=== PATIENT | male | born 1990 | race Caucasian/White ===

== ENCOUNTER 2020-10-06 12:16 | Inpatient (IN) ==
[2020-10-06] MEDS ORDERED: SODIUM CHLORIDE 0.9% 1000ML 1,000 ML IV ONE (12:39)
[2020-10-06] MEDS ORDERED: ONDANSETRON INJ 2 MG/ML 2 ML VIAL IV STA ×2 (12:39→14:51)
[2020-10-06 13:50] LABS: Basophils # (auto) 0.03 K/uL (0-0.2); Basophils % (auto) 0.3 %; Eosinophils # (auto) 0.01 K/uL (0-0.5); Eosinophils % (auto) 0.1 %; Hematocrit (blood only) 35.7 % (42-52); Hemoglobin 12.2 g/dL (14.0-18.0); Immature Granulocytes # (auto) 0.03 K/uL (0.00-0.02); Immature Granulocytes % (auto) 0.3 %; Lymphocytes # (auto) 0.86 K/uL (1.2-3.4); Lymphocytes % (auto) 7.2 %; Mean Corpuscular Hemoglobin 34.9 pg (25-34); Mean Corpuscular Hgb Conc 34.2 g/dL (32-36); Mean Platelet Volume 9.9 fL (7.4-10.4); Monocytes # (auto) 1.22 K/uL (0.11-0.59); Monocytes % (auto) 10.2 %; Neutrophils % (auto) 81.9 %; Platelet Count 180 K/uL (130-400); RDW Coefficient of Variation 14.8 % (11.5-14.5); RDW Standard Deviation 55.1 fL (36.4-46.3); White Blood Count 11.95 K/uL (4.8-10.8)
[2020-10-06 14:01] LABS: INR 2.1 (0.9-1.1); Partial Thromboplastin Ratio 1.2; Partial Thromboplastin Time 33.9 Seconds (21.0-31.0); Prothrombin Time 21.5 Seconds (9.0-12.0)
[2020-10-06 14:41] LABS: Bilirubin Direct 7.4 mg/dl (0-0.2)
[2020-10-06 14:42] LABS: Albumin Level 2.7 gm/dl (3.4-5.0); BUN Creatinine Ratio 5.7 (10-20); Bilirubin,Total 10.3 mg/dl (0.2-1); Calcium 7.6 mg/dl (8.5-10.1); Creatinine Clr Calc Pharmacy 122.1 ml/min; Est GFR (African American) 134.3; Est GFR (Non-African American) 115.9; Potassium 1.8 mmol/L (3.5-5.1); Total Protein 6.1 gm/dl (6.4-8.2)
[2020-10-06] MEDS ORDERED: IOVERSOL 100ml IV ONE (14:49)
[2020-10-06] MEDS ORDERED: MULTI-VITAMIN INFUSION 10 ML, THIAMINE HCL 100 MG, FOLIC ACID 1 MG in SODIUM CHLORIDE 0... IV ONE (14:51)
[2020-10-06] MEDS ORDERED: POTASSIUM CHLORIDE 20 MEQ/15 ML UDC PO STA ×2 (14:51→18:48)
--- NOTE | 2020-10-06 15:08 | CT Scan Report ---
ABDOMEN AND PELVIS CT WITH IV CONTRAST CT DOSE: 584.56 mGycm HISTORY: Acute epigastric abdominal pain with nausea, vomiting and jaundice. epigastric pain, vomiti ng, jaundice TECHNIQUE: Multiaxial CT images of the abdomen and pelvis were performed following the IV administrat ion of 94 cc of Optiray 320, A dose lowering technique was utilized adhering to the principles of [place] HOLLIE. COMPARISON STUDY: None. FINDINGS: The imaged inferior cardiac chambers appear unremarkable. Clear lung bases. There is no pne umatosis or pneumoperitoneum. Hepatosplenomegaly with severe hepatic steatosis. Heterogeneity of the liver without discrete hepatic mass or intrahepatic biliary ductal dilation. Patency of the hepatic a nd portal veins. Mildly distended gallbladder with mild gallbladder wall thickening. No cholelithiasi s or biliary ductal dilation. Unremarkable pancreas. Mild thickening of the adrenal glands suggestive of hyperplasia, left greater than right. There are a few prominent upper abdominal and periportal ly mph nodes are likely physiologic basis. Unremarkable kidneys. No urolith or obstructive uropathy. Partial distention of the urinary bladder w ith mild wall thickening. No aortic aneurysm. Unremarkable IVC. Recanalization of the umbilical vein. Trace abdominal pelvic ascites. Mild distal esophageal wall thickening. Trace periesophageal varices . There is no bowel obstruction. Colonic diverticulosis. There is mild wall thickening noted within t he rectum and sigmoid. There is a prominent sigmoid diverticulum noted extending towards the base of the prostate on image 392 series 3. No definitive sinus tract or fistula identified. The appendix sharla sures the upper limits of normal proximally however appears noninflamed. Unremarkable soft tissues. No acute fracture. IMPRESSION: 1. Hepatosplenomegaly with severe hepatic steatosis. Findings suggestive of portal venous hypertensio n with recanalization of the umbilical vein and trace abdominopelvic ascites. 2. Mild wall thickening of the distal sigmoid and rectum may be secondary to partial distention versu s portal colopathy. A nonspecific proctocolitis could appear similarly. 3. Mildly distended gallbladder without cholelithiasis or biliary ductal dilation. 4. Colonic diverticulosis. 5. Additional findings as above. ACT 112: Negative or not required by law. The above report was generated using voice recognition software. It may contain grammatical, syntax o r spelling errors. Electronically signed by: Magdaleno Koroma M.D. 10/06/2020 3:07 PM
[2020-10-06 15:18] LABS: Phosphorus 2.5 mg/dl (2.5-4.9)
[2020-10-06] MEDS: POTASSIUM CHLORIDE / WTR 10 MEQ/100 ML PLCT IV SCH ×4 (15:26→22:06)
--- NOTE | 2020-10-06 15:41 | Emergency Department Note ---
History of Present Illness General Chief complaint: Weakness Time Seen by Provider: 10/06/20 12:29 Source: patient Mode of arrival: EMS Limitations: no limitations History of Present Illness Maximum Pain Intensity: 3 This patient is a 30-year-old male who presents to the emergency department for evaluation of jaundice, fatigue and vomiting. Patient reports that 4 days ago, he was at [facility] with his girlfriend when they noticed in the bright lights that he seemed to be jaundiced. He states that the same day, he developed some vomiting which has been intermittent since then. He also reports abdominal swelling and pain in the right upper quadrant and epigastric region. Patient states that he feels fatigued. He does report a history of some similar stomach issues and was diagnosed with gastritis last year, which resolved with treatment. He admits that he is a regular drinker and states that he drinks 3 to 4 days/week, 3-4 drinks of rum and Coke each time. Patient denies any IV drug use. Denies any history of hepatitis. Denies excessive Tylenol use. He denies fevers, chest pain, cough or shortness of breath. Home Medications Medication Instructions Recorded Confirmed Type buspirone 7.5 mg tablet 7.5 mg PO BID 07/19/20 10/06/20 History fluoxetine 40 mg capsule 40 mg PO QAM 07/19/20 10/06/20 History ondansetron HCl 4 mg tablet 4 mg PO Q8H PRN 07/19/20 10/06/20 History Allergies Allergy/AdvReac Type Severity Reaction Status Date / Time No Known Allergies Allergy Unverified 10/06/20 14:37 Past Med/Surg History Medical History Anxiety Depression Hypokalemia Panic attacks Social History Smoking Status: Never smoker Hx Alcohol Use: Yes Alcohol type: hard liquor Alcohol Intake Frequency Comment: 3-5 X weekly Hx Substance Use: No Preferred Language: Macanese Communication Ability: Effective Report Manager Required: No Beliefs That Will Affect Care: None Current Living Situation: Significant Other current occupational status: employed Other Information That Helps Us Care for You: No Feels Safe at Home: Yes Safety Concerns: Feels Safe At This Time Physical Activity Frequency: Does not Exercise Assistive Devices: Glasses Review of Systems A total of 10 systems reviewed and were otherwise negative Physical Exam Vital Signs Vital Signs - 24 hr 10/06/20 12:24 10/06/20 12:30 10/06/20 13:07 Temperature 37.4 C Temperature Source Oral Pulse Rate 107 H 108 H 109 H Respiratory Rate 21 20 12 Respiratory Depth Normal Blood Pressure 128/82 128/82 128/79 Blood Pressure Mean 92 97 89 Pulse Oximetry 94 96 98 Oxygen Delivery Method Room Air Sepsis Recent Fever Within 48 Hours Yes Sepsis New/Unexplained Change in Mental Status No Sepsis Action Taken by Nursing No Action Required 10/06/20 13:31 10/06/20 14:01 10/06/20 14:02 Temperature Temperature Source Pulse Rate 105 H 106 H 105 H Respiratory Rate 17 14 16 Respiratory Depth Blood Pressure 127/72 122/76 Blood Pressure Mean 84 88 Pulse Oximetry Oxygen Delivery Method Sepsis Recent Fever Within 48 Hours Sepsis New/Unexplained Change in Mental Status Sepsis Action Taken by Nursing 10/06/20 14:30 10/06/20 14:31 10/06/20 15:00 Temperature Temperature Source Pulse Rate 105 H 105 H 106 H Respiratory Rate 16 18 17 Respiratory Depth Blood Pressure 122/77 Blood Pressure Mean 92 Pulse Oximetry Oxygen Delivery Method Sepsis Recent Fever Within 48 Hours Sepsis New/Unexplained Change in Mental Status Sepsis Action Taken by Nursing 10/06/20 15:01 10/06/20 15:30 10/06/20 15:31 Temperature Temperature Source Pulse Rate 107 H 119 H 114 H Respiratory Rate 19 23 20 Respiratory Depth Blood Pressure 114/70 119/65 Blood Pressure Mean 80 76 Pulse Oximetry Oxygen Delivery Method Sepsis Recent Fever Within 48 Hours Sepsis New/Unexplained Change in Mental Status Sepsis Action Taken by Nursing VITALS: Vitals are noted on the nurse's note and reviewed by myself. GENERAL: This is a 30-year-old male, in no acute distress, visibly jaundiced. SKIN: Skin is visibly jaundiced. HEAD: Normocephalic atraumatic. EARS: External auditory canals clear, tympanic membranes pearly hoover without erythema or effusion bilaterally. EYES: Pupils equal round and reactive to light and accommodation. Scleral icterus noted. NOSE: Patent, turbinates without inflammation or discharge. MOUTH: Mucous membranes moist. Tonsils are not enlarged. Pharynx without erythema or exudate. NECK: Supple without nuchal rigidity. No lymphadenopathy. HEART: Regular rate and rhythm without murmurs gallops or rubs. LUNGS: Clear to auscultation bilaterally without wheezes, rales or rhonchi. ABDOMEN: Positive bowel sounds x 4. Abdomen is mildly distended. There is epigastric tenderness to palpation. No guarding or rebound tenderness. NEURO: Patient was alert and oriented to person place and time. Course Consultations Consultation #1: Dr. Lang - [facility] hospitalist Consultation #2: Ramirez Wan - GI Administered Medications Buspirone HCl (Buspirone 7.5 Mg Tab) 7.5 mg PO BID [facility] Stop: 11/05/20 20:59 Last Admin: 10/07/20 20:14 Dose: 7.5 mg Documented by: [id number] Admin: 10/07/20 08:17 Dose: 7.5 mg Documented by: [id number] Admin: 10/06/20 21:56 Dose: 7.5 mg Documented by: [id number] Calcium Carbonate (Calcium Carbonate 500 Mg Chewable Tab) 500 mg PO Q6 PRN PRN Reason: Indigestion Stop: 11/05/20 23:22 Last Admin: 10/06/20 23:35 Dose: 500 mg Documented by: [id number] Fluoxetine HCl (Fluoxetine Hcl 20 Mg Cap) 40 mg PO QAM [facility] Stop: 11/06/20 08:59 Last Admin: 10/07/20 08:18 Dose: 40 mg Documented by: [id number] Folic Acid (Folic Acid 1 Mg Tab) 1 mg PO QAM [facility] Stop: 11/06/20 08:59 Last Admin: 10/07/20 08:18 Dose: 1 mg Documented by: [id number] Multivitamins ([facility]ivitamin Tab) [facility] Stop: 11/06/20 08:59 Last Admin: 10/07/20 08:17 Dose: 1 tab Documented by: [id number] Pantoprazole Sodium (Pantoprazole 40 Mg Tab) [facility] [place] Stop: 10/10/20 09:01 Last Admin: 10/07/20 08:18 Dose: 40 mg Documented by: [id number] Prednisolone (Prednisolone Syrup 15 Mg/5 Ml Btl) 40 mg PO DAILY [facility] Stop: 11/06/20 08:59 Last Admin: 10/07/20 08:17 Dose: 40 mg Documented by: [id number] Thiamine HCl (Thiamine Hcl 100 Mg Tab) 100 mg PO QAM [facility] Stop: 11/06/20 08:59 Last Admin: 10/07/20 08:18 Dose: 100 mg Documented by: [id number] Discontinued Medications Sodium Chloride (Nss 1000ml) 1,000 mls @ 999 mls/hr IV .Q1H1M ONE Stop: 10/06/20 13:39 Last Infusion: 10/06/20 15:18 Dose: 0 mls/hr Documented by: [id number] Admin: 10/06/20 13:55 Dose: 999 mls/hr Documented by: [id number] Multivitamins 10 ml/ Thiamine HCl 100 mg/ Folic Acid 1 mg/Sodium Chloride 1,011.2 mls @ 1,011.2 mls/hr IV .Q1H ONE Stop: 10/06/20 15:50 Last Infusion: 10/06/20 16:45 Dose: 0 mls/hr Documented by: [id number] Admin: 10/06/20 15:26 Dose: 1,011.2 mls/hr Documented by: [id number] Potassium Chloride (K Dong / Wtr) 10 meq in 100 mls @ 100 mls/hr IV Q1H [facility] Stop: 10/06/20 16:59 Last Infusion: 10/06/20 17:30 Dose: 0 mls/hr Documented by: [id number] Admin: 10/06/20 15:57 Dose: 100 mls/hr Documented by: [id number] Infusion: 10/06/20 15:57 Dose: 100 mls/hr Documented by: [id number] Admin: 10/06/20 15:26 Dose: 100 mls/hr Documented by: [id number] Magnesium Sulfate/Dextrose (Magnesium Sulfate / D5w) 1 gm in 100 mls @ 100 mls/hr IV Q1H [facility] Stop: 10/06/20 17:20 Last Infusion: 10/06/20 18:28 Dose: 0 mls/hr Documented by: [id number] Admin: 10/06/20 16:53 Dose: 100 mls/hr Documented by: [id number] Infusion: 10/06/20 16:53 Dose: 0 mls/hr Documented by: [id number] Admin: 10/06/20 15:57 Dose: 100 mls/hr Documented by: [id number] Potassium Chloride (K Dong / Wtr) 10 meq in 100 mls @ 100 mls/hr IV ONE ONE Stop: 10/06/20 19:46 Last Infusion: 10/06/20 20:16 Dose: 0 mls/hr Documented by: [id number] Admin: 10/06/20 19:14 Dose: 100 mls/hr Documented by: [id number] Potassium Chloride (K Dong / Wtr) 10 meq in 100 mls @ 100 mls/hr IV Q1H [facility] Stop: 10/06/20 20:59 Last Infusion: 10/06/20 23:07 Dose: 0 mls/hr Documented by: [id number] Admin: 10/06/20 22:06 Dose: 100 mls/hr Documented by: [id number] Infusion: 10/06/20 20:16 Dose: 0 mls/hr Documented by: [id number] Admin: 10/06/20 19:14 Dose: 100 mls/hr Documented by: [id number] Potassium Chloride (K Dong / Wtr) 10 meq in 100 mls @ 100 mls/hr IV Q1H [facility] Stop: 10/07/20 09:02 Last Infusion: 10/07/20 10:38 Dose: 0 mls/hr Documented by: [id number] Admin: 10/07/20 09:35 Dose: 85 mls/hr Documented by: [id number] Infusion: 10/07/20 09:35 Dose: 0 mls/hr Documented by: [id number] Admin: 10/07/20 08:18 Dose: 85 mls/hr Documented by: [id number] Infusion: 10/07/20 08:18 Dose: 85 mls/hr Documented by: [id number] Admin: 10/07/20 07:33 Dose: 85 mls/hr Documented by: [id number] Infusion: 10/07/20 07:33 Dose: 85 mls/hr Documented by: [id number] Admin: 10/07/20 06:22 Dose: 85 mls/hr Documented by: [id number] Infusion: 10/07/20 06:22 Dose: 85 mls/hr Documented by: [id number] Admin: 10/07/20 05:11 Dose: 85 mls/hr Documented by: [id number] Infusion: 10/07/20 04:46 Dose: 100 mls/hr Documented by: [id number] Admin: 10/07/20 03:46 Dose: 100 mls/hr Documented by: [id number] Magnesium Sulfate/Dextrose (Magnesium Sulfate / D5w) 1 gm in 100 mls @ 50 mls/hr IV Q2H [facility] Stop: 10/07/20 10:59 Last Infusion: 10/07/20 10:38 Dose: 0 mls/hr Documented by: [id number] Admin: 10/07/20 08:17 Dose: 50 mls/hr Documented by: [id number] Infusion: 10/07/20 08:17 Dose: 50 mls/hr Documented by: [id number] Admin: 10/07/20 07:33 Dose: 50 mls/hr Documented by: [id number] Influenza Virus Vaccine Quadrival (Influenza Virus Quad Vaccine 0.5 Ml Syr) 0.5 ml IM .ONCE ONE Stop: 10/06/20 21:01 Last Admin: 10/07/20 12:20 Dose: 0.5 ml Documented by: [id number] Ioversol (Ioversol 100ml) 94 ml IV ONCE ONE Stop: 10/06/20 14:50 Last Admin: 10/06/20 14:50 Dose: 94 ml Documented by: [id number] Ondansetron HCl (Ondansetron Inj 2 Mg/Ml 2 Ml Vial) 4 mg IV NOW STA Stop: 10/06/20 12:40 Last Admin: 10/06/20 13:55 Dose: 4 mg Documented by: [id number] Ondansetron HCl (Ondansetron Inj 2 Mg/Ml 2 Ml Vial) 4 mg IV NOW STA Stop: 10/06/20 14:52 Last Admin: 10/06/20 15:57 Dose: 4 mg Documented by: [id number] Potassium Chloride (Potassium Chloride 20 Meq/15 Ml Udc) 40 meq PO NOW STA Stop: 10/06/20 14:52 Last Admin: 10/06/20 15:26 Dose: 40 meq Documented by: [id number] Potassium Chloride (Potassium Chloride 20 Meq/15 Ml Udc) 20 meq PO NOW STA Stop: 10/06/20 18:49 Last Admin: 10/06/20 19:14 Dose: 20 meq Documented by: [id number] Potassium Chloride (Potassium Chloride Crtab 20 Meq Tabcr) 40 meq PO NOW STA Stop: 10/06/20 22:48 Last Admin: 10/06/20 23:19 Dose: 40 meq Documented by: [id number] Potassium Chloride (Potassium Chloride Crtab 20 Meq Tabcr) 40 meq PO NOW STA Stop: 10/07/20 03:04 Last Admin: 10/07/20 03:47 Dose: 40 meq Documented by: [id number] Potassium Chloride (Potassium Chloride 10 Meq Tabcr) 50 meq PO BID [facility] Stop: 10/07/20 21:01 Last Admin: 10/07/20 20:13 Dose: 50 meq Documented by: [id number] Admin: 10/07/20 16:15 Dose: 50 meq Documented by: [id number] Critical Care Time Critical Care Time: Yes Total Critical Care Time: 40 I have personally spent greater than 40 minutes of critical care time in the direct management of this patient. This includes bedside care, interpretation of diagnostic studies, and testing, discussion with consultants, patient, and family members, and other required patient management activities. This 40 minutes is in excess of all separately billable procedures. Medical Decision Making Differential Diagnosis Differential diagnosis includes alcoholic hepatitis, hepatitis C, choledocholithiasis, pancreatitis, mass/malignancy, cholangitis, among others. Home Medications Current Medication List: was personally reviewed by me Laboratory Data Attestation: I reviewed the patient's lab results. Result diagrams: 10/07/20 02:07 10/07/20 10:00 Lab Results 10/06/20 10/06/20 10/06/20 Range/Units 12:44 13:30 13:30 WBC 11.95 H (4.8-10.8) K/uL RBC 3.50 L (4.7-6.1) M/uL Hgb 12.2 L (14.0-18.0) g/dL Hct 35.7 L (42-52) % MCV 102.0 H (80-100) fL MCH 34.9 H (25-34) pg MCHC 34.2 (32-36) g/dL RDW Std Deviation 55.1 H (36.4-46.3) fL RDW Coeff of Cali 14.8 H (11.5-14.5) % Plt Count 180 (130-400) K/uL MPV 9.9 (7.4-10.4) fL Immature Gran % (Auto) 0.3 % Neut % (Auto) 81.9 % Lymph % (Auto) 7.2 % [place] % (Auto) 10.2 % Eos % (Auto) 0.1 % Baso % (Auto) 0.3 % Neut # (Auto) 9.80 H (1.4-6.5) K/uL Lymph # (Auto) 0.86 L (1.2-3.4) K/uL [place] # (Auto) 1.22 H (0.11-0.59) K/uL Eos # (Auto) 0.01 (0-0.5) K/uL Baso # (Auto) 0.03 (0-0.2) K/uL Immature Gran # (Auto) 0.03 H (0.00-0.02) K/uL PT 21.5 H (9.0-12.0) Seconds INR 2.1 H (0.9-1.1) APTT 33.9 H (21.0-31.0) Seconds PTT Ratio 1.2 Sodium (136-145) mmol/L Potassium (3.5-5.1) mmol/L Chloride (98-107) mmol/L Carbon Dioxide (21-32) mmol/L Anion Gap (3-11) BUN (7-18) mg/dl Creatinine (0.6-1.4) mg/dl Est Cr Clr Drug Dosing ml/min Est GFR ( Amer) Est GFR (Non-Af Amer) BUN/Creatinine Ratio (10-20) Glucose (70-99) mg/dl Calcium (8.5-10.1) mg/dl Phosphorus (2.5-4.9) mg/dl Magnesium (1.8-2.4) mg/dl Total Bilirubin (0.2-1) mg/dl Direct Bilirubin (0-0.2) mg/dl AST (15-37) U/L ALT (12-78) U/L Alkaline Phosphatase (45-117) U/L Total Protein (6.4-8.2) gm/dl Albumin (3.4-5.0) gm/dl Lipase (73-393) U/L Acetaminophen (10-30) ug/ml Ethyl Alcohol mg/dL < 3.0 (0-3) mg/dl Hep Bs Antigen (Neg) Hepatitis C Antibody (Neg) 10/06/20 10/06/20 10/06/20 Range/Units 13:30 13:30 15:35 WBC (4.8-10.8) K/uL RBC (4.7-6.1) M/uL Hgb (14.0-18.0) g/dL Hct (42-52) % MCV (80-100) fL MCH (25-34) pg MCHC (32-36) g/dL RDW Std Deviation (36.4-46.3) fL RDW Coeff of Cali (11.5-14.5) % Plt Count (130-400) K/uL MPV (7.4-10.4) fL Immature Gran % (Auto) % Neut % (Auto) % Lymph % (Auto) % [place] % (Auto) % Eos % (Auto) % Baso % (Auto) % Neut # (Auto) (1.4-6.5) K/uL Lymph # (Auto) (1.2-3.4) K/uL [place] # (Auto) (0.11-0.59) K/uL Eos # (Auto) (0-0.5) K/uL Baso # (Auto) (0-0.2) K/uL Immature Gran # (Auto) (0.00-0.02) K/uL PT (9.0-12.0) Seconds INR (0.9-1.1) APTT (21.0-31.0) Seconds PTT Ratio Sodium 130 L (136-145) mmol/L Potassium 1.8 L* (3.5-5.1) mmol/L Chloride 74 L (98-107) mmol/L Carbon Dioxide 48 H* (21-32) mmol/L Anion Gap 8 (3-11) BUN 5 L (7-18) mg/dl Creatinine 0.84 (0.6-1.4) mg/dl Est Cr Clr Drug Dosing 122.1 ml/min Est GFR ( Amer) 134.3 Est GFR (Non-Af Amer) 115.9 BUN/Creatinine Ratio 5.7 L (10-20) Glucose 93 (70-99) mg/dl Calcium 7.6 L (8.5-10.1) mg/dl Phosphorus 2.5 (2.5-4.9) mg/dl Magnesium 1.0 L (1.8-2.4) mg/dl Total Bilirubin 10.3 H (0.2-1) mg/dl Direct Bilirubin 7.4 H (0-0.2) mg/dl AST 190 H (15-37) U/L ALT 16 (12-78) U/L Alkaline Phosphatase 186 H (45-117) U/L Total Protein 6.1 L (6.4-8.2) gm/dl Albumin 2.7 L (3.4-5.0) gm/dl Lipase 211 (73-393) U/L Acetaminophen (10-30) ug/ml Ethyl Alcohol mg/dL (0-3) mg/dl Hep Bs Antigen Neg (Neg) Hepatitis C Antibody Neg (Neg) 10/06/20 Range/Units 16:51 WBC (4.8-10.8) K/uL RBC (4.7-6.1) M/uL Hgb (14.0-18.0) g/dL Hct (42-52) % MCV (80-100) fL MCH (25-34) pg MCHC (32-36) g/dL RDW Std Deviation (36.4-46.3) fL RDW Coeff of [place] (11.5-14.5) % Plt Count (130-400) K/uL MPV (7.4-10.4) fL Immature Gran % (Auto) % Neut % (Auto) % Lymph % (Auto) % [place] % (Auto) % Eos % (Auto) % Baso % (Auto) % Neut # (Auto) (1.4-6.5) K/uL Lymph # (Auto) (1.2-3.4) K/uL [place] # (Auto) (0.11-0.59) K/uL Eos # (Auto) (0-0.5) K/uL Baso # (Auto) (0-0.2) K/uL Immature Gran # (Auto) (0.00-0.02) K/uL PT (9.0-12.0) Seconds INR (0.9-1.1) APTT (21.0-31.0) Seconds PTT Ratio Sodium (136-145) mmol/L Potassium (3.5-5.1) mmol/L Chloride (98-107) mmol/L Carbon Dioxide (21-32) mmol/L Anion Gap (3-11) BUN (7-18) mg/dl Creatinine (0.6-1.4) mg/dl Est Cr Clr Drug Dosing ml/min Est GFR ( Amer) Est GFR (Non-Af Amer) BUN/Creatinine Ratio (10-20) Glucose (70-99) mg/dl Calcium (8.5-10.1) mg/dl Phosphorus (2.5-4.9) mg/dl Magnesium (1.8-2.4) mg/dl Total Bilirubin (0.2-1) mg/dl Direct Bilirubin (0-0.2) mg/dl AST (15-37) U/L ALT (12-78) U/L Alkaline Phosphatase (45-117) U/L Total Protein (6.4-8.2) gm/dl Albumin (3.4-5.0) gm/dl Lipase (73-393) U/L Acetaminophen (10-30) ug/ml Ethyl Alcohol mg/dL (0-3) mg/dl Hep Bs Antigen (Neg) Hepatitis C Antibody (Neg) Imaging Data Attestation: I personally reviewed and interpreted this imaging study as follows: Radiologist's Impression: ABDOMEN AND PELVIS CT WITH IV CONTRAST FINDINGS: The imaged inferior cardiac chambers appear unremarkable. Clear lung bases. There is no pneumatosis or pneumoperitoneum. Hepatosplenomegaly with severe hepatic steatosis. Heterogeneity of the liver without discrete hepatic mass or intrahepatic biliary ductal dilation. Patency of the hepatic and portal veins. Mildly distended gallbladder with mild gallbladder wall thickening. No cholelithiasis or biliary ductal dilation. Unremarkable pancreas. Mild thickening of the adrenal glands suggestive of hyperplasia, left greater than right. There are a few prominent upper abdominal and periportal lymph nodes are likely physiologic basis. Unremarkable kidneys. No urolith or obstructive uropathy. Partial distention of the urinary bladder with mild wall thickening. No aortic aneurysm. Unremarkable IVC. Recanalization of the umbilical vein. Trace abdominal pelvic ascites. Mild distal esophageal wall thickening. Trace periesophageal varices. There is no bowel obstruction. Colonic diverticulosis. There is mild wall thickening noted within the rectum and sigmoid. There is a prominent sigmoid diverticulum noted extending towards the base of the prostate on image 392 series 3. No definitive sinus tract or fistula identified. The appendix measures the upper limits of normal proximally however appears noninflamed. Unremarkable soft tissues. No acute fracture. IMPRESSION: 1. Hepatosplenomegaly with severe hepatic steatosis. Findings suggestive of portal venous hypertension with recanalization of the umbilical vein and trace abdominopelvic ascites. 2. Mild wall thickening of the distal sigmoid and rectum may be secondary to partial distention versus portal colopathy. A nonspecific proctocolitis could appear similarly. 3. Mildly distended gallbladder without cholelithiasis or biliary ductal dilation. 4. Colonic diverticulosis. 5. Additional findings as above. ECG Data Attestation: I personally reviewed and interpreted this ECG as follows: Indication: + weakness Rate (beats per minute): 112 Rhythm: + sinus tachycardia ECG Intervals/blocks: + First degree AV block and + Prolonged QT ECG ST segments: + Nonspecific ST abnormalities Comparison ECG Date: no prior available MDM Narrative Continuous operations manager assistant: Order was placed for continuous operations manager assistant. Patient was placed on the operations manager assistant. Patient was noted to be in normal sinus rhythm at an initial rate of 108 bpm. The patient is a 30-year-old male who presents today complaining of new jaundice, weakness, vomiting and abdominal pain/bloating. Patient is a moderately heavy drinker. Labs revealed an elevated bilirubin of 10.3, AST 190, ALT 16 and alkaline phosphatase 186 consistent with alcoholic hepatitis. INR was found to be elevated at 2.1. Hepatitis panel was ordered. CT of the abdomen/pelvis showed severe hepatic steatosis and findings suggestive of portal venous hypertension. No gallstones or biliary ductal dilatation noted. Patient presented with multiple electrolyte abnormalities consistent with alcohol consumption and vomiting. Initial potassium was 1.8, bicarb 48, chloride 74, sodium 130 and magnesium 1.0. Patient received 1 L of IV normal saline, a banana bag, 40 mEq oral potassium as well as 20 mEq IV potassium, 10 mEq to each IV. He was given 2 g IV magnesium. The case was discussed with both GI and the [facility] hospitalist service, who agreed to evaluate the patient for further care. The patient's case was discussed with Dr. Rodriguez, who agreed with my evaluation and treatment plan. Impression & Plan Alcoholic hepatitis, Hypokalemia, Hypomagnesemia, Vomiting Discharge Plan Visit Data Chief Complaint: Weakness ED Provider: Karina Rodriguez ED Midlevel Provider: Lora Bui Discharge Problem: Alcoholic hepatitis, Hypokalemia, Hypomagnesemia, Vomiting Patient Disposition: Admitted As Inpatient Discharge Instructions Interventions: ED Discharge Assessment Last Done: 10/06/20 20:03 Discharge Problem: Alcoholic hepatitis Qualifiers: Ascites presence: with ascites Qualified Code(s): K70.11 - Alcoholic hepatitis with ascites Vomiting Qualifiers: Vomiting type: unspecified Vomiting Intractability: non-intractable Nausea presence: with nausea Qualified Code(s): R11.2 - Nausea with vomiting, unspecified
[2020-10-06] MEDS: MAGNESIUM SULFATE / D5W 1 GM/100 ML BAG IV SCH ×2 (15:57→16:53)
[2020-10-06] MEDS ORDERED: prednisoLONE 15 MG/5 ML UDP PO ONE (16:13)
--- NOTE | 2020-10-06 16:20 | Gastrointestinal Consultation ---
Date of Consultation October 06, 2020 Assessment & Plan (1) Alcoholic hepatitis: Elevated LFTs, jaundice, hepatomegaly, most consistent with alcoholic hepatitis. DF = 56. Biliary US to r/o choledocholithiasis Doppler US to r/o PVT Follow LFTs, INR daily. Recheck lipase tomorrow morning. Complete alcohol abstention. Discussed reasons for this and warned of from liver disease - possibly in the next 12 months, if does not stop drinking. Pt indicates willingness to abstain. Thiamine Folate Prednisolone 40mg po daily. Low salt diet. Appreciate correction of metabolic derangements by primary hospitalists service. Present on Admission?: Yes Supervising Physician Co-Signing Physician Notes I performed a history and physical examination of the patient today, including specifically on physical exam - soft abdomen. I have discussed the patient's management with the advanced practitioner. Please refer to the nurse practitioner's note for the documented findings and plan of care. Alcoholic Hep, will treat with steroids. Repeat labs on day 7 to check improvement. History of Present Illness Reason for Consultation: Elevated LFTs Requesting Physician: ED physician Attending Physician: [facility] History of Present Illness Mr. Omar Turk is a 30 yr old male pt of DR. Dang with a hx of anxiety/depression, recently well controlled on mediation but an otherwise unremarkable PMH who admits to drinking increased amt of alcohol, approx 3-4 two oz rum/wk, 3-4 x/week. He presented to the ED today because he has yellow eye/skin. He first noticed the yellow skin on Saturday. He has has nausea, vomiting intermittently since Saturday, and unable to hold foods/liquids down despite being thirst since then. No blood in emesis or BMs. Passing solid brown BMs. No confusion. Most recent drink was Saturday. He does have a slight tremor of his hands but tells me that he always has this. He has had an enlarged abdomen and says this is better today. No constipation. On arrival: WBC 11, Hb 12.2,Hct 35.7, T Bili 10.3, D Bili 7.4 AST 190, ALT 16, Alk Phos 180. INR 2.1. He is awake, alert, oriented, with minimal abdominal discomfort. No prior hx of elevated LFTs. No fam hx of liver dx. No recreational drug use. No tylenol use. Occasional ibuprofen for headaches. Allergies Allergy/AdvReac Type Severity Reaction Status Date / Time No Known Allergies Allergy Unverified 10/06/20 14:37 Home Medications Medication Instructions Recorded Confirmed Type buspirone 7.5 mg tablet 7.5 mg PO BID 07/19/20 10/06/20 History fluoxetine 40 mg capsule 40 mg PO QAM 07/19/20 10/06/20 History ondansetron HCl 4 mg tablet 4 mg PO Q8H PRN 07/19/20 10/06/20 History Patient History Medical History Anxiety Depression Hypokalemia Panic attacks Social History Smoking Status: Never smoker Hx Alcohol Use: Yes Alcohol type: hard liquor Alcohol Intake Frequency Comment: 3-5 X weekly Hx Substance Use: No Preferred Language: [place] Communication Ability: Effective Loan Documentation Specialist Required: No Beliefs That Will Affect Care: None Current Living Situation: Significant Other current occupational status: employed Other Information That Helps Us Care for You: No Feels Safe at Home: Yes Safety Concerns: Feels Safe At This Time Physical Activity Frequency: Does not Exercise Assistive Devices: None Review of Systems Review of Systems: ROS: Gen: Denies weakness, fevers + lost about 60lbs weight loss in the past year with exercise but easier than expected. Eyes: No eye redness, or pain, no recent vision changes Resp: No SOB, no cough Cardio: No palpitations/irregular beats, no chest pain GI: Had "gastritis" in Oct 2019 (no prior endoscopy) Currently no abdominal pain, no nausea/vomiting : Denies pain on urination Skin: No jaundice, itching or new rashes Physical Exam Constitutional: WD/WN, vitals as above Eyes: + icterus ENMT: external ear and nose normal, oropharynx normal Neck: trachea midline, no thyromegaly Respiratory: normal respiratory effort, lungs clear to auscultation Cardiovascular: RRR, no murmur, no edema Gastrointestinal (Abdomen): Inspection/Auscultation: + abdomen distended (mildly); no abdominal edema Percussion/Palpation: + abdomen tender (the liver border is palpable 3 fingers below the Right Costal Border.) and abdomen soft Musculoskeletal: no cyanosis or clubbing, extremities motor strength 5/5 Skin: + jaundice approx 10 tiny spider angiomas on the upper chest Neurologic: PERRL, EOMI, accommodation nl, no face palsy, no dysarthria Psychiatric: A+Ox3, euthymic affect Lymphatic: no cervical or axillary lymphadenopathy Results & Data ([facility]) Vital Signs (Past 12 Hours) Vital Signs Temp Pulse Resp BP Pulse Ox 10/06/20 15:31 114 H 20 119/65 10/06/20 15:30 119 H 23 10/06/20 15:01 107 H 19 114/70 10/06/20 15:00 106 H 17 10/06/20 14:31 105 H 18 122/77 10/06/20 14:30 105 H 16 10/06/20 14:02 105 H 16 10/06/20 14:01 106 H 14 122/76 10/06/20 13:31 105 H 17 127/72 10/06/20 13:07 109 H 12 128/79 98 10/06/20 12:30 37.4 C 108 H 20 128/82 96 10/06/20 12:24 107 H 21 128/82 94 Laboratory Results See HPI Diagnostic Findings CT with IV contrast: 1. Hepatosplenomegaly with severe hepatic steatosis. Findings suggestive of portal venous hypertension with recanalization of the umbilical vein and trace abdominopelvic ascites. 2. Mild wall thickening of the distal sigmoid and rectum may be secondary to partial distention versus portal colopathy. A nonspecific proctocolitis could appear similarly. 3. Mildly distended gallbladder without cholelithiasis or biliary ductal dilation. 4. Colonic diverticulosis.
[2020-10-06] MEDS ORDERED: prednisoLONE SYRUP 15 MG/5 ML BTL PO SCH (16:30)
--- NOTE | 2020-10-06 17:19 | XRay Report ---
XR chest 1V portable HISTORY: 30 years-old Male Shortness of breath acute shortness of breath COMPARISON: CT abdomen and pelvis of same day TECHNIQUE: Portable upright AP view of the chest FINDINGS: Cardiomediastinal and hilar silhouettes are within normal limits. There is no pneumothorax, pleural e ffusion, airspace consolidation or overt pulmonary edema. Bones of the chest appear grossly intact. IMPRESSION: No acute process. ACT 112: Negative or not required by law. The above report was generated using voice recognition software. It may contain grammatical, syntax o r spelling errors. Electronically signed by: Magdaleno Koroma M.D. 10/06/2020 5:18 PM
--- NOTE | 2020-10-06 17:30 | History & Physical Report ---
Date of Service October 06, 2020 Assessment & Plan (1) Alcoholic hepatitis: (2) Hypokalemia: (3) Alcohol use disorder: (4) Hyponatremia: (5) Metabolic alkalosis: Admission and Anticipated Discharge Date Admission Date: Patient will require admission to the hospital. We will proceed in the following manner: The patient will require continuous cardiac monitoring due to his electrolyte deficiencies. We will check electrolytes every 4 hours and continue to administer supplementation as needed. -As noted by gastroenterology the patient will receive prednisolone 40 mg daily. -Complete abstinence from alcohol will be necessary Due to his history of alcohol use we will supplement his diet with thiamine, folic acid, and multivitamin We will use a PPI for GI prophylaxis We will repeat labs in the morning including CBC, CMP, direct bilirubin, magnesium, INR, and lipase with additional labs to be checked as needed based on future results We will follow for the results of the ultrasound studies as well as the pending lab studies ordered by the gastroenterology service GI has recommended a low-salt diet We will check an acetaminophen level and treat accordingly As the patient's INR is greater than 2 we will not order any additional DVT measures at this time I discussed CODE STATUS with this patient and he notes that event of cardiopulmonary arrest he wishes to be a level 1 full code History of Present Illness Chief Complaint: My eyes turned yellow Primary Care Provider: Kathleen Key PA-C This is a 30-year-old male who presented to the emergency department as he noted his eyes turned to yellow color approximately 4 days ago and have not improved. She was questioned and he admits to drinking approximately 3-4 nights a week and he has 3-4 drinks during this time. He denies any intravenous drug use. He denies any recent tattoos. He denies any use of acetaminophen. Patient first noticed his symptoms approximately 4 days ago. In addition he has noted nausea vomiting over the same time. Along with worsening fatigue. He also noted some right upper quadrant abdominal pain/pressure. He notes that when he urinates his urine is a dark yellow color. He denies easy bruising or bleeding. He denies any fevers, shakes, or chills. The patient notes that his most recent al coholic beverage was approximately 4 days ago. In the emergency department the patient did have labs where his white blood cell count was 11.9. Hemoglobin and hematocrit were 12.2 and 35.7. Platelet count was in normal range. His INR was noted to be 2.1. Chemistry profile showed sodium was 130, his potassium was 1.8 and his BUN and creatinine were 5 and 0.8. His magnesium was 1.0 total bilirubin was noted to be 10.3 with a direct bilirubin of 7.4. His AST was elevated at 190 with a normal ALT at 16. His alkaline phosphatase was well elevated at 186. Lipase was noted to be within the normal range. An acetaminophen level has been ordered and is pending. Alcohol level was checked and was not elevated. An EKG was performed that showed sinus tachycardia with a heart rate of approximately 112 bpm no acute ischemic changes were noted and no evidence of heart block was noted. A CT scan of the abdomen was performed that showed his hepatosplenomegaly with severe hepatic steatosis and a small amount of ascites. On the CT scan the gallbladder was distended without evidence of gallstones or biliary ductal dilatation. A chest x-ray was performed that showed no evidence of pneumonia, or CHF. In the emergency department the patient was evaluated by the gastroenterology team with whom I discussed the case. They felt based on his presentation and laboratory findings they feel the patient was suffering from alcoholic hepatitis. They have taken the liberty of ordering imaging studies including an ultrasound of the portal and hepatic veins to assess for portal vein thrombosis. They have also ordered a gallbladder and biliary ultrasound to assess for any presence of gallstones contributing to his current situation. The gastroenterology service has also ordered a TTG level, and acute hepatitis panel, and ROSENDO screen, and antimitochondrial antibody study, and an anti-smooth muscle antibody. Due to the concern for alcoholic hepatitis they have ordered prednisolone 40 mg daily and have initiated the first dose already. Due to the patient's electrolyte abnormalities he has already received a total of 20 mEq of intravenous potassium supplementation along with 40 mEq of oral potassium supplementation. He has received 2 g of intravenous magnesium supplementation. At the time of my interview with the patient he was resting comfortably in bed in no distress. Allergies Allergy/AdvReac Type Severity Reaction Status Date / Time No Known Allergies Allergy Unverified 10/06/20 14:37 Home Medications Medication Instructions Recorded Confirmed Type buspirone 7.5 mg tablet 7.5 mg PO BID 07/19/20 10/06/20 History fluoxetine 40 mg capsule 40 mg PO QAM 07/19/20 10/06/20 History ondansetron HCl 4 mg tablet 4 mg PO Q8H PRN 07/19/20 10/06/20 History folic acid 1 mg PO QAM #30 tab 10/08/20 Rx multivitamin [Daily-Danny] 1 tab PO QAM #30 tab 10/08/20 Rx prednisolone sodium phosphate 40 mg PO QAM 26 Days #104 tab 10/08/20 Rx thiamine HCl (vitamin B1) [Vitamin 100 mg PO QAM #30 tab 10/08/20 Rx B-1] Past Med/Surg History Medical History Anxiety Depression Hypokalemia Panic attacks Social History Smoking Status: Never smoker Hx Alcohol Use: Yes Alcohol type: hard liquor Alcohol Intake Frequency Comment: 3-5 X weekly Hx Substance Use: No Preferred Language: Lithuanian Communication Ability: Effective Material Control Analyst Required: No Beliefs That Will Affect Care: None Current Living Situation: Significant Other current occupational status: employed Feels Safe at Home: Yes Physical Activity Frequency: Does not Exercise Assistive Devices: None Review of Systems Constitutional: + fatigue, + malaise, + anorexia and + weight loss; no fever, no chills and no sweats Eyes: + problem reported (Scleral jaundice) Ear, Nose, Mouth, Throat: no ear pain and no tinnitus Respiratory: no cough and no dyspnea Cardiovascular: no chest pain and no palpitations Gastrointestinal: + abdominal pain (Right upper quadrant), + nausea and + vomiting; no diarrhea/loose stools Genitourinary: no hematuria Musculoskeletal: no back pain and no myalgia Integumentary: no rash Neurologic: no localized weakness Physical Exam Constitutional: well developed and well nourished; no acute distress Eyes: Scleral jaundice noted bilaterally ENMT: Ears: no hearing impairment Neck: trachea midline Respiratory: normal respiratory effort, lungs clear to auscultation Cardiovascular: Rate/Rhythm: regular rate and regular rhythm Gastrointestinal (Abdomen): Percussion/Palpation: abdomen soft; abdomen nontender Hepatomegaly appreciated on palpation Musculoskeletal: No calf tenderness. No palmar erythema noted. Skin: no rashes, warm and dry Neurologic: moves all extremities Cranial Nerves: PERRL No focal neurologic deficits noted. Psychiatric: A+Ox3, euthymic affect Results & Data Results & Data ([facility]) Vital Signs (Past 12 Hours) Vital Signs Temp Pulse Resp BP Pulse Ox 10/06/20 16:31 102 H 17 112/74 10/06/20 16:30 104 H 18 10/06/20 16:01 105 H 20 115/74 10/06/20 16:00 106 H 24 10/06/20 15:32 113 H 20 10/06/20 15:31 114 H 20 119/65 10/06/20 15:30 119 H 23 10/06/20 15:01 107 H 19 114/70 10/06/20 15:00 106 H 17 10/06/20 14:31 105 H 18 122/77 10/06/20 14:30 105 H 16 10/06/20 14:02 105 H 16 10/06/20 14:01 106 H 14 122/76 10/06/20 13:31 105 H 17 127/72 10/06/20 13:07 109 H 12 128/79 98 10/06/20 12:30 37.4 C 108 H 20 128/82 96 10/06/20 12:24 107 H 21 128/82 94 Supervising Physician Co-Signing Physician Notes I personally saw and examined the patient. I verified all gutierres points and agree with WILLIAM Bishop with the following exceptions and/or additions: 30-year-old male who presents to the ER with jaundice, abdominal distention and vomiting O/E HS 1+2, no murmurs, hepatomegaly, Chest CTAB, Abdo SNT, BS normal, no muscle aches. A/P Acute alcoholic hepatitis - appreciate management by gastroenterology. Agree with prednisolone given Maddrey's discriminant function 60.9. US for portal venous thrombosis and liver pending. Will defer MRCP if needed to r/o choledocholithiasis to GI, unlikely given lack of RUQ pain and normal lipase. Severe hypokalemia with EKG changes -suspect secondary to vomiting with chronic hypokalemia (?secondary to alcohol intake) admit to PCU, every 4 hourly potassium levels with ongoing replacement as needed. Metabolic alkalosis - suspected due to increased bicarbonate reabsorption with hypokalemia, management per hypokalemia as above, Monitor with serial BMP. PG Care Time/CCT Total # of Minutes Spent Total Time Spent with Patient: Total time spent is greater than 50% in coordination of care (as documented) at patient's floor/unit and/or counseling patient: Coding Level of Care Code 10237 Initial Inpt Care Lvl 3 Diagnoses Alcoholic hepatitis K70.10 Hypokalemia E87.6 Alcohol use disorder Hyponatremia E87.1 Metabolic alkalosis E87.3
[2020-10-06 17:40] LABS: Hepatitis B Surface Antigen Neg (Neg)
[2020-10-06 18:08] LABS: Hepatitis C IgG 13Yrs+Old_Rflx Neg (Neg)
[2020-10-06 18:44] LABS: BUN Creatinine Ratio 6.7 (10-20); Calcium 6.9 mg/dl (8.5-10.1); Creatinine Clr Calc Pharmacy 157.8 ml/min; Est GFR (African American) 149.2; Est GFR (Non-African American) 128.7; Magnesium 2.1 mg/dl (1.8-2.4); Potassium 2.3 mmol/L (3.5-5.1)
[2020-10-06] MEDS ORDERED: POTASSIUM CHLORIDE / WTR 10 MEQ/100 ML PLCT IV ONE (18:47)
--- NOTE | 2020-10-06 18:51 | Communication Note ---
Date of Service: October 06, 2020 Repeat labs were ordered after my initial encounter with the patient. I verified with the nurse that patient received 2 g of intravenous magnesium. I a lso verified with the nurse that he received 10 mEq of IV potassium x2 along with 40 mEq of oral potassium supplementation. After the supplementation his magnesium lana to 2.1 which was within the normal range. His potassium had risen to 2.3. Due to his persistent hypokalemia I will order 10 mEq of IV potassium x3 along with 20 mEq of oral potassium supplementation. His next scheduled PRP and magnesium levels are [facility]. Additional supplementation will be ordered based on repeat lab values.
[2020-10-06 19:31] LABS: Appearance Urine Clear (Clear); Bacteria Urine Automated Negative (Negative); Blood Urine Negative (Negative); Color Urine Dark Yellow; Epithelial Cell Urine Auto >30 /lpf (0-5); Glucose Urine UA Negative (Negative); Ketones Urine Negative (Negative); Leukocyte Esterase Urine Trace (Negative); Nitrite Urine Positive (Negative); RBC Urine Automated 0-4 /hpf (0-4); Specific Gravity Urine > 1.045 (1.000-1.030); Urobilinogen Urine Positive (Negative); pH Urine 8.5 (4.5-7.5)
[2020-10-06 19:41] LABS: Bilirubin Urine 3+ (Negative); Protein Urine Trace (Negative)
[2020-10-06] MEDS ORDERED: ONDANSETRON INJ 2 MG/ML 2 ML VIAL IV PRN (20:35)
[2020-10-06] MEDS ORDERED: INFLUENZA VIRUS QUAD VACCINE 0.5 ML SYR IM ONE (21:00)
[2020-10-06] MEDS ORDERED: INFLUENZA ADMINISTRATION CHARGE ONE (21:00)
[2020-10-06] MEDS: busPIRone 7.5 MG TAB PO SCH (21:56)
[2020-10-06 22:24] LABS: BUN Creatinine Ratio 6.4 (10-20); Calcium 7.3 mg/dl (8.5-10.1); Creatinine Clr Calc Pharmacy 123.6 ml/min; Est GFR (African American) 134.9; Est GFR (Non-African American) 116.4; Magnesium 1.8 mg/dl (1.8-2.4); Potassium 2.5 mmol/L (3.5-5.1)
--- NOTE | 2020-10-06 22:40 | Communication Note ---
Date of Service: October 06, 2020 Potassium now noted to be 2.5. 10 mEq of KCL ordered x 4 doses. Will continue serial labs and electrolyte supplementation as indicated by labs.
[2020-10-06] MEDS ORDERED: POTASSIUM CHLORIDE CRTAB 20 MEQ TABCR PO STA (22:47)
[2020-10-06] MEDS ORDERED: POTASSIUM CHLORIDE / WTR 10 MEQ/100 ML PLCT IV SCH (23:00)
[2020-10-06] MEDS ORDERED: CALCIUM CARBONATE 500 MG CHEWABLE TAB PO PRN (23:23)
[2020-10-07 02:20] LABS: Basophils # (auto) 0.02 K/uL (0-0.2); Basophils % (auto) 0.2 %; Eosinophils # (auto) 0.05 K/uL (0-0.5); Eosinophils % (auto) 0.5 %; Hematocrit (blood only) 35.7 % (42-52); Hemoglobin 12.4 g/dL (14.0-18.0); Immature Granulocytes # (auto) 0.02 K/uL (0.00-0.02); Immature Granulocytes % (auto) 0.2 %; Lymphocytes # (auto) 1.36 K/uL (1.2-3.4); Lymphocytes % (auto) 12.3 %; Mean Corpuscular Hemoglobin 35.6 pg (25-34); Mean Corpuscular Volume 102.6 fL (80-100); Mean Platelet Volume 9.9 fL (7.4-10.4); Monocytes # (auto) 1.17 K/uL (0.11-0.59); Monocytes % (auto) 10.6 %; Neutrophils # (auto) 8.44 K/uL (1.4-6.5); Neutrophils % (auto) 76.2 %; Platelet Count 194 K/uL (130-400); Red Blood Count 3.48 M/uL (4.7-6.1); White Blood Count 11.06 K/uL (4.8-10.8)
[2020-10-07 02:28] LABS: INR 2.1 (0.9-1.1); Prothrombin Time 21.4 Seconds (9.0-12.0)
[2020-10-07 02:49] LABS: BUN Creatinine Ratio 6.8 (10-20); Calcium 7.1 mg/dl (8.5-10.1); Creatinine Clr Calc Pharmacy 150.9 ml/min; Est GFR (African American) 146.5; Est GFR (Non-African American) 126.4; Magnesium 1.8 mg/dl (1.8-2.4); Potassium 2.7 mmol/L (3.5-5.1)
[2020-10-07 02:50] LABS: Mean Corpuscular Hgb Conc 34.7 g/dL (32-36)
[2020-10-07 02:55] LABS: Albumin Level 2.6 gm/dl (3.4-5.0); Bilirubin,Total 10.8 mg/dl (0.2-1); Total Protein 5.9 gm/dl (6.4-8.2)
[2020-10-07] MEDS ORDERED: POTASSIUM CHLORIDE CRTAB 20 MEQ TABCR PO STA (03:03)
[2020-10-07] MEDS: POTASSIUM CHLORIDE / WTR 10 MEQ/100 ML PLCT IV SCH ×6 (03:46→09:35)
--- NOTE | 2020-10-07 06:17 | Electrocardiogram Report ---
Test Reason : Blood Pressure : / mmHG Vent. Rate : 112 BPM Atrial Rate : 112 BPM P-R Int : 250 ms QRS Dur : 086 ms QT Int : 388 ms P-R-T Axes : 037 026 205 degrees QTc Int : 530 ms Sinus tachycardia with 1st degree A-V block Possible Left atrial enlargement Cannot rule out Inferior infarct , age undetermined Prolonged QT Abnormal ECG No previous ECGs available Confirmed by Eze Gregorio ([id number]) on 10/07/2020 6:17:21 AM Referred By: DAGOBERTO Confirmed By:Eze Gregorio
[2020-10-07 06:30] LABS: Alanine Aminotransferase 12 U/L (12-78); Albumin Globulin Ratio 0.8 (0.9-2); Albumin Level 2.3 gm/dl (3.4-5.0); Alkaline Phosphatase 150 U/L (45-117); Aspartate Aminotransferase 146 U/L (15-37); BUN Creatinine Ratio 7.6 (10-20); Bilirubin,Total 10.4 mg/dl (0.2-1); Blood Urea Nitrogen 5 mg/dl (7-18); Calcium 7.2 mg/dl (8.5-10.1); Carbon Dioxide 40 mmol/L (21-32); Chloride 86 mmol/L (98-107); Creatinine Clr Calc Pharmacy 173.9 ml/min; Est GFR (African American) > 150.0; Globulin 2.9 gm/dl (2.5-4.0); Glucose 75 mg/dl (70-99); Magnesium 1.5 mg/dl (1.8-2.4); Potassium 2.8 mmol/L (3.5-5.1); Sodium 131 mmol/L (136-145); Total Protein 5.2 gm/dl (6.4-8.2)
--- NOTE | 2020-10-07 07:05 | Ultrasound Report ---
US liver CLINICAL HISTORY: Epigastric pain and vomiting COMPARISON STUDY: CT scan dated 10/06/2020 FINDINGS: The liver is of increased echogenicity and slightly heterogeneous. The liver is enlarged. T he findings are consistent with hepatic steatosis. No focal masses are visualized. There is a sludge-filled gallbladder. There is mild gallbladder wall thickening measuring 5 mm. The t echnologist reports a negative sonographic Kirkland sign. There is no intra or extrahepatic biliary ductal dilatation. The common bile duct measures 3 mm. There is no right-sided hydronephrosis. The pancreas was not visualized. There is a small amount of perihepatic ascites IMPRESSION: 1. Hepatomegaly. Hepatic steatosis. Small amount of perihepatic ascites. 2. Sludge-filled gallbladder with mild wall thickening. No shadowing calculi identified 3. No evidence of ductal dilatation 4. Nondiagnostic evaluation of the pancreas ACT 112: Negative or not required by law. Electronically signed by: Lloyd Canseco M.D. 10/07/2020 7:03 AM
[2020-10-07] MEDS: MAGNESIUM SULFATE / D5W 1 GM/100 ML BAG IV SCH ×2 (07:33→08:17)
--- NOTE | 2020-10-07 07:35 | Ultrasound Report ---
US duplex portal hepatic veins CLINICAL HISTORY: jaundice, r/o portal vein thrombosis COMPARISON STUDY: Abdomen and pelvis CT 10/06/2020. FINDINGS: The portosplenic confluence is not visualized due to overlying bowel gas. The hepatic arter y is patent. Echogenic liver consistent with hepatic steatosis. Portal veins were not well visualized . The middle hepatic vein is patent. The right and left hepatic veins are not well visualized due to the poor penetration from the hepatic steatosis. Of note, the portal veins appear patent on the same day abdomen and pelvis CT. IMPRESSION: Near nondiagnostic study of the portal and hepatic veins due to the hepatic steatosis an d overlying bowel gas. Of note, the portal veins appear patent on the same day abdomen and pelvis CT. ACT 112: Negative or not required by law. Electronically signed by: Timothy Martinez M.D. 10/07/2020 7:33 AM
[2020-10-07] MEDS: prednisoLONE SYRUP 15 MG/5 ML BTL PO SCH (08:17)
[2020-10-07] MEDS: MULTIVITAMIN TAB PO SCH (08:17)
[2020-10-07] MEDS: busPIRone 7.5 MG TAB PO SCH ×2 (08:17→20:14)
[2020-10-07] MEDS: FOLIC ACID 1 MG TAB PO SCH (08:18)
[2020-10-07] MEDS: THIAMINE HCL 100 MG TAB PO SCH (08:18)
[2020-10-07] MEDS: FLUoxetine HCL 20 MG CAP PO SCH (08:18)
[2020-10-07] MEDS: PANTOprazole 40 MG TAB PO SCH (08:18)
[2020-10-07 10:32] LABS: BUN Creatinine Ratio 6.3 (10-20); Calcium 7.4 mg/dl (8.5-10.1); Creatinine Clr Calc Pharmacy 140.5 ml/min; Est GFR (African American) 142.2; Est GFR (Non-African American) 122.7; Magnesium 2.3 mg/dl (1.8-2.4); Potassium 2.7 mmol/L (3.5-5.1)
--- NOTE | 2020-10-07 10:52 | Gastroenterology Progress Note ---
Date of Service October 07, 2020 Assessment & Plan (1) Alcoholic hepatitis: Symptoms, imaging and hx are strongly suggestive of ETOH hepatitis, and ETOH cirrhosis is also considered. DF yesterday 56. Check LFTs, INR tomorrow. Complete alcohol abstention Continue Thiamine, Folate Continue Prednisolone 40mg po daily. Low salt diet. Appreciate continued correction of metabolic derangements by primary hospitalists service. Plan for OP w/u for possible cirrhosis vs. ETOH hepatitis with severe steatosis. Will need OP EGD to r/o varices, eventual fibroscan and/or liver bx after cessation of alcohol. May need Q 6m imaging of the liver to screen for HCC. GI will sign off. May be discharged in 1-2 days if LFTs are stable or improved and no new problems. OP ETOH rehab/counselling strongly recommended. Our office will call him to arrange OP office follow up. Admission and Anticipated Discharge Date Admission Date: October 06, 2020 Supervising Physician Co-Signing Physician Notes I performed a history and physical examination of the patient today, including specifically on physical exam - soft abdomen. I have discussed the patient's management with the advanced practitioner. Please refer to the nurse practitioner's note for the documented findings and plan of care. Subjective 30, male anxiety, depression, admitted yesterday for alcohol withdraw and jaundice. LFTs and INR elevated - stable from yesterday. Electrolytes improved. Renal function remains normal. Pt says he feels "much better today and no new symptoms." Review of Systems Review of Systems: ROS: Gen: Denies weakness, fevers + lost about 60lbs weight loss in the past year with exercise but easier than expected. Eyes: No eye redness, or pain, no recent vision changes Resp: No SOB, no cough Cardio: No palpitations/irregular beats, no chest pain GI: Had "gastritis" in Oct 2019 (no prior endoscopy) Currently no abdominal pain, no nausea/vomiting : Denies pain on urination Skin: No jaundice, itching or new rashes Physical Exam Constitutional: WD/WN, vitals as above ENMT: external ear and nose normal, oropharynx normal Neck: trachea midline, no thyromegaly Respiratory: normal respiratory effort, lungs clear to auscultation Cardiovascular: RRR, no murmur, no edema Gastrointestinal (Abdomen): Inspection/Auscultation: + abdomen distended (m ildly); no abdominal edema Percussion/Palpation: + abdomen tender (the liver border is palpable 3 fingers below the Right Costal Border.) and abdomen soft Musculoskeletal: no cyanosis or clubbing, extremities motor strength 5/5 Skin: + jaundice Neurologic: PERRL, EOMI, accommodation nl, no face palsy, no dysarthria Psychiatric: A+Ox3, euthymic affect Lymphatic: no cervical or axillary lymphadenopathy Results & Data ([facility]) Vital Signs (Past 12 Hours) Vital Signs Temp Pulse Resp BP Pulse Ox 10/07/20 08:25 37.2 C 110 H 18 111/69 90 10/07/20 04:24 37.2 C 101 H 18 117/71 96 10/06/20 23:49 36.9 C 95 H 16 117/75 92 Laboratory Results WBC11, Hb 12.4, Hct 35.7, Plats 194, Na 130, K 2.7, BUN 5, Cr 0.7. INR 2.1, PT 21.4, T Bili 10.3->10.4, AST 142->146, ALT 42->12, Alk PHos 186->150. Diagnostic Findings CT with IV contrast on 10/06: Mild distal esophageal wall thickening. Trace periesophageal varices. 1. Hepatosplenomegaly with severe hepatic steatosis. Findings suggestive of portal venous hypertension with recanalization of the umbilical vein and trace abdominopelvic ascites. 2. Mild wall thickening of the distal sigmoid and rectum may be secondary to partial distention versus portal colopathy. A nonspecific proctocolitis could appear similarly. 3. Mildly distended gallbladder without cholelithiasis or biliary ductal dilation. 4. Colonic diverticulosis. Liver US: 1. Hepatomegaly. Hepatic steatosis. Small amount of perihepatic ascites. 2. Sludge-filled gallbladder with mild wall thickening. No shadowing calculi identified 3. No evidence of ductal dilatation 4. Nondiagnostic evaluation of the pancreas Portal Vein US: Near nondiagnostic study of the portal and hepatic veins due to the hepatic steatosis and overlying bowel gas. Of note, the portal veins appear patent on the same day abdomen and pelvis CT.
--- NOTE | 2020-10-07 14:22 | Hospitalist Progress Note ---
Date of Service October 07, 2020 Assessment & Plan (1) Alcoholic hepatitis: Helen DF was 52 on 10/07. - Complete alcohol abstention - Continue thiamine, folate - Continue prednisolone 40mg po daily. - Low salt diet. (2) Hypokalemia: Likely from alcohol. - Replete PRN (3) Alcohol use disorder: As above (4) Hyponatremia: Likely poor intake. - Supplements for better nutrition (5) DVT prophylaxis: Lovenox 40 mg SQ daily - Despite high INR, also deficient in Protein C & S, so patient is not hypocoagulable as INR would indicate. Admission and Anticipated Discharge Date Admission Date: October 06, 2020 Subjective No concerns today. Reports no fevers/chills, chest pain, shortness of breath, abdominal pain, nausea, or vomiting. Physical Exam Constitutional: WD/WN, vitals as above Eyes: EOM intact bilaterally; no conjunctival abnormality and sclerae not anicteric ENMT: external ear and nose normal, oropharynx normal Neck: trachea midline, no thyromegaly normal visual inspection Respiratory: normal respiratory effort, lungs clear to auscultation no respiratory distress Cardiovascular: RRR, no murmur, no edema Gastrointestinal (Abdomen): Inspection/Auscultation: abdomen normal to inspection; abdomen not distended Musculoskeletal: no cyanosis or clubbing, extremities motor strength 5/5 Skin: no rashes, warm and dry Neurologic: moves all extremities and awake Psychiatric: Orientation: alert, oriented to person and cooperative Results & Data Results & Data ([facility]) Vital Signs (Past 12 Hours) Vital Signs Temp Pulse Resp BP Pulse Ox 10/07/20 11:43 37 C 95 H 18 119/77 94 10/07/20 08:25 37.2 C 110 H 18 111/69 90 10/07/20 04:24 37.2 C 101 H 18 117/71 96 PG Care Time/CCT Total # of Minutes Spent Total Time Spent with Patient: Total time spent is greater than 50% in coordination of care (as documented) at patient's floor/unit and/or counseling patient: Coding Level of Care Code 70883 Subseq Hosp Care Lvl 3 Diagnoses Alcoholic hepatitis K70.10 Hypokalemia E87.6 Alcohol use disorder Hyponatremia E87.1 DVT prophylaxis Z29.9
[2020-10-07] MEDS: POTASSIUM CHLORIDE 10 MEQ TABCR PO SCH ×2 (16:15→20:13)
[2020-10-08 06:08] LABS: Hemoglobin 11.7 g/dL (14.0-18.0); Mean Corpuscular Hemoglobin 35.2 pg (25-34); Mean Corpuscular Hgb Conc 34.4 g/dL (32-36); Mean Corpuscular Volume 102.4 fL (80-100); Mean Platelet Volume 9.7 fL (7.4-10.4); Platelet Count 198 K/uL (130-400); RDW Coefficient of Variation 14.9 % (11.5-14.5); RDW Standard Deviation 55.4 fL (36.4-46.3); Red Blood Count 3.32 M/uL (4.7-6.1); White Blood Count 12.25 K/uL (4.8-10.8)
[2020-10-08 06:24] LABS: INR 1.8 (0.9-1.1); Prothrombin Time 18.8 Seconds (9.0-12.0)
[2020-10-08 07:06] LABS: Alanine Aminotransferase 14 U/L (12-78); Albumin Globulin Ratio 0.8 (0.9-2); Albumin Level 2.4 gm/dl (3.4-5.0); Alkaline Phosphatase 155 U/L (45-117); Aspartate Aminotransferase 116 U/L (15-37); BUN Creatinine Ratio 6.1 (10-20); Blood Urea Nitrogen 3 mg/dl (7-18); Calcium 7.7 mg/dl (8.5-10.1); Carbon Dioxide 39 mmol/L (21-32); Chloride 88 mmol/L (98-107); Creatinine Clr Calc Pharmacy 197.3 ml/min; Est GFR (African American) > 150.0; Est GFR (Non-African American) 141.1; Globulin 3.1 gm/dl (2.5-4.0); Glucose 84 mg/dl (70-99); Magnesium 2.1 mg/dl (1.8-2.4); Phosphorus 0.8 mg/dl (2.5-4.9); Potassium 3.1 mmol/L (3.5-5.1); Sodium 132 mmol/L (136-145); Total Protein 5.5 gm/dl (6.4-8.2)
[2020-10-08] MEDS: MULTIVITAMIN TAB PO SCH (08:21)
[2020-10-08] MEDS: FLUoxetine HCL 20 MG CAP PO SCH (08:21)
[2020-10-08] MEDS: PANTOprazole 40 MG TAB PO SCH (08:21)
[2020-10-08] MEDS: busPIRone 7.5 MG TAB PO SCH (08:21)
[2020-10-08] MEDS: FOLIC ACID 1 MG TAB PO SCH (08:21)
[2020-10-08] MEDS: THIAMINE HCL 100 MG TAB PO SCH (08:21)
[2020-10-08] MEDS: prednisoLONE SYRUP 15 MG/5 ML BTL PO SCH (08:22)
[2020-10-08] MEDS ORDERED: ENOXAPARIN INJ 40 MG/0.4 ML SYR SQ SCH (09:00)
[2020-10-08] MEDS ORDERED: POTASSIUM CHLORIDE CRTAB 20 MEQ TABCR PO ONE (11:15)
[2020-10-08] MEDS ORDERED: POT PHOSPHATE MONOBASIC W/ SOD TAB PO ONE (11:15)
--- NOTE | 2020-10-08 14:05 | Discharge Summary ---
Date of Service October 08, 2020 Admission HPI Per Admitting Provider This is a 30-year-old male who presented to the emergency department as he noted his eyes turned to yellow color approximately 4 days ago and have not improved. She was questioned and he admits to drinking approximately 3-4 nights a week and he has 3-4 drinks during this time. He denies any intravenous drug use. He denies any recent tattoos. He denies any use of acetaminophen. Patient first noticed his symptoms approximately 4 days ago. In addition he has noted nausea vomiting over the same time. Along with worsening fatigue. He also noted some right upper quadrant abdominal pain/pressure. He notes that when he urinates his urine is a dark yellow color. He denies easy bruising or bleeding. He denies any fevers, shakes, or chills. The patient notes that his most recent alcoholic beverage was approximately 4 days ago. In the emergency department the patient did have labs where his white blood cell count was 11.9. Hemoglobin and hematocrit were 12.2 and 35.7. Platelet count was in normal range. His INR was noted to be 2.1. Chemistry profile showed sodium was 130, his potassium was 1.8 and his BUN and creatinine were 5 and 0.8. His magnesium was 1.0 total bilirubin was noted to be 10.3 with a direct bilirubin of 7.4. His AST was elevated at 190 with a normal ALT at 16. His alkaline phosphatase was well elevated at 186. Lipase was noted to be within the normal range. An acetaminophen level has been ordered and is pending. Alcohol level was checked and was not elevated. An EKG was performed that showed sinus tachycardia with a heart rate of approximately 112 bpm no acute i schemic changes were noted and no evidence of heart block was noted. A CT scan of the abdomen was performed that showed his hepatosplenomegaly with severe hepatic steatosis and a small amount of ascites. On the CT scan the gallbladder was distended without evidence of gallstones or biliary ductal dilatation. A chest x-ray was performed that showed no evidence of pneumonia, or CHF. In the emergency department the patient was evaluated by the gastroenterology team with whom I discussed the case. They felt based on his presentation and laboratory findings they feel the patient was suffering from alcoholic hepatitis. They have taken the liberty of ordering imaging studies including an ultrasound of the portal and hepatic veins to assess for portal vein thrombosis. They have also ordered a gallbladder and biliary ultrasound to assess for any presence of gallstones contributing to his current situation. The gastroenterology service has also ordered a TTG level, and acute hepatitis pa raquel, and ROSENDO screen, and antimitochondrial antibody study, and an anti-smooth muscle antibody. Due to the concern for alcoholic hepatitis they have ordered prednisolone 40 mg daily and have initiated the first dose already. Due to the patient's electrolyte abnormalities he has already received a total of 20 mEq of intravenous potassium supplementation along with 40 mEq of oral potassium supplementation. He has received 2 g of intravenous magnesium supplementation. At the time of my interview with the patient he was resting comfortably in bed in no distress. Principal Diagnosis Alcoholic hepatitis Discharge Exam Constitutional WD/WN, vitals as above Eyes EOM intact bilaterally; no conjunctival abnormality and sclerae not anicteric ENMT external ear and nose normal, oropharynx normal Neck trachea midline, no thyromegaly normal visual inspection Respiratory normal respiratory effort, lungs clear to auscultation no respiratory distress Cardiovascular RRR, no murmur, no edema Gastrointestinal (Abdomen) Inspection/Auscultation: abdomen normal to inspection; abdomen not distended Musculoskeletal no cyanosis or clubbing, extremities motor strength 5/5 Skin no rashes, warm and dry Neurologic moves all extremities and awake Psychiatric Orientation: alert, oriented to person and cooperative Discharge Data Allergies Allergy/AdvReac Type Severity Reaction Status Date / Time No Known Allergies Allergy Unverified 10/06/20 14:37 Consultations 10/06/20 15:50 ED Decision to Admit Stat 10/06/20 20:35 Consult Gastroenterology Routine Ordered Studies 10/06/20 12:40 CT abd pelvis IV con only Stat 10/06/20 16:13 US liver Routine 10/06/20 16:26 US duplex portal hepatic veins Routine Hospital Course (1) Alcoholic hepatitis: Helen DF was 52 on 10/07. The patient reported to me that he was drinking 1 to 1.5 bottles of rum/whiskey per week which correlates to 3-4 alcohol beverages (ie 1.5 oz shots) per day. This seems on the low end of what could cause alcoholic hepatitis, but the patient denied any significant beer or wine or other alcohol intake, and denied a more recent change in drinking patterns that might have precipitated this event. - Complete alcohol abstention for 1 year per GI. Emphasized emphatically on discharge with the patient who reports he will completely abstain from alcohol. - Continue thiamine, folate - Continue prednisolone 40mg po daily x 28 days, then will taper it as outpatient with GI or PCP as per [employer]. This was verbally and emphasized in writing with the patient. - Low salt diet. (2) Hypokalemia: Likely from alcohol. - Replete PRN -> Improving by discharge. (3) Alcohol use disorder: As above (4) Hyponatremia: Likely poor intake. - Supplements for better nutrition (5) DVT prophylaxis: Lovenox 40 mg SQ daily - Despite high INR, also deficient in Protein C & S, so patient is not hypocoagulable as INR would indicate. Total Time Total Time Spent Total Time Spent (In Minutes): 35 Discharge Plan Discharge Items Patient Disposition: Home - Self-Care Reason For Visit: ETOH HEPATITIS Discharge Diagnosis: Alcohol-related hepatitis Activity: Resume your previous activity Non-emergency contact: Primary Care Provider and Manager Work Call non-emergency contact if: your symptoms worsen and your pain is not controlled Follow-up/Referrals: Kathleen Key PA-C [Primary Care Provider] - Sherie Sherwood MD [Hospitalist] - (Please call for appointment if they do not reach out by Saturday.) Diet: Low Sodium (2gm) Addtl Attending Provider Instructions: You were admitted for alcohol-related liver issues. Luckily with abstinence and medication, your liver labs are looking better (meaning the liver is functioning better) and you are feeling better. It is incredibly important that you completely abstain from alcohol. We are also sending you home on a steroid (prednisolone). This helps reduce liver inflammation. The steroid will last about 26 more days, then start a taper. You HAVE to see your PCP and/or the GI doctors before you run out of the steroid, as they will follow your liver labs and do a taper of the steroid once your main dose is complete. We also sent some vitamins to your pharmacy which are a good idea to take. However, the steroid (prednisolone) is the most important to keep taking. Please call your doctors or come back to the hospital if you have any further yellowing of the skin or eyes, darkening of your urine, abdominal pain, nausea, vomiting, bleeding, or any other concerns. Pending Studies at Discharge: No Stand-Alone Forms: My [facility], Smoking Cessation Medications and DC Order Prescriptions: New multivitamin [Daily-Danny] Tablet 1 tab PO QAM Qty: 30 RF: 0 thiamine HCl (vitamin B1) [Vitamin B-1] 100 mg Tablet 100 mg PO QAM Qty: 30 RF: 0 folic acid 1 mg Tablet 1 mg PO QAM Qty: 30 RF: 0 prednisolone sodium phosphate 10 mg tablet,disintegrating 40 mg PO QAM 26 Days Qty: 104 RF: 0 Continued buspirone 7.5 mg tablet 7.5 mg PO BID RF: 0 fluoxetine 40 mg capsule 40 mg PO QAM RF: 0 ondansetron HCl [Zofran] 4 mg tablet 4 mg PO Q8H PRN (Reason: Nausea) RF: 0 Discharge Orders: Discharge Order (Routine); Ordered 10/08/20 Ordered By: Lauro Villa Admission Data Admit Date/Time: 10/06/20 17:39 Attending Provider: Lauro Villa Admit Provider: Rui Lang Primary Care Provider: Kathleen Key Other Providers: Consuelo Osorio ; Lauro Villa Other Interventions: Discharge Summary Assessment (RN) Last Done: 10/08/20 11:19 Coding Level of Care Code D/C Day Management >30 mins Diagnoses Alcoholic hepatitis K70.11 Ascites presence: with ascites Hypokalemia E87.6 Alcohol use disorder Hyponatremia E87.1 DVT prophylaxis Z29.9
[2020-10-08 14:18] LABS: Hepatitis A Antibody IgM NON-REACTIVE (NON-REACTIVE); Hepatitis B Core Antibody IgM NON-REACTIVE (NON-REACTIVE)
[2020-10-11 14:57] LABS: Anti Nuclear Antibody Screen NEGATIVE (NEGATIVE); Smooth Muscle Antibody POSITIVE (NEGATIVE); Transglutaminase, Tissue IgA 1 U/mL
[2020-10-13 13:27] LABS: Smooth Muscle Ab Titer 1:20 titer (<1:20)
== END 2020-10-08 12:10 | disposition home or self-care (01) | DRG 433 ==
LOC: ED 12:16 → 2S 17:39 → SUATTDRO 17:39 → 2S 20:03

== ENCOUNTER 2021-11-30 05:57 | Observation (INO) ==
[2021-11-30 06:32] LABS: Basophils # (auto) 0.06 K/uL (0-0.2); Basophils % (auto) 0.6 %; Hemoglobin 13.7 g/dL (14.0-18.0); Immature Granulocytes # (auto) 0.01 K/uL (0.00-0.02); Immature Granulocytes % (auto) 0.1 %; Lymphocytes % (auto) 18.3 %; Mean Corpuscular Hemoglobin 31.6 pg (25-34); Mean Corpuscular Hgb Conc 35.1 g/dL (32-36); Mean Corpuscular Volume 90.1 fL (80-100); Monocytes # (auto) 2.02 K/uL (0.11-0.59); Monocytes % (auto) 20.5 %; Neutrophils # (auto) 5.87 K/uL (1.4-6.5); Neutrophils % (auto) 59.5 %; Platelet Count 139 K/uL (130-400); RDW Coefficient of Variation 14.9 % (11.5-14.5); RDW Standard Deviation 49.9 fL (36.4-46.3); Red Blood Count 4.33 M/uL (4.7-6.1); White Blood Count 9.86 K/uL (4.8-10.8)
[2021-11-30 06:49] LABS: INR 1.2 (0.9-1.1); Partial Thromboplastin Ratio 1.1; Partial Thromboplastin Time 30.8 Seconds (21.0-31.0); Prothrombin Time 12.8 Seconds (9.0-12.0)
[2021-11-30 06:50] LABS: Appearance Urine Clear (Clear); Bacteria Urine Automated Negative (Negative); Bilirubin Urine Negative (Negative); Blood Urine Negative (Negative); Cast Urine Automated 0 /lpf (0-5); Color Urine Dark Yellow; Epithelial Cell Urine Auto 0-5 /lpf (0-5); Glucose Urine UA Negative (Negative); Ketones Urine Negative (Negative); Leukocyte Esterase Urine Negative (Negative); Nitrite Urine Negative (Negative); RBC Urine Automated 0-4 /hpf (0-4); Specific Gravity Urine 1.015 (1.000-1.030); Urobilinogen Urine Negative (Negative); pH Urine >= 9.0 (4.5-7.5)
[2021-11-30 06:51] LABS: Protein Urine Trace (Negative)
[2021-11-30 07:02] LABS: Troponin I < 0.03 ng/ml (0-0.04)
[2021-11-30] MEDS ORDERED: FAMOTIDINE 20MG IV PUSH 20 MG/5 ML SYR IV STA (07:04)
[2021-11-30] MEDS ORDERED: diphenhydrAMINE 50 MG/ML VIAL IV STA (07:04)
[2021-11-30] MEDS ORDERED: PANTOprazole 40 MG in SYRINGE 0 ML IV ONE ×2 (07:04→10:09)
[2021-11-30] MEDS ORDERED: METOCLOPRAMIDE HCL INJ 5 MG/ML 2 ML VIAL IV ONE (07:04)
[2021-11-30] MEDS ORDERED: MULTI-VITAMIN INFUSION 10 ML, THIAMINE HCL 100 MG, FOLIC ACID 1 MG in SODIUM CHLORIDE 0... IV ONE (07:04)
[2021-11-30 07:07] LABS: Amphetamines+Metham, Urine Neg (Neg); Barbiturates, Urine Neg (Neg); Benzodiazepine, Urine Neg (Neg); Cocaine, Urine Neg (Neg); MDMA (Ecstacy), Urine Neg (Neg); Methadone, Urine Neg (Neg); Opiate, Urine Neg (Neg); Phencyclidine, Urine Neg (Neg)
[2021-11-30 07:09] LABS: Alanine Aminotransferase 36 U/L (7-52); Albumin Globulin Ratio 1.7 (0.9-2); Albumin Level 4.3 gm/dl (3.4-5.0); Alkaline Phosphatase 131 U/L (34-104); Anion Gap 7 (3-11); Aspartate Aminotransferase 57 U/L (13-39); BUN Creatinine Ratio 15.1 (10-20); Bilirubin,Total 2.1 mg/dl (0.2-1.0); Blood Urea Nitrogen 11 mg/dl (6-23); Carbon Dioxide 33 mmol/L (21-32); Chloride 94 mmol/L (98-107); Creatinine Clr Calc Pharmacy 134.6 ml/min; Est GFR (African American) 141.3 ml/min; Est GFR (Non-African American) 121.9 ml/min; Globulin 2.6 gm/dl (2.5-4.0); Glucose 88 mg/dl (70-99(Fasting)); Lipase 58 U/L (11-82); Magnesium 1.4 mg/dl (1.7-2.4); Potassium 3.4 mmol/L (3.5-5.1); Sodium 134 mmol/L (136-145); Total Protein 6.9 gm/dl (6.0-8.3)
[2021-11-30 07:24] LABS: Influenza A virus by PCR Negative (Neg); Influenza B virus by PCR Negative (Neg); RSV by PCR Negative (Neg); SARS CoV2 RNA(COVID-19) InHosp NEGATIVE (Negative)
--- NOTE | 2021-11-30 07:31 | XRay Report ---
SINGLE VIEW CHEST CLINICAL HISTORY: Hematemesis FINDINGS: An AP, portable, upright chest radiograph is compared to study dated 10/06/2020. The cardiom ediastinal silhouette is unremarkable. There is mild bibasilar atelectasis. The lungs and pleural spa janeth are otherwise clear. No pneumothorax is seen. The bony thorax is grossly intact. IMPRESSION: No active disease in the chest. ACT 112: Negative or not required by law. Electronically signed by: Liban Doan M.D. 11/30/2021 7:29 AM
[2021-11-30] MEDS ORDERED: cefTRIAXone SODIUM 1,000 MG/50 ML BAG IV STA (07:33)
[2021-11-30] MEDS ORDERED: OCTREOTIDE ACETATE 50 MCG in SYRINGE 9.5 ML IV STA (07:33)
[2021-11-30] MEDS ORDERED: STAT IV STA (07:33)
[2021-11-30] MEDS ORDERED: OPTIRAY 320 100ml IV ONE (07:56)
--- NOTE | 2021-11-30 07:58 | Emergency Department Note ---
Impression & Plan Hematemesis, Hypomagnesemia, Alcoholic cirrhosis of liver ED Provider Note NAME: REILLY ALCALA AGE: 31 SEX: M ARRIVES VIA: Walk-In INFORMANT: Patient, girlfriend. ED PROVIDER(S): Pardeep Collins MD CHIEF COMPLAINT: Vomited blood. PLAN: Disposition: Admit MEDICAL DECISION MAKING: The patient is a pleasant 30-year-old gentleman with a past medical history alcoholic hepatitis/cirrhosis who presents to the emergency department with episode of hematemesis. That occurred this morning. Patient ports he has a history of having cyclic vomiting for 24 hours every couple of weeks but today had his first episode of emesis and describes this as ailyn red blood. He reports he has some residual epigastric pain but denies any significant nausea at this time. He denies any recent fevers, chills, cough, congestion, diarrhea or urinary symptoms. He reports he has not had any black stools. He may take Tums every now and then for acid but is no longer taking a PPI. He recently had a follow[place] with [place] [facility] [place] and denies any acute changes. However his girlfriend the bedside reports that he has had waxing and waning confusion and trouble with memory over the past several weeks. He denies continuation of alcohol use. He reports he infrequently has used marijuana. On arrival, the patient is fatigued appearing in acute stress, febrile to 38.0 with heart rate in the 100s and vital signs otherwise stable. He appears clinically dry. Abdomen is soft, non-distended. He has mild epigastric discomfort without discrete tenderness. EKG without overt acute ischemia. CXR negative for acute cardiopulmonary p rocess. WBC wnl. H/H similar to prior. Platelets wnl. Chemistry without acidosis. Magnesium 1.4 with repletion provided. Potassium 3.4 and electrolytes otherwise unremarkable. Total bilirubin 2.1 and direct bilirubin 0.8 improved from prior. AST 57 improved from prior. ALT wnl. Alk phos 131 similar to prior. INR 1.2. Ammonia is not elevated. Troponin negative/undetectable. Procalcitonin is not el evated. UA without convincing evidence of infection. Medical alcohol undetectable. Covid-19 PCR negative. Influenza and RSV PCR negative. CT abd/pelvis demonstrates hepatic steatosis with evidence of portal hypertension with splenomegaly with small volume ascites and abdominal varices. Esophageal wall thickening is unchanged. No acute findings otherwise. The patient was treated with IVF hydration, pepcid, prontonix, octreotide as well as empiric/ppx CTX. Resident Dr. Gee reviewed case with Dr. Roberson, [facility] hospitalist as well as [facility] GI waste reduction coordinator Dr. Montague who agrees with admission here. Dr. Lang, [facility] hospitalist to will evaluate the patient for admission. This patient was managed with the assistance of resident, Dr. Gee. I discussed the case with the resident, examined the patient, and confirm the findings and plan as documented in this note. Triage Nursing notes reviewed and agree them. Prior medical records reviewed Vital Signs: reviewed and remarkable for tachycardia and fever. Differential diagnosis: Appendicitis, testicular torsion, infections, diverticulitis, UTI, obstruction, mesenteric ischemia, aortic pathology, inflammatory bowel disease, renal colic, PUD, pancreatitis, biliary pathology, hernia, volvulus, constipation, as well as other pathologies. ER treatment provided: See below. Diagnostics interpreted by me: ECG: Sinus tachycardia, 103 bpm, no ectopy, no overt ST elevation or depression. Cardiac Monitoring: An order for continuous cardiac monitoring was placed and demonstrated sinus tachycardia, 108 bpm, no ectopy. Laboratory studies: See below Imaging studies: See below Consultation(s): Dr. Montague, [facility] GI Dr. Lang [facility] hospitalist. HPI: The patient is a pleasant 30-year-old gentleman with a past medical history alcoholic hepatitis/cirrhosis who presents to the emergency department with episode of hematemesis. That occurred this morning. Patient ports he has a history of having cyclic vomiting for 24 hours every couple of weeks but today had his first episode of emesis and describes this as ailyn red blood. He reports he has some residual epigastric pain but denies any significant nausea at this time. He denies any recent fevers, chills, cough, congestion, diarrhea or urinary symptoms. He reports he has not had any black stools. He may take Tums every now and then for acid but is no longer taking a PPI. He recently had a follow-up with [place] [facility] [place] and denies any acute changes. However his girlfriend the bedside reports that he has had waxing and waning confusion and trouble with memory over the past several weeks. He denies continuation of alcohol use. He reports he infrequently has used marijuana. ROS: See above HPI for pertinent positives & negatives. A total of 10 systems reviewed and were otherwise negative. VITALS:See Below PHYSICAL EXAMINATION: GENERAL: Awake, alert, fatigued-appearing, in no distress HENT: Normocephalic, atraumatic. Oropharynx with dry mucous membranes and otherwise unremarkable. EYES: Normal conjunctiva. Sclera non-icteric. NECK: Supple. No nuchal rigidity. FROM. No JVD. RESPIRATORY: Clear to auscultation. CARDIAC: Regular rate, normal rhythm. Extremities warm and well perfused. Pulses equal. ABDOMEN: Soft, non-distended. Mild epigastric discomfort without discrete tenderness to palpation. No rebound or guarding. No masses. RECTAL: Deferred. MUSCULOSKELETAL: Chest examination reveals no tenderness. The back is symmetrical on inspection without obvious abnormality. There is no CVA tenderness to palpation. No joint edema. LOWER EXTREMITIES: Calves are equal size bilaterally and non-tender. No edema. No discoloration. NEURO: Normal sensorium. No sensory or motor deficits noted. No asterixis. SKIN: No rash or jaundice noted. ED COURSE: Critical Care: I have personally spent greater than 75 minutes of critical care time in the direct management of this patient. This includes bedside care, interpretation of diagnostic studies, and testing, discussion with consultants, patient, and family members, and other required patient management activities. This 75 minutes is in excess of all separately billable procedures. Pardeep Collins MD Past Med/Surg History Medical History (Updated 11/30/21 @ 20:55 by Pardeep Collins MD) Alcoholic hepatitis no alcohol since sep 2020 Anxiety Depression History of gastritis Migraine Panic attacks Surgical History History of circumcision at the age of 8 Hx of esophagogastroduodenoscopy Family History Other No family history of adverse response to anesthesia Social History Smoking Status: Never smoker Second Hand Exposure: No; Do You Dip or Chew Tobacco: No; Hx Alcohol Use: Yes (Quit 09/2020) Alcohol type: hard liquor Alcohol Intake Frequency Comment: 3-5 X weekly Hx Substance Use: No Preferred Language: Egyptian Communication Ability: Effective Deck Molder Required: No Beliefs That Will Affect Care: None Current Living Situation: Significant Other current occupational status: employed Other Information That Helps Us Care for You: No Feels Safe at Home: Yes Safety Concerns: Feels Safe At This Time Physical Activity Frequency: Does not Exercise Assistive Devices: None Allergies Allergies Allergy/AdvReac Type Severity Reaction Status Date / Time No Known Allergies Allergy Verified 11/30/21 08:06 Home Meds Home Medications Medication Instructions Recorded Confirmed hydroxyzine HCl 25 mg tablet 25 mg PO QID PRN 04/25/21 11/30/21 potassium chloride 20 mEq 40 meq PO BID 04/25/21 11/30/21 tablet,extended release spironolactone 25 mg tablet 25 mg PO QAM 04/25/21 11/30/21 buspirone 15 mg tablet 15 mg PO QAM 11/30/21 11/30/21 ergocalciferol (vitamin D2) 1,250 1,250 mcg PO WK 11/30/21 11/30/21 mcg (50,000 unit) capsule (Vitamin D2) fluoxetine 20 mg capsule 20 mg PO QAM 11/30/21 11/30/21 lactulose 10 gram/15 mL oral 15 ml PO QAM 11/30/21 11/30/21 solution magnesium oxide 400 mg PO QAM 11/30/21 11/30/21 topiramate 25 mg sprinkle capsule 75 mg PO HS 11/30/21 11/30/21 Previous Rx's Medication Instructions Recorded multivitamin (Daily-Danny) 1 tab PO QAM #30 tab 10/08/20 Results & Data (ED) Vital Signs Vital Signs - 24 hr 11/30/21 06:01 11/30/21 06:19 11/30/21 06:30 Temperature 38.0 C H Temperature Source Temporal Artery Scan Pulse Rate 117 H 107 H 107 H Pulse Rate from SpO2 Sensor Respiratory Rate 16 22 Blood Pressure 139/81 128/82 144/84 H Blood Pressure Mean 100 97 104 Blood Pressure Position Lying Pulse Oximetry 99 99 99 Oxygen Delivery Method Room Air Room Air Room Air Sepsis Recent Fever Within 48 Hours No Sepsis New/Unexplained Change in Mental Status No Sepsis Action Taken by Nursing No Action Required 11/30/21 06:40 11/30/21 06:50 11/30/21 07:00 Temperature Temperature Source Pulse Rate 107 H 110 H 109 H Pulse Rate from SpO2 Sensor 108 H 109 H 110 H Respiratory Rate 18 24 16 Blood Pressure 144/76 H Blood Pressure Mean 98 Blood Pressure Position Pulse Oximetry 99 98 98 Oxygen Delivery Method Sepsis Recent Fever Within 48 Hours Sepsis New/Unexplained Change in Mental Status Sepsis Action Taken by Nursing 11/30/21 07:10 11/30/21 07:30 11/30/21 08:30 Temperature Temperature Source Pulse Rate 108 H 112 H 105 H Pulse Rate from SpO2 Sensor 109 H 113 H 106 H Respiratory Rate 17 22 20 Blood Pressure 133/85 Blood Pressure Mean 101 Blood Pressure Position Pulse Oximetry 98 99 96 Oxygen Delivery Method Sepsis Recent Fever Within 48 Hours Sepsis New/Unexplained Change in Mental Status Sepsis Action Taken by Nursing 11/30/21 08:32 11/30/21 09:00 11/30/21 09:30 Temperature 38.3 C H Temperature Source Oral Pulse Rate 105 H 109 H 111 H Pulse Rate from SpO2 Sensor 105 H 110 H 112 H Respiratory Rate 18 20 22 Blood Pressure 135/87 132/77 133/71 Blood Pressure Mean 103 95 91 Blood Pressure Position Pulse Oximetry 97 95 94 Oxygen Delivery Method Sepsis Recent Fever Within 48 Hours Sepsis New/Unexplained Change in Mental Status Sepsis Action Taken by Nursing 11/30/21 10:00 11/30/21 10:30 Temperature Temperature Source Pulse Rate 100 H 95 H Pulse Rate from SpO2 Sensor 100 H 95 H Respiratory Rate 19 17 Blood Pressure 137/77 141/83 H Blood Pressure Mean 97 102 Blood Pressure Position Pulse Oximetry 94 95 Oxygen Delivery Method Sepsis Recent Fever Within 48 Hours Sepsis New/Unexplained Change in Mental Status Sepsis Action Taken by Nursing Laboratory Data Attestation: I reviewed the patient's lab results. Result diagrams: 11/30/21 19:19 11/30/21 06:20 Lab Results 11/30/21 11/30/21 11/30/21 Range/Units 06:15 06:15 06:20 WBC 9.86 (4.8-10.8) K/uL RBC 4.33 L (4.7-6.1) M/uL Hgb 13.7 L (14.0-18.0) g/dL Hct 39.0 L (42-52) % MCV 90.1 (80-100) fL MCH 31.6 (25-34) pg MCHC 35.1 (32-36) g/dL RDW Std Deviation 49.9 H (36.4-46.3) fL RDW Coeff of Cali 14.9 H (11.5-14.5) % Plt Count 139 (130-400) K/uL MPV 10.0 (7.4-10.4) fL Immature Gran % (Auto) 0.1 % Neut % (Auto) 59.5 % Lymph % (Auto) 18.3 % Taylor % (Auto) 20.5 % Eos % (Auto) 1.0 % Baso % (Auto) 0.6 % Neut # (Auto) 5.87 (1.4-6.5) K/uL Lymph # (Auto) 1.80 (1.2-3.4) K/uL Taylor # (Auto) 2.02 H (0.11-0.59) K/uL Eos # (Auto) 0.10 (0-0.5) K/uL Baso # (Auto) 0.06 (0-0.2) K/uL Immature Gran # (Auto) 0.01 (0.00-0.02) K/uL PT (9.0-12.0) Seconds INR (0.9-1.1) APTT (21.0-31.0) Seconds PTT Ratio Sodium (136-145) mmol/L Potassium (3.5-5.1) mmol/L Chloride (98-107) mmol/L Carbon Dioxide (21-32) mmol/L Anion Gap (3-11) BUN (6-23) mg/dl Creatinine (0.6-1.4) mg/dl Est Cr Clr Drug Dosing ml/min Est GFR ( Amer) ml/min Est GFR (Non-Af Amer) ml/min BUN/Creatinine Ratio (10-20) Glucose (70-99(Fasting)) mg/dl Lactate (0.4-2.0) mmol/L Calcium (8.5-10.1) mg/dl Phosphorus (2.5-4.9) mg/dl Magnesium (1.7-2.4) mg/dl Total Bilirubin (0.2-1.0) mg/dl Direct Bilirubin (0-0.2) mg/dl AST (13-39) U/L ALT (7-52) U/L Alkaline Phosphatase (34-104) U/L Ammonia (18-72) umol/L Troponin I (0-0.04) ng/ml Total Protein (6.0-8.3) gm/dl Albumin (3.4-5.0) gm/dl Globulin (2.5-4.0) gm/dl Albumin/Globulin Ratio (0.9-2) Lipase (11-82) U/L Procalcitonin (0-0.5) ng/ml Urine Color Dark Yellow Urine Appearance Clear (Clear) Urine pH >= 9.0 H (4.5-7.5) Ur Specific Blossom 1.015 (1.000-1.030) Urine Protein Trace H (Negative) Urine Glucose (UA) Negative (Negative) Urine Ketones Negative (Negative) Urine Blood Negative (Negative) Urine Nitrite Negative (Negative) Urine Bilirubin Negative (Negative) Urine Urobilinogen Negative (Negative) Ur Leukocyte Esterase Negative (Negative) Urine WBC (Auto) 1-5 (0-5) /hpf Urine RBC (Auto) 0-4 (0-4) /hpf U Hyaline Cast (Auto) 0 (0-5) /lpf U Epithel Cells (Auto) 0-5 (0-5) /lpf Urine Bacteria (Auto) Negative (Negative) Urine Opiates Screen Neg (Neg) Ur Methadone, Qual Neg (Neg) Urine Barbiturates Neg (Neg) Ur Phencyclidine (PCP) Neg (Neg) U Amphetamin/Meth Scrn Neg (Neg) MDMA (Ecstasy) Screen Neg (Neg) U Benzodiazepines Scrn Neg (Neg) Ur Cocaine Metabolite Neg (Neg) U Marijuana (THC) Screen Pos H (Neg) Ethyl Alcohol mg/dL (<10.0) mg/dl SARS-CoV-2 (PCR) (Negative) Influenza Type A (PCR) (Neg) Influenza Type B (PCR) (Neg) RSV (RT-PCR) (Neg) Blood Type Antibody Screen 11/30/21 11/30/21 11/30/21 Range/Units 06:20 06:20 06:20 WBC (4.8-10.8) K/uL RBC (4.7-6.1) M/uL Hgb (14.0-18.0) g/dL Hct (42-52) % MCV (80-100) fL MCH (25-34) pg MCHC (32-36) g/dL RDW Std Deviation (36.4-46.3) fL RDW Coeff of Cali (11.5-14.5) % Plt Count (130-400) K/uL MPV (7.4-10.4) fL Immature Gran % (Auto) % Neut % (Auto) % Lymph % (Auto) % Taylor % (Auto) % Eos % (Auto) % Baso % (Auto) % Neut # (Auto) (1.4-6.5) K/uL Lymph # (Auto) (1.2-3.4) K/uL Taylor # (Auto) (0.11-0.59) K/uL Eos # (Auto) (0-0.5) K/uL Baso # (Auto) (0-0.2) K/uL Immature Gran # (Auto) (0.00-0.02) K/uL PT 12.8 H (9.0-12.0) Seconds INR 1.2 H (0.9-1.1) APTT 30.8 (21.0-31.0) Seconds PTT Ratio 1.1 Sodium 134 L (136-145) mmol/L Potassium 3.4 L (3.5-5.1) mmol/L Chloride 94 L (98-107) mmol/L Carbon Dioxide 33 H (21-32) mmol/L Anion Gap 7 (3-11) BUN 11 (6-23) mg/dl Creatinine 0.73 (0.6-1.4) mg/dl Est Cr Clr Drug Dosing 134.6 ml/min Est GFR ( Amer) 141.3 ml/min Est GFR (Non-Af Amer) 121.9 ml/min BUN/Creatinine Ratio 15.1 (10-20) Glucose 88 (70-99(Fasting)) mg/dl Lactate (0.4-2.0) mmol/L Calcium 9.0 (8.5-10.1) mg/dl Phosphorus (2.5-4.9) mg/dl Magnesium 1.4 L (1.7-2.4) mg/dl Total Bilirubin 2.1 H (0.2-1.0) mg/dl Direct Bilirubin (0-0.2) mg/dl AST 57 H (13-39) U/L ALT 36 (7-52) U/L Alkaline Phosphatase 131 H (34-104) U/L Ammonia (18-72) umol/L Troponin I < 0.03 (0-0.04) ng/ml Total Protein 6.9 (6.0-8.3) gm/dl Albumin 4.3 (3.4-5.0) gm/dl Globulin 2.6 (2.5-4.0) gm/dl Albumin/Globulin Ratio 1.7 (0.9-2) Lipase 58 (11-82) U/L Procalcitonin (0-0.5) ng/ml Urine Color Urine Appearance (Clear) Urine pH (4.5-7.5) Ur Specific Blossom (1.000-1.030) Urine Protein (Negative) Urine Glucose (UA) (Negative) Urine Ketones (Negative) Urine Blood (Negative) Urine Nitrite (Negative) Urine Bilirubin (Negative) Urine Urobilinogen (Negative) Ur Leukocyte Esterase (Negative) Urine WBC (Auto) (0-5) /hpf Urine RBC (Auto) (0-4) /hpf U Hyaline Cast (Auto) (0-5) /lpf U Epithel Cells (Auto) (0-5) /lpf Urine Bacteria (Auto) (Negative) Urine Opiates Screen (Neg) Ur Methadone, Qual (Neg) Urine Barbiturates (Neg) Ur Phencyclidine (PCP) (Neg) U Amphetamin/Meth Scrn (Neg) MDMA (Ecstasy) Screen (Neg) U Benzodiazepines Scrn (Neg) Ur Cocaine Metabolite (Neg) U Marijuana (THC) Screen (Neg) Ethyl Alcohol mg/dL < 10.0 (<10.0) mg/dl SARS-CoV-2 (PCR) (Negative) Influenza Type A (PCR) (Neg) Influenza Type B (PCR) (Neg) RSV (RT-PCR) (Neg) Blood Type Antibody Screen 11/30/21 11/30/21 11/30/21 Range/Units 06:35 06:50 07:23 WBC (4.8-10.8) K/uL RBC (4.7-6.1) M/uL Hgb (14.0-18.0) g/dL Hct (42-52) % MCV (80-100) fL MCH (25-34) pg MCHC (32-36) g/dL RDW Std Deviation (36.4-46.3) fL RDW Coeff of Cali (11.5-14.5) % Plt Count (130-400) K/uL MPV (7.4-10.4) fL Immature Gran % (Auto) % Neut % (Auto) % Lymph % (Auto) % Taylor % (Auto) % Eos % (Auto) % Baso % (Auto) % Neut # (Auto) (1.4-6.5) K/uL Lymph # (Auto) (1.2-3.4) K/uL Taylor # (Auto) (0.11-0.59) K/uL Eos # (Auto) (0-0.5) K/uL Baso # (Auto) (0-0.2) K/uL Immature Gran # (Auto) (0.00-0.02) K/uL PT (9.0-12.0) Seconds INR (0.9-1.1) APTT (21.0-31.0) Seconds PTT Ratio Sodium (136-145) mmol/L Potassium (3.5-5.1) mmol/L Chloride (98-107) mmol/L Carbon Dioxide (21-32) mmol/L Anion Gap (3-11) BUN (6-23) mg/dl Creatinine (0.6-1.4) mg/dl Est Cr Clr Drug Dosing ml/min Est GFR ( Amer) ml/min Est GFR (Non-Af Amer) ml/min BUN/Creatinine Ratio (10-20) Glucose (70-99(Fasting)) mg/dl Lactate 1.0 (0.4-2.0) mmol/L Calcium (8.5-10.1) mg/dl Phosphorus 2.8 (2.5-4.9) mg/dl Magnesium 1.5 L (1.7-2.4) mg/dl Total Bilirubin (0.2-1.0) mg/dl Direct Bilirubin 0.8 H (0-0.2) mg/dl AST (13-39) U/L ALT (7-52) U/L Alkaline Phosphatase (34-104) U/L Ammonia (18-72) umol/L Troponin I (0-0.04) ng/ml Total Protein (6.0-8.3) gm/dl Albumin (3.4-5.0) gm/dl Globulin (2.5-4.0) gm/dl Albumin/Globulin Ratio (0.9-2) Lipase (11-82) U/L Procalcitonin (0-0.5) ng/ml Urine Color Urine Appearance (Clear) Urine pH (4.5-7.5) Ur Specific Blossom (1.000-1.030) Urine Protein (Negative) Urine Glucose (UA) (Negative) Urine Ketones (Negative) Urine Blood (Negative) Urine Nitrite (Negative) Urine Bilirubin (Negative) Urine Urobilinogen (Negative) Ur Leukocyte Esterase (Negative) Urine WBC (Auto) (0-5) /hpf Urine RBC (Auto) (0-4) /hpf U Hyaline Cast (Auto) (0-5) /lpf U Epithel Cells (Auto) (0-5) /lpf Urine Bacteria (Auto) (Negative) Urine Opiates Screen (Neg) Ur Methadone, Qual (Neg) Urine Barbiturates (Neg) Ur Phencyclidine (PCP) (Neg) U Amphetamin/Meth Scrn (Neg) MDMA (Ecstasy) Screen (Neg) U Benzodiazepines Scrn (Neg) Ur Cocaine Metabolite (Neg) U Marijuana (THC) Screen (Neg) Ethyl Alcohol mg/dL (<10.0) mg/dl SARS-CoV-2 (PCR) NEGATIVE (Negative) Influenza Type A (PCR) Negative (Neg) Influenza Type B (PCR) Negative (Neg) RSV (RT-PCR) Negative (Neg) Blood Type Antibody Screen 11/30/21 11/30/21 11/30/21 Range/Units 07:23 07:29 07:29 WBC (4.8-10.8) K/uL RBC (4.7-6.1) M/uL Hgb (14.0-18.0) g/dL Hct (42-52) % MCV (80-100) fL MCH (25-34) pg MCHC (32-36) g/dL RDW Std Deviation (36.4-46.3) fL RDW Coeff of Cali (11.5-14.5) % Plt Count (130-400) K/uL MPV (7.4-10.4) fL Immature Gran % (Auto) % Neut % (Auto) % Lymph % (Auto) % Taylor % (Auto) % Eos % (Auto) % Baso % (Auto) % Neut # (Auto) (1.4-6.5) K/uL Lymph # (Auto) (1.2-3.4) K/uL Taylor # (Auto) (0.11-0.59) K/uL Eos # (Auto) (0-0.5) K/uL Baso # (Auto) (0-0.2) K/uL Immature Gran # (Auto) (0.00-0.02) K/uL PT (9.0-12.0) Seconds INR (0.9-1.1) APTT (21.0-31.0) Seconds PTT Ratio Sodium (136-145) mmol/L Potassium (3.5-5.1) mmol/L Chloride (98-107) mmol/L Carbon Dioxide (21-32) mmol/L Anion Gap (3-11) BUN (6-23) mg/dl Creatinine (0.6-1.4) mg/dl Est Cr Clr Drug Dosing ml/min Est GFR ( Amer) ml/min Est GFR (Non-Af Amer) ml/min BUN/Creatinine Ratio (10-20) Glucose (70-99(Fasting)) mg/dl Lactate (0.4-2.0) mmol/L Calcium (8.5-10.1) mg/dl Phosphorus (2.5-4.9) mg/dl Magnesium (1.7-2.4) mg/dl Total Bilirubin (0.2-1.0) mg/dl Direct Bilirubin (0-0.2) mg/dl AST (13-39) U/L ALT (7-52) U/L Alkaline Phosphatase (34-104) U/L Ammonia 29.0 (18-72) umol/L Troponin I (0-0.04) ng/ml Total Protein (6.0-8.3) gm/dl Albumin (3.4-5.0) gm/dl Globulin (2.5-4.0) gm/dl Albumin/Globulin Ratio (0.9-2) Lipase (11-82) U/L Procalcitonin 0.46 (0-0.5) ng/ml Urine Color Urine Appearance (Clear) Urine pH (4.5-7.5) Ur Specific Blossom (1.000-1.030) Urine Protein (Negative) Urine Glucose (UA) (Negative) Urine Ketones (Negative) Urine Blood (Negative) Urine Nitrite (Negative) Urine Bilirubin (Negative) Urine Urobilinogen (Negative) Ur Leukocyte Esterase (Negative) Urine WBC (Auto) (0-5) /hpf Urine RBC (Auto) (0-4) /hpf U Hyaline Cast (Auto) (0-5) /lpf U Epithel Cells (Auto) (0-5) /lpf Urine Bacteria (Auto) (Negative) Urine Opiates Screen (Neg) Ur Methadone, Qual (Neg) Urine Barbiturates (Neg) Ur Phencyclidine (PCP) (Neg) U Amphetamin/Meth Scrn (Neg) MDMA (Ecstasy) Screen (Neg) U Benzodiazepines Scrn (Neg) Ur Cocaine Metabolite (Neg) U Marijuana (THC) Screen (Neg) Ethyl Alcohol mg/dL < 10.0 (<10.0) mg/dl SARS-CoV-2 (PCR) (Negative) Influenza Type A (PCR) (Neg) Influenza Type B (PCR) (Neg) RSV (RT-PCR) (Neg) Blood Type Antibody Screen 11/30/21 Range/Units 08:02 WBC (4.8-10.8) K/uL RBC (4.7-6.1) M/uL Hgb (14.0-18.0) g/dL Hct (42-52) % MCV (80-100) fL MCH (25-34) pg MCHC (32-36) g/dL RDW Std Deviation (36.4-46.3) fL RDW Coeff of Cali (11.5-14.5) % Plt Count (130-400) K/uL MPV (7.4-10.4) fL Immature Gran % (Auto) % Neut % (Auto) % Lymph % (Auto) % Taylor % (Auto) % Eos % (Auto) % Baso % (Auto) % Neut # (Auto) (1.4-6.5) K/uL Lymph # (Auto) (1.2-3.4) K/uL Taylor # (Auto) (0.11-0.59) K/uL Eos # (Auto) (0-0.5) K/uL Baso # (Auto) (0-0.2) K/uL Immature Gran # (Auto) (0.00-0.02) K/uL PT (9.0-12.0) Seconds INR (0.9-1.1) APTT (21.0-31.0) Seconds PTT Ratio Sodium (136-145) mmol/L Potassium (3.5-5.1) mmol/L Chloride (98-107) mmol/L Carbon Dioxide (21-32) mmol/L Anion Gap (3-11) BUN (6-23) mg/dl Creatinine (0.6-1.4) mg/dl Est Cr Clr Drug Dosing ml/min Est GFR ( Amer) ml/min Est GFR (Non-Af Amer) ml/min BUN/Creatinine Ratio (10-20) Glucose (70-99(Fasting)) mg/dl Lactate (0.4-2.0) mmol/L Calcium (8.5-10.1) mg/dl Phosphorus (2.5-4.9) mg/dl Magnesium (1.7-2.4) mg/dl Total Bilirubin (0.2-1.0) mg/dl Direct Bilirubin (0-0.2) mg/dl AST (13-39) U/L ALT (7-52) U/L Alkaline Phosphatase (34-104) U/L Ammonia (18-72) umol/L Troponin I (0-0.04) ng/ml Total Protein (6.0-8.3) gm/dl Albumin (3.4-5.0) gm/dl Globulin (2.5-4.0) gm/dl Albumin/Globulin Ratio (0.9-2) Lipase (11-82) U/L Procalcitonin (0-0.5) ng/ml Urine Color Urine Appearance (Clear) Urine pH (4.5-7.5) Ur Specific Blossom (1.000-1.030) Urine Protein (Negative) Urine Glucose (UA) (Negative) Urine Ketones (Negative) Urine Blood (Negative) Urine Nitrite (Negative) Urine Bilirubin (Negative) Urine Urobilinogen (Negative) Ur Leukocyte Esterase (Negative) Urine WBC (Auto) (0-5) /hpf Urine RBC (Auto) (0-4) /hpf U Hyaline Cast (Auto) (0-5) /lpf U Epithel Cells (Auto) (0-5) /lpf Urine Bacteria (Auto) (Negative) Urine Opiates Screen (Neg) Ur Methadone, Qual (Neg) Urine Barbiturates (Neg) Ur Phencyclidine (PCP) (Neg) U Amphetamin/Meth Scrn (Neg) MDMA (Ecstasy) Screen (Neg) U Benzodiazepines Scrn (Neg) Ur Cocaine Metabolite (Neg) U Marijuana (THC) Screen (Neg) Ethyl Alcohol mg/dL (<10.0) mg/dl SARS-CoV-2 (PCR) (Negative) Influenza Type A (PCR) (Neg) Influenza Type B (PCR) (Neg) RSV (RT-PCR) (Neg) Blood Type O Positive Antibody Screen NEGATIVE Administered Medications Octreotide Acetate 500 mcg/ (Dextrose) 105 mls @ 10.5 mls/hr IV .Q10H [facility] Stop: 12/30/21 07:44 Last Admin: 11/30/21 18:14 Dose: 50 mcg/hr, 10.5 mls/hr Documented by: [id number] Infusion: 11/30/21 18:14 Dose: 0 mcg/hr, 0 mls/hr Documented by: [id number] Admin: 11/30/21 08:09 Dose: 50 mcg/hr, 10.5 mls/hr Documented by: [id number] Pantoprazole Sodium 40 mg/ (Dextrose) 100 mls @ 20 mls/hr IV Q5H [facility] Stop: 12/30/21 10:14 Last Admin: 11/30/21 17:44 Dose: 8 mg/hr, 20 mls/hr Documented by: [id number] Infusion: 11/30/21 17:44 Dose: 0 mg/hr, 0 mls/hr Documented by: [id number] Admin: 11/30/21 12:41 Dose: 8 mg/hr, 20 mls/hr Documented by: [id number] Sodium Chloride (Nss 1000ml) 1,000 mls @ 80 mls/hr IV .[id number] [facility] Stop: 12/30/21 13:10 Last Admin: 11/30/21 14:00 Dose: 80 mls/hr Documented by: [id number] Discontinued Medications Diphenhydramine HCl (Diphenhydramine 50 Mg/Ml Vial) 25 mg IV NOW STA Stop: 11/30/21 07:05 Last Admin: 11/30/21 07:34 Dose: 25 mg Documented by: [id number] Famotidine (Pepcid 20mg Iv Push) 20 mg in 5 mls @ 2.5 mls/min IV NOW STA Stop: 11/30/21 07:05 Last Admin: 11/30/21 07:34 Dose: 2.5 mls/min Documented by: [id number] Multivitamins 10 ml/ Thiamine HCl 100 mg/ Folic Acid 1 mg/Sodium Chloride 1,011.2 mls @ 1,011.2 mls/hr IV .Q1H [facility] Stop: 11/30/21 08:03 Last Infusion: 11/30/21 12:43 Dose: 0 mls/hr Documented by: [id number] Infusion: 11/30/21 08:29 Dose: 250 mls/hr Documented by: [id number] Infusion: 11/30/21 08:14 Dose: 0 mls/hr Documented by: [id number] Admin: 11/30/21 08:05 Dose: 1,011.2 mls/hr Documented by: [id number] Pantoprazole Sodium 40 mg/ (Syringe) 10 mls @ 5 mls/min IV NOW ONE Stop: 11/30/21 07:05 Last Admin: 11/30/21 07:34 Dose: 5 mls/min Documented by: [id number] Ceftriaxone Sodium (Rocephin) 1,000 mg in 50 mls @ 100 mls/hr IV NOW STA Stop: 11/30/21 08:02 Last Infusion: 11/30/21 08:40 Dose: 0 mls/hr Documented by: [id number] Admin: 11/30/21 08:10 Dose: 100 mls/hr Documented by: [id number] Octreotide Acetate 50 mcg/ (Syringe) 10 mls @ 3 mls/min IV ONE STA Stop: 11/30/21 07:36 Last Admin: 11/30/21 08:09 Dose: 3 mls/min Documented by: [id number] Magnesium Sulfate/Dextrose (Magnesium Sulfate / D5w) 1 gm in 100 mls @ 100 mls/hr IV Q1H ANGEL Stop: 11/30/21 10:52 Last Infusion: 11/30/21 11:20 Dose: 0 mls/hr Documented by: [id number] Admin: 11/30/21 10:20 Dose: 100 mls/hr Documented by: [id number] Infusion: 11/30/21 10:19 Dose: 100 mls/hr Documented by: [id number] Admin: 11/30/21 09:19 Dose: 100 mls/hr Documented by: [id number] Acetaminophen (Ofirmev) 65 mls @ 200 mls/hr IV NOW ONE; Protocol Stop: 11/30/21 09:12 Last Infusion: 11/30/21 09:37 Dose: 0 mls/hr Documented by: [id number] Admin: 11/30/21 09:18 Dose: 200 mls/hr Documented by: [id number] Pantoprazole Sodium 40 mg/ (Syringe) 10 mls @ 5 mls/min IV NOW ONE Stop: 11/30/21 10:10 Last Admin: 11/30/21 11:27 Dose: 5 mls/min Documented by: [id number] Potassium Chloride (K Dong / Wtr) 10 meq in 100 mls @ 100 mls/hr IV Q1H ANGEL; Protocol Stop: 11/30/21 14:44 Last Infusion: 11/30/21 16:43 Dose: 0 mls/hr Documented by: [id number] Admin: 11/30/21 14:58 Dose: 100 mls/hr Documented by: [id number] Infusion: 11/30/21 14:58 Dose: 100 mls/hr Documented by: [id number] Admin: 11/30/21 14:01 Dose: 100 mls/hr Documented by: [id number] Influenza Virus Vaccine Quadrival (Flu Vaccine (Fluarix) 0.5ml Syr (Standard Dose)) 0.5 ml IM .ONCE ONE Stop: 11/30/21 14:16 Last Admin: 11/30/21 14:58 Dose: 0.5 ml Documented by: [id number] Ioversol (Optiray 320 100ml) 94 ml IV ONCE ONE Stop: 11/30/21 07:57 Last Admin: 11/30/21 07:57 Dose: 94 ml Documented by: [id number] Metoclopramide HCl (Metoclopramide Hcl Inj 5 Mg/Ml 2 Ml Vial) 5 mg IV ONE ONE Stop: 11/30/21 07:05 Last Admin: 11/30/21 07:35 Dose: 10 mg Documented by: [id number] Miscellaneous (Stat Iv) 1 ea N/A NOW STA Stop: 11/30/21 07:34 Last Admin: 11/30/21 11:32 Dose: Not Given Documented by: [id number] Imaging Data Radiologist's Impression: Abdomen/Pelvis CT 11/30/21 07:[address] WITH IV CONTRAST CT DOSE: 535.45 mGy.cm HISTORY: Acute generalized abdominal pain with history of hematemesis abd pain, hematemesis TECHNIQUE: Multiaxial CT images of the abdomen and pelvis were performed fo llowing the IV administration of 94 cc of Optiray, A dose lowering technique was utilized adhering to the principles of ALARA. COMPARISON STUDY: CT abdomen pelvis 06/13/2021 FINDINGS: The heart is upper limits of normal in size. Clear lung bases. No pneumatosis or pneumoperitoneum. The spleen is enlarged measuring up to 18.7 cm in length. Unremarkable pancreas, gallbladder and adrenal glands. Cirrhotic liver with hepa tic steatosis. No hepatic mass identified. Patency of the portal vein. Abdominal varices with recanalization of the umbilical vein. Unremarkable kidneys. There is no hydronephrosis. Mild urinary bladder wall thickening with partial distention. Prostate is unremarkable. The aorta and IVC are unremarkable. There is no adenopathy. Circumferential wall thickening of the distal esophagus. Small volume of abdominal pelvic ascites. Colonic diverticulosis without acute diverticulitis. Mild fecal retention. Noninflamed appendix. No bowel obstruction. There is a mild small bowel wall thickening are likely secondary to edematous state. Mild generalized body wall edema with gynecomastia. No acute fracture. IMPRESSION: 1. No bowel obstruction. Normal appendix. 2. Hepatic steatosis with cirrhosis and stigmata of portal venous hypertension including splenomegaly with small volume of abdominal ascites and abdominal varices. 3. Unchanged distal esophageal wall thickening. Correlate clinically to exclude esophagitis. 4. Colonic diverticulosis. 5. Additional findings as above. ACT 112: Negative or not required by law. The above report was generated using voice recognition software. It may contain grammatical, syntax or spelling errors. Electronically signed by: Shaan Koroma M.D. 11/30/2021 8:05 AM Chest X-Ray 11/30/21 07:04 SINGLE VIEW CHEST CLINICAL HISTORY: Hematemesis FINDINGS: An AP, portable, upright chest radiograph is compared to study dated 10/06/2020. The cardiomediastinal silhouette is unremarkable. There is mild bibasilar atelectasis. The lungs and pleural spaces are otherwise clear. No pneumothorax is seen. The bony thorax is grossly intact. IMPRESSION: No active disease in the chest. ACT 112: Negative or not required by law. Electronically signed by: Liban Doan M.D. 11/30/2021 7:29 AM Discharge Plan Visit Data Chief Complaint: Vomiting Stated Complaint: VOMITING BLOOD ED Provider: Pardeep Collins ED Midlevel Provider: Alex Gee Discharge Problem: Hematemesis, Hypomagnesemia, Alcoholic cirrhosis of liver Patient Disposition: Admitted As Inpatient Discharge Instructions Interventions: ED Discharge Assessment Last Done: 11/30/21 17:03 Resident Activity Tracking Resident Involvement: Resident Care Provided Care Provided: Adult ED Addendum November 30, 2021 16:43 Resident attestation: I participated in the care of this patient. Please see attending documentation.
--- NOTE | 2021-11-30 08:07 | CT Scan Report ---
ABDOMEN AND PELVIS CT WITH IV CONTRAST CT DOSE: 535.45 mGy.cm HISTORY: Acute generalized abdominal pain with history of hematemesis abd pain, hematemesis TECHNIQUE: Multiaxial CT images of the abdomen and pelvis were performed following the IV administrat ion of 94 cc of Optiray, A dose lowering technique was utilized adhering to the principles of ALARA. COMPARISON STUDY: CT abdomen pelvis 06/13/2021 FINDINGS: The heart is upper limits of normal in size. Clear lung bases. No pneumatosis or pneumoperitoneum. Th e spleen is enlarged measuring up to 18.7 cm in length. Unremarkable pancreas, gallbladder and adrena l glands. Cirrhotic liver with hepatic steatosis. No hepatic mass identified. Patency of the portal v ein. Abdominal varices with recanalization of the umbilical vein. Unremarkable kidneys. There is no hydronephrosis. Mild urinary bladder wall thickening with partial d istention. Prostate is unremarkable. The aorta and IVC are unremarkable. There is no adenopathy. Circumferential wall thickening of the distal esophagus. Small volume of abdominal pelvic ascites. Co lonic diverticulosis without acute diverticulitis. Mild fecal retention. Noninflamed appendix. No bow el obstruction. There is a mild small bowel wall thickening are likely secondary to edematous state. Mild generalized body wall edema with gynecomastia. No acute fracture. IMPRESSION: 1. No bowel obstruction. Normal appendix. 2. Hepatic steatosis with cirrhosis and stigmata of portal venous hypertension including splenomegaly with small volume of abdominal ascites and abdominal varices. 3. Unchanged distal esophageal wall thickening. Correlate clinically to exclude esophagitis. 4. Colonic diverticulosis. 5. Additional findings as above. ACT 112: Negative or not required by law. The above report was generated using voice recognition software. It may contain grammatical, syntax o r spelling errors. Electronically signed by: Shaan Koroma M.D. 11/30/2021 8:05 AM
[2021-11-30] MEDS: OCTREOTIDE ACETATE 500 MCG in DEXTROSE 5% 100 ML IV SCH ×2 (08:09→18:14)
[2021-11-30 08:10] LABS: Bilirubin Direct 0.8 mg/dl (0-0.2); Magnesium 1.5 mg/dl (1.7-2.4); Phosphorus 2.8 mg/dl (2.5-4.9)
[2021-11-30] MEDS ORDERED: ACETAMINOPHEN 65 ML IV ONE (08:53)
[2021-11-30] MEDS: MAGNESIUM SULFATE / D5W 1 GM/100 ML BAG IV SCH ×2 (09:19→10:20)
--- NOTE | 2021-11-30 10:12 | History & Physical Report ---
Date of Service November 30, 2021 Assessment & Plan (1) Hematemesis: Plan: -1 episode this morning around 5 AM, described as ailyn red blood. No additional episodes, in the setting of known alcoholic cirrhosis. -DDx includes esophagitis vs esophageal/gastric varices vs PUD. No varices seen on EGD in January 2021, abdominal varices noted on CTAP today, as well as esophageal wall thickening. No recent EtOH use or recent illness with frequent vomiting to cause Dorinda-Carmen tear. Low suspicion for malignancy in patient without weight loss, dysphagia, no evidence of HCC on U/S in August 2021. -Ceftriaxone 1g q12 hours. -IV Protonix 80 mg bolus with continuous drip. -Octreotide infusion. -[facility] consulted, plan for EGD tomorrow, will make patient n.p.o. now. Appreciate their recommendations. -Hgb 13.7, continue to monitor Q6h, transfusion for Hgb < 7 (2) Alcoholic hepatitis: Plan: -Initially presented in September 2020, diagnosed alcoholic cirrhosis by biopsy in 04/2021. -Current outpatient med indications for this includes KCl 40 twice daily, lactulose 15 daily. Currently n.p.o. for EGD tomorrow, will restart these medications when tolerating p.o. intake. -Spironolactone was recently stopped due to gynecomastia. -MELD score 11. (3) Hypokalemia: Plan: -3.4 in ED, Mg also low. -Replete with 20 mEq KCl, 2g Mg++ -Recheck in AM. (4) Hypomagnesemia: Plan: -1.5 in ED, received 2g for repletion. -Recheck in AM. (5) Alcohol use disorder: Plan: -Abstinent since September 2020. (6) Depression: Plan: -Fluoxetine daily, continue when no longer NPO. (7) Anxiety: Plan: -Buspar daily and hydroxyzine prn. -Continue these when no longer NPO. Plan: -OBS medsurg w/ telemetry. -SCDs for DVT prophylaxis, chemo PPx contraindicated in setting of acute bleed. -Full code. History of Present Illness Chief Complaint: hematemesis Primary Care Provider: Kathleen Key PA-C Patient is a 31 y/o male with a PMH alcoholic cirrhosis, anxiety, depression, and PTSD who presents today with 1 episodes of hematemesis. Patient states he woke up this morning around 0430 to let his dog out, when he noticed he felt dizzy and shortly after had 1 episode of vomiting, noting it was bright red blood. He also reports epigastric abdominal pain and may have felt feverish over the last 12 hours, otherwise without fatigue, myalgias, confusion, lethargy, chest pain, palpitations, shortness of breath, cough, URI symptoms, syncope, nausea, further episodes of vomiting, diarrhea, constipation, melena, hematochezia, increase in weight, increased abdominal girth, peripheral edema, or yellowing of his skin or eyes. Patient was diagnosed with alcoholic hepatitis in September 2020, has abstained from alcohol since then. Alcoholic cirrhosis diagnosed by liver biopsy in April 2021. EGD in January 2021 did not show any esophageal varices. Diagnostic paracentesis in December 2020 without history of SBP. In ED, patient has a fever of 100.9, tachycardic with heart rate in 110s, otherwise vital signs stable and within normal limits. Routine labs showed no leukocytosis, Hgb 13.7, procalcitonin .46, lactate 1.0. PT 12.8, INR 1.2, PTT 30.8. Na+ 134, K+ 3.4, Mg++ 1.5. T bili 2.1, direct bili 0.8, AST 57, ALT 36, alk phos 131, ammonia 29, lipase 58. Allergies Allergy/AdvReac Type Severity Reaction Status Date / Time No Known Allergies Allergy Verified 11/30/21 08:06 Home Medications Medication Instructions Recorded Confirmed Type multivitamin (Daily-Danny) 1 tab PO QAM #30 tab 10/08/20 11/30/21 Rx hydroxyzine HCl 25 mg tablet 25 mg PO QID PRN 04/25/21 11/30/21 History potassium chloride 20 mEq 40 meq PO BID 04/25/21 11/30/21 History tablet,extended release spironolactone 25 mg tablet 25 mg PO QAM 04/25/21 11/30/21 History buspirone 15 mg tablet 15 mg PO QAM 11/30/21 11/30/21 History ergocalciferol (vitamin D2) 1,250 1,250 mcg PO WK 11/30/21 11/30/21 History mcg (50,000 unit) capsule (Vitamin D2) fluoxetine 20 mg capsule 20 mg PO QAM 11/30/21 11/30/21 History lactulose 10 gram/15 mL oral 15 ml PO QAM 11/30/21 11/30/21 History solution magnesium oxide 400 mg PO QAM 11/30/21 11/30/21 History topiramate 25 mg sprinkle capsule 75 mg PO HS 11/30/21 11/30/21 History Past Med/Surg History Medical History (Updated 11/30/21 @ 20:55 by Pardeep Collins MD) Alcoholic hepatitis no alcohol since sep 2020 Anxiety Depression History of gastritis Migraine Panic attacks Surgical History History of circumcision at the age of 8 Hx of esophagogastroduodenoscopy Family History Other No family history of adverse response to anesthesia Social History Smoking Status: Never smoker Second Hand Exposure: No; Do You Dip or Chew Tobacco: No; Hx Alcohol Use: Yes (Quit 09/2020) Alcohol type: hard liquor Alcohol Intake Frequency Comment: 3-5 X weekly Hx Substance Use: No Preferred Language: Syriac Communication Ability: Effective Toll Transmission Worker Required: No Beliefs That Will Affect Care: None Current Living Situation: Significant Other current occupational status: employed Other Information That Helps Us Care for You: No Feels Safe at Home: Yes Safety Concerns: Feels Safe At This Time Physical Activity Frequency: Does not Exercise Assistive Devices: Cane Review of Systems Review of Systems: Review of systems: Constitutional: Chills over last 12 hours; no objective fever at home, night sweats, myalgias, fatigue, weakness Eyes: No diplopia, no worsening or blurred vision ENT: normal hearing, no trouble swallowing Respiratory: No cough, sputum, dyspnea at rest or on exertion Cardiovascular: No chest pain, tightness or palpitations Abdomen: Reports abdominal pain over the past 12 hours since centrally located with some nausea and one episode of hematemesis at home this morning; no diarrhea or constipation, no melena no hematochezia, no abdominal swelling. Musculoskeletal: No joint pain, calf pain, swelling Neurologic: No weakness, numbness/tingling, or balance problems Psychiatric: No anxiety or depression Skin: No skin discoloration, rash or itch Physical Exam Physical Exam: General: awake, alert, no apparent distress Head: Normocephalic, atraumatic ENT: PERRL, EOMI, no icterus, no pharyngeal exudate, mucous membranes moist Chest: Clear to auscultation, on room air, no adventitious breath sounds Cardiac: Regular rate and rhythm, no murmur, no JVD, normal peripheral pulses, good capillary refill Abdominal: Epigastric abdominal pain with deep palpation, no rebound or guarding; NABS x 4 quadrants, soft. Extremities: Normal inspection, no peripheral edema or erythema, calfs nontender to palpation Psych: Normal mood and affect Neuro: AAO x 3, strength intact bilaterally and rated 5/5, no motor deficits, speech is clear, no peripheral sensory deficits Skin: No jaundice, no rash or erythema Results & Data Results & Data ([facility]) Vital Signs (Past 12 Hours) Vital Signs Temp Pulse Resp BP Pulse Ox 11/30/21 09:00 38.3 C H 109 H 20 132/77 95 11/30/21 08:32 105 H 18 135/87 97 11/30/21 08:30 105 H 20 96 11/30/21 07:30 112 H 22 133/85 99 11/30/21 07:10 108 H 17 98 11/30/21 07:00 109 H 16 144/76 H 98 11/30/21 06:50 110 H 24 98 11/30/21 06:40 107 H 18 99 11/30/21 06:30 107 H 22 144/84 H 99 11/30/21 06:19 107 H 18 128/82 99 11/30/21 06:01 38.0 C H 117 H 16 139/81 99 Laboratory Results Abnormal lab results 11/30/21 11/30/21 11/30/21 Range/Units 06:15 06:15 06:20 RBC 4.33 L (4.7-6.1) M/uL Hgb 13.7 L (14.0-18.0) g/dL Hct 39.0 L (42-52) % RDW Std Deviation 49.9 H (36.4-46.3) fL RDW Coeff of Cali 14.9 H (11.5-14.5) % Starke # (Auto) 2.02 H (0.11-0.59) K/uL PT (9.0-12.0) Seconds INR (0.9-1.1) Sodium (136-145) mmol/L Potassium (3.5-5.1) mmol/L Chloride (98-107) mmol/L Carbon Dioxide (21-32) mmol/L Magnesium (1.7-2.4) mg/dl Total Bilirubin (0.2-1.0) mg/dl Direct Bilirubin (0-0.2) mg/dl AST (13-39) U/L Alkaline Phosphatase (34-104) U/L Urine pH >= 9.0 H (4.5-7.5) Urine Protein Trace H (Negative) U Marijuana (THC) Screen Pos H (Neg) 11/30/21 11/30/21 11/30/21 Range/Units 06:20 06:20 07:23 RBC (4.7-6.1) M/uL Hgb (14.0-18.0) g/dL Hct (42-52) % RDW Std Deviation (36.4-46.3) fL RDW Coeff of Cali (11.5-14.5) % Starke # (Auto) (0.11-0.59) K/uL PT 12.8 H (9.0-12.0) Seconds INR 1.2 H (0.9-1.1) Sodium 134 L (136-145) mmol/L Potassium 3.4 L (3.5-5.1) mmol/L Chloride 94 L (98-107) mmol/L Carbon Dioxide 33 H (21-32) mmol/L Magnesium 1.4 L 1.5 L (1.7-2.4) mg/dl Total Bilirubin 2.1 H (0.2-1.0) mg/dl Direct Bilirubin 0.8 H (0-0.2) mg/dl AST 57 H (13-39) U/L Alkaline Phosphatase 131 H (34-104) U/L Urine pH (4.5-7.5) Urine Protein (Negative) U Marijuana (THC) Screen (Neg) Diagnostic Findings Abdomen/Pelvis CT 11/30/21 07:[address] WITH IV CONTRAST CT DOSE: 535.45 mGy.cm HISTORY: Acute generalized abdominal pain with history of hematemesis abd pain, hematemesis TECHNIQUE: Multiaxial CT images of the abdomen and pelvis were performed following the IV administration of 94 cc of Optiray, A dose lowering technique was utilized adhering to the principles of ALARA. COMPARISON STUDY: CT abdomen pelvis 06/13/2021 FINDINGS: The heart is upper limits of normal in size. Clear lung bases. No pneumatosis or pneumoperitoneum. The spleen is enlarged measuring up to 18.7 cm in length. Unremarkable pancreas, gallbladder and adrenal glands. Cirrhotic liver with hepatic steatosis. No hepatic mass identified. Patency of the portal vein. Abdominal varices with recanalization of the umbilical vein. Unremarkable kidneys. There is no hydronephrosis. Mild urinary bladder wall thickening with partial distention. Prostate is unremarkable. The aorta and IVC are unremarkable. There is no adenopathy. Circumferential wall thickening of the distal esophagus. Small volume of abdominal pelvic ascites. Colonic diverticulosis without acute diverticulitis. Mild fecal retention. Noninflamed appendix. No bowel obstruction. There is a mild small bowel wall thickening are likely secondary to edematous state. Mild generalized body wall edema with gynecomastia. No acute fracture. IMPRESSION: 1. No bowel obstruction. Normal appendix. 2. Hepatic steatosis with cirrhosis and stigmata of portal venous hypertension including splenomegaly with small volume of abdominal ascites and abdominal varices. 3. Unchanged distal esophageal wall thickening. Correlate clinically to exclude esophagitis. 4. Colonic diverticulosis. 5. Additional findings as above. ACT 112: Negative or not required by law. The above report was generated using voice recognition software. It may contain grammatical, syntax or spelling errors. Electronically signed by: Shaan Koroma M.D. 11/30/2021 8:05 AM Chest X-Ray 11/30/21 07:04 SINGLE VIEW CHEST CLINICAL HISTORY: Hematemesis FINDINGS: An AP, portable, upright chest radiograph is compared to study dated 10/06/2020. The cardiomediastinal silhouette is unremarkable. There is mild bibasilar atelectasis. The lungs and pleural spaces are otherwise clear. No pneumothorax is seen. The bony thorax is grossly intact. IMPRESSION: No active disease in the chest. ACT 112: Negative or not required by law. Electronically signed by: Liban Doan M.D. 11/30/2021 7:29 AM ECG Additional Comments: Sinus tachycardia, otherwise normal ECG. When compared with ECG of 13-JUN-2021 20:04, no significant change was found Code Status & VTE Plan Code Status Full code Supervising Physician Co-Signing Physician Notes I personally saw and examined the patient. I verified all gutierres points and agree with Shauna Quigley PA-C with the following exceptions and/or additions: 31 year old male presents to the ER with single episode of hematemesis in setting of known alcoholic cirrhosis. O/E HS 1+2, no murmurs, Chest CTAB, Abdo mild epigastric pain without guarding or rebound tenderness A/P Hematemesis without anemia - IV pantoprazole, IV octreotide, IV ceftriaxone. Consult GI. NPO pending GI consult. Fever - unclear etiology ?bacterial translocation, mild epigastric pain on exam, not enough ascites for paracentesis and given location SBP appears unlikely. PG Care Time/CCT Total # of Minutes Spent Total Time Spent with Patient: Total time spent is greater than 50% in coordination of care (as documented) at patient's floor/unit and/or counseling patient: Coding Level of Care Code INT OBSERVATION CARE 70M LVL 3 Diagnoses Alcoholic hepatitis K70.11 Ascites presence: with ascites Hypokalemia E87.6 Alcohol use disorder Hypomagnesemia E83.42 Hematemesis K92.0 Depression F32.9 Anxiety F41.9 (1) Alcoholic hepatitis Ascites presence: with ascites Qualified Code(s): K70.11 - Alcoholic hepatitis with ascites
[2021-11-30] MEDS: PANTOprazole 40 MG in DEXTROSE 5% 100 ML IV SCH ×3 (12:41→20:44)
[2021-11-30] MEDS ORDERED: diphenhydrAMINE 50 MG/ML VIAL IV PRN (13:12)
[2021-11-30] MEDS ORDERED: ONDANSETRON INJ 2 MG/ML 2 ML VIAL IV PRN (13:12)
[2021-11-30 13:32] LABS: Basophils # (auto) 0.04 K/uL (0-0.2); Basophils % (auto) 0.5 %; Eosinophils # (auto) 0.06 K/uL (0-0.5); Eosinophils % (auto) 0.8 %; Hematocrit (blood only) 38.9 % (42-52); Hemoglobin 13.1 g/dL (14.0-18.0); Immature Granulocytes # (auto) 0.02 K/uL (0.00-0.02); Immature Granulocytes % (auto) 0.3 %; Lymphocytes # (auto) 1.65 K/uL (1.2-3.4); Lymphocytes % (auto) 22.5 %; Mean Corpuscular Hemoglobin 30.9 pg (25-34); Mean Corpuscular Hgb Conc 33.7 g/dL (32-36); Mean Corpuscular Volume 91.7 fL (80-100); Mean Platelet Volume 10.1 fL (7.4-10.4); Monocytes # (auto) 1.64 K/uL (0.11-0.59); Monocytes % (auto) 22.3 %; Neutrophils # (auto) 3.93 K/uL (1.4-6.5); Neutrophils % (auto) 53.6 %; Platelet Count 112 K/uL (130-400); RDW Standard Deviation 50.6 fL (36.4-46.3); Red Blood Count 4.24 M/uL (4.7-6.1); White Blood Count 7.34 K/uL (4.8-10.8)
[2021-11-30] MEDS: SODIUM CHLORIDE 0.9% 1000ML 1,000 ML IV SCH (14:00)
[2021-11-30] MEDS: POTASSIUM CHLORIDE / WTR 10 MEQ/100 ML PLCT IV SCH ×2 (14:01→14:58)
[2021-11-30] MEDS ORDERED: Flu Vaccine (Fluarix) 0.5mL SYR (Standard Dose) IM ONE (14:15)
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
[2021-11-30 19:24] LABS: Basophils # (auto) 0.06 K/uL (0-0.2); Basophils % (auto) 0.8 %; Eosinophils # (auto) 0.09 K/uL (0-0.5); Eosinophils % (auto) 1.2 %; Hematocrit (blood only) 38.3 % (42-52); Immature Granulocytes # (auto) 0.02 K/uL (0.00-0.02); Immature Granulocytes % (auto) 0.3 %; Lymphocytes # (auto) 1.09 K/uL (1.2-3.4); Lymphocytes % (auto) 14.6 %; Mean Corpuscular Hemoglobin 31.3 pg (25-34); Mean Corpuscular Hgb Conc 33.9 g/dL (32-36); Mean Corpuscular Volume 92.1 fL (80-100); Mean Platelet Volume 10.4 fL (7.4-10.4); Monocytes % (auto) 21.4 %; Neutrophils # (auto) 4.61 K/uL (1.4-6.5); Neutrophils % (auto) 61.7 %; Platelet Count 111 K/uL (130-400); RDW Coefficient of Variation 15.1 % (11.5-14.5); RDW Standard Deviation 51.2 fL (36.4-46.3); Red Blood Count 4.16 M/uL (4.7-6.1); White Blood Count 7.47 K/uL (4.8-10.8)
[2021-11-30] MEDS ORDERED: cefTRIAXone SODIUM 2,000 MG in DEXTROSE 5% 50 ML IV SCH (20:00)
[2021-11-30] MEDS ORDERED: cefTRIAXone SODIUM 1,000 MG in DEXTROSE 5% 50 ML IV SCH (20:00)
[2021-12-01 01:18] LABS: Hematocrit (blood only) 38.3 % (42-52); Hemoglobin 13.3 g/dL (14.0-18.0); Mean Corpuscular Hemoglobin 31.6 pg (25-34); Mean Corpuscular Hgb Conc 34.7 g/dL (32-36); Mean Platelet Volume 10.3 fL (7.4-10.4); Platelet Count 129 K/uL (130-400); RDW Coefficient of Variation 15.1 % (11.5-14.5); RDW Standard Deviation 50.8 fL (36.4-46.3); Red Blood Count 4.21 M/uL (4.7-6.1); White Blood Count 7.95 K/uL (4.8-10.8)
[2021-12-01 01:29] LABS: INR 1.2 (0.9-1.1); Partial Thromboplastin Ratio 1.2; Partial Thromboplastin Time 32.2 Seconds (21.0-31.0); Prothrombin Time 12.5 Seconds (9.0-12.0)
[2021-12-01] MEDS: PANTOprazole 40 MG in DEXTROSE 5% 100 ML IV SCH ×4 (01:32→18:25)
[2021-12-01] MEDS: SODIUM CHLORIDE 0.9% 1000ML 1,000 ML IV SCH ×2 (01:32→14:11)
[2021-12-01 01:46] LABS: Albumin Globulin Ratio 1.4 (0.9-2); Albumin Level 4.1 gm/dl (3.4-5.0); BUN Creatinine Ratio 11.3 (10-20); Bilirubin,Total 2.5 mg/dl (0.2-1.0); Calcium 8.5 mg/dl (8.5-10.1); Creatinine Clr Calc Pharmacy 138.4 ml/min; Est GFR (African American) 142.9 ml/min; Est GFR (Non-African American) 123.3 ml/min; Globulin 2.9 gm/dl (2.5-4.0); Magnesium 1.9 mg/dl (1.7-2.4); Potassium 4.4 mmol/L (3.5-5.1)
[2021-12-01 02:04] LABS: Basophils # (auto) 0.05 K/uL (0-0.2); Basophils % (auto) 0.6 %; Eosinophils # (auto) 0.07 K/uL (0-0.5); Eosinophils % (auto) 0.9 %; Immature Granulocytes # (auto) 0.01 K/uL (0.00-0.02); Immature Granulocytes % (auto) 0.1 %; Lymphocytes # (auto) 1.49 K/uL (1.2-3.4); Lymphocytes % (auto) 18.7 %; Monocytes % (auto) 21.4 %; Neutrophils # (auto) 4.63 K/uL (1.4-6.5); Neutrophils % (auto) 58.3 %
[2021-12-01] MEDS: OCTREOTIDE ACETATE 500 MCG in DEXTROSE 5% 100 ML IV SCH ×2 (03:48→13:54)
[2021-12-01 07:44] LABS: Hematocrit (blood only) 39.4 % (42-52); Hemoglobin 13.5 g/dL (14.0-18.0); Mean Corpuscular Hemoglobin 31.4 pg (25-34); Mean Corpuscular Hgb Conc 34.3 g/dL (32-36); Mean Corpuscular Volume 91.6 fL (80-100); Mean Platelet Volume 9.8 fL (7.4-10.4); Platelet Count 131 K/uL (130-400); RDW Standard Deviation 50.9 fL (36.4-46.3)
--- NOTE | 2021-12-01 08:51 | Gastroenterology Progress Note ---
Date of Service December 01, 2021 Assessment & Plan (1) Alcoholic cirrhosis of liver: Admission and Anticipated Discharge Date Admission Date: November 30, 2021 Supervising Physician Co-Signing Physician Notes I interviewed and examined the patient and reviewed the medical record, with the following observations: Subjective: No further hematemesis episodes during this hospitalization. Physical Examination: Alert, oriented X 3, no scleral icterus, no jaundice, no asterixis Cor: normal tones and rhythm Chest: Clear lungs without rales, rhonchi, wheezing, decreased breath sounds, dullness to percussion. + gynecomastia Abdomen: benign exam without distension, tenderness, obvious ascites Chart Review: Stable H/H I agree with the assessment as outlined in this consultation, with the following observations: No additional observations I agree with the plan of care as outlined in this consultation, with the following changes and/or additions: discussed with Mr. Turk. Plan of care is to proceed with EGD and control of bleeding if necessary. I discussed potential benefits and risks of measures to control bleeding, such as banding of varices or application of thermal therapy or hemostatic clips for other bleeding lesions. All questions were answered and consent was obtaines As the supervising physician, I have spent 15 minutes of discrete time performing the activities of this consultation which include, but are not limited to, review of the medical record, obtaining a history, physical examination, and entering information into the electronic record. VIKKI Meier, has reported spending minutes of discrete time with the activities of the consultation. Subjective Patient awake alert and oriented this morning he is watching videos on his phone. He denies any complaints today. He reports episode of hematemesis which presented to the emergency department with. Denies any further hematemesis since admission. He reports he had some upset stomach yesterday but feels much better today. No abdominal pain, nausea, vomiting. He states that he had 3 bowel movements yesterday. Nothing so far today. Was recently prescribed Xifaxan but has not started this medication as it requires authorization. Reports compliance daily with lactulose. Review of Systems Review of Systems: All systems reviewed & are unremarkable except as noted in Subjective Physical Exam Constitutional: WD/WN, vitals as above Eyes: PERRL, conjunctivae normal, anicteric sclerae Respiratory: normal respiratory effort, lungs clear to auscultation Cardiovascular: RRR, no murmur, no edema Gastrointestinal (Abdomen): normal bowel sounds, soft, nontender, no hepatosplenomegaly Inspection/Auscultation: abdomen normal to inspection and normal bowel sounds Percussion/Palpation: abdomen soft and normal to percussion; no guarding, no hepatosplenomegaly and no fluid wave Neurologic: PERRL, EOMI, accommodation nl, no face palsy, no dysarthria Psychiatric: A+Ox3, euthymic affect Orientation: oriented x 3 Eye Contact: good eye contact Motor Behavior: no abnormal motor movements; n tremor Affect: euthymic affect Thought Process: clear/coherent thought process Results & Data ([facility]) Vital Signs (Past 12 Hours) Vital Signs Temp Pulse Pulse Resp BP Pulse Ox 12/01/21 07:28 38.3 C H 91 H 21 156/90 H 95 12/01/21 03:20 37.8 C H 88 20 152/88 H 97 11/30/21 23:46 93 H 11/30/21 22:20 37.6 C H 91 H 18 137/83 99 Laboratory Results Laboratory Results - last 24 hr 11/30/21 11/30/21 11/30/21 08:02 13:18 19:19 WBC 7.34 7.47 RBC 4.24 L 4.16 L Hgb 13.1 L 13.0 L Hct 38.9 L 38.3 L MCV 91.7 92.1 MCH 30.9 31.3 MCHC 33.7 33.9 RDW Std Deviation 50.6 H 51.2 H RDW Coeff of [place]i 15.0 H 15.1 H Plt Count 112 L 111 L MPV 10.1 10.4 Immature Gran % (Auto) 0.3 0.3 Neut % (Auto) 53.6 61.7 Lymph % (Auto) 22.5 14.6 [place] % (Auto) 22.3 21.4 Eos % (Auto) 0.8 1.2 Baso % (Auto) 0.5 0.8 Neut # (Auto) 3.93 4.61 Lymph # (Auto) 1.65 1.09 L [place] # (Auto) 1.64 H 1.60 H Eos # (Auto) 0.06 0.09 Baso # (Auto) 0.04 0.06 Immature Gran # (Auto) 0.02 0.02 PT INR APTT PTT Ratio Sodium Potassium Chloride Carbon Dioxide Anion Gap BUN Creatinine Est Cr Clr Drug Dosing Est GFR ( Amer) Est GFR (Non-Af Amer) BUN/Creatinine Ratio Glucose Calcium Magnesium Total Bilirubin AST ALT Alkaline Phosphatase Total Protein Albumin Globulin Albumin/Globulin Ratio Blood Type O Positive Antibody Screen NEGATIVE 12/01/21 12/01/21 12/01/21 01:01 01:01 01:01 WBC 7.95 RBC 4.21 L Hgb 13.3 L Hct 38.3 L MCV 91.0 MCH 31.6 MCHC 34.7 RDW Std Deviation 50.8 H RDW Coeff of [place] 15.1 H Plt Count 129 L MPV 10.3 Immature Gran % (Auto) 0.1 Neut % (Auto) 58.3 Lymph % (Auto) 18.7 [place] % (Auto) 21.4 Eos % (Auto) 0.9 Baso % (Auto) 0.6 Neut # (Auto) 4.63 Lymph # (Auto) 1.49 [place] # (Auto) 1.70 H Eos # (Auto) 0.07 Baso # (Auto) 0.05 Immature Gran # (Auto) 0.01 PT 12.5 H INR 1.2 H APTT 32.2 H PTT Ratio 1.2 Sodium 132 L Potassium 4.4 D Chloride 102 Carbon Dioxide 23 Anion Gap 7 BUN 8 Creatinine 0.71 Est Cr Clr Drug Dosing 138.4 Est GFR ( Amer) 142.9 Est GFR (Non-Af Amer) 123.3 BUN/Creatinine Ratio 11.3 Glucose 117 H Calcium 8.5 Magnesium 1.9 Total Bilirubin 2.5 H AST 43 H ALT 30 Alkaline Phosphatase 97 Total Protein 7.0 Albumin 4.1 Globulin 2.9 Albumin/Globulin Ratio 1.4 Blood Type Antibody Screen 12/01/21 07:28 WBC 7.40 RBC 4.30 L Hgb 13.5 L Hct 39.4 L MCV 91.6 MCH 31.4 MCHC 34.3 RDW Std Deviation 50.9 H RDW Coeff of [place] 15.0 H Plt Count 131 MPV 9.8 Immature Gran % (Auto) Neut % (Auto) Lymph % (Auto) [place] % (Auto) Eos % (Auto) Baso % (Auto) Neut # (Auto) Lymph # (Auto) [place] # (Auto) Eos # (Auto) Baso # (Auto) Immature Gran # (Auto) PT INR APTT PTT Ratio Sodium Potassium Chloride Carbon Dioxide Anion Gap BUN Creatinine Est Cr Clr Drug Dosing Est GFR ( Amer) Est GFR (Non-Af Amer) BUN/Creatinine Ratio Glucose Calcium Magnesium Total Bilirubin AST ALT Alkaline Phosphatase Total Protein Albumin Globulin Albumin/Globulin Ratio Blood Type Antibody Screen
[2021-12-01] MEDS ORDERED: PIPERACILL/TAZOBAC CONSULT ACTIVE PRN (08:57)
[2021-12-01] MEDS ORDERED: PIPERACILLIN/TAZOBACTAM 4.5 GM in DEXTROSE 5% 100 ML IV SCH (09:00)
[2021-12-01] MEDS ORDERED: busPIRone 15 MG TAB PO SCH (09:00)
[2021-12-01] MEDS ORDERED: PIPERACILLIN/TAZOBACTAM 3.375 GM in DEXTROSE 5% 100 ML IV ONE (09:00)
[2021-12-01] MEDS ORDERED: FLUoxetine HCL 20 MG CAP PO SCH (09:00)
[2021-12-01 09:21] LABS: Basophils # (auto) 0.07 K/uL (0-0.2); Basophils % (auto) 0.9 %; Eosinophils # (auto) 0.09 K/uL (0-0.5); Eosinophils % (auto) 1.2 %; Immature Granulocytes # (auto) 0.02 K/uL (0.00-0.02); Immature Granulocytes % (auto) 0.3 %; Lymphocytes # (auto) 1.68 K/uL (1.2-3.4); Lymphocytes % (auto) 22.7 %; Monocytes # (auto) 1.67 K/uL (0.11-0.59); Monocytes % (auto) 22.6 %; Neutrophils # (auto) 3.87 K/uL (1.4-6.5); Neutrophils % (auto) 52.3 %
--- NOTE | 2021-12-01 10:34 | Hospitalist Progress Note ---
Date of Service December 01, 2021 Assessment & Plan (1) Hematemesis: Plan: -1 episode this morning around 5 AM, described as ailyn red blood. No additional episodes, in the setting of known alcoholic cirrhosis. -DDx includes esophagitis vs esophageal/gastric varices vs PUD. No varices seen on EGD in January 2021, abdominal varices noted on CTAP today, as well as esophageal wall thickening. No recent EtOH use or recent illness with frequent vomiting to cause Dorinda-Carmen tear. Low suspicion for malignancy in patient without weight loss, dysphagia, no evidence of HCC on U/S in August 2021. -Ceftriaxone 1g q12 hours. -IV Protonix 80 mg bolus with continuous drip. -Octreotide infusion. -[facility] consulted, plan for EGD tomorrow, will make patient n.p.o. now. Appreciate their recommendations. -Hgb 13.7, continue to monitor Q6h, transfusion for Hgb < 7 (2) Alcoholic hepatitis: Plan: -Initially presented in September 2020, diagnosed alcoholic cirrhosis by biopsy in 04/2021. -Current outpatient med indications for this includes KCl 40 twice daily, lactulose 15 daily. Currently n.p.o. for EGD tomorrow, will restart these medications when tolerating p.o. intake. -Spironolactone was recently stopped due to gynecomastia. -MELD score 11. (3) Hypokalemia: Plan: -3.4 in ED, Mg also low. -Replete with 20 mEq KCl, 2g Mg++ -Recheck in AM. (4) Hypomagnesemia: Plan: -1.5 in ED, received 2g for repletion. -Recheck in AM. (5) Alcohol use disorder: Plan: -Abstinent since September 2020. (6) Depression: Plan: -Fluoxetine daily, continue when no longer NPO. (7) Anxiety: Plan: -Buspar daily and hydroxyzine prn. -Continue these when no longer NPO. Plan: -OBS medsurg w/ telemetry. -SCDs for DVT prophylaxis, chemo PPx contraindicated in setting of acute bleed. -Full code. Admission and Anticipated Discharge Date Admission Date: November 30, 2021 Results & Data Results & Data ([facility]) Vital Signs (Past 12 Hours) Vital Signs Temp Pulse Pulse Resp BP Pulse Ox 03/18/22 07:28 38.3 C H 91 H 21 156/90 H 95 12/01/21 03:20 37.8 C H 88 20 152/88 H 97 11/30/21 23:46 93 H PG Care Time/CCT Total # of Minutes Spent Total Time Spent with Patient: Total time spent is greater than 50% in coordination of care (as documented) at patient's floor/unit and/or counseling patient: Coding Diagnoses Hematemesis K92.0 Alcoholic hepatitis K70.11 Ascites presence: with ascites Hypokalemia E87.6 Hypomagnesemia E83.42 Alcohol use disorder Depression F32.9 Anxiety F41.9 (1) Alcoholic hepatitis Ascites presence: with ascites Qualified Code(s): K70.11 - Alcoholic hepatitis with ascites
[2021-12-01] MEDS ORDERED: PIPERACILLIN/TAZOBACTAM 3.375 GM in DEXTROSE 5% 100 ML IV SCH (14:00)
--- NOTE | 2021-12-01 14:45 | Anesthesiology Consultation ---
Date of Service December 01, 2021 Assessment & Plan (1) Encounter for pre-operative examination: Chart Review Chart Review: Acceptable Risk for Surgery and Patient NOT seen in Pre Admission Testing Consults Requested none History Surgery Operation Date: 12/01/21 16:45 Proposed Procedures p Esophagogastroduodenoscopy Dr Francisco Singh MD Height/Weight Height: 5 ft 7 in Weight: 78.154 kg Allergies Allergy/AdvReac Type Severity Reaction Status Date / Time No Known Allergies Allergy Verified 11/30/21 08:06 Medications Home Medications Medication Instructions Recorded Confirmed Last Taken multivitamin (Daily-Danny) 1 tab PO QAM #30 tab 10/08/20 11/30/21 11/29/21 16:00 hydroxyzine HCl 25 mg tablet 25 mg PO QID PRN 04/25/21 11/30/21 04/26/21 potassium chloride 20 mEq 40 meq PO BID 04/25/21 11/30/21 11/29/21 16:00 tablet,extended release spironolactone 25 mg tablet 25 mg PO QAM 04/25/21 11/30/21 11/29/21 16:00 buspirone 15 mg tablet 15 mg PO QAM 11/30/21 11/30/21 11/29/21 16:00 ergocalciferol (vitamin D2) 1,250 1,250 mcg PO WK 11/30/21 11/30/21 11/27/21 mcg (50,000 unit) capsule (Vitamin D2) fluoxetine 20 mg capsule 20 mg PO QAM 11/30/21 11/30/21 11/29/21 16:00 lactulose 10 gram/15 mL oral 15 ml PO QAM 11/30/21 11/30/21 11/29/21 16:00 solution magnesium oxide 400 mg PO QAM 11/30/21 11/30/21 11/29/21 16:00 topiramate 25 mg sprinkle capsule 75 mg PO HS 11/30/21 11/30/21 Unknown Active Medications Generic Name Dose Route Start Last Admin Trade Name Freq PRN Reason Stop Dose Admin Buspirone HCl 15 mg 12/01/21 09:00 12/01/21 09:38 Buspirone 15 Mg Tab PO 12/31/21 08:59 15 mg QAM ANGEL Administration Fluoxetine HCl 20 mg 12/01/21 09:00 12/01/21 09:38 Fluoxetine Hcl 20 Mg Cap PO 12/31/21 08:59 20 mg QAM ANGEL Administration Octreotide Acetate 500 mcg/ 105 mls @ 10.5 mls/hr 11/30/21 07:45 12/01/21 13:54 Dextrose IV 12/30/21 07:44 50 mcg/hr .Q10H ANGEL 10.5 mls/hr Administration 50 MCG/HR Pantoprazole Sodium 40 mg/ 100 mls @ 20 mls/hr 11/30/21 10:15 12/01/21 10:54 Dextrose IV 12/30/21 10:14 8 mg/hr Q5H ANGEL 20 mls/hr Administration 8 MG/HR Sodium Chloride 1,000 mls @ 80 mls/hr 11/30/21 13:11 12/01/21 14:11 Nss 1000ml IV 12/30/21 13:10 80 mls/hr .[id number] ANGEL Administration Piperacillin Sod/Tazobactam 115 mls @ 28.75 mls/hr 12/01/21 14:00 12/01/21 13:54 Sod 3.375 gm/ Dextrose IV 12/11/21 13:59 28.8 mls/hr Q8H ANGEL Administration Protocol NPO Date Last Intake of Fluids: 12/01/21 Time Last Intake of Fluids: 08:30 Date Last Intake of Solids: 11/30/21 Time Last Intake of Solids: 18:30 Past Medical History Medical History (Updated 12/01/21 @ 14:46 by Cory Pereira MD) Alcoholic hepatitis no alcohol since sep 2020 Anxiety Ascites due to alcoholic cirrhosis Depression Hematemesis History of gastritis Migraine Panic attacks Past Family History Family History Other No family history of adverse response to anesthesia Past Surgical History Surgical History History of circumcision at the age of 8 Hx of esophagogastroduodenoscopy Social History Smoking Status: Never smoker Do You Dip or Chew Tobacco: No Hx Alcohol Use: Yes (Quit 09/2020) Alcohol type: hard liquor alcohol intake frequency: 0-2 drinks per day Hx Substance Use: No substance use type: does not use Physical Exam Vital Signs Last Vital Signs Temp 37.5 C 12/01/21 11:12 Pulse 82 12/01/21 11:12 Resp 20 12/01/21 11:12 BP 149/88 H 12/01/21 11:12 Pulse Ox 97 12/01/21 11:12 Testing Laboratory Results 12/01/21 07:28 12/01/21 01:01 PT 12.5 Seconds (9.0-12.0) H 12/01/21 01:01 INR 1.2 (0.9-1.1) H 12/01/21 01:01 APTT 32.2 Seconds (21.0-31.0) H 12/01/21 01:01 Urine Color Dark Yellow 11/30/21 06:15 Urine Appearance Clear (Clear) 11/30/21 06:15 Urine pH >= 9.0 (4.5-7.5) H 11/30/21 06:15 Ur Specific [place] 1.015 (1.000-1.030) 11/30/21 06:15 Urine Protein Trace (Negative) H 11/30/21 06:15 Urine Glucose (UA) Negative (Negative) 11/30/21 06:15 Urine Ketones Negative (Negative) 11/30/21 06:15 Urine Nitrite Negative (Negative) 11/30/21 06:15 Ur Leukocyte Esterase Negative (Negative) 11/30/21 06:15 Urine WBC (Auto) 1-5 /hpf (0-5) 11/30/21 06:15 Urine RBC (Auto) 0-4 /hpf (0-4) 11/30/21 06:15 U Hyaline Cast (Auto) 0 /lpf (0-5) 11/30/21 06:15 U Epithel Cells (Auto) 0-5 /lpf (0-5) 11/30/21 06:15 Urine Bacteria (Auto) Negative (Negative) 11/30/21 06:15 Blood Type O Positive 11/30/21 08:02 Antibody Screen NEGATIVE 11/30/21 08:02 11/30/21 06:43 Aerobic Blood Culture - Preliminary Blood No growth in Aerobic bottle after 24 hours. Anaerobic Blood Culture - Preliminary No growth in Anaerobic bottle after 24 hours. 11/30/21 06:50 Aerobic Blood Culture - Preliminary Blood No growth in Aerobic bottle after 24 hours. Anaerobic Blood Culture - Preliminary No growth in Anaerobic bottle after 24 hours. Electrocardiogram Date: 11/30/21 Findings: + ST @ (103) Sinus tachycardia Otherwise normal ECG When compared with ECG of 13-JUN-2021 20:04, No significant change was found
--- NOTE | 2021-12-01 15:31 | Electrocardiogram Report ---
Test Reason : Blood Pressure : / mmHG Vent. Rate : 103 BPM Atrial Rate : 103 BPM P-R Int : 144 ms QRS Dur : 094 ms QT Int : 336 ms P-R-T Axes : 012 037 025 degrees QTc Int : 440 ms Sinus tachycardia Otherwise normal ECG When compared with ECG of 13-JUN-2021 20:04, No significant change was found Confirmed by Eze Gregorio ([id number]) on 12/01/2021 3:31:42 PM Referred By: Confirmed By:Eze Gregorio
[2021-12-01] MEDS ORDERED: PROPOFOL IV EMULSION 10 MG/ML 20 ML VIAL IV ONE (16:34)
[2021-12-01] MEDS ORDERED: LIDOCAINE 2% 2 ML VIAL/AMP(20MG/ML) INFIL ONE (16:34)
--- NOTE | 2021-12-01 16:55 | GI REPORT ---
Patient Name: Omar Turk Procedure Date: 12/01/2021 4:09 PM Date of : 1990 Admit Type: Inpatient Age: 31 Gender: Male Attending MD: Stuart Singh MD Procedure: Upper GI endoscopy Providers: Stuart Singh MD Referring MD: Rui Lang Md Indications: Hematemesis, Recent gastrointestinal bleeding Medicines: Monitored Anesthesia Care Complications: No immediate complications. Estimated Blood Loss: Estimated blood loss: none. Procedure: Pre-Anesthesia Assessment: - Prior to the procedure, a History and Physical was performed, and patient medications and allergies were reviewed. The patient is competent. The risks and benefits of the procedure and the sedation options and risks were discussed with the patient. All questions were answered and informed consent was obtained. Patient identification and proposed procedure were verified by the physician and the nurse in the pre-procedure area. Mental Status Examination: alert and oriented. Airway Examination: normal oropharyngeal airway and neck mobility. Respiratory Examination: clear to auscultation. CV Examination: normal. Prophylactic Antibiotics: The patient requires prophylactic antibiotics due to a prior history of acute GI bleeding. Prior Anticoagulants: The patient has taken no previous anticoagulant or antiplatelet agents. ASA Grade Assessment: III - A patient with severe systemic disease. After reviewing the risks and benefits, the patient was deemed in satisfactory condition to undergo the procedure. The anesthesia plan was to use monitored anesthesia care (MAC). Immediately prior to administration of medications, the patient was re-assessed for adequacy to receive sedatives. The heart rate, respiratory rate, oxygen saturations, blood pressure, adequacy of pulmonary ventilation, and response to care were monitored throughout the procedure. The physical status of the patient was re-assessed after the procedure. After obtaining informed consent, the endoscope was passed under direct vision. Throughout the procedure, the patient's blood pressure, pulse, and oxygen saturations were monitored continuously. The Endoscope was introduced through the mouth, and advanced to the second part of duodenum. The upper GI endoscopy was accomplished without difficulty. The patient tolerated the procedure well. Findings: LA Grade B (one or more mucosal breaks greater than 5 mm, not extending between the tops of two mucosal folds) esophagitis with [stigmata of recent bleeding] was found 38 to 40 cm from the incisors. Grade III varices were found at the gastroesophageal junction. They were medium in size. The Z-line was irregular and was found 39 cm from the incisors. A 1 cm hiatal hernia was present. Localized moderate inflammation characterized by congestion (edema) and erythema was found in the prepyloric region of the stomach. There is no endoscopic evidence of bleeding, ulceration, Dieulafoy lesions or erosion in the entire examined stomach. Localized moderately erythematous mucosa without active bleeding and with no stigmata of bleeding was found in the duodenal bulb. Impression: - LA Grade B reflux esophagitis. - Grade III esophageal varices. - Z-line irregular, 39 cm from the incisors. - 1 cm hiatal hernia. - Gastritis. - Erythematous duodenopathy. - No specimens collected. Recommendation: - Return patient to hospital [facility] for ongoing care. - Advance diet as tolerated. - Continue present medications. MD Stuart Santoyo MD 12/01/2021 4:54:50 PM This report has been signed electronically. Note Initiated On: 12/01/2021 4:09 PM Number of Addenda: 0 I attest to the content of the Intraoperative Record and orders documented therein, exceptions below {[id number]}
--- NOTE | 2021-12-01 16:58 | Post Operative Brief Note ---
Immediate Post Op Note v1 Date of Surgery December 01, 2021 Pre & Post Diagnosis Operation Date: 12/01/21 16:45 Pre-Op Diagnosis: HEMATEMESIS WITH KNOWN ETOH CIRRHOSIS Post-Op Diagnosis: Erosive esophagitis Gastritis Duodenitis Esophageal varices I identified the patient and participated in the time-out.: Yes Procedure Operation Date: 12/01/21 16:45 Actual Procedures p Esophagogastroduodenoscopy - Stuart Singh MD Surgeon Stuart Singh MD Horse Show Manager none Estimated Blood Loss 0 Findings Consistent with Post-Op Diagnosis Erosive Esophagitis with stigmata of recent hemorrhage. Grade 3 esophageal varices, nonbleeding. Antral gastritis and duodenitis Complications no immediate complications
--- NOTE | 2021-12-01 17:19 | Anesthesiology Progress Note ---
Date of Service December 01, 2021 Anesthesia Post Procedure Vital Signs Vital Signs: Temp Pulse Pulse Resp BP BP Pulse Ox 12/01/21 17:15 78 20 138/94 95 12/01/21 16:58 75 20 112/73 96 12/01/21 16:44 82 20 113/71 96 12/01/21 15:31 37.3 C 76 18 139/93 98 12/01/21 15:05 96 H 12/01/21 11:12 37.5 C 82 20 149/88 H 97 12/01/21 09:00 94 H 12/01/21 07:28 38.3 C H 91 H 21 156/90 H 95 12/01/21 03:20 37.8 C H 88 20 152/88 H 97 11/30/21 23:46 93 H 11/30/21 22:20 37.6 C H 91 H 18 137/83 99 11/30/21 18:35 37.7 C H 96 H 18 131/87 98 Pain Intensity Abdomen: Pain Intensity: 5 Transfer of Care Handoff Completed per policy Notes Mental Status: alert / awake / arousable Patient Amnestic to Procedure: Yes Nausea / Vomiting: adequately controlled Pain: adequately controlled Airway Patency, RR, SpO2: stable & adequate BP & HR: stable & adequate Hydration State: stable & adequate Anesthetic Complications: no major complications apparent
[2021-12-01] MEDS ORDERED: AMOXICILLIN/CLAVULANATE 875 MG TAB PO ONE (18:30)
[2021-12-01] MEDS ORDERED: PANTOprazole 40 MG TAB PO ONE (18:30)
--- NOTE | 2021-12-01 18:32 | Discharge Summary ---
Date of Service December 01, 2021 Admission HPI Per Admitting Provider Patient is a 31 y/o male with a PMH alcoholic cirrhosis, anxiety, depression, and PTSD who presents today with 1 episodes of hematemesis. Patient states he woke up this morning around 0430 to let his dog out, when he noticed he felt dizzy and shortly after had 1 episode of vomiting, noting it was bright red blood. He also reports epigastric abdominal pain and may have felt feverish over the last 12 hours, otherwise without fatigue, myalgias, confusion, lethargy, chest pain, palpitations, shortness of breath, cough, URI symptoms, syncope, nausea, further episodes of vomiting, diarrhea, constipation, melena, hematochezia, increase in weight, increased abdominal girth, peripheral edema, or yellowing of his skin or eyes. Patient was diagnosed with alcoholic hepatitis in September 2020, has abstained from alcohol since then. Alcoholic cirrhosis diagnosed by liver biopsy in April 2021. EGD in January 2021 did not show any esophageal varices. Diagnostic paracentesis in December 2020 without history of SBP. In ED, patient has a fever of 100.9, tachycardic with heart rate in 110s, otherwise vital signs stable and within normal limits. Routine labs showed no leukocytosis, Hgb 13.7, procalcitonin .46, lactate 1.0. PT 12.8, INR 1.2, PTT 30.8. Na+ 134, K+ 3.4, Mg++ 1.5. T bili 2.1, direct bili 0.8, AST 57, ALT 36, alk phos 131, ammonia 29, lipase 58. Principal Diagnosis Hematemesis - Erosive Esophagitis with stigmata of recent hemorrhage.Antral gastritis and duodenitis Grade 3 esophageal varices, nonbleeding Discharge Exam No further abdominal pain, hematemesis, nausea or vomiting Constitutional WD/WN, vitals as above ENMT external ear and nose normal, oropharynx normal Respiratory normal respiratory effort, lungs clear to auscultation Cardiovascular RRR, no murmur, no edema Gastrointestinal (Abdomen) Inspection/Auscultation: normal bowel sounds Percussion/Palpation: abdomen soft; abdomen nontender, no guarding and abdomen not rigid Musculoskeletal no cyanosis or clubbing, extremities motor strength 5/5 Skin no rashes, warm and dry Neurologic moves all extremities and awake; not confused Psychiatric A+Ox3, euthymic affect Discharge Data Allergies Allergy/AdvReac Type Severity Reaction Status Date / Time No Known Allergies Allergy Verified 11/30/21 08:06 Consultations 11/30/21 11:51 ED Decision to Admit Stat 11/30/21 13:12 Consult Gastroenterology Routine Procedures Performed Operation Date: 12/01/21 16:45 Actual Procedures p Esophagogastroduodenoscopy - Stuart Singh MD Ordered Studies 11/30/21 07:04 CT abd pelvis IV con only Stat IMPRESSION: 1. No bowel obstruction. Normal appendix. 2. Hepatic steatosis with cirrhosis and stigmata of portal venous hypertension including splenomegaly with small volume of abdominal ascites and abdominal varices. 3. Unchanged distal esophageal wall thickening. Correlate clinically to exclude esophagitis. 4. Colonic diverticulosis. 5. Additional findings as above. Hospital Course (1) Hematemesis: Omar Turk is a 31 year old male admitted to [facility] from November 30 - 2021 due to hematemesis. EGD showed erosive esophagitis with stigmata of recent hemorrhage. Grade 3 esophageal varices, nonbleeding. Antral gastritis and duodenitis. Hemoglobin has been stable. Abdominal pain resolved overnight. This was treated with intravenous pantoprazole and transitioned to to oral pantoprazole on discharge - please continue this until follow up with your precision farming coordinator in approximately 6 weeks. Propranolol was not recommended. Due to two spikes in fever - translocation of bacteria is possible and recommended to cover for this with Augmentin for 2 weeks as discussed with gastroenterology. Spontaneous bacterial peritonitis not excluded but felt to be unlikely and amount of ascites is not amenable to paracentesis. Advised to return to the ER if recurrent abdominal pain. Possible fever is due to his current viral upper respiratory illness - influenza, COVID, RSV PCR was negative on admission and CXR did not show any pneumonia. Blood cultures are negative after 24 hours - he will be called if these are subsequently positive. He should follow up with his primary care physician in the next 1-2 weeks for routine hospital follow up. (2) Alcoholic hepatitis: (3) Hypokalemia: (4) Hypomagnesemia: (5) Alcohol use disorder: (6) Depression: (7) Anxiety: Total Time Total Time Spent Total Time Spent (In Minutes): 40 Discharge Plan Discharge Items Patient Disposition: Home - Self-Care Reason For Visit: HEMATEMESIS WITH KNOWN ETOH CIRRHOSIS Discharge Diagnosis: Hematemesis Fever of unknown origin Activity: Resume your previous activity Non-emergency contact: Primary Care Provider and Hospital Mortician Call non-emergency contact if: you have any medication questions and your symptoms worsen Follow-up/Referrals: Kathleen Key PA-C [Primary Care Provider] - Stuart Singh MD [Physician] - (6 week follow up) Diet: Low Sodium (2gm) Addtl Attending Provider Instructions: You were admitted to [facility] from November 30 - 2021 due to hematemesis. EGD showed erosive esophagitis with stigmata of recent hemorrhage. Grade 3 esophageal varices, nonbleeding. Antral gastritis and duodenitis. Hemoglobin has been stable. This was treated with intravenous pantoprazole and will be switched to oral pantoprazole on discharge - please continue this until follow up with your precision farming coordinator in approximately 6 weeks. Due to two spikes in fever - translocation of bacteria is possible and recommended to cover for this with Augmentin for 2 weeks as discussed with your precision farming coordinator. Spontaneous bacterial peritonitis not excluded and if you have recurrent abdominal pain recommend returning to the Possible fever is just due to your current viral upper respiratory illness however - influenza, COVID, RSV PCR was negative on admission and CXR did not show any pneumonia. Blood cultures are negative after 24 hours - you will be called if these are subsequently positive. Please follow up with your primary care physician in the next 1-2 weeks for routine hospital follow up. Pending Studies at Discharge: Yes (blood cultures) Stand-Alone Forms: My [facility], Smoking Cessation Medications and DC Order Prescriptions: New pantoprazole 40 mg tablet,delayed release (DR/EC) 40 mg PO BID Qty: 60 RF: 0 amoxicillin-pot clavulanate 875-125 mg tablet 1 tab PO BID 14 Days Qty: 28 RF: 0 Continued multivitamin [Daily-Danny] Tablet 1 tab PO QAM Qty: 30 RF: 0 spironolactone 25 mg Tablet 25 mg PO QAM RF: 0 hydroxyzine HCl 25 mg Tablet 25 mg PO QID PRN (Reason: Panic Attack(S)) RF: 0 potassium chloride 20 mEq Tablet Extended Release 40 meq PO BID RF: 0 topiramate 25 mg capsule, sprinkle 75 mg PO HS RF: 0 ergocalciferol (vitamin D2) [Vitamin D2] 1,250 mcg (50,000 unit) Capsule 1,250 mcg PO WK RF: 0 fluoxetine 20 mg capsule 20 mg PO QAM RF: 0 buspirone 15 mg Tablet 15 mg PO QAM RF: 0 lactulose 10 gram/15 mL Solution 15 ml PO QAM RF: 0 magnesium oxide 400 mg magnesium Tablet 400 mg PO QAM RF: 0 Discharge Orders: Discharge Order (Routine); Ordered 12/01/21 Ordered By: Rui Thakkar/Other Patient Handouts: Amoxicillin/Clavulanate Oral Tablet 875 mg/125 mg, Pantoprazole Delayed Release Oral Tablet 40 mg, Esophagitis, Understanding Cirrhosis Admission Data Admit Date/Time: 11/30/21 10:42 Attending Provider: Rui Lang Admit Provider: Rui Lang Primary Care Provider: Kathleen Key Other Providers: Rui Lang ; Stuart Singh Other Interventions: Discharge Summary Assessment (RN) Last Done: 12/01/21 18:28 Coding Level of Care Code 00932 OBS Care - Discharge Diagnoses Hematemesis K92.0 Alcoholic hepatitis K70.11 Ascites presence: with ascites Hypokalemia E87.6 Hypomagnesemia E83.42 Alcohol use disorder Depression F32.9 Anxiety F41.9
[2021-12-02 05:52] LABS: Marijuana Quant, GCMS Urine 371 ng/mL (<5)
== END 2021-12-01 19:22 | disposition home or self-care (01) ==
LOC: ED 05:57 → EDINP 05:57 → 2N 16:34

== ENCOUNTER 2022-08-27 18:25 | Inpatient (IN) ==
[2022-08-27 19:56] LABS: Hematocrit (blood only) 28.3 % (40.1-51.0); Hemoglobin 10.5 g/dl (14.0-18.0); Mean Corpuscular Hgb Conc 37.1 g/dL (32.0-36.0); Mean Corpuscular Volume 94.3 fL (80.0-100.0); Mean Platelet Volume 9.6 fL (9.4-12.4); Platelet Count 263 K/uL (130-400); RDW Coefficient of Variation 16.6 % (11.5-14.5); RDW Standard Deviation 57.2 fL (36.4-46.3)
[2022-08-27 20:28] LABS: Basophils # (auto) 0.12 K/uL (0-0.2); Basophils % (auto) 0.7 %; Echinocytes 1+; Eosinophils # (auto) 0.38 K/uL (0-0.50); Eosinophils % (auto) 2.3 %; Immature Granulocytes # (auto) 0.46 K/uL (0.00-0.02); Immature Granulocytes % (auto) 2.8 %; Lymphocytes # (auto) 3.18 K/uL (1.2-3.4); Lymphocytes % (auto) 19.4 %; Monocytes # (auto) 3.26 K/uL (0.24-0.82); Monocytes % (auto) 19.9 %; Neutrophils % (auto) 54.9 %; Target Cells 1+
[2022-08-27 20:32] LABS: Alanine Aminotransferase 33 U/L (7-52); Albumin Globulin Ratio 1.4 (0.9-2); Albumin Level 2.7 gm/dl (3.4-5.0); Alkaline Phosphatase 176 U/L (34-104); Anion Gap 8 (3-11); Aspartate Aminotransferase 128 U/L (13-39); BUN Creatinine Ratio 15.5 (10-20); Bilirubin,Total 18.1 mg/dl (0.2-1.0); Blood Urea Nitrogen 28 mg/dl (6-23); Calcium 8.2 mg/dl (8.5-10.1); Carbon Dioxide 34 mmol/L (21-32); Chloride 86 mmol/L (98-107); Creatinine Clr Calc Pharmacy 58.2 ml/min; Est GFR (African American) 55.3 ml/min; Est GFR (Non-African American) 47.7 ml/min; Glucose 124 mg/dl (70-99(Fasting)); Potassium 4.1 mmol/L (3.5-5.1); Sodium 128 mmol/L (136-145); Total Protein 4.7 gm/dl (6.0-8.3)
[2022-08-28] MEDS ORDERED: PIPERACILLIN/TAZOBACTAM 4.5 GM/120 ML BAG IV ONE (00:21)
[2022-08-28] MEDS ORDERED: ALBUMIN 25% 100 mL 25 GM/100 ML VIAL IV ONE (00:29)
--- NOTE | 2022-08-28 01:04 | Emergency Department Note ---
History of Present Illness General Chief complaint: GI Assessment Stated complaint: ABDOMINAL BLOATING, ADOMINAL PAIN Time Seen by Provider: 08/27/22 22:43 History of Present Illness Maximum Pain Intensity: 8 32-year-old male presents to the ED with a chief complaint of abdominal discomfo rt. The patient has a history of alcoholic hepatitis and cirrhosis. He does have a history of ascites. He has had this drained a couple times previously. Last 1 was 9 days ago the patient denies any nausea or vomiting. No specific fevers. No additional complaints at this time. Home Medications Medication Instructions Recorded Confirmed Type multivitamin (Daily-Danny tablet) 1 tab PO QAM #30 tabs 10/08/20 08/27/22 Rx potassium chloride 20 mEq 40 meq PO BID 04/25/21 08/27/22 History tablet,extended release ergocalciferol (vitamin D2) 1,250 1,250 mcg PO WK 11/30/21 08/27/22 History mcg (50,000 unit) capsule (Vitamin D2) magnesium oxide 400 mg PO QAM 11/30/21 08/27/22 History fluoxetine 40 mg capsule 40 mg PO DAILY 08/27/22 08/27/22 History furosemide 20 mg tablet 20 mg PO DAILY 08/27/22 08/27/22 History spironolactone 50 mg tablet 50 mg PO DAILY 08/27/22 08/27/22 History Allergies Allergy/AdvReac Type Severity Reaction Status Date / Time No Known Allergies Allergy Verified 08/27/22 22:05 Past Med/Surg History Medical History Alcoholic hepatitis no alcohol since sep 2020 Anxiety Ascites due to alcoholic cirrhosis Depression Hematemesis History of gastritis Migraine Panic attacks Surgical History History of circumcision at the age of 8 Hx of esophagogastroduodenoscopy Family History Other No family history of adverse response to anesthesia Social History Smoking Status: Never smoker Second Hand Exposure: No; Hx Alcohol Use: No Hx Substance Use: No Preferred Language: Cypriot Communication Ability: Effective Water Analyst Required: No Beliefs That Will Affect Care: None Current Living Situation: Significant Other current occupational status: employed Feels Safe at Home: Yes Physical Activity Frequency: Does not Exercise Assistive Devices: None Review of Systems A total of 10 systems reviewed and were otherwise negative Physical Exam Vital Signs Vital Signs - 24 hr 08/27/22 18:42 08/28/22 00:28 08/28/22 03:42 Temperature 37.1 C Temperature Source Temporal Artery Scan Pulse Rate 107 H Pulse Rate [Apical] 89 89 Respiratory Rate 16 14 Blood Pressure 110/69 Blood Pressure [Right Arm] 98/50 L 96/46 L Blood Pressure Mean 82 Blood Pressure Mean [Right Arm] 66 62 Blood Pressure Position [Right Arm] Lying Pulse Oximetry 99 95 97 Oxygen Delivery Method Room Air Room Air Room Air Sepsis Recent Fever Within 48 Hours No Sepsis New/Unexplained Change in Mental Status N/A Sepsis Action Taken by Nursing No Action Required CONSTITUTIONAL/VITAL SIGNS: Reviewed / noted above. GENERAL: Non-toxic in appearance. INTEGUMENTARY: Warm, dry, and [place]. HEAD: Normocephalic. EYES: with scleral icterus ENT/OROPHARYNX: clear and moist. LYMPHADENOPATHY/NECK: Is supple without lymphadenopathy or meningismus. RESPIRATORY: Clear to auscultation bilaterally. No increased work of breathing. CARDIOVASCULAR: Regular rate and rhythm. GI/ABDOMEN: Distended and mildly tender. EXTREMITIES: Warm and well perfused. BACK: No CVA tenderness. NEUROLOGICAL: Intact without focal deficits. PSYCHIATRIC: normal affect. MUSCULOSKELETAL: Normally developed with good muscle tone. TRIAGE NURSING DOCUMENTATION REVIEWED. Procedures Paracentesis Time Out Performed: Yes Indication: possible spontaneous bacterial peritonitis Procedure: diagnostic paracentesis Location: LLQ Local Anesthetic: lidocaine 1% Amount of anesthesia used (mL): 10 Bedside Ultrasound Used: yes, real-time guidance Preparation: 11 blade used to make megan in skin Amount of fluid obtained (mL): 4,000 Fluid: bloody and sent to lab for analysis Size of Needle Used: 18 Post Procedure Exam: awake, alert, normal BP, normal HR and normal SpO2 Patient Tolerated Procedure: well and no complications Complications: hypotension (Transient hypotension resolved with 1 L normal saline bolus) Course Administered Medications Buspirone HCl (Buspirone 15 Mg Tab) 15 mg PO [facility] Stop: 09/27/22 08:59 Last Admin: 08/28/22 08:47 Dose: 15 mg Documented By: PIA Fluoxetine HCl (Fluoxetine Hcl 20 Mg Cap) 40 mg PO DAILY ANGEL Stop: 09/27/22 08:59 Last Admin: 08/28/22 08:47 Dose: 40 mg Documented By: PIA Albumin Human (Albumin 25% 100 Ml) 25 gm in 100 mls @ 50 mls/hr IV Q8H ANGEL Stop: 08/30/22 08:59 Last Admin: 08/28/22 17:18 Dose: 50 mls/hr Documented By: Infusion: 08/28/22 10:55 Dose: 0 mls/hr Documented By: Admin: 08/28/22 08:47 Dose: 50 mls/hr Documented By: PIA Ceftriaxone Sodium 1,000 mg/ (Dextrose) 50 mls @ 100 mls/hr IV Q24H [facility]; Protocol Stop: 09/07/22 06:59 Last Infusion: 08/28/22 09:34 Dose: 0 mls/hr Documented By: Admin: 08/28/22 08:49 Dose: 100 mls/hr Documented By: PIA Lactulose (Lactulose Syrup 10 Gm/15 Ml Btl 960 Ml) 10 gm PO DAILY ANGEL Stop: 09/27/22 08:59 Last Admin: 08/28/22 08:47 Dose: 10 gm Documented By: PIA Discontinued Medications Piperacillin Sod/Tazobactam Sod (Zosyn) 4.5 gm in 120 mls @ 240 mls/hr IV NOW ONE Stop: 08/28/22 00:50 Last Infusion: 08/28/22 01:35 Dose: 0 mls/hr Documented By: Admin: 08/28/22 01:05 Dose: 240 mls/hr Documented By: PERRI Albumin Human (Albumin 25% 100 Ml) 25 gm in 100 mls @ 50 mls/hr IV ONE ONE Stop: 08/28/22 02:28 Last Infusion: 08/28/22 03:44 Dose: 0 mls/hr Documented By: Admin: 08/28/22 00:55 Dose: 50 mls/hr Documented By: PERRI Sodium Chloride (Nss 1000ml) 2,000 mls @ 999 mls/hr IV .Q2H1M ONE Stop: 08/28/22 03:08 Last Infusion: 08/28/22 03:44 Dose: 0 mls/hr Documented By: Admin: 08/28/22 03:00 Dose: 999 mls/hr Documented By: RODY Medical Decision Making Differential Diagnosis Differential considered: pancreatitis, hepatitis, acute cholecystitis, AAA, UTI, pyelonephritis, kidney stones, appendicitis, diverticulitis, shingles, bowel obstruction, mesenteric ischemia, intussusception,hernia, SBP Medical Records Attestation: I reviewed the patient's medical records. Home Medications Current Medication List: was personally reviewed by me Laboratory Data Attestation: I reviewed the patient's lab results. Result diagrams: 08/27/22 19:47 08/27/22 19:47 Lab Results 08/27/22 08/27/22 08/27/22 Range/Units 19:47 19:47 19:47 WBC 16.40 H (4.8-10.8) K/ul RBC 3.00 L (4.63-6.08) M/uL Hgb 10.5 L (14.0-18.0) g/dl Hct 28.3 L (40.1-51.0) % MCV 94.3 (80.0-100.0) fL MCH 35.0 H (25.0-34.0) pg MCHC 37.1 H (32.0-36.0) g/dL RDW Std Deviation 57.2 H (36.4-46.3) fL RDW Coeff of Cali 16.6 H (11.5-14.5) % Plt Count 263 (130-400) K/uL MPV 9.6 (9.4-12.4) fL Immature Gran % (Auto) 2.8 % Neut % (Auto) 54.9 % Lymph % (Auto) 19.4 % [place] % (Auto) 19.9 % Eos % (Auto) 2.3 % Baso % (Auto) 0.7 % Neut # (Auto) 9.00 H (1.4-6.5) K/uL Lymph # (Auto) 3.18 (1.2-3.4) K/uL [place] # (Auto) 3.26 H (0.24-0.82) K/uL Eos # (Auto) 0.38 (0-0.50) K/uL Baso # (Auto) 0.12 (0-0.2) K/uL Immature Gran # (Auto) 0.46 H (0.00-0.02) K/uL Target Cells 1+ Echinocytes 1+ PT (9.0-12.0) Seconds INR (0.9-1.1) APTT (21.0-31.0) Seconds PTT Ratio Sodium 128 L (136-145) mmol/L Potassium 4.1 (3.5-5.1) mmol/L Chloride 86 L (98-107) mmol/L Carbon Dioxide 34 H (21-32) mmol/L Anion Gap 8 (3-11) BUN 28 H (6-23) mg/dl Creatinine 1.81 H (0.6-1.4) mg/dl Est Cr Clr Drug Dosing 58.2 ml/min Est GFR ( Amer) 55.3 ml/min Est GFR (Non-Af Amer) 47.7 ml/min BUN/Creatinine Ratio 15.5 (10-20) Glucose 124 H (70-99(Fasting)) mg/dl Calcium 8.2 L (8.5-10.1) mg/dl Magnesium (1.7-2.4) mg/dl Total Bilirubin 18.1 H (0.2-1.0) mg/dl AST 128 H (13-39) U/L ALT 33 (7-52) U/L Alkaline Phosphatase 176 H (34-104) U/L Lactate Dehydrogenase 190 (86-244) U/L Total Protein 4.7 L (6.0-8.3) gm/dl Albumin 2.7 L (3.4-5.0) gm/dl Globulin 2.0 L (2.5-4.0) gm/dl Albumin/Globulin Ratio 1.4 (0.9-2) Lipase TNP Fluid Neutrophils % % Fluid Lymphocytes % % Fluid Meso/Macro/[place] % % Fluid Comment Pleural Fluid Source Pleural Color Pleural Appearance Pleural WBC (Auto) /uL Pleural RBC (Auto) /uL Pleural Total Protein gm/dl Pleural LDH U/L Pleural Glucose mg/dl Pleural Amylase U/L 08/27/22 08/28/22 08/28/22 Range/Units 19:47 00:20 00:20 WBC (4.8-10.8) K/ul RBC (4.63-6.08) M/uL Hgb (14.0-18.0) g/dl Hct (40.1-51.0) % MCV (80.0-100.0) fL MCH (25.0-34.0) pg MCHC (32.0-36.0) g/dL RDW Std Deviation (36.4-46.3) fL RDW Coeff of [place] (11.5-14.5) % Plt Count (130-400) K/uL MPV (9.4-12.4) fL Immature Gran % (Auto) % Neut % (Auto) % Lymph % (Auto) % [place] % (Auto) % Eos % (Auto) % Baso % (Auto) % Neut # (Auto) (1.4-6.5) K/uL Lymph # (Auto) (1.2-3.4) K/uL [place] # (Auto) (0.24-0.82) K/uL Eos # (Auto) (0-0.50) K/uL Baso # (Auto) (0-0.2) K/uL Immature Gran # (Auto) (0.00-0.02) K/uL Target Cells Echinocytes PT 16.6 H (9.0-12.0) Seconds INR 1.6 H (0.9-1.1) APTT 36.7 H (21.0-31.0) Seconds PTT Ratio 1.3 Sodium (136-145) mmol/L Potassium (3.5-5.1) mmol/L Chloride (98-107) mmol/L Carbon Dioxide (21-32) mmol/L Anion Gap (3-11) BUN (6-23) mg/dl Creatinine (0.6-1.4) mg/dl Est Cr Clr Drug Dosing ml/min Est GFR ( Amer) ml/min Est GFR (Non-Af Amer) ml/min BUN/Creatinine Ratio (10-20) Glucose (70-99(Fasting)) mg/dl Calcium (8.5-10.1) mg/dl Magnesium (1.7-2.4) mg/dl Total Bilirubin (0.2-1.0) mg/dl AST (13-39) U/L ALT (7-52) U/L Alkaline Phosphatase (34-104) U/L Lactate Dehydrogenase (86-244) U/L Total Protein (6.0-8.3) gm/dl Albumin (3.4-5.0) gm/dl Globulin (2.5-4.0) gm/dl Albumin/Globulin Ratio (0.9-2) Lipase Fluid Neutrophils % 55 % Fluid Lymphocytes % 11 % Fluid Meso/Macro/[place] % 34 % Fluid Comment Pleural Fluid Source Left Lung Pleural Color Red Pleural Appearance Bloody Pleural WBC (Auto) 697 /uL Pleural RBC (Auto) 890683 /uL Pleural Total Protein < 3.0 gm/dl Pleural LDH 48 U/L Pleural Glucose mg/dl Pleural Amylase U/L 08/28/22 08/28/22 Range/Units 00:20 00:56 WBC (4.8-10.8) K/ul RBC (4.63-6.08) M/uL Hgb (14.0-18.0) g/dl Hct (40.1-51.0) % MCV (80.0-100.0) fL MCH (25.0-34.0) pg MCHC (32.0-36.0) g/dL RDW Std Deviation (36.4-46.3) fL RDW Coeff of [place] (11.5-14.5) % Plt Count (130-400) K/uL MPV (9.4-12.4) fL Immature Gran % (Auto) % Neut % (Auto) % Lymph % (Auto) % [place] % (Auto) % Eos % (Auto) % Baso % (Auto) % Neut # (Auto) (1.4-6.5) K/uL Lymph # (Auto) (1.2-3.4) K/uL [place] # (Auto) (0.24-0.82) K/uL Eos # (Auto) (0-0.50) K/uL Baso # (Auto) (0-0.2) K/uL Immature Gran # (Auto) (0.00-0.02) K/uL Target Cells Echinocytes PT (9.0-12.0) Seconds INR (0.9-1.1) APTT (21.0-31.0) Seconds PTT Ratio Sodium (136-145) mmol/L Potassium (3.5-5.1) mmol/L Chloride (98-107) mmol/L Carbon Dioxide (21-32) mmol/L Anion Gap (3-11) BUN (6-23) mg/dl Creatinine (0.6-1.4) mg/dl Est Cr Clr Drug Dosing ml/min Est GFR ( Amer) ml/min Est GFR (Non-Af Amer) ml/min BUN/Creatinine Ratio (10-20) Glucose (70-99(Fasting)) mg/dl Calcium (8.5-10.1) mg/dl Magnesium 2.2 (1.7-2.4) mg/dl Total Bilirubin (0.2-1.0) mg/dl AST (13-39) U/L ALT (7-52) U/L Alkaline Phosphatase (34-104) U/L Lactate Dehydrogenase (86-244) U/L Total Protein (6.0-8.3) gm/dl Albumin (3.4-5.0) gm/dl Globulin (2.5-4.0) gm/dl Albumin/Globulin Ratio (0.9-2) Lipase Fluid Neutrophils % % Fluid Lymphocytes % % Fluid Meso/Macro/[place] % % Fluid Comment Pleural Fluid Source Pleural Color Pleural Appearance Pleural WBC (Auto) /uL Pleural RBC (Auto) /uL Pleural Total Protein gm/dl Pleural LDH U/L Pleural Glucose 106 mg/dl Pleural Amylase 17 U/L ECG Data Attestation: I personally reviewed and interpreted this ECG as follows: Additional Comments: Twelve-lead EKG: Per my interpretation shows a sinus tach at a rate of 103. No ST elevation. No PVCs. Normal QTC MDM Narrative 32-year-old male presents to the ED with a chief complaint of abdominal discomfort in the setting of cirrhosis and history of ascites. With his history, SBP is a concern. A therapeutic and diagnostic paracentesis was performed. A serosanguineous fluid was obtained. The patient's white blood cell count is 16.4. His hemoglobin is 10.5. This is slightly lower than his 11.4 on his previous visit. His BUN is 28 and the creatinine is 1.8. The creatinine is elevated compared to his previous creatinine of 1.61. The patient's LFTs are elevated similar to previous. Bilirubin is 18 which is lower than his previous. EKG shows sinus rhythm. INR is elevated 1.6. Peritoneal fluid has 697 white cells. Unlikely SBP. Because the patient's symptoms and acute kidney injury, he will be seen by the hospitalist for further evaluation and care. The patient was treated 2 L normal saline IV. He was empirically given IV Zosyn. He was also given 25 g of albumin IV. Impression & Plan Abdominal pain, Abdominal ascites, Acute kidney injury, Acute liver failure, Coagulopathy Discharge Plan Visit Data Chief Complaint: GI Assessment Stated Complaint: ABDOMINAL BLOATING, ADOMINAL PAIN ED Provider: Kumar Perez Discharge Problem: Abdominal pain, Abdominal ascites, Acute kidney injury, Acute liver failure, Coagulopathy Patient Disposition: Admitted As Inpatient Discharge Instructions Interventions: ED Discharge Assessment Last Done: 08/28/22 06:08
[2022-08-28 01:08] LABS: INR 1.6 (0.9-1.1); Partial Thromboplastin Ratio 1.3; Partial Thromboplastin Time 36.7 Seconds (21.0-31.0); Prothrombin Time 16.6 Seconds (9.0-12.0)
[2022-08-28] MEDS ORDERED: SODIUM CHLORIDE 0.9% 1000ML 2,000 ML IV ONE (01:08)
--- NOTE | 2022-08-28 03:58 | History & Physical Report ---
Date of Service August 28, 2022 Assessment & Plan (1) Alcoholic cirrhosis of liver: Plan: Patient follows with [facility] [place]. With new increase in Creatinine patient with MELD score of 32 points, high estimated 3 month mortality -Continue Lactulose -Empiric Ceftriaxone, awaiting ascitic fluid studies -Repeat labs in AM - monitor Cr -Consider referral to transplant center (2) YENNY (acute kidney injury): Plan: Elevation of BUN and Cr to 28 and 1.81, respectively (increased from 8 and 0.61 on 08/10/22). Patient appears euvolemic on exam. He reports he is urinating without difficulty. Some concern for hepatorenal syndrome given extent of hepatic disease and fairly rapid rise in creatinine. -Check UA and urine sodium -Monitor UOP -Hold diuretics -Volume expansion with IV Albumin 1gm/kg x 2 days -Follow creatinine -Avoid nephrotoxic agents -Renal dosing where needed (3) Depression: Plan: Chronic -Continue Fluoxetine -Continue Buspirone History of Present Illness Chief Complaint: abdominal distention Primary Care Provider: Kathleen Key PA-C Omar Turk is a 32yo male with history of Etoh cirrhosis with ascites, depression/anxiety presenting with abdominal distention and discomfort. Patient has had paracenteses in the past. Last was 08/18/22 with 7.75 liters removed. He was administered 25mL of IV albumin 25% following that procedure. Patient had paracentesis performed today as well after which his blood pressure decreased to the 80's. Was administered 25gm of Albumin. He has no additional complaints. Denies fever, chills, chest pain,, cough, SOB, nausea, vomiting, diarrhea or constipation. Patient follows with GI at [facility] [place]. Lin Chavira. They are working on getting him on a transplant list. Allergies Allergy/AdvReac Type Severity Reaction Status Date / Time No Known Allergies Allergy Verified 08/27/22 22:05 Home Medications Medication Instructions Recorded Confirmed Type multivitamin (Daily-Danny tablet) 1 tab PO QAM #30 tabs 10/08/20 08/27/22 Rx potassium chloride 20 mEq 40 meq PO BID 04/25/21 08/27/22 History tablet,extended release ergocalciferol (vitamin D2) 1,250 1,250 mcg PO WK 11/30/21 08/27/22 History mcg (50,000 unit) capsule (Vitamin D2) magnesium oxide 400 mg PO QAM 11/30/21 08/27/22 History fluoxetine 40 mg capsule 40 mg PO DAILY 08/27/22 08/27/22 History furosemide 20 mg tablet 20 mg PO DAILY 08/27/22 08/27/22 History spironolactone 50 mg tablet 50 mg PO DAILY 08/27/22 08/27/22 History Past Med/Surg History Medical History Alcoholic hepatitis no alcohol since sep 2020 Anxiety Ascites due to alcoholic cirrhosis Depression Hematemesis History of gastritis Migraine Panic attacks Surgical History History of circumcision at the age of 8 Hx of esophagogastroduodenoscopy Family History Other No family history of adverse response to anesthesia Social History Smoking Status: Never smoker Second Hand Exposure: No; Hx Alcohol Use: Yes (Quit 09/2020) Alcohol type: hard liquor Alcohol Intake Frequency Comment: 3-5 X weekly Hx Substance Use: No Preferred Language: Eritrean Communication Ability: Effective [employer] Bi Administrator Required: No Beliefs That Will Affect Care: None Current Living Situation: Significant Other current occupational status: employed Feels Safe at Home: Yes Physical Activity Frequency: Does not Exercise Assistive Devices: Cane Review of Systems Review of Systems: All systems reviewed & are unremarkable except as noted in HPI & below Physical Exam Physical Exam: General: patient resting comfortably, NAD, non-toxic in appearance, AA&O x 4 Skin: warm, dry, intact, no rashes or lesions, +jaundice HEENT: NC/AT, PERRL, EOMI, Icteric sclera, conjunctiva without injection, external ear normal to inspection and nontender, nares patent, moist mucus membranes, dentition intact, no oropharyngeal lesions, neck supple, trachea midline, no LAD, no thyromegaly, no JVD Heart: +S1/S2, regular, no m/r/g Lungs: equal air entry bilaterally, no rales/rhonchi/wheezes Abd: +BS, soft, NT/ND, no masses/organomegaly Ext: warm, 2+ pulses in UE/LE bilaterally, no clubbing/cyanosis or edema Neuro: nonfocal, patient AA&O x 4, speech intact, no facial droop, moving all ex tremities on command with equal strength 5/5, no asterixis Results & Data Results & Data ([facility]) Vital Signs (Past 12 Hours) Vital Signs Temp Pulse Pulse Resp BP BP Pulse Ox 08/28/22 03:42 89 96/46 L 97 08/28/22 00:28 89 14 98/50 L 95 08/27/22 18:42 37.1 C 107 H 16 110/69 99 O2 Del Method 08/28/22 03:42 Room Air 08/28/22 00:28 Room Air 08/27/22 18:42 Room Air Laboratory Results Laboratory Results WBC 16.40 K/ul (4.8-10.8) H 08/27/22 19:47 RBC 3.00 M/uL (4.63-6.08) L 08/27/22 19:47 Hgb 10.5 g/dl (14.0-18.0) L 08/27/22 19:47 Hct 28.3 % (40.1-51.0) L 08/27/22 19:47 MCV 94.3 fL (80.0-100.0) 08/27/22 19:47 MCH 35.0 pg (25.0-34.0) H 08/27/22 19:47 MCHC 37.1 g/dL (32.0-36.0) H 08/27/22 19:47 RDW Std Deviation 57.2 fL (36.4-46.3) H 08/27/22 19:47 RDW Coeff of Cali 16.6 % (11.5-14.5) H 08/27/22 19:47 Plt Count 263 K/uL (130-400) 08/27/22 19:47 MPV 9.6 fL (9.4-12.4) 08/27/22 19:47 Immature Gran % (Auto) 2.8 % 08/27/22 19:47 Neut % (Auto) 54.9 % 08/27/22 19:47 Lymph % (Auto) 19.4 % 08/27/22 19:47 [place] % (Auto) 19.9 % 08/27/22 19:47 Eos % (Auto) 2.3 % 08/27/22 19:47 Baso % (Auto) 0.7 % 08/27/22 19:47 Neut # (Auto) 9.00 K/uL (1.4-6.5) H 08/27/22 19:47 Lymph # (Auto) 3.18 K/uL (1.2-3.4) 08/27/22 19:47 [place] # (Auto) 3.26 K/uL (0.24-0.82) H 08/27/22 19:47 Eos # (Auto) 0.38 K/uL (0-0.50) 08/27/22 19:47 Baso # (Auto) 0.12 K/uL (0-0.2) 08/27/22 19:47 Immature Gran # (Auto) 0.46 K/uL (0.00-0.02) H 08/27/22 19:47 Target Cells 1+ 08/27/22 19:47 Echinocytes 1+ 08/27/22 19:47 PT 16.6 Seconds (9.0-12.0) H 08/27/22 19:47 INR 1.6 (0.9-1.1) H 08/27/22 19:47 APTT 36.7 Seconds (21.0-31.0) H 08/27/22 19:47 PTT Ratio 1.3 08/27/22 19:47 Sodium 128 mmol/L (136-145) L 08/27/22 19:47 Potassium 4.1 mmol/L (3.5-5.1) 08/27/22 19:47 Chloride 86 mmol/L (98-107) L 08/27/22 19:47 Carbon Dioxide 34 mmol/L (21-32) H 08/27/22 19:47 Anion Gap 8 (3-11) 08/27/22 19:47 BUN 28 mg/dl (6-23) H 08/27/22 19:47 Creatinine 1.81 mg/dl (0.6-1.4) H 08/27/22 19:47 Est Cr Clr Drug Dosing 58.2 ml/min 08/27/22 19:47 Est GFR ( Amer) 55.3 ml/min 08/27/22 19:47 Est GFR (Non-Af Amer) 47.7 ml/min 08/27/22 19:47 BUN/Creatinine Ratio 15.5 (10-20) 08/27/22 19:47 Glucose 124 mg/dl (70-99(Fasting)) H 08/27/22 19:47 Calcium 8.2 mg/dl (8.5-10.1) L 08/27/22 19:47 Total Bilirubin 18.1 mg/dl (0.2-1.0) H 08/27/22 19:47 AST 128 U/L (13-39) H 08/27/22 19:47 ALT 33 U/L (7-52) 08/27/22 19:47 Alkaline Phosphatase 176 U/L (34-104) H 08/27/22 19:47 Lactate Dehydrogenase 190 U/L (86-244) 08/27/22 19:47 Total Protein 4.7 gm/dl (6.0-8.3) L 08/27/22 19:47 Albumin 2.7 gm/dl (3.4-5.0) L 08/27/22 19:47 Globulin 2.0 gm/dl (2.5-4.0) L 08/27/22 19:47 Albumin/Globulin Ratio 1.4 (0.9-2) 08/27/22 19:47 Lipase TNP 08/27/22 19:47 Fluid Neutrophils % 55 % 08/28/22 00:20 Fluid Lymphocytes % 11 % 08/28/22 00:20 Fluid Meso/Macro/[place] % 34 % 08/28/22 00:20 Fluid Comment 08/28/22 00:20 Pleural Fluid Source Left Lung 08/28/22 00:20 Pleural Color Red 08/28/22 00:20 Pleural Appearance Bloody 08/28/22 00:20 Pleural WBC (Auto) 697 /uL 08/28/22 00:20 Pleural RBC (Auto) 807812 /uL 08/28/22 00:20 Pleural Total Protein < 3.0 gm/dl 08/28/22 00:20 Pleural LDH 48 U/L 08/28/22 00:20 Pleural Glucose 106 mg/dl 08/28/22 00:20 Pleural Amylase 17 U/L 08/28/22 00:20 PG Care Time/CCT Total # of Minutes Spent Total Time Spent with Patient: Total time spent is greater than 50% in coordination of care (as documented) at patient's floor/unit and/or counseling patient: Coding Level of Care Code 76598 Initial Inpt Care Lvl 2 Diagnoses Alcoholic cirrhosis of liver K70.30 YENNY (acute kidney injury) N17.9 Depression F32.9
--- NOTE | 2022-08-28 08:09 | Electrocardiogram Report ---
Test Reason : Blood Pressure : / mmHG Vent. Rate : 103 BPM Atrial Rate : 103 BPM P-R Int : 144 ms QRS Dur : 092 ms QT Int : 414 ms P-R-T Axes : 030 007 019 degrees QTc Int : 542 ms Sinus tachycardia Possible Old Inferior infarct Old Anterior infarct (cited on or before 27-AUG-2022) Nonspecific T wave abnormality Anterior leads Prolonged QT Abnormal ECG When compared with ECG of 08-AUG-2022 18:02, Borderline criteria for Inferior infarct are now Present QT has lengthened Confirmed by Brett Burgess ([id number]) on 08/28/2022 8:08:40 AM Referred By: REFERRED SELF Confirmed By:Brett Burgess
[2022-08-28] MEDS: busPIRone 15 MG TAB PO SCH (08:47)
[2022-08-28] MEDS: FLUoxetine HCL 20 MG CAP PO SCH (08:47)
[2022-08-28] MEDS: ALBUMIN 25% 100 mL 25 GM/100 ML VIAL IV SCH ×2 (08:47→17:18)
[2022-08-28] MEDS: LACTULOSE SYRUP 10 GM/15 ML BTL 960 ML PO SCH (08:47)
[2022-08-28] MEDS: cefTRIAXone SODIUM 1,000 MG in DEXTROSE 5% AD-VAN 50 ML IV SCH (08:49)
[2022-08-29] MEDS: ALBUMIN 25% 100 mL 25 GM/100 ML VIAL IV SCH ×3 (00:19→17:10)
[2022-08-29 04:01] LABS: Appearance Urine Clear (Clear); Blood Urine Negative (Negative); Color Urine Dark Yellow; Glucose Urine UA Negative (Negative); Ketones Urine Negative (Negative); Leukocyte Esterase Urine Negative (Negative); Nitrite Urine Negative (Negative); Protein Urine Negative (Negative); Specific Gravity Urine 1.019 (1.000-1.030); Urobilinogen Urine Negative (Negative); pH Urine 5.5 (4.5-7.5)
[2022-08-29 04:12] LABS: Bilirubin Urine 2+ (Negative)
[2022-08-29] MEDS: cefTRIAXone SODIUM 1,000 MG in DEXTROSE 5% AD-VAN 50 ML IV SCH (07:50)
--- NOTE | 2022-08-29 08:12 | Hospitalist Progress Note ---
Date of Service August 29, 2022 Assessment & Plan (1) Alcoholic cirrhosis of liver: Plan: Patient follows with [facility] Hepatology, Dr Chavira at [facility], Ayesha Benoit/Johnson/[place] locally * Does have +antismooth muscle antibody testing, but as asked for outpatient records, does appear alcoholic cirrhosis. Last drink September 2020. Working on getting on transplant list * Asked for # for primary GI -- will call in AM as office closed currently but told nurse navigator patient on aldactone 100mg, lasix 20mg daily outpatient. #[phone], CYNTHIA Sprague * Appears working on telehealth appt, but possible need for transfer to transplant center pending course/further discussion in AM if not "prompty discharged" however no date yet set for telehealth and they do not have transplant center set up yet Recent paracentesis 7.75L on 08/18, paracentesis for therapeutic/diagnostic p urposes on admission (no documented value) with drop in SBP to 80s. Also w/ YENNY w/ Cr to 1.8 on admit (?hypotension related) MELD score 32 with high estimated 3 month mortality on admit --> MELD currently 27 Placed on Ceftriaxone empirically Paracentesis fluid initially reported as pleural fluid. no cell diff able to be added as sample from admit >24 hours ago. Continue ceftriaxone, but increased to 2gm IV for SBP coverage. WBC elevated 697 on peritoneal fluid (was normal for paracentesis on 08/18) Temp 37.6C last evening Bcx NGTD -- monitor GI consulted - continue lactulose 10mg daily (patient reported 2BM thus far to me today), added rifaximin BID - if GIB, add octreotide/ppi gtt - NO BB in setting of refractory ascites/SBP - continue low Na diet, consider consultation w/ nephrology Remains on Albumin 25gm IV Q8H for volume expansion. ALbumin 3 on Am labs. BP stable 123/55. Suspect volume expansion cause for hgb to 7.9, denies bleeding, abd pain resolved but still w/ distension/ascites Cr back to baseline w/ holding diuretics/albumin/abx -- consider resuming lasix/aldactone in AM pending labs/blood pressure Monitor labs in AM/possible tertiary based on continued discussions (2) YENNY (acute kidney injury): Plan: Elevation of BUN and Cr to 28 and 1.81, respectively (increased from 8 and 0.61 on 08/10/22). Patient appears euvolemic on exam. He reports he is urinating without difficulty. Some concern for hepatorenal syndrome given extent of hepatic disease and fairly rapid rise in creatinine however could have been worsened from hypotension ?outpatient Urine sodium <10, UA w/o infection UOP low reported however reports making adequate urine and intake/output not ordered -- order placed, moving his bowels x2 today reported Hold diuretics (per GI at [facility], to be on aldactone 100mg/lasix 20mg daily), Cr improved to 1.17 on AM labs Volume expansion w/ IV albumin x 2 days Avoid nephrotoxic agents/renal dose as able Monitor in AM (3) Depression: Plan: Chronic, denies any SI/HI but does have depressed affect Continued on fluoxetine, buspar on admit Given cirrhosis, consider 50% reduction in fluoxetine. Buspar use NOT recommended with severe hepatic impairment --> Home medication list does not include buspar, do not see any recent rx for such. WILL DISCONTINUE, rec against use at d/c if so Do see fluoxetine, which appear possibly to be new -- will confirm w/ patient. If new, possible decreased dose vs ?alternative Plan continued inpatient stay Admission and Anticipated Discharge Date Admission Date: August 28, 2022 Supervising Physician Co-Signing Physician Notes PA Supervision Note: I did not personally see or examine the patient today, but I verified all gutierres points of WILLIAM Limon's assessment and plan with the following exceptions/additions: None Subjective eval this afternoon around 130pm, sitting in bed watching TV States he feels fine, no increased abdominal pain but does have distention. GI consulted, started rifaximin. He follows with [facility] Dr Chavira. He notes when initially noted for cirrhosis, was told should have been drinking for 30 years to have such advanced disease, ?autoimmune component/mixed picture, however he was drinking in the past but hasn't drank in over 2 years. Awaiting transplant list. Denies any bleeding/blood in stool/urine. Frequent paracentesis, on spironolactone/lasix daily, holding currently given Yenny on admit, Cr improved. Continues on albumin, increased dose of ceftriaxone. He denies having any known fevers prior to admission either. No chest pain/shortness of breath. On lactulose 10mg daily -- he notes has had 2 BM thus far today. Typically dose move them 2-3x/daily at home. Encouraged at least 2-3BM daily. Questions/concerns addressed at this time. If worsens, did reach out to GI office this morning regarding care - awaiting call back. Review of Systems Review of Systems: All systems reviewed & are unremarkable except as noted in HPI & below Physical Exam Physical Exam: General: chronically ill jaundice appearing male sitting up in bed watching TV, NAD, alert to person/place/time HEENT: eyes icteric bilaterally, mm slightly dry, trachea midline Resp: CTA, no w/c, on room air CV: regular, rate 102bpm, no m/r/g, trace pedal edema, pulses palpable GI: +distension, +ascites, firm, nontender, no warmth/erythema, no guarding/rigidity MSK/Neuro: no focal deficit, slurred speech or facial droop, follows commands Skin: warm, dry Results & Data Results & Data ([facility]) Vital Signs (Past 12 Hours) Vital Signs Temp Pulse Pulse Resp BP Pulse Ox O2 Del Method 08/29/22 08:03 36.9 C 100 H 18 109/55 L 96 Room Air 08/29/22 07:18 111 H 08/29/22 03:23 37.2 C 100 H 18 102/55 L 97 Room Air 08/28/22 23:22 37.6 C H 114 H 18 102/44 L 96 Room Air 08/28/22 22:36 112 H Laboratory Results 08/29/22 08/29/22 08/29/22 Range/Units 14:32 14:32 08:49 WBC 4.64 L (4.8-10.8) K/ul RBC 2.26 L (4.63-6.08) M/uL Hgb 7.9 L (14.0-18.0) g/dl Hct 21.9 L (40.1-51.0) % MCV 96.9 (80.0-100.0) fL MCH 35.0 H (25.0-34.0) pg MCHC 36.1 H (32.0-36.0) g/dL RDW Std Deviation 58.3 H (36.4-46.3) fL RDW Coeff of Cali 16.3 H (11.5-14.5) % Plt Count 136 (130-400) K/uL MPV 9.3 L (9.4-12.4) fL PT 17.2 H (9.0-12.0) Seconds INR 1.7 H (0.9-1.1) Sodium 131 L (136-145) mmol/L Potassium 3.3 L (3.5-5.1) mmol/L Chloride 93 L (98-107) mmol/L Carbon Dioxide 30 (21-32) mmol/L Anion Gap 8 (3-11) BUN 19 (6-23) mg/dl Creatinine 1.05 (0.6-1.4) mg/dl Est Cr Clr Drug Dosing 92.7 ml/min Est GFR ( Amer) 106.8 ml/min Est GFR (Non-Af Amer) 92.2 ml/min BUN/Creatinine Ratio 18.1 (10-20) Glucose 147 H (70-99(Fasting)) mg/dl Calcium 7.7 L (8.5-10.1) mg/dl Magnesium (1.7-2.4) mg/dl Total Bilirubin (0.2-1.0) mg/dl Direct Bilirubin (0-0.2) mg/dl AST (13-39) U/L ALT (7-52) U/L Alkaline Phosphatase (34-104) U/L Total Protein (6.0-8.3) gm/dl Albumin (3.4-5.0) gm/dl TSH (0.300-4.500) uIu/ml Urine Color Urine Appearance (Clear) Urine pH (4.5-7.5) Ur Specific Ladd (1.000-1.030) Urine Protein (Negative) Urine Glucose (UA) (Negative) Urine Ketones (Negative) Urine Blood (Negative) Urine Nitrite (Negative) Urine Bilirubin (Negative) Urine Urobilinogen (Negative) Ur Leukocyte Esterase (Negative) Ur Random Sodium mmol/L Fluid Neutrophils % % Fluid Lymphocytes % % Fluid Eosinophils % Fluid Basophils % Fluid Meso/Macro/Letcher % % Fluid Comment Peritoneal Color Peritoneal Appearance Peritoneal WBC (Auto) (0-300) /ul Peritoneal RBC (Auto) /uL Peritoneal Tot Protein gm/dl Peritoneal Albumin gm/dl Peritoneal LDH U/L Peritoneal Glucose mg/dl Peritoneal Amylase U/L Peritoneal Lipase U/L Pleural Fluid Source Pleural Color Pleural Appearance Pleural WBC (Auto) /uL Pleural WBC Pleural RBC (Auto) /uL Pleural RBC Pleural Other Cells Pleural Total Protein gm/dl Pleural Albumin Pleural LDH U/L Pleural Glucose mg/dl Pleural Amylase U/L Pleural Lipase Pleural Cholesterol Miscellaneous Test 08/29/22 08/29/22 08/29/22 Range/Units 08:14 07:33 07:33 WBC (4.8-10.8) K/ul RBC (4.63-6.08) M/uL Hgb (14.0-18.0) g/dl Hct (40.1-51.0) % MCV (80.0-100.0) fL MCH (25.0-34.0) pg MCHC (32.0-36.0) g/dL RDW Std Deviation (36.4-46.3) fL RDW Coeff of Cali (11.5-14.5) % Plt Count (130-400) K/uL MPV (9.4-12.4) fL PT (9.0-12.0) Seconds INR (0.9-1.1) Sodium 128 L (136-145) mmol/L Potassium 2.9 L D (3.5-5.1) mmol/L Chloride 91 L (98-107) mmol/L Carbon Dioxide 30 (21-32) mmol/L Anion Gap 7 (3-11) BUN 24 H (6-23) mg/dl Creatinine 1.17 D (0.6-1.4) mg/dl Est Cr Clr Drug Dosing 83.2 ml/min Est GFR ( Amer) 93.7 ml/min Est GFR (Non-Af Amer) 80.9 ml/min BUN/Creatinine Ratio 20.5 H (10-20) Glucose 160 H (70-99(Fasting)) mg/dl Calcium 7.2 L (8.5-10.1) mg/dl Magnesium 2.3 (1.7-2.4) mg/dl Total Bilirubin 13.0 H (0.2-1.0) mg/dl Direct Bilirubin 5.0 H (0-0.2) mg/dl AST 110 H (13-39) U/L ALT 25 (7-52) U/L Alkaline Phosphatase 152 H (34-104) U/L Total Protein 4.4 L (6.0-8.3) gm/dl Albumin 3.0 L (3.4-5.0) gm/dl TSH 0.769 (0.300-4.500) uIu/ml Urine Color Urine Appearance (Clear) Urine pH (4.5-7.5) Ur Specific Ladd (1.000-1.030) Urine Protein (Negative) Urine Glucose (UA) (Negative) Urine Ketones (Negative) Urine Blood (Negative) Urine Nitrite (Negative) Urine Bilirubin (Negative) Urine Urobilinogen (Negative) Ur Leukocyte Esterase (Negative) Ur Random Sodium mmol/L Fluid Neutrophils % % Fluid Lymphocytes % % Fluid Eosinophils % Fluid Basophils % Fluid Meso/Macro/Letcher % % Fluid Comment Peritoneal Color Peritoneal Appearance Peritoneal WBC (Auto) (0-300) /ul Peritoneal RBC (Auto) /uL Peritoneal Tot Protein gm/dl Peritoneal Albumin gm/dl Peritoneal LDH U/L Peritoneal Glucose mg/dl Peritoneal Amylase U/L Peritoneal Lipase U/L Pleural Fluid Source Pleural Color Pleural Appearance Pleural WBC (Auto) /uL Pleural WBC Pleural RBC (Auto) /uL Pleural RBC Pleural Other Cells Pleural Total Protein gm/dl Pleural Albumin Pleural LDH U/L Pleural Glucose mg/dl Pleural Amylase U/L Pleural Lipase Pleural Cholesterol Miscellaneous Test 08/29/22 08/29/22 08/29/22 Range/Units 07:33 03:20 03:20 WBC 5.36 (4.8-10.8) K/ul RBC 2.25 L (4.63-6.08) M/uL Hgb 7.9 L (14.0-18.0) g/dl Hct 21.3 L (40.1-51.0) % MCV 94.7 (80.0-100.0) fL MCH 35.1 H (25.0-34.0) pg MCHC 37.1 H (32.0-36.0) g/dL RDW Std Deviation 57.4 H (36.4-46.3) fL RDW Coeff of Cali 16.7 H (11.5-14.5) % Plt Count 145 (130-400) K/uL MPV 10.2 (9.4-12.4) fL PT (9.0-12.0) Seconds INR (0.9-1.1) Sodium (136-145) mmol/L Potassium (3.5-5.1) mmol/L Chloride (98-107) mmol/L Carbon Dioxide (21-32) mmol/L Anion Gap (3-11) BUN (6-23) mg/dl Creatinine (0.6-1.4) mg/dl Est Cr Clr Drug Dosing ml/min Est GFR ( Amer) ml/min Est GFR (Non-Af Amer) ml/min BUN/Creatinine Ratio (10-20) Glucose (70-99(Fasting)) mg/dl Calcium (8.5-10.1) mg/dl Magnesium (1.7-2.4) mg/dl Total Bilirubin (0.2-1.0) mg/dl Direct Bilirubin (0-0.2) mg/dl AST (13-39) U/L ALT (7-52) U/L Alkaline Phosphatase (34-104) U/L Total Protein (6.0-8.3) gm/dl Albumin (3.4-5.0) gm/dl TSH (0.300-4.500) uIu/ml Urine Color Dark Yellow Urine Appearance Clear (Clear) Urine pH 5.5 (4.5-7.5) Ur Specific Ladd 1.019 (1.000-1.030) Urine Protein Negative (Negative) Urine Glucose (UA) Negative (Negative) Urine Ketones Negative (Negative) Urine Blood Negative (Negative) Urine Nitrite Negative (Negative) Urine Bilirubin 2+ H (Negative) Urine Urobilinogen Negative (Negative) Ur Leukocyte Esterase Negative (Negative) Ur Random Sodium < 10 mmol/L Fluid Neutrophils % % Fluid Lymphocytes % % Fluid Eosinophils % Fluid Basophils % Fluid Meso/Macro/Letcher % % Fluid Comment Peritoneal Color Peritoneal Appearance Peritoneal WBC (Auto) (0-300) /ul Peritoneal RBC (Auto) /uL Peritoneal Tot Protein gm/dl Peritoneal Albumin gm/dl Peritoneal LDH U/L Peritoneal Glucose mg/dl Peritoneal Amylase U/L Peritoneal Lipase U/L Pleural Fluid Source Pleural Color Pleural Appearance Pleural WBC (Auto) /uL Pleural WBC Pleural RBC (Auto) /uL Pleural RBC Pleural Other Cells Pleural Total Protein gm/dl Pleural Albumin Pleural LDH U/L Pleural Glucose mg/dl Pleural Amylase U/L Pleural Lipase Pleural Cholesterol Miscellaneous Test 08/28/22 08/28/22 08/28/22 Range/Units 00:20 00:20 00:20 WBC (4.8-10.8) K/ul RBC (4.63-6.08) M/uL Hgb (14.0-18.0) g/dl Hct (40.1-51.0) % MCV (80.0-100.0) fL MCH (25.0-34.0) pg MCHC (32.0-36.0) g/dL RDW Std Deviation (36.4-46.3) fL RDW Coeff of Cali (11.5-14.5) % Plt Count (130-400) K/uL MPV (9.4-12.4) fL PT (9.0-12.0) Seconds INR (0.9-1.1) Sodium (136-145) mmol/L Potassium (3.5-5.1) mmol/L Chloride (98-107) mmol/L Carbon Dioxide (21-32) mmol/L Anion Gap (3-11) BUN (6-23) mg/dl Creatinine (0.6-1.4) mg/dl Est Cr Clr Drug Dosing ml/min Est GFR ( Amer) ml/min Est GFR (Non-Af Amer) ml/min BUN/Creatinine Ratio (10-20) Glucose (70-99(Fasting)) mg/dl Calcium (8.5-10.1) mg/dl Magnesium (1.7-2.4) mg/dl Total Bilirubin (0.2-1.0) mg/dl Direct Bilirubin (0-0.2) mg/dl AST (13-39) U/L ALT (7-52) U/L Alkaline Phosphatase (34-104) U/L Total Protein (6.0-8.3) gm/dl Albumin (3.4-5.0) gm/dl TSH (0.300-4.500) uIu/ml Urine Color Urine Appearance (Clear) Urine pH (4.5-7.5) Ur Specific Ladd (1.000-1.030) Urine Protein (Negative) Urine Glucose (UA) (Negative) Urine Ketones (Negative) Urine Blood (Negative) Urine Nitrite (Negative) Urine Bilirubin (Negative) Urine Urobilinogen (Negative) Ur Leukocyte Esterase (Negative) Ur Random Sodium mmol/L Fluid Neutrophils % 55 % Fluid Lymphocytes % 11 % Fluid Eosinophils % Fluid Basophils % Fluid Meso/Macro/Letcher % 34 % Fluid Comment Peritoneal Color Red Peritoneal Appearance Bloody Peritoneal WBC (Auto) 697 H (0-300) /ul Peritoneal RBC (Auto) 525234 /uL Peritoneal Tot Protein < 3.0 gm/dl Peritoneal Albumin < 1.5 gm/dl Peritoneal LDH 45 U/L Peritoneal Glucose 110 mg/dl Peritoneal Amylase 17 U/L Peritoneal Lipase 18 U/L Pleural Fluid Source Pleural Color Pleural Appearance Pleural WBC (Auto) /uL Pleural WBC Pleural RBC (Auto) /uL Pleural RBC Pleural Other Cells Pleural Total Protein gm/dl Pleural Albumin Pleural LDH U/L Pleural Glucose mg/dl Pleural Amylase U/L Pleural Lipase Pleural Cholesterol Miscellaneous Test Pending 08/28/22 08/28/22 08/28/22 Range/Units 00:20 00:20 00:20 WBC (4.8-10.8) K/ul RBC (4.63-6.08) M/uL Hgb (14.0-18.0) g/dl Hct (40.1-51.0) % MCV (80.0-100.0) fL MCH (25.0-34.0) pg MCHC (32.0-36.0) g/dL RDW Std Deviation (36.4-46.3) fL RDW Coeff of Cali (11.5-14.5) % Plt Count (130-400) K/uL MPV (9.4-12.4) fL PT (9.0-12.0) Seconds INR (0.9-1.1) Sodium (136-145) mmol/L Potassium (3.5-5.1) mmol/L Chloride (98-107) mmol/L Carbon Dioxide (21-32) mmol/L Anion Gap (3-11) BUN (6-23) mg/dl Creatinine (0.6-1.4) mg/dl Est Cr Clr Drug Dosing ml/min Est GFR ( Amer) ml/min Est GFR (Non-Af Amer) ml/min BUN/Creatinine Ratio (10-20) Glucose (70-99(Fasting)) mg/dl Calcium (8.5-10.1) mg/dl Magnesium (1.7-2.4) mg/dl Total Bilirubin (0.2-1.0) mg/dl Direct Bilirubin (0-0.2) mg/dl AST (13-39) U/L ALT (7-52) U/L Alkaline Phosphatase (34-104) U/L Total Protein (6.0-8.3) gm/dl Albumin (3.4-5.0) gm/dl TSH (0.300-4.500) uIu/ml Urine Color Urine Appearance (Clear) Urine pH (4.5-7.5) Ur Specific Ladd (1.000-1.030) Urine Protein (Negative) Urine Glucose (UA) (Negative) Urine Ketones (Negative) Urine Blood (Negative) Urine Nitrite (Negative) Urine Bilirubin (Negative) Urine Urobilinogen (Negative) Ur Leukocyte Esterase (Negative) Ur Random Sodium mmol/L Fluid Neutrophils % % Fluid Lymphocytes % % Fluid Eosinophils % Cancelled Fluid Basophils % Cancelled Fluid Meso/Macro/Letcher % % Fluid Comment Peritoneal Color Peritoneal Appearance Peritoneal WBC (Auto) (0-300) /ul Peritoneal RBC (Auto) /uL Peritoneal Tot Protein gm/dl Peritoneal Albumin gm/dl Peritoneal LDH U/L Peritoneal Glucose mg/dl Peritoneal Amylase U/L Peritoneal Lipase U/L Pleural Fluid Source Pleural Color Pleural Appearance Pleural WBC (Auto) /uL Pleural WBC Cancelled Pleural RBC (Auto) /uL Pleural RBC Cancelled Pleural Other Cells Cancelled Pleural Total Protein gm/dl Pleural Albumin Pleural LDH U/L Pleural Glucose mg/dl Pleural Amylase U/L Pleural Lipase Cancelled Pleural Cholesterol Miscellaneous Test 08/28/22 08/28/22 08/27/22 Range/Units 00:20 00:20 19:47 WBC (4.8-10.8) K/ul RBC (4.63-6.08) M/uL Hgb (14.0-18.0) g/dl Hct (40.1-51.0) % MCV (80.0-100.0) fL MCH (25.0-34.0) pg MCHC (32.0-36.0) g/dL RDW Std Deviation (36.4-46.3) fL RDW Coeff of Cali (11.5-14.5) % Plt Count (130-400) K/uL MPV (9.4-12.4) fL PT (9.0-12.0) Seconds INR (0.9-1.1) Sodium (136-145) mmol/L Potassium (3.5-5.1) mmol/L Chloride (98-107) mmol/L Carbon Dioxide (21-32) mmol/L Anion Gap (3-11) BUN (6-23) mg/dl Creatinine (0.6-1.4) mg/dl Est Cr Clr Drug Dosing ml/min Est GFR ( Amer) ml/min Est GFR (Non-Af Amer) ml/min BUN/Creatinine Ratio (10-20) Glucose (70-99(Fasting)) mg/dl Calcium (8.5-10.1) mg/dl Magnesium (1.7-2.4) mg/dl Total Bilirubin (0.2-1.0) mg/dl Direct Bilirubin (0-0.2) mg/dl AST (13-39) U/L ALT (7-52) U/L Alkaline Phosphatase (34-104) U/L Total Protein (6.0-8.3) gm/dl Albumin (3.4-5.0) gm/dl TSH (0.300-4.500) uIu/ml Urine Color Urine Appearance (Clear) Urine pH (4.5-7.5) Ur Specific Ladd (1.000-1.030) Urine Protein (Negative) Urine Glucose (UA) (Negative) Urine Ketones (Negative) Urine Blood (Negative) Urine Nitrite (Negative) Urine Bilirubin (Negative) Urine Urobilinogen (Negative) Ur Leukocyte Esterase (Negative) Ur Random Sodium mmol/L Fluid Neutrophils % % Fluid Lymphocytes % % Fluid Eosinophils % Fluid Basophils % Fluid Meso/Macro/Letcher % % Fluid Comment Peritoneal Color Peritoneal Appearance Peritoneal WBC (Auto) (0-300) /ul Peritoneal RBC (Auto) /uL Peritoneal Tot Protein gm/dl Peritoneal Albumin gm/dl Peritoneal LDH U/L Peritoneal Glucose mg/dl Peritoneal Amylase U/L Peritoneal Lipase U/L Pleural Fluid Source Pleural Color Pleural Appearance Pleural WBC (Auto) /uL Pleural WBC Pleural RBC (Auto) /uL Pleural RBC Pleural Other Cells Pleural Total Protein gm/dl Pleural Albumin Cancelled Pleural LDH U/L Pleural Glucose mg/dl Pleural Amylase U/L Pleural Lipase Pleural Cholesterol Cancelled Miscellaneous Test REPORT PG Care Time/CCT Total # of Minutes Spent Total Time Spent with Patient: Total time spent is greater than 50% in coordination of care (as documented) at patient's floor/unit and/or counseling patient: Coding Level of Care Code 55729 Subseq Hosp Care Lvl 3 Diagnoses Alcoholic cirrhosis of liver K70.30 YENNY (acute kidney injury) N17.9 Depression F32.9
[2022-08-29 08:26] LABS: Hematocrit (blood only) 21.3 % (40.1-51.0); Hemoglobin 7.9 g/dl (14.0-18.0); Mean Corpuscular Hemoglobin 35.1 pg (25.0-34.0); Mean Corpuscular Hgb Conc 37.1 g/dL (32.0-36.0); Mean Corpuscular Volume 94.7 fL (80.0-100.0); Mean Platelet Volume 10.2 fL (9.4-12.4); Platelet Count 145 K/uL (130-400); RDW Coefficient of Variation 16.7 % (11.5-14.5); RDW Standard Deviation 57.4 fL (36.4-46.3); Red Blood Count 2.25 M/uL (4.63-6.08); White Blood Count 5.36 K/ul (4.8-10.8)
[2022-08-29] MEDS: busPIRone 15 MG TAB PO SCH (08:43)
[2022-08-29] MEDS: LACTULOSE SYRUP 10 GM/15 ML BTL 960 ML PO SCH (08:44)
[2022-08-29] MEDS ORDERED: cefTRIAXone SODIUM 1,000 MG in DEXTROSE 5% AD-VAN 50 ML IV STA (08:45)
[2022-08-29 08:52] LABS: BUN Creatinine Ratio 20.5 (10-20); Calcium 7.2 mg/dl (8.5-10.1); Creatinine Clr Calc Pharmacy 83.2 ml/min; Est GFR (African American) 93.7 ml/min; Est GFR (Non-African American) 80.9 ml/min; Potassium 2.9 mmol/L (3.5-5.1); Total Protein 4.4 gm/dl (6.0-8.3)
[2022-08-29 09:33] LABS: INR 1.7 (0.9-1.1); Prothrombin Time 17.2 Seconds (9.0-12.0)
[2022-08-29] MEDS: FLUoxetine HCL 20 MG CAP PO SCH (09:47)
[2022-08-29] MEDS ORDERED: POTASSIUM CHLORIDE CRTAB 20 MEQ TABCR PO STA ×2 (10:05→17:00)
--- NOTE | 2022-08-29 10:38 | Gastrointestinal Consultation ---
Date of Consultation August 29, 2022 Assessment & Plan (1) Abdominal ascites: (2) Acute kidney injury: (3) Coagulopathy: (4) Alcoholic cirrhosis of liver: (5) Spontaneous bacterial peritonitis: (6) Hepatic encephalopathy: Plan Patient is a 32 y.o. male with a history of alcoholic cirrhosis admitted with abdominal pain/distention status post paracentesis with fluid studies consistent with SBP and associated HE. Patient is routinely followed by [facility] GI service and is being covered by [facility] GI service. 1. Continue Ceftriaxone 2 g IV daily x 5 days. 2. Continue Lactulose 10 g daily and add Xifaxan 550 mg BID. If no improvement in HE, transition to lactulose enemas. 3. Monitor H&H/renal and coag panel. Low threshold for transfer to tertiary center if worsening renal impairment/coagulopathy. 4. If GIB, add Octreotide/PPI ggt. 5. Do not initiate beta oniel in the setting of refractory ascites and SBP. 6. Consider nephrology consultation to discuss diuretic management in the setting of recent YENNY. 7. 2 g Na restricted diet. 8. Rest per primary medicine. Thank you for allowing us to participate in the care of this patient. If you have any questions or concerns, please do not hesitate to contact. History of Present Illness Reason for Consultation: Cirrhosis, refractory ascites Requesting Physician: Marina Limon PA-C Attending Physician: Jennifer Chand MD History of Present Illness Patient is a 32 y.o. male with a history of alcoholic cirrhosis and associated portal HTN with refractory ascites, HE, coagulopathy and recurrent abdominal pain seen multiple times recently at the [facility] for evaluation of abdominal pain/distention. The patient has periods of disorientation and is not a reliable historian at this time. He did have paracentesis on 08/18/22 with removal of 7.75L ascitic fluid and also had a paracentesis upon admission yesterday. Fluid studies consistent with SBP with WBC 697. He denies any fever or abdominal pain at present. Ceftriaxone IV was initiated. Denies any n/v, diarrhea, constipation, melena, hematochezia, acholic stools, or pruritus. Remains on lactulose 10 g daily. He is not currently prescribed Xifaxan or oral diuretics. Renal panel reviewed. BUN 24 and creatinine 1.17. H&H 7.9/21.3 although he has no s/s of overt GIB. Last EGD by Dr. 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 He is not on beta oniel therapy in the setting of refractory ascites and concern for SBP. Last alcoholic beverage 10/06. Follows with Dr. Chavira at [facility] for liver transplant. Per patient, he is being considered for placement on the transplant list. Allergies Allergy/AdvReac Type Severity Reaction Status Date / Time No Known Allergies Allergy Verified 08/27/22 22:05 Home Medications Medication Instructions Recorded Confirmed Type multivitamin (Daily-Danny tablet) 1 tab PO QAM #30 tabs 10/08/20 08/27/22 Rx potassium chloride 20 mEq 40 meq PO BID 04/25/21 08/27/22 History tablet,extended release ergocalciferol (vitamin D2) 1,250 1,250 mcg PO WK 11/30/21 08/27/22 History mcg (50,000 unit) capsule (Vitamin D2) magnesium oxide 400 mg PO QAM 11/30/21 08/27/22 History fluoxetine 40 mg capsule 40 mg PO DAILY 08/27/22 08/27/22 History furosemide 20 mg tablet 20 mg PO DAILY 08/27/22 08/27/22 History spironolactone 50 mg tablet 50 mg PO DAILY 08/27/22 08/27/22 History Patient History Medical History Alcoholic hepatitis no alcohol since sep 2020 Anxiety Ascites due to alcoholic cirrhosis Depression Hematemesis History of gastritis Migraine Panic attacks Surgical History History of circumcision at the age of 8 Hx of esophagogastroduodenoscopy Family History Other No family history of adverse response to anesthesia Social History Smoking Status: Never smoker Second Hand Exposure: No; Hx Alcohol Use: No Hx Substance Use: No Preferred Language: [place] Communication Ability: Effective Award Clerk Required: No Beliefs That Will Affect Care: None Current Living Situation: Significant Other current occupational status: employed Feels Safe at Home: Yes Physical Activity Frequency: Does not Exercise Assistive Devices: None Review of Systems Review of Systems: Unobtainable due to cognitive status Physical Exam Constitutional: + ill appearing; no acute distress Eyes: + scleral abnormality (bilateral icterus) and EOM intact bilaterally Neck: normal visual inspection Respiratory: normal respiratory effort, lungs clear to auscultation Cardiovascular: Rate/Rhythm: regular rate and regular rhythm Gastrointestinal (Abdomen): Inspection/Auscultation: + abdomen distended, + caput medusae present and + hyperactive bowel sounds Percussion/Palpation: + abdomen firm; abdomen nontender, no guarding and abdomen not rigid Musculoskeletal: Extremities: no foot abnormality Skin: + jaundice Psychiatric: Orientation: oriented to person, oriented to place and cooperative Results & Data ([facility]) Vital Signs (Past 12 Hours) Vital Signs Temp Pulse Pulse Resp BP Pulse Ox O2 Del Method 08/29/22 08:03 36.9 C 100 H 18 109/55 L 96 Room Air 08/29/22 07:18 111 H 08/29/22 03:23 37.2 C 100 H 18 102/55 L 97 Room Air 08/28/22 23:22 37.6 C H 114 H 18 102/44 L 96 Room Air Diagnostic Findings Laboratory Results WBC 5.36 K/ul (4.8-10.8) 08/29/22 07:33 RBC 2.25 M/uL (4.63-6.08) L 08/29/22 07:33 Hgb 7.9 g/dl (14.0-18.0) L 08/29/22 07:33 Hct 21.3 % (40.1-51.0) L 08/29/22 07:33 MCV 94.7 fL (80.0-100.0) 08/29/22 07:33 MCH 35.1 pg (25.0-34.0) H 08/29/22 07:33 MCHC 37.1 g/dL (32.0-36.0) H 08/29/22 07:33 RDW Std Deviation 57.4 fL (36.4-46.3) H 08/29/22 07:33 RDW Coeff of [place] 16.7 % (11.5-14.5) H 08/29/22 07:33 Plt Count 145 K/uL (130-400) 08/29/22 07:33 MPV 10.2 fL (9.4-12.4) 08/29/22 07:33 Immature Gran % (Auto) 2.8 % 08/27/22 19:47 Neut % (Auto) 54.9 % 08/27/22 19:47 Lymph % (Auto) 19.4 % 08/27/22 19:47 [place] % (Auto) 19.9 % 08/27/22 19:47 Eos % (Auto) 2.3 % 08/27/22 19:47 Baso % (Auto) 0.7 % 08/27/22 19:47 Neut # (Auto) 9.00 K/uL (1.4-6.5) H 08/27/22 19:47 Lymph # (Auto) 3.18 K/uL (1.2-3.4) 08/27/22 19:47 [place] # (Auto) 3.26 K/uL (0.24-0.82) H 08/27/22 19:47 Eos # (Auto) 0.38 K/uL (0-0.50) 08/27/22 19:47 Baso # (Auto) 0.12 K/uL (0-0.2) 08/27/22 19:47 Immature Gran # (Auto) 0.46 K/uL (0.00-0.02) H 08/27/22 19:47 Target Cells 1+ 08/27/22 19:47 Echinocytes 1+ 08/27/22 19:47 PT 17.2 Seconds (9.0-12.0) H 08/29/22 08:49 INR 1.7 (0.9-1.1) H 08/29/22 08:49 APTT 36.7 Seconds (21.0-31.0) H 08/27/22 19:47 PTT Ratio 1.3 08/27/22 19:47 Sodium 128 mmol/L (136-145) L 08/29/22 07:33 Potassium 2.9 mmol/L (3.5-5.1) L D 08/29/22 07:33 Chloride 91 mmol/L (98-107) L 08/29/22 07:33 Carbon Dioxide 30 mmol/L (21-32) 08/29/22 07:33 Anion Gap 7 (3-11) 08/29/22 07:33 BUN 24 mg/dl (6-23) H 08/29/22 07:33 Creatinine 1.17 mg/dl (0.6-1.4) D 08/29/22 07:33 Est Cr Clr Drug Dosing 83.2 ml/min 08/29/22 07:33 Est GFR ( Amer) 93.7 ml/min 08/29/22 07:33 Est GFR (Non-Af Amer) 80.9 ml/min 08/29/22 07:33 BUN/Creatinine Ratio 20.5 (10-20) H 08/29/22 07:33 Glucose 160 mg/dl (70-99(Fasting)) H 08/29/22 07:33 POC Glucose 108 mg/dl (70-99) H 08/28/22 07:46 Calcium 7.2 mg/dl (8.5-10.1) L 08/29/22 07:33 Magnesium 2.3 mg/dl (1.7-2.4) 08/29/22 07:33 Total Bilirubin 13.0 mg/dl (0.2-1.0) H 08/29/22 07:33 Direct Bilirubin 5.0 mg/dl (0-0.2) H 08/29/22 07:33 AST 110 U/L (13-39) H 08/29/22 07:33 ALT 25 U/L (7-52) 08/29/22 07:33 Alkaline Phosphatase 152 U/L (34-104) H 08/29/22 07:33 Lactate Dehydrogenase 190 U/L (86-244) 08/27/22 19:47 Total Protein 4.4 gm/dl (6.0-8.3) L 08/29/22 07:33 Albumin 3.0 gm/dl (3.4-5.0) L 08/29/22 07:33 Globulin 2.0 gm/dl (2.5-4.0) L 08/27/22 19:47 Albumin/Globulin Ratio 1.4 (0.9-2) 08/27/22 19:47 Lipase TNP 08/27/22 19:47 TSH 0.769 uIu/ml (0.300-4.500) 08/29/22 08:14 Urine Color Dark Yellow 08/29/22 03:20 Urine Appearance Clear (Clear) 08/29/22 03:20 Urine pH 5.5 (4.5-7.5) 08/29/22 03:20 Ur Specific [place] 1.019 (1.000-1.030) 08/29/22 03:20 Urine Protein Negative (Negative) 08/29/22 03:20 Urine Glucose (UA) Negative (Negative) 08/29/22 03:20 Urine Ketones Negative (Negative) 08/29/22 03:20 Urine Blood Negative (Negative) 08/29/22 03:20 Urine Nitrite Negative (Negative) 08/29/22 03:20 Urine Bilirubin 2+ (Negative) H 08/29/22 03:20 Urine Urobilinogen Negative (Negative) 08/29/22 03:20 Ur Leukocyte Esterase Negative (Negative) 08/29/22 03:20 Ur Random Sodium < 10 mmol/L 08/29/22 03:20 Fluid Neutrophils % 55 % 08/28/22 00:20 Fluid Lymphocytes % 11 % 08/28/22 00:20 Fluid [place] % 34 % 08/28/22 00:20 Fluid Comment 08/28/22 00:20 Pleural Fluid Source Left Lung 08/28/22 00:20 Pleural Color Red 08/28/22 00:20 Pleural Appearance Bloody 08/28/22 00:20 Pleural WBC (Auto) 697 /uL 08/28/22 00:20 Pleural RBC (Auto) 688629 /uL 08/28/22 00:20 Pleural Total Protein < 3.0 gm/dl 08/28/22 00:20 Pleural LDH 48 U/L 08/28/22 00:20 Pleural Glucose 106 mg/dl 08/28/22 00:20 Pleural Amylase 17 U/L 08/28/22 00:20 SARS-CoV-2, RNA, NAAT NEGATIVE (NEGATIVE) 08/28/22 04:35 Miscellaneous Test REPORT 08/27/22 19:47 PG Care Time/CCT Total # of Minutes Spent Total Time Spent with Patient: Total time spent is greater than 50% in coordination of care (as documented) at patient's floor/unit and/or counseling patient: Coding Level of Care Code 28710 Inpt Consult Level 4 Diagnoses Abdominal ascites R18.8 Acute kidney injury N17.9 Coagulopathy D68.9 Alcoholic cirrhosis of liver K70.30 Spontaneous bacterial peritonitis K65.2 Hepatic encephalopathy K76.82
[2022-08-29] MEDS: rifAXIMin 550 MG TABLET PO SCH ×2 (12:09→21:03)
[2022-08-29 13:23] LABS: Appearance Peritoneal Fluid Bloody; Color Peritoneal Fluid Red; WBC Peritoneal Fluid Auto 697 /ul (0-300)
[2022-08-29 13:24] LABS: Lymphocytes, Fluid 11 %; Mono,Macrophage,Mesothelial 34 %; Neutrophils, Fluid 55 %; RBC Peritoneal Fluid Auto 336000 /uL
[2022-08-29 14:00] LABS: Albumin Peritoneal Fluid < 1.5 gm/dl; Amylase Peritoneal Fluid 17 U/L; Glucose Peritoneal Fluid 110 mg/dl; LDH Peritoneal Fluid 45 U/L; Lipase Peritoneal Fluid 18 U/L; Total Protein Peritoneal Fluid < 3.0 gm/dl
[2022-08-29 14:50] LABS: Hematocrit (blood only) 21.9 % (40.1-51.0); Hemoglobin 7.9 g/dl (14.0-18.0); Mean Corpuscular Hgb Conc 36.1 g/dL (32.0-36.0); Mean Corpuscular Volume 96.9 fL (80.0-100.0); Mean Platelet Volume 9.3 fL (9.4-12.4); Platelet Count 136 K/uL (130-400); RDW Coefficient of Variation 16.3 % (11.5-14.5); RDW Standard Deviation 58.3 fL (36.4-46.3); Red Blood Count 2.26 M/uL (4.63-6.08); White Blood Count 4.64 K/ul (4.8-10.8)
[2022-08-29 15:13] LABS: BUN Creatinine Ratio 18.1 (10-20); Calcium 7.7 mg/dl (8.5-10.1); Creatinine Clr Calc Pharmacy 92.7 ml/min; Est GFR (African American) 106.8 ml/min; Est GFR (Non-African American) 92.2 ml/min; Potassium 3.3 mmol/L (3.5-5.1)
[2022-08-30] MEDS: ALBUMIN 25% 100 mL 25 GM/100 ML VIAL IV SCH (01:12)
--- NOTE | 2022-08-30 07:42 | Hospitalist Progress Note ---
Date of Service August 30, 2022 Assessment & Plan (1) Alcoholic cirrhosis of liver: Plan: Patient follows with [facility] Hepatology, Dr Chavira at [facility], Ayesha Benoit/Johnson/Francisco locally * Does have +antismooth muscle antibody testing, but as asked for outpatient records, does appear alcoholic cirrhosis. Last drink September 2020. Working on getting on transplant list * Asked for # for primary GI -- will call in AM as office closed currently but told nurse navigator patient on aldactone 100mg, lasix 20mg daily outpatient. #[phone], RN Darcie * Appears working on telehealth appt, but possible need for transfer to transplant center pending course/further discussion in AM if not "prompty discharged" however no date yet set for telehealth and they do not have transplant center set up yet Recent paracentesis 7.75L on 08/18, paracentesis for therapeutic/diagnostic p urposes on admission (no documented value) with drop in SBP to 80s -- messaged Dr Perez to see about value, no cell diff able to be added as sample from admit >24 hours ago. WBC elevated 697 on peritoneal fluid (was wnl for paracentesis on 08/18) Patient believes somewhere around 4L removed * Completed Albumin 25gm Q8H x 2 days -- albumin 3.6 on AM labs * Suspect hg drop from volume expansion, no bleeding reported MELD score 32 with high estimated 3 month mortality on admit, YENNY w/ Cr 1.8 Placed on Ceftriaxone, increased to 2gm IV for SBP coverage. (day 2 of 2gm coverage) Low grade temp 37.6C evening 08/28, nothing further BCx NGTD after 48 hours - monitor Culture from peritoneal NGTD GI consulted * - continue lactulose 10mg daily (patient reported 2BM 08/29, 1 thus far to me today), added rifaximin BID * - if GIB, add octreotide/ppi gtt * - NO BB in setting of refractory ascites/SBP * - continue low Na diet, consider consultation w/ nephrology for diuretic management MELD currently 25 (19.6% estimated 3 month mortality), TB 12.7, INR 1.6, Na 131, Cr back to baseline 0.79 Resuming Aldactone 50mg daily, increased ascites on exam but non painful. Consid er adding Lasix tomorrow/increased Aldactone to 100mg (taking at home w/ 20mg Lasix) Monitor labs on repeat Called [facility] director school of nursing, awaiting call back tomorrow to coordinate care/telehealth follow up appointment/transplant (2) YENNY (acute kidney injury): Plan: Elevation of BUN and Cr to 28 and 1.81, respectively (increased from 8 and 0.61 on 08/10/22). Patient appears euvolemic on exam. He reports urinating without difficulty. Some concern for hepatorenal syndrome given extent of hepatic disease and fairly rapid rise in creatinine however could have been worsened from hypotension ?outpatient Urine sodium <10, UA w/o infection UOP low reported however reports making adequate urine and intake/output not ord ered -- order placed, moving his bowels x2 today reported Held diuretics (per GI at [facility], to be on aldactone 100mg/lasix 20mg daily), albumin/volume expansion as above x 2 days Avoid nephrotoxic agents/renal dose as able Cr back to baseline 0.79, resuming Aldactone for ascites to prevent reaccumulation but will hold off 100mg dose/20mg Lasix for now and increase in AM pending labs/status (3) Depression: Plan: Chronic, denies any SI/HI but does have depressed affect Continued on fluoxetine, buspar on admit Discussed with patient, has been on for some time, but ok for adjustments Decision to DISCONTINUE buspar, decrease prozac to 20mg daily (further titrate/dc as able) --> Changed med rec for at d/c Plan continued inpatient stay resume 50mg Aldactone daily Discontinued Buspar, decreased Prozac awaiting return call from [facility] Dr Chavira's office for coordination of care/transfer vs outpatient telehealth and coordination however patient remains stable currently Admission and Anticipated Discharge Date Admission Date: August 28, 2022 Supervising Physician Co-Signing Physician Notes PA Supervision Note: I did not personally see or examine the patient today, but I verified all gutierres points of WILLIAM Limon's assessment and plan with the following exceptions/additions: If abdominal distension becomes severe, will arrange for repeat paracentesis while here. Unclear how much fluid removed in ER this admission Subjective Eval this morning, doing alright. Up to go to bathroom but otherwise sleeping a bit/tired. No bleeding reported. Awaiting call back from [facility] regarding coordination of care for patient -- CYNTHIA Sprague at Dr Chavira's office [phone]. Possibly office closed today but will update as soon as I hear back. No abdominal pain/fever. Discussed continued abx for SBP. Reported moved bowels twice yesterday, once today. Remains on daily lactulose. Resumed his aldactone but at 50mg, he does take 100mg at home w/ 20mg of lasix. May need to discuss w/ nephrology regarding diuretic management however stable currently and finished off his albumin IV. Discussed medications for mood -- has been on buspar/prozac for some time. Discussed not good idea w/ cirrhosis, buspar was discontinued and prozac cut in half. He is ok with this plan and prefer to limit medications causing harm. Questions/concerns addressed at this time. Review of Systems Review of Systems: All systems reviewed & are unremarkable except as noted in HPI & below Physical Exam Physical Exam: General: chronically ill jaundice appearing male sitting up in bed watching TV, NAD, alert to person/place/time HEENT: eyes icteric bilaterally, mmm, trachea midline Resp: CTA, no w/c, on room air CV: regular, rate 82bpm, no m/r/g, trace pedal edema, pulses palpable GI: +distension, +ascites (more than day prior), firm, nontender, no warmth/erythema, no guarding/rigidity MSK/Neuro: no focal deficit, slurred speech or facial droop, follows commands Psych: alert to person/place/time, fatigued appearing Skin: warm, dry Results & Data Results & Data ([facility]) Vital Signs (Past 12 Hours) Vital Signs Temp Pulse Pulse Resp BP Pulse Ox O2 Del Method 08/30/22 07:20 86 08/30/22 03:07 37.1 C 95 H 18 118/60 96 Room Air 08/29/22 22:57 37.4 C 106 H 18 113/54 L 96 Room Air 08/29/22 22:02 106 H Laboratory Results 08/30/22 08/30/22 08/30/22 Range/Units 08:11 08:11 08:11 WBC (4.8-10.8) K/ul RBC (4.63-6.08) M/uL Hgb (14.0-18.0) g/dl Hct (40.1-51.0) % MCV (80.0-100.0) fL MCH (25.0-34.0) pg MCHC (32.0-36.0) g/dL RDW Std Deviation (36.4-46.3) fL RDW Coeff of [place] (11.5-14.5) % Plt Count (130-400) K/uL MPV (9.4-12.4) fL Immature Gran % (Auto) % Neut % (Auto) % Lymph % (Auto) % [place] % (Auto) % Eos % (Auto) % Baso % (Auto) % Neut # (Auto) (1.4-6.5) K/uL Lymph # (Auto) (1.2-3.4) K/uL [place] # (Auto) (0.24-0.82) K/uL Eos # (Auto) (0-0.50) K/uL Baso # (Auto) (0-0.2) K/uL Immature Gran # (Auto) (0.00-0.02) K/uL PT (9.0-12.0) Seconds INR (0.9-1.1) Sodium 131 L (136-145) mmol/L Potassium 3.4 L (3.5-5.1) mmol/L Chloride 93 L (98-107) mmol/L Carbon Dioxide 33 H (21-32) mmol/L Anion Gap 5 (3-11) BUN 15 (6-23) mg/dl Creatinine 0.79 (0.6-1.4) mg/dl Est Cr Clr Drug Dosing 133.3 ml/min Est GFR ( Amer) 135.8 ml/min Est GFR (Non-Af Amer) 117.2 ml/min BUN/Creatinine Ratio 19.0 (10-20) Glucose 108 H (70-99(Fasting)) mg/dl Calcium 7.8 L (8.5-10.1) mg/dl Magnesium 2.3 (1.7-2.4) mg/dl Iron 64 (35-175) mcg/dl TIBC 124 L (250-450) mcg/dl Unsaturated IBC 60 L (155-355) mcg/dl Transferrin % Sat 52 H (20-50) % Ferritin 151.0 (8-388) ng/ml Total Bilirubin 12.7 H (0.2-1.0) mg/dl Direct Bilirubin 4.5 H (0-0.2) mg/dl AST 127 H (13-39) U/L ALT 27 (7-52) U/L Alkaline Phosphatase 156 H (34-104) U/L Ammonia 41.0 (18-72) umol/L Total Protein 5.3 L D (6.0-8.3) gm/dl Albumin 3.6 (3.4-5.0) gm/dl Vitamin B12 1161 H (180-914) pg/ml Folate 6.95 (>5.38) ng/ml Fluid Neutrophils % % Fluid Lymphocytes % % Fluid Eosinophils % Fluid Basophils % Fluid Meso/Macro/[place] % % Fluid Comment Peritoneal Color Peritoneal Appearance Peritoneal WBC (Auto) (0-300) /ul Peritoneal RBC (Auto) /uL Peritoneal Tot Protein gm/dl Peritoneal Albumin gm/dl Peritoneal LDH U/L Peritoneal Glucose mg/dl Peritoneal Amylase U/L Peritoneal Lipase U/L Pleural Fluid Source Pleural Color Pleural Appearance Pleural WBC (Auto) /uL Pleural WBC Pleural RBC (Auto) /uL Pleural RBC Pleural Other Cells Pleural Total Protein gm/dl Pleural Albumin Pleural LDH U/L Pleural Glucose mg/dl Pleural Amylase U/L Pleural Lipase Pleural Cholesterol Miscellaneous Test 08/30/22 08/30/22 08/29/22 Range/Units 08:11 08:11 14:32 WBC 5.06 (4.8-10.8) K/ul RBC 2.47 L (4.63-6.08) M/uL Hgb 8.7 L (14.0-18.0) g/dl Hct 24.6 L (40.1-51.0) % MCV 99.6 (80.0-100.0) fL MCH 35.2 H (25.0-34.0) pg MCHC 35.4 (32.0-36.0) g/dL RDW Std Deviation 58.6 H (36.4-46.3) fL RDW Coeff of [place] 15.9 H (11.5-14.5) % Plt Count 134 (130-400) K/uL MPV 9.4 (9.4-12.4) fL Immature Gran % (Auto) 1.6 % Neut % (Auto) 48.0 % Lymph % (Auto) 29.6 % [place] % (Auto) 15.8 % Eos % (Auto) 3.6 % Baso % (Auto) 1.4 % Neut # (Auto) 2.43 (1.4-6.5) K/uL Lymph # (Auto) 1.50 (1.2-3.4) K/uL [place] # (Auto) 0.80 (0.24-0.82) K/uL Eos # (Auto) 0.18 (0-0.50) K/uL Baso # (Auto) 0.07 (0-0.2) K/uL Immature Gran # (Auto) 0.08 H (0.00-0.02) K/uL PT 17.1 H (9.0-12.0) Seconds INR 1.6 H (0.9-1.1) Sodium 131 L (136-145) mmol/L Potassium 3.3 L (3.5-5.1) mmol/L Chloride 93 L (98-107) mmol/L Carbon Dioxide 30 (21-32) mmol/L Anion Gap 8 (3-11) BUN 19 (6-23) mg/dl Creatinine 1.05 (0.6-1.4) mg/dl Est Cr Clr Drug Dosing 92.7 ml/min Est GFR ( Amer) 106.8 ml/min Est GFR (Non-Af Amer) 92.2 ml/min BUN/Creatinine Ratio 18.1 (10-20) Glucose 147 H (70-99(Fasting)) mg/dl Calcium 7.7 L (8.5-10.1) mg/dl Magnesium (1.7-2.4) mg/dl Iron (35-175) mcg/dl TIBC (250-450) mcg/dl Unsaturated IBC (155-355) mcg/dl Transferrin % Sat (20-50) % Ferritin (8-388) ng/ml Total Bilirubin (0.2-1.0) mg/dl Direct Bilirubin (0-0.2) mg/dl AST (13-39) U/L ALT (7-52) U/L Alkaline Phosphatase (34-104) U/L Ammonia (18-72) umol/L Total Protein (6.0-8.3) gm/dl Albumin (3.4-5.0) gm/dl Vitamin B12 (180-914) pg/ml Folate (>5.38) ng/ml Fluid Neutrophils % % Fluid Lymphocytes % % Fluid Eosinophils % Fluid Basophils % Fluid Meso/Macro/[place] % % Fluid Comment Peritoneal Color Peritoneal Appearance Peritoneal WBC (Auto) (0-300) /ul Peritoneal RBC (Auto) /uL Peritoneal Tot Protein gm/dl Peritoneal Albumin gm/dl Peritoneal LDH U/L Peritoneal Glucose mg/dl Peritoneal Amylase U/L Peritoneal Lipase U/L Pleural Fluid Source Pleural Color Pleural Appearance Pleural WBC (Auto) /uL Pleural WBC Pleural RBC (Auto) /uL Pleural RBC Pleural Other Cells Pleural Total Protein gm/dl Pleural Albumin Pleural LDH U/L Pleural Glucose mg/dl Pleural Amylase U/L Pleural Lipase Pleural Cholesterol Miscellaneous Test 08/29/22 08/28/22 08/28/22 Range/Units 14:32 00:20 00:20 WBC 4.64 L (4.8-10.8) K/ul RBC 2.26 L (4.63-6.08) M/uL Hgb 7.9 L (14.0-18.0) g/dl Hct 21.9 L (40.1-51.0) % MCV 96.9 (80.0-100.0) fL MCH 35.0 H (25.0-34.0) pg MCHC 36.1 H (32.0-36.0) g/dL RDW Std Deviation 58.3 H (36.4-46.3) fL RDW Coeff of [place] 16.3 H (11.5-14.5) % Plt Count 136 (130-400) K/uL MPV 9.3 L (9.4-12.4) fL Immature Gran % (Auto) % Neut % (Auto) % Lymph % (Auto) % [place] % (Auto) % Eos % (Auto) % Baso % (Auto) % Neut # (Auto) (1.4-6.5) K/uL Lymph # (Auto) (1.2-3.4) K/uL [place] # (Auto) (0.24-0.82) K/uL Eos # (Auto) (0-0.50) K/uL Baso # (Auto) (0-0.2) K/uL Immature Gran # (Auto) (0.00-0.02) K/uL PT (9.0-12.0) Seconds INR (0.9-1.1) Sodium (136-145) mmol/L Potassium (3.5-5.1) mmol/L Chloride (98-107) mmol/L Carbon Dioxide (21-32) mmol/L Anion Gap (3-11) BUN (6-23) mg/dl Creatinine (0.6-1.4) mg/dl Est Cr Clr Drug Dosing ml/min Est GFR ( Amer) ml/min Est GFR (Non-Af Amer) ml/min BUN/Creatinine Ratio (10-20) Glucose (70-99(Fasting)) mg/dl Calcium (8.5-10.1) mg/dl Magnesium (1.7-2.4) mg/dl Iron (35-175) mcg/dl TIBC (250-450) mcg/dl Unsaturated IBC (155-355) mcg/dl Transferrin % Sat (20-50) % Ferritin (8-388) ng/ml Total Bilirubin (0.2-1.0) mg/dl Direct Bilirubin (0-0.2) mg/dl AST (13-39) U/L ALT (7-52) U/L Alkaline Phosphatase (34-104) U/L Ammonia (18-72) umol/L Total Protein (6.0-8.3) gm/dl Albumin (3.4-5.0) gm/dl Vitamin B12 (180-914) pg/ml Folate (>5.38) ng/ml Fluid Neutrophils % 55 % Fluid Lymphocytes % 11 % Fluid Eosinophils % Fluid Basophils % Fluid Meso/Macro/[place] % 34 % Fluid Comment Peritoneal Color Red Peritoneal Appearance Bloody Peritoneal WBC (Auto) 697 H (0-300) /ul Peritoneal RBC (Auto) [id number] /uL Peritoneal Tot Protein gm/dl Peritoneal Albumin gm/dl Peritoneal LDH U/L Peritoneal Glucose mg/dl Peritoneal Amylase U/L Peritoneal Lipase U/L Pleural Fluid Source Pleural Color Pleural Appearance Pleural WBC (Auto) /uL Pleural WBC Pleural RBC (Auto) /uL Pleural RBC Pleural Other Cells Pleural Total Protein gm/dl Pleural Albumin Pleural LDH U/L Pleural Glucose mg/dl Pleural Amylase U/L Pleural Lipase Pleural Cholesterol Miscellaneous Test Pending 12/08/28/22 08/28/22 Range/Units 00:20 00:20 00:20 WBC (4.8-10.8) K/ul RBC (4.63-6.08) M/uL Hgb (14.0-18.0) g/dl Hct (40.1-51.0) % MCV (80.0-100.0) fL MCH (25.0-34.0) pg MCHC (32.0-36.0) g/dL RDW Std Deviation (36.4-46.3) fL RDW Coeff of [place] (11.5-14.5) % Plt Count (130-400) K/uL MPV (9.4-12.4) fL Immature Gran % (Auto) % Neut % (Auto) % Lymph % (Auto) % [place] % (Auto) % Eos % (Auto) % Baso % (Auto) % Neut # (Auto) (1.4-6.5) K/uL Lymph # (Auto) (1.2-3.4) K/uL [place] # (Auto) (0.24-0.82) K/uL Eos # (Auto) (0-0.50) K/uL Baso # (Auto) (0-0.2) K/uL Immature Gran # (Auto) (0.00-0.02) K/uL PT (9.0-12.0) Seconds INR (0.9-1.1) Sodium (136-145) mmol/L Potassium (3.5-5.1) mmol/L Chloride (98-107) mmol/L Carbon Dioxide (21-32) mmol/L Anion Gap (3-11) BUN (6-23) mg/dl Creatinine (0.6-1.4) mg/dl Est Cr Clr Drug Dosing ml/min Est GFR ( Amer) ml/min Est GFR (Non-Af Amer) ml/min BUN/Creatinine Ratio (10-20) Glucose (70-99(Fasting)) mg/dl Calcium (8.5-10.1) mg/dl Magnesium (1.7-2.4) mg/dl Iron (35-175) mcg/dl TIBC (250-450) mcg/dl Unsaturated IBC (155-355) mcg/dl Transferrin % Sat (20-50) % Ferritin (8-388) ng/ml Total Bilirubin (0.2-1.0) mg/dl Direct Bilirubin (0-0.2) mg/dl AST (13-39) U/L ALT (7-52) U/L Alkaline Phosphatase (34-104) U/L Ammonia (18-72) umol/L Total Protein (6.0-8.3) gm/dl Albumin (3.4-5.0) gm/dl Vitamin B12 (180-914) pg/ml Folate (>5.38) ng/ml Fluid Neutrophils % % Fluid Lymphocytes % % Fluid Eosinophils % Fluid Basophils % Fluid Meso/Macro/[place] % % Fluid Comment Peritoneal Color Peritoneal Appearance Peritoneal WBC (Auto) (0-300) /ul Peritoneal RBC (Auto) /uL Peritoneal Tot Protein < 3.0 gm/dl Peritoneal Albumin < 1.5 gm/dl Peritoneal LDH 45 U/L Peritoneal Glucose 110 mg/dl Peritoneal Amylase 17 U/L Peritoneal Lipase 18 U/L Pleural Fluid Source Pleural Color Pleural Appearance Pleural WBC (Auto) /uL Pleural WBC Pleural RBC (Auto) /uL Pleural RBC Pleural Other Cells Pleural Total Protein gm/dl Pleural Albumin Pleural LDH U/L Pleural Glucose mg/dl Pleural Amylase U/L Pleural Lipase Cancelled Pleural Cholesterol Miscellaneous Test 08/28/22 08/28/22 08/28/22 Range/Units 00:20 00:20 00:20 WBC (4.8-10.8) K/ul RBC (4.63-6.08) M/uL Hgb (14.0-18.0) g/dl Hct (40.1-51.0) % MCV (80.0-100.0) fL MCH (25.0-34.0) pg MCHC (32.0-36.0) g/dL RDW Std Deviation (36.4-46.3) fL RDW Coeff of [place] (11.5-14.5) % Plt Count (130-400) K/uL MPV (9.4-12.4) fL Immature Gran % (Auto) % Neut % (Auto) % Lymph % (Auto) % [place] % (Auto) % Eos % (Auto) % Baso % (Auto) % Neut # (Auto) (1.4-6.5) K/uL Lymph # (Auto) (1.2-3.4) K/uL [place] # (Auto) (0.24-0.82) K/uL Eos # (Auto) (0-0.50) K/uL Baso # (Auto) (0-0.2) K/uL Immature Gran # (Auto) (0.00-0.02) K/uL PT (9.0-12.0) Seconds INR (0.9-1.1) Sodium (136-145) mmol/L Potassium (3.5-5.1) mmol/L Chloride (98-107) mmol/L Carbon Dioxide (21-32) mmol/L Anion Gap (3-11) BUN (6-23) mg/dl Creatinine (0.6-1.4) mg/dl Est Cr Clr Drug Dosing ml/min Est GFR ( Amer) ml/min Est GFR (Non-Af Amer) ml/min BUN/Creatinine Ratio (10-20) Glucose (70-99(Fasting)) mg/dl Calcium (8.5-10.1) mg/dl Magnesium (1.7-2.4) mg/dl Iron (35-175) mcg/dl TIBC (250-450) mcg/dl Unsaturated IBC (155-355) mcg/dl Transferrin % Sat (20-50) % Ferritin (8-388) ng/ml Total Bilirubin (0.2-1.0) mg/dl Direct Bilirubin (0-0.2) mg/dl AST (13-39) U/L ALT (7-52) U/L Alkaline Phosphatase (34-104) U/L Ammonia (18-72) umol/L Total Protein (6.0-8.3) gm/dl Albumin (3.4-5.0) gm/dl Vitamin B12 (180-914) pg/ml Folate (>5.38) ng/ml Fluid Neutrophils % % Fluid Lymphocytes % % Fluid Eosinophils % Cancelled Fluid Basophils % Cancelled Fluid Meso/Macro/[place] % % Fluid Comment Peritoneal Color Peritoneal Appearance Peritoneal WBC (Auto) (0-300) /ul Peritoneal RBC (Auto) /uL Peritoneal Tot Protein gm/dl Peritoneal Albumin gm/dl Peritoneal LDH U/L Peritoneal Glucose mg/dl Peritoneal Amylase U/L Peritoneal Lipase U/L Pleural Fluid Source Pleural Color Pleural Appearance Pleural WBC (Auto) /uL Pleural WBC Cancelled Pleural RBC (Auto) /uL Pleural RBC Cancelled Pleural Other Cells Cancelled Pleural Total Protein gm/dl Pleural Albumin Cancelled Pleural LDH U/L Pleural Glucose mg/dl Pleural Amylase U/L Pleural Lipase Pleural Cholesterol Cancelled Miscellaneous Test Diagnostic Findings KUB X-Ray 08/30/22 07:40 KUB HISTORY: Acute generalized abdominal pain with constipation eval constipation COMPARISON: CT 08/08/2022 FINDINGS: Nonobstructive bowel gas pattern. Hepatomegaly. No significant colonic fecal retention. No renal calculi. No ureteral calculi. No pneumoperitoneum or pneumatosis. No fracture. IMPRESSION: Nonobstructive bowel gas pattern. ACT 112: Negative or not required by law. The above report was generated using voice recognition software. It may contain grammatical, syntax or spelling errors. Electronically signed by: Shaan Koroma M.D. 08/30/2022 9:44 AM PG Care Time/CCT Total # of Minutes Spent Total Time Spent with Patient: Total time spent is greater than 50% in coordination of care (as documented) at patient's floor/unit and/or counseling patient: Coding Level of Care Code 05654 Subseq Hosp Care Lvl 3 Diagnoses Alcoholic cirrhosis of liver K70.30 YENNY (acute kidney injury) N17.9 Depression F32.9
[2022-08-30] MEDS: cefTRIAXone SODIUM 2,000 MG in DEXTROSE 5% AD-VAN 50 ML IV SCH (07:43)
[2022-08-30 08:23] LABS: Basophils # (auto) 0.07 K/uL (0-0.2); Basophils % (auto) 1.4 %; Eosinophils # (auto) 0.18 K/uL (0-0.50); Eosinophils % (auto) 3.6 %; Hematocrit (blood only) 24.6 % (40.1-51.0); Hemoglobin 8.7 g/dl (14.0-18.0); Immature Granulocytes # (auto) 0.08 K/uL (0.00-0.02); Immature Granulocytes % (auto) 1.6 %; Lymphocytes % (auto) 29.6 %; Mean Corpuscular Hemoglobin 35.2 pg (25.0-34.0); Mean Corpuscular Hgb Conc 35.4 g/dL (32.0-36.0); Mean Corpuscular Volume 99.6 fL (80.0-100.0); Mean Platelet Volume 9.4 fL (9.4-12.4); Monocytes % (auto) 15.8 %; Neutrophils # (auto) 2.43 K/uL (1.4-6.5); Platelet Count 134 K/uL (130-400); RDW Coefficient of Variation 15.9 % (11.5-14.5); RDW Standard Deviation 58.6 fL (36.4-46.3); Red Blood Count 2.47 M/uL (4.63-6.08); White Blood Count 5.06 K/ul (4.8-10.8)
[2022-08-30] MEDS: rifAXIMin 550 MG TABLET PO SCH ×2 (08:25→21:10)
[2022-08-30] MEDS: FLUoxetine HCL 20 MG CAP PO SCH (08:25)
[2022-08-30] MEDS: LACTULOSE SYRUP 10 GM/15 ML BTL 960 ML PO SCH (08:27)
[2022-08-30 08:39] LABS: INR 1.6 (0.9-1.1); Prothrombin Time 17.1 Seconds (9.0-12.0)
[2022-08-30 09:00] LABS: Albumin Level 3.6 gm/dl (3.4-5.0); Bilirubin Direct 4.5 mg/dl (0-0.2); Bilirubin,Total 12.7 mg/dl (0.2-1.0); Calcium 7.8 mg/dl (8.5-10.1); Creatinine Clr Calc Pharmacy 133.3 ml/min; Est GFR (African American) 135.8 ml/min; Est GFR (Non-African American) 117.2 ml/min; Magnesium 2.3 mg/dl (1.7-2.4); Potassium 3.4 mmol/L (3.5-5.1); Total Protein 5.3 gm/dl (6.0-8.3)
[2022-08-30] MEDS ORDERED: POTASSIUM CHLORIDE CRTAB 20 MEQ TABCR PO STA (09:19)
--- NOTE | 2022-08-30 09:45 | XRay Report ---
KUB HISTORY: Acute generalized abdominal pain with constipation eval constipation COMPARISON: CT 08/08/2022 FINDINGS: Nonobstructive bowel gas pattern. Hepatomegaly. No significant colonic fecal retention. No renal calculi. No ureteral calculi. No pneumoperitoneum or pneumatosis. No fracture. IMPRESSION: Nonobstructive bowel gas pattern. ACT 112: Negative or not required by law. The above report was generated using voice recognition software. It may contain grammatical, syntax o r spelling errors. Electronically signed by: Shaan Koroma M.D. 08/30/2022 9:44 AM
[2022-08-30] MEDS: SPIRONOLACTONE 25 MG TAB PO SCH (10:16)
[2022-08-31] MEDS: cefTRIAXone SODIUM 2,000 MG in DEXTROSE 5% AD-VAN 50 ML IV SCH (06:10)
--- NOTE | 2022-08-31 07:46 | Hospitalist Progress Note ---
Date of Service August 31, 2022 Assessment & Plan Admission and Anticipated Discharge Date Admission Date: August 28, 2022 Results & Data Results & Data ([facility]) Vital Signs (Past 12 Hours) Vital Signs Temp Pulse Pulse Resp BP Pulse Ox O2 Del Method 08/31/22 07:00 113 H 08/31/22 04:04 37.0 C 95 H 20 119/58 L 97 Room Air 08/30/22 23:30 104 H 08/30/22 22:55 37.7 C H 102 H 16 114/61 96 Room Air 08/30/22 19:54 37.8 C H 101 H 16 121/69 95 Room Air PG Care Time/CCT Total # of Minutes Spent Total Time Spent with Patient: Total time spent is greater than 50% in coordination of care (as documented) at patient's floor/unit and/or counseling patient: Coding
[2022-08-31 08:10] LABS: INR 1.6 (0.9-1.1); Prothrombin Time 16.5 Seconds (9.0-12.0)
[2022-08-31] MEDS: FLUoxetine HCL 20 MG CAP PO SCH (08:18)
[2022-08-31] MEDS: rifAXIMin 550 MG TABLET PO SCH (08:18)
[2022-08-31] MEDS: SPIRONOLACTONE 25 MG TAB PO SCH (08:18)
[2022-08-31] MEDS: LACTULOSE SYRUP 10 GM/15 ML BTL 960 ML PO SCH (08:18)
[2022-08-31 08:21] LABS: Hematocrit (blood only) 24.1 % (40.1-51.0); Hemoglobin 8.5 g/dl (14.0-18.0); Mean Corpuscular Hemoglobin 34.6 pg (25.0-34.0); Mean Corpuscular Hgb Conc 35.3 g/dL (32.0-36.0); Mean Platelet Volume 9.9 fL (9.4-12.4); Platelet Count 136 K/uL (130-400); RDW Coefficient of Variation 16.1 % (11.5-14.5); Red Blood Count 2.46 M/uL (4.63-6.08); White Blood Count 6.25 K/ul (4.8-10.8)
[2022-08-31 08:30] LABS: Albumin Level 3.1 gm/dl (3.4-5.0); BUN Creatinine Ratio 16.9 (10-20); Bilirubin Direct 5.3 mg/dl (0-0.2); Bilirubin,Total 10.7 mg/dl (0.2-1.0); Calcium 7.3 mg/dl (8.5-10.1); Creatinine Clr Calc Pharmacy 148.8 ml/min; Est GFR (African American) 141.9 ml/min; Est GFR (Non-African American) 122.4 ml/min; Potassium 3.5 mmol/L (3.5-5.1); Total Protein 4.9 gm/dl (6.0-8.3)
[2022-08-31] MEDS ORDERED: ALBUMIN 25% 100 mL 25 GM/100 ML VIAL IV ONE (08:59)
--- NOTE | 2022-08-31 09:38 | Gastroenterology Progress Note ---
Date of Service August 31, 2022 Assessment & Plan (1) Hepatic encephalopathy: (2) Abdominal ascites: (3) Alcoholic cirrhosis of liver: (4) Coagulopathy: Plan Patient is a 32 y.o. male with a history of alcoholic cirrhosis admitted with abdominal pain/distention status post paracentesis with fluid studies consistent with SBP and associated HE. Patient is routinely followed by [facility] GI service and is being covered by [facility] service. 1. Continue Ceftriaxone 2 g IV daily x 5 days. 2. Continue Lactulose 10 g daily and Xifaxan 550 mg BID. 3. Monitor H&H/renal and coag panel. Low threshold for transfer to tertiary center if worsening renal impairment/coagulopathy. 4. Repeat dx/therapeutic paracentesis today. 5. Do not initiate beta oniel in the setting of refractory ascites and SBP. 6. Consider nephrology consultation to discuss diuretic management in the setting of recent YENNY, otherwise resume Aldactone 100 mg and Lasix 20 mg (prehospital dosing) daily. 7. 2 g Na restricted diet. 8. Rest per primary medicine. Admission and Anticipated Discharge Date Admission Date: August 28, 2022 Subjective Omar reports less jaundice. +abdominal distention. No abdominal pain. No fevers. He is scheduled for repeat paracentesis today. Review of Systems Constitutional: as per Subjective / HPI Respiratory: no cough and no dyspnea Cardiovascular: no chest pain and no palpitations Gastrointestinal: as per Subjective / HPI Physical Exam Constitutional: WD/WN, vitals as above Eyes: + scleral abnormality (bilateral icterus) Respiratory: normal respiratory effort, lungs clear to auscultation Cardiovascular: RRR, no murmur, no edema Gastrointestinal (Abdomen): Inspection/Auscultation: + abdomen distended and normal bowel sounds Percussion/Palpation: + ascites and + abdomen firm; abdomen nontender Musculoskeletal: Extremities: extremities normal to inspection Skin: + jaundice Psychiatric: A+Ox3, euthymic affect Results & Data Results & Data ([facility]) Vital Signs (Past 12 Hours) Vital Signs Temp Pulse Pulse Resp BP Pulse Ox O2 Del Method 08/31/22 09:00 Room Air 08/31/22 07:47 37.2 C 98 H 18 112/69 95 Room Air 08/31/22 07:00 113 H 08/31/22 04:04 37.0 C 95 H 20 119/58 L 97 Room Air 08/30/22 23:30 104 H 08/30/22 22:55 37.7 C H 102 H 16 114/61 96 Room Air Laboratory Results Abnormal lab results 08/31/22 08/31/22 08/31/22 Range/Units 07:11 07:11 07:11 RBC 2.46 L (4.63-6.08) M/uL Hgb 8.5 L (14.0-18.0) g/dl Hct 24.1 L (40.1-51.0) % MCH 34.6 H (25.0-34.0) pg RDW Std Deviation 58.0 H (36.4-46.3) fL RDW Coeff of [place] 16.1 H (11.5-14.5) % PT 16.5 H (9.0-12.0) Seconds INR 1.6 H (0.9-1.1) Sodium 130 L (136-145) mmol/L Chloride 94 L (98-107) mmol/L Calcium 7.3 L (8.5-10.1) mg/dl Total Bilirubin 10.7 H (0.2-1.0) mg/dl Direct Bilirubin 5.3 H (0-0.2) mg/dl AST 128 H (13-39) U/L Alkaline Phosphatase 161 H (34-104) U/L Total Protein 4.9 L (6.0-8.3) gm/dl Albumin 3.1 L (3.4-5.0) gm/dl PG Care Time/CCT Total # of Minutes Spent Total Time Spent with Patient: Total time spent is greater than 50% in coordination of care (as documented) at patient's floor/unit and/or counseling patient: Coding Level of Care Code 73737 Subseq Hosp Care Lvl 3 Diagnoses Hepatic encephalopathy K76.82 Abdominal ascites R18.8 Alcoholic cirrhosis of liver K70.30 Coagulopathy D68.9
--- NOTE | 2022-08-31 09:39 | Discharge Summary ---
Date of Service August 31, 2022 Admission HPI Per Admitting Provider Omar Turk is a 32yo male with history of Etoh cirrhosis with ascites, depression/anxiety presenting with abdominal distention and discomfort. Patient has had paracenteses in the past. Last was 08/18/22 with 7.75 liters removed. He was administered 25mL of IV albumin 25% following that procedure. Patient had paracentesis performed today as well after which his blood pressure decreased to the 80's. Was administered 25gm of Albumin. He has no additional complaints. Denies fever, chills, chest pain,, cough, SOB, nausea, vomiting, diarrhea or constipation. Patient [place] with [place] [facility] [place] Lin Chavira. They are working on getting him on a transplant list. Admission Exam Per Admitting Provider General: patient resting comfortably, NAD, non-toxic in appearance, AA&O x 4 Skin: warm, dry, intact, no rashes or lesions, +jaundice HEENT: NC/AT, PERRL, EOMI, Icteric sclera, conjunctiva without injection, ext ernal ear normal to inspection and nontender, nares patent, moist mucus membranes, dentition intact, no oropharyngeal lesions, neck supple, trachea midline, no LAD, no thyromegaly, no JVD Heart: +S1/S2, regular, no m/r/g Lungs: equal air entry bilaterally, no rales/rhonchi/wheezes Abd: +BS, soft, NT/ND, no masses/organomegaly Ext: warm, 2+ pulses in UE/LE bilaterally, no clubbing/cyanosis or edema Neuro: nonfocal, patient AA&O x 4, speech intact, no facial droop, moving all extremities on command with equal strength 5/5, no asterixis Principal Diagnosis Cirrhosis, Acute Kidney Injury, Abdominal Pain, SBP Discharge Exam General: chronically ill appearing male, older than stated age, +jaundice (less than days prior) HEENT: bilateral icteric sclerae, mmm, trachea midline Resp: CTAB, diminished in bases, 98% on RA CV: RRR (slightly tachycardic at times to low 100s), no m/r/g, no calf tenderness, trace edema, pulses palpable GI: +BS, MUCH LESS distension/ascites (just got back from paracentesis), SOFT, nontender per patient, no erythema/warmth, no guarding/rigidity : no chandler MSK/Neuro: no focal deficit, slurred speech or facial droop, follows commands Psych: alert to person/place/time, fatigued appearing Skin: warm, dry, jaundice (less than day prior) Discharge Data Allergies Allergy/AdvReac Type Severity Reaction Status Date / Time No Known Allergies Allergy Verified 08/27/22 22:05 Consultations 08/29/22 10:06 Consult Gastroenterology Routine 08/29/22 14:43 HIM [Consult Health Information Management] Routine Ordered Studies KUB X-Ray 08/30/22 07:40 KUB HISTORY: Acute generalized abdominal pain with constipation eval constipation COMPARISON: CT 08/08/2022 FINDINGS: Nonobstructive bowel gas pattern. Hepatomegaly. No significant colonic fecal retention. No renal calculi. No ureteral calculi. No pneumoperitoneum or pneumatosis. No fracture. IMPRESSION: Nonobstructive bowel gas pattern. ACT 112: Negative or not required by law. The above report was generated using voice recognition software. It may contain grammatical, syntax or spelling errors. Electronically signed by: Shaan Koroma M.D. 08/30/2022 9:44 AM Paracentesis Ultrasound 08/31/22 07:46 ULTRASOUND GUIDED THERAPEUTIC PARACENTESIS CLINICAL HISTORY: ascites, cirrhosis COMPARISON STUDY: Ultrasound guided paracentesis August 10, 2022. PROCEDURE: The risks, benefits, and alternatives to the procedure were discussed with the patient including the risk of bleeding, infection and injury to adjacent structures. The patient agreed to the procedure and informed written consent was obtained. Following real-time ultrasound localization, the skin of the right lower quadrant was prepped and draped. Following local anesthesia with Xylocaine, the sheath paracentesis needle was inserted and approximately 5 liters of bloody ascites was removed by vacuum suction. The patient tolerated the procedure well and no immediate complications were evident. IMPRESSION: Ultrasound-guided paracentesis with removal of 5 liters of bloody ascites. ACT 112: Negative or not required by law. Electronically signed by: Oj Loo M.D. 08/31/2022 12:34 PM Hospital Course (1) Spontaneous bacterial peritonitis: Patient presented with abdominal pain, WBC 16.4k, low grade temp and had paracentesis for therapeutic/diagnostic purposes on admission, 4L with drop in SBP to 80s (Recent paracentesis 7.75L on 08/18) MELD 32 on admit, also w/ YENNY. (MELD 24 prior to d/c) Patient follows with [facility], Dr Chavira at [facility], Ayesha Benoit/Johnson/Francisco locally and had been working on getting transplant outpatient. Had not drank in almost 2 years Initially orders for pleural fluid entered, no cell diff --> called lab, WBC elevation 697 Ordered Albumin 25gm Q8x 2 days, albumin improved on repeat Placed on Ceftriaxone, increased to 2gm IV daily -- got 3 doses inpatient, sent on Cipro BID to complete course BCx NGTD Cx from peritoneal fluid NGTD Did have increased abdominal ascites on exam but was non-tender, did opt to perform repeat paracentesis for 5L bloody ascitic fluid prior to d/c w/ additional dose of albumin 25gm. Sent for analysis, pending at d/c (WBC 276 from 97) Feeling great after, discussed w/ inpatient and outpatient GI possible related to recent tap vs vessel. Repeat hgb after stable 8.5-->8.4 GI was consulted during inpatient stay -- continue lactulose, rifaximin (had been taking at home), no BB, low salt diet Did resume his Aldactone 50mg daily, lasix at discharge and would rec f/u GI for increase Aldactone to 100mg as tolerated in follow up Discussed with Dr Chavira and telehealth for Saturday, discussed with Ayesha Benoit and planning arranging outpatient paracentesis weekly in meantime (2) Alcoholic cirrhosis of liver: as above, working on transplant telehealth on Saturday (3) YENNY (acute kidney injury): Elevation of BUN and Cr to 28 and 1.81, respectively (increased from 8 and 0.61 on 08/10/22). Patient appears euvolemic on exam. He reports urinating without difficulty. Some concern for hepatorenal syndrome given extent of hepatic disease and fairly rapid rise in creatinine however could have been worsened from hypotension ?outpatient Urine sodium <10, UA w/o infection UOP low reported however reports making adequate urine and intake/output not ordered -- order placed, moving his bowels x2-3 today reported Held diuretics (per GI at [facility], to be on aldactone 100mg/lasix 20mg daily), albumin/volume expansion as above x 2 days, additional dose given after repeat paracentesis as above Avoided nephrotoxic agents/renal dose as able Cr back to baseline 0.79, Resumed aldactone, resume lasix at d/c (4) Depression: Chronic, denies any SI/HI but does have depressed affect Continued on fluoxetine, BuSpar on admit Discussed with patient, has been on for some time, but ok for adjustments Decision to DISCONTINUE BuSpar, decrease Prozac to 20mg daily (further titrate/dc as able) --> Changed med rec for at d/c (5) Abdominal ascites: improved following paracentesis f/u outpatient GI as above (6) Acute kidney injury: present on admit, secondary to above improved w/ albumin for volume expansion, stable w/ aldactone resumed resume lasix outpatient, management/adjustments per GI in follow up Total Time Total Time Spent Total Time Spent (In Minutes): 60 Discharge Plan Discharge Items Patient Disposition: Home - Self-Care Reason For Visit: ABDOMINAL DISTENTION Discharge Diagnosis: Ascites, Cirrhosis, Possible SBP Goals: You have been hospitalized for an acute medical problem. During your stay at [facility], we have made an effort to correct the problem that brought you to the hospital while keeping you as comfortable as possible. Medications were used to bring your condition under control and your discharge instructions will include directions for any medications you should take after leaving the hospital. Please make sure you see your Primary Care Provider as part of your follow up plan. Activity: As commented below Non-emergency contact: Primary Care Provider, Specialist and Endoscopy Technican Call non-emergency contact if: you have any medication questions, your symptoms worsen, your pain is not controlled and you have a fever Follow-up/Referrals: Ayesha Benoit CRNP [Nurse Practitioner] - 09/04/22 10:00 am Kathleen Key PA-C [Primary Care Provider] - Diet: Heart Healthy and Low Sodium (2gm) Addtl Attending Provider Instructions: You have been hospitalized for abdominal pain and found to have ascites with possible infection. This fluid was drained and you were placed on antibiotics and given albumin for volume expansion for low blood pressures. You will continue Ciprofloxacin 500mg TWICE daily for another 5 days. Your kidney function has returned to normal and you should continue your Lasix/spironolactone, lactulose (to make sure moving bowels 2-3x/day), and rifaximin twice daily. I have spoken to Dr Chavira, and you have an appointment for telehealth to discuss transplant, and Ayesha Benoit from [facility] will be working on getting you weekly paracentesis scheduled in the meantime. You have an appointment with Ayesha Benoit arranged for September 04 at 10am. I have reviewed your medications for depression, and it is recommended AGAINST BuSpar with cirrhosis, and your Prozac is recommended to reduce by 50%, and I have sent a new prescription for 20mg daily given the cirrhosis to prevent worsening liver function. Please follow up with your primary care provider in the next 7-10 days to monitor your progress. Please return to the ER with any increased pain/distention, fever, chest pain, shortness of breath, or for any other symptoms concerning for you. It has been a pleasure being a part of the medical team providing for you while you have been in the hospital. Take care! Pending Studies at Discharge: Yes Studies:: Paracentesis labs Stand-Alone Forms: My [facility] Medications and DC Order Prescriptions: New fluoxetine 20 mg Capsule 20 mg PO DAILY Qty: 30 0RF ciprofloxacin HCl 500 mg tablet 500 mg PO BID 5 Days Qty: 10 0RF Continued multivitamin [Daily-Danny] Tablet 1 tab PO QAM Qty: 30 0RF potassium chloride 20 mEq Tablet Extended Release 40 meq PO BID ergocalciferol (vitamin D2) [Vitamin D2] 1,250 mcg (50,000 unit) Capsule 1,250 mcg PO WK Rx Instructions: Saturday magnesium oxide 400 mg magnesium Tablet 400 mg PO QAM furosemide 20 mg tablet 20 mg PO DAILY spironolactone 50 mg tablet 50 mg PO DAILY Xifaxan 550 mg tablet 500 mg PO BID Discontinued fluoxetine 40 mg capsule 40 mg PO DAILY Discharge Orders: Discharge Order (Routine); Ordered 08/31/22 Ordered By: Marina Thakkar/Other Patient Handouts: Hepatic Encephalopathy, Treating Cirrhosis, ED Ascites Admission Data Admit Date/Time: 08/28/22 03:57 Attending Provider: Jennifer Chand Admit Provider: Lin Gray Primary Care Provider: Kathleen Key Other Providers: Luis Chance Other Interventions: Discharge Summary Assessment (RN) Last Done: 08/31/22 16:48 Supervising Physician Co-Signing Physician Notes PA Supervision Note: I personally saw and examined the patient. I verified all gutierres points and agree with WILLIAM Limon with the following exceptions and/or additions: S-Pt feeling much better. Had a repeat paracentesis today and removed 5 L. Abd soft, NT. No fevers, BPs stable. Received albumin IV.Moving bowels, mark po. O- Vitals reviewed Gen: [AAOx3, NAD,appears chronically ill] HEENT: [+scleral icterus, EOMI] CV: [RRR no mgr nl S1S2] Pulm: [CTAB no wcr] Abd: [+BS soft NT ND] Ext: [no edema Skin: [no rashes, warm/dry] Neuro: [full strength throughout] labs reviewed A/P-32 yo male here with decompensated ascites refractory cirrhosis, nearing time for transplant, with SBP, YENNY, abdominal pain. All now much improved with IV antibiotics, cultures remain no growth but will continue Cipro to finish out 7 day course after dsicharge. Needs close outpt GI f/u, weekly paracenteses Coding Level of Care Code D/C DAY MANAGEMENT >30 MINS Diagnoses Spontaneous bacterial peritonitis K65.2 Alcoholic cirrhosis of liver K70.30 YENNY (acute kidney injury) N17.9 Depression F32.9 Abdominal ascites R18.8 Acute kidney injury N17.9
--- NOTE | 2022-08-31 12:35 | Ultrasound Report ---
ULTRASOUND GUIDED THERAPEUTIC PARACENTESIS CLINICAL HISTORY: ascites, cirrhosis COMPARISON STUDY: Ultrasound guided paracentesis August 10, 2022. PROCEDURE: The risks, benefits, and alternatives to the procedure were discussed with the patient inc luding the risk of bleeding, infection and injury to adjacent structures. The patient agreed to the procedure and informed written consent was obtained. Following real-time ultrasound localization, the skin of the right lower quadrant was prepped and draped. Following local anesthesia with Xylocaine, the sheath paracentesis needle was inserted and approximately 5 liters of bloody ascites was removed by vacuum suction. The patient tolerated the procedure well and no immediate complications were evident. IMPRESSION: Ultrasound-guided paracentesis with removal of 5 liters of bloody ascites. ACT 112: Negative or not required by law. Electronically signed by: Oj Loo M.D. 08/31/2022 12:34 PM
[2022-08-31 15:06] LABS: Hematocrit (blood only) 23.5 % (40.1-51.0); Hemoglobin 8.4 g/dl (14.0-18.0); Mean Platelet Volume 9.4 fL (9.4-12.4); Platelet Count 126 K/uL (130-400); White Blood Count 4.55 K/ul (4.8-10.8)
[2022-08-31 15:30] LABS: Mean Corpuscular Hgb Conc 35.7 g/dL (32.0-36.0); Mean Corpuscular Volume 97.9 fL (80.0-100.0); RDW Coefficient of Variation 15.9 % (11.5-14.5); RDW Standard Deviation 57.9 fL (36.4-46.3)
[2022-08-31 16:59] LABS: Albumin Peritoneal Fluid < 1.5 gm/dl; Amylase Peritoneal Fluid 24 U/L; Glucose Peritoneal Fluid 106 mg/dl; LDH Peritoneal Fluid 51 U/L; Lipase Peritoneal Fluid 26 U/L; Total Protein Peritoneal Fluid < 3.0 gm/dl
[2022-08-31 19:13] LABS: Appearance Peritoneal Fluid Bloody; Color Peritoneal Fluid Red; Lymphocytes, Fluid 17 %; Mono,Macrophage,Mesothelial 81 %; Neutrophils, Fluid 2 %; RBC Peritoneal Fluid Auto 214000 /uL; WBC Peritoneal Fluid Auto 276 /ul (0-300)
== END 2022-08-31 18:10 | disposition home or self-care (01) | DRG 432 ==
LOC: ED 18:25 → 2N 08-28 03:57 → SUATTDRO 08-28 03:57 → 2N 08-28 06:08
DX: K70.31 Alcoholic cirrhosis of liver with ascites; Z79.899 Other long term (current) drug therapy; K65.2 Spontaneous bacterial peritonitis; N17.9 Acute kidney failure, unspecified; D68.9 Coagulation defect, unspecified; Z20.822 Contact with and (suspected) exposure to COVID-19; K76.82 Hepatic encephalopathy; F32.A Depression, unspecified; F41.9 Anxiety disorder, unspecified; I95.9 Hypotension, unspecified

== ENCOUNTER 2022-11-16 13:50 | Inpatient (IN) ==
[2022-11-16] MEDS ORDERED: ONDANSETRON INJ 2 MG/ML 2 ML VIAL ONE (15:13)
[2022-11-16] MEDS ORDERED: SODIUM CHLORIDE 0.9% 1000ML 1,000 ML IV ONE (15:18)
[2022-11-16 15:32] LABS: Basophils # (auto) 0.01 K/uL (0-0.2); Basophils % (auto) 0.2 %; Hematocrit (blood only) 30.7 % (42.0-52.0); Hemoglobin 11.3 g/dl (14.0-18.0); Immature Granulocytes # (auto) 0.02 K/uL (0.01-0.20); Immature Granulocytes % (auto) 0.4 %; Lymphocytes # (auto) 1.03 K/uL (1.2-3.4); Lymphocytes % (auto) 18.4 %; Mean Corpuscular Hemoglobin 31.5 pg (25.0-34.0); Mean Corpuscular Hgb Conc 36.8 g/dL (32.0-36.0); Mean Corpuscular Volume 85.5 fL (80.0-100.0); Monocytes # (auto) 0.42 K/uL (0.11-0.59); Monocytes % (auto) 7.5 %; Neutrophils # (auto) 4.12 K/uL (1.40-6.50); Neutrophils % (auto) 73.5 %; Platelet Count 102 K/uL (130-400); RDW Coefficient of Variation 13.5 % (11.5-14.5); RDW Standard Deviation 41.5 fL (36.4-46.3); Red Blood Count 3.59 M/uL (4.70-6.10)
[2022-11-16 15:56] LABS: Alanine Aminotransferase 23 U/L (7-52); Albumin Globulin Ratio 1.4 (0.9-2); Albumin Level 4.5 gm/dl (3.4-5.0); Alkaline Phosphatase 98 U/L (34-104); Anion Gap 24 (3-11); Aspartate Aminotransferase 102 U/L (13-39); BUN Creatinine Ratio 21.3 (10-20); Blood Urea Nitrogen 20 mg/dl (6-23); Calcium 10.5 mg/dl (8.5-10.1); Carbon Dioxide 29 mmol/L (21-32); Chloride 81 mmol/L (98-107); Est GFR (African American) 122.1 ml/min; Est GFR (Non-African American) 105.4 ml/min; Globulin 3.3 gm/dl (2.5-4.0); Glucose 109 mg/dl (70-99(Fasting)); Potassium 2.4 mmol/L (3.5-5.1); Sodium 134 mmol/L (136-145); Total Protein 7.8 gm/dl (6.0-8.3); Troponin I High Sensitivity 10.5 pg/ml (0-20)
[2022-11-16 16:29] LABS: Magnesium 1.2 mg/dl (1.7-2.4)
[2022-11-16] MEDS ORDERED: SODIUM CHLORIDE 0.9% 500 ML IV ONE (16:31)
[2022-11-16] MEDS ORDERED: MAGNESIUM SULFATE / D5W 1 GM/100 ML BAG IV STA (16:31)
[2022-11-16] MEDS: POTASSIUM CHLORIDE / WTR 10 MEQ/100 ML PLCT IV SCH ×2 (16:35→17:55)
--- NOTE | 2022-11-16 16:35 | Emergency Department Note ---
History of Present Illness General Chief complaint: Weakness Time Seen by Provider: 11/16/22 16:16 Source: patient, RN notes reviewed and old records reviewed Mode of arrival: ambulatory Limitations: no limitations History of Present Illness This patient is a 32-year-old male who comes in after feeling weak and nauseated. He does a history of liver disease. He was feeling pretty well up till last night when he got nauseated. He is vomited a couple times as well no blood or coffee-ground emesis. No blood in his stool no diarrhea no melena. He felt very lightheaded like he could pass out particularly when he would just stand up. I did see him out in triage and prior to me evaluate him he had had protocol orders and IV fluids. He was feeling a lot better he tells me. He denies abdominal pain at present. No fever he did feel like he had some chills at 1 point but he checked his temperature was normal. He does not feel his stomach been more distended than normal he has a standing order for once a week paracentesis if he needs it but he has not needed 1 since 02 November. He has had a nonproductive cough at times. No bleeding or bruising. No recent alcohol use Home Medications Medication Instructions Recorded Confirmed Type multivitamin (Daily-Danny tablet) 1 tab PO QAM #30 tabs 10/08/20 11/16/22 Rx potassium chloride 20 mEq 20 meq PO BID 04/25/21 11/16/22 History tablet,extended release magnesium oxide 400 mg PO QAM 11/30/21 11/16/22 History fluoxetine 20 mg capsule 20 mg PO DAILY 11/16/22 11/16/22 History furosemide 40 mg tablet 40 mg PO QAM 11/16/22 11/16/22 History spironolactone 100 mg tablet 100 mg PO DAILY 11/16/22 11/16/22 History Allergies Allergy/AdvReac Type Severity Reaction Status Date / Time No Known Allergies Allergy Verified 11/16/22 19:20 Past Med/Surg History Medical History Alcoholic hepatitis no alcohol since sep 2020 Anxiety Ascites due to alcoholic cirrhosis Depression Hematemesis Hepatic encephalopathy History of gastritis Migraine Panic attacks Surgical History History of circumcision at the age of 8 Hx of esophagogastroduodenoscopy Family History Other No family history of adverse response to anesthesia Social History Smoking Status: Never smoker Second Hand Exposure: No; Do You Dip or Chew Tobacco: No; Hx Alcohol Use: Yes Alcohol type: hard liquor Alcohol Intake Frequency Comment: 3-5 X weekly Hx Substance Use: No Preferred Language: Peruvian Communication Ability: Effective Electro Tech Required: No Beliefs That Will Affect Care: None Current Living Situation: Significant Other current occupational status: employed Other Information That Helps Us Care for You: No Feels Safe at Home: Yes Safety Concerns: Feels Safe At This Time Physical Activity Frequency: Does not Exercise Assistive Devices: Glasses Physical Exam Vital Signs Vital Signs - 24 hr 11/16/22 13:57 11/16/22 16:33 11/16/22 18:49 Temperature 37.0 C Temperature Source Oral Pulse Rate 128 H 95 H 93 H Respiratory Rate 20 Respiratory Depth Normal Blood Pressure 104/51 L Blood Pressure Mean 68 Pulse Oximetry 100 Oxygen Delivery Method Room Air Sepsis Recent Fever Within 48 Hours No Sepsis New/Unexplained Change in Mental Status No Sepsis Action Taken by Nursing No Action Required General: Well developed well nourished young male who appears in no acute distress, breathing comfortably on room air. Normal speech HEENT: Normal cephalic atraumatic. Pupils are equal round and reactive to light. Extraocular movements are intact. Oropharynx is pink with moist mucous membranes. No swelling of the mouth lips or tongue. He is mildly icteric in his sclera and face Neck: Supple with a midline trachea. No meningeal signs or stiffness, no JVD or bruits. No Stridor. Chest: Clear to auscultation bilaterally. No wheezes or rhonchi. No increased work of breathing. Heart: Regular rate and rhythm without murmurs or gallops. Abdomen: Soft nontender, nondistended without rebound guarding or rigidity. Extremities: No cyanosis clubbing or edema. No calf tenderness or assymetry Spine/Back. Non tender to palpation. No CVA tenderness Skin: Good turgor without rashes. Neurologic exam: Cranial nerves two through 12 are intact. Motor and sensation are intact and symmetrical throughout. No tremor. No asterixis Course Administered Medications Ceftriaxone Sodium 2,000 mg/ (Dextrose) 70 mls @ 100 mls/hr IV Q24H ANGEL; Protocol Stop: 11/26/22 22:59 Last Admin: 11/16/22 22:50 Dose: 100 mls/hr Documented By: SMN Lactated Ringer's (Lr) 1,000 mls @ 125 mls/hr IV .Q8H ANGEL Stop: 12/16/22 21:38 Last Infusion: 11/16/22 23:00 Dose: 0 mls/hr Documented By: Admin: 11/16/22 22:48 Dose: 125 mls/hr Documented By: PAUL Potassium Chloride (Potassium Chloride Crtab 20 Meq Tabcr) 40 meq PO BID ANGEL Stop: 12/16/22 21:38 Last Admin: 11/16/22 22:56 Dose: 40 meq Documented By: SMN Discontinued Medications Sodium Chloride (Nss 1000ml) 1,000 mls @ 999 mls/hr IV .Q1H1M ONE Stop: 11/16/22 16:18 Last Infusion: 11/16/22 16:00 Dose: 0 mls/hr Documented By: Admin: 11/16/22 15:19 Dose: 999 mls/hr Documented By: ES Potassium Chloride (K Dong / Wtr) 10 meq in 100 mls @ 100 mls/hr IV Q1H ANGEL; Protocol Stop: 11/16/22 18:29 Last Infusion: 11/16/22 19:13 Dose: 0 mls/hr Documented By: Admin: 11/16/22 17:55 Dose: 100 mls/hr Documented By: Infusion: 11/16/22 17:43 Dose: 0 mls/hr Documented By: Admin: 11/16/22 16:35 Dose: 100 mls/hr Documented By: OL Magnesium Sulfate/Dextrose (Magnesium Sulfate / D5w) 1 gm in 100 mls @ 100 mls/hr IV NOW STA Stop: 11/16/22 17:30 Last Infusion: 11/16/22 17:43 Dose: 0 mls/hr Documented By: Admin: 11/16/22 16:35 Dose: 100 mls/hr Documented By: OL Sodium Chloride (Nss) 500 mls @ 999 mls/hr IV .Q31M ONE Stop: 11/16/22 17:01 Last Infusion: 11/16/22 17:13 Dose: 0 mls/hr Documented By: Admin: 11/16/22 16:37 Dose: 999 mls/hr Documented By: OL Ondansetron HCl (Ondansetron Inj 2 Mg/Ml 2 Ml Vial) Confirm Administered Dose 4 mg .ROUTE .STK-MED ONE Stop: 11/16/22 15:14 Last Admin: 11/16/22 15:19 Dose: 4 mg Documented By: DAE Rifaximin (Rifaximin 550 Mg Tablet) 500 mg PO BID ANGEL Stop: 12/16/22 21:38 Last Admin: 11/16/22 22:54 Dose: 500 mg Documented By: PAUL Medical Decision Making Differential Diagnosis Dehydration, liver disease or failure, electrolyte or metabolic abnormality, infection, pneumonia, cardiac disease, Medical Records Attestation: I reviewed the patient's medical records. Home Medications Current Medication List: was personally reviewed by me Laboratory Data Attestation: I reviewed the patient's lab results. 11/16/22 15:16 11/16/22 15:16 Lab Results 11/16/22 11/16/22 11/16/22 Range/Units 15:11 15:16 15:16 WBC 5.60 (4.8-10.8) K/ul RBC 3.59 L (4.70-6.10) M/uL Hgb 11.3 L (14.0-18.0) g/dl Hct 30.7 L (42.0-52.0) % MCV 85.5 (80.0-100.0) fL MCH 31.5 (25.0-34.0) pg MCHC 36.8 H (32.0-36.0) g/dL RDW Std Deviation 41.5 (36.4-46.3) fL RDW Coeff of [place] 13.5 (11.5-14.5) % Plt Count 102 L (130-400) K/uL MPV 11.0 (9.4-12.4) fL Immature Gran % (Auto) 0.4 % Neut % (Auto) 73.5 % Lymph % (Auto) 18.4 % Iron % (Auto) 7.5 % Eos % (Auto) 0.0 % Baso % (Auto) 0.2 % Neut # (Auto) 4.12 (1.40-6.50) K/uL Lymph # (Auto) 1.03 L (1.2-3.4) K/uL Iron # (Auto) 0.42 (0.11-0.59) K/uL Eos # (Auto) 0.00 (0-0.50) K/uL Baso # (Auto) 0.01 (0-0.2) K/uL Immature Gran # (Auto) 0.02 (0.01-0.20) K/uL Sodium 134 L (136-145) mmol/L Potassium 2.4 L* (3.5-5.1) mmol/L Chloride 81 L (98-107) mmol/L Carbon Dioxide 29 (21-32) mmol/L Anion Gap 24 H (3-11) BUN 20 (6-23) mg/dl Creatinine 0.94 (0.6-1.4) mg/dl Est Cr Clr Drug Dosing Not Reportable Est GFR ( Amer) 122.1 ml/min Est GFR (Non-Af Amer) 105.4 ml/min BUN/Creatinine Ratio 21.3 H (10-20) Glucose 109 H (70-99(Fasting)) mg/dl Calcium 10.5 H (8.5-10.1) mg/dl Magnesium 1.2 L (1.7-2.4) mg/dl Total Bilirubin 6.0 H (0.2-1.0) mg/dl AST 102 H (13-39) U/L ALT 23 (7-52) U/L Alkaline Phosphatase 98 (34-104) U/L Ammonia (18-72) umol/L Troponin I High Sens 10.5 (0-20) pg/ml Total Protein 7.8 (6.0-8.3) gm/dl Albumin 4.5 (3.4-5.0) gm/dl Globulin 3.3 (2.5-4.0) gm/dl Albumin/Globulin Ratio 1.4 (0.9-2) TSH (0.300-4.500) uIu/ml Random Cortisol > 60.00 mcg/dl SARS-CoV-2, RNA, NAAT (NEGATIVE) 11/16/22 11/16/22 11/16/22 Range/Units 15:16 16:40 16:43 WBC (4.8-10.8) K/ul RBC (4.70-6.10) M/uL Hgb (14.0-18.0) g/dl Hct (42.0-52.0) % MCV (80.0-100.0) fL MCH (25.0-34.0) pg MCHC (32.0-36.0) g/dL RDW Std Deviation (36.4-46.3) fL RDW Coeff of [place] (11.5-14.5) % Plt Count (130-400) K/uL MPV (9.4-12.4) fL Immature Gran % (Auto) % Neut % (Auto) % Lymph % (Auto) % Iron % (Auto) % Eos % (Auto) % Baso % (Auto) % Neut # (Auto) (1.40-6.50) K/uL Lymph # (Auto) (1.2-3.4) K/uL Iron # (Auto) (0.11-0.59) K/uL Eos # (Auto) (0-0.50) K/uL Baso # (Auto) (0-0.2) K/uL Immature Gran # (Auto) (0.01-0.20) K/uL Sodium (136-145) mmol/L Potassium (3.5-5.1) mmol/L Chloride (98-107) mmol/L Carbon Dioxide (21-32) mmol/L Anion Gap (3-11) BUN (6-23) mg/dl Creatinine (0.6-1.4) mg/dl Est Cr Clr Drug Dosing Est GFR ( Amer) ml/min Est GFR (Non-Af Amer) ml/min BUN/Creatinine Ratio (10-20) Glucose (70-99(Fasting)) mg/dl Calcium (8.5-10.1) mg/dl Magnesium (1.7-2.4) mg/dl Total Bilirubin (0.2-1.0) mg/dl AST (13-39) U/L ALT (7-52) U/L Alkaline Phosphatase (34-104) U/L Ammonia 43.0 (18-72) umol/L Troponin I High Sens (0-20) pg/ml Total Protein (6.0-8.3) gm/dl Albumin (3.4-5.0) gm/dl Globulin (2.5-4.0) gm/dl Albumin/Globulin Ratio (0.9-2) TSH 1.081 (0.300-4.500) uIu/ml Random Cortisol mcg/dl SARS-CoV-2, RNA, NAAT NEGATIVE (NEGATIVE) Imaging Data Attestation: I personally reviewed and interpreted this imaging study as follows: My Impression: Chest x-rayno acute infiltrate, failure, pneumothorax seen Radiologist's Impression: Chest X-Ray 11/16/22 16:31 XR chest 1V portable CLINICAL HISTORY: weakness TECHNIQUE: Single frontal radiograph of the chest was obtained. Comparison: Comparison is made to chest radiograph 10/06/2022 FINDINGS: No lines and tubes are seen. The cardiomediastinal silhouette is normal. The lungs are clear. No evidence of pleural effusion or pneumothorax. IMPRESSION: No acute chest disease. ACT 112: Negative or not required by law. Electronically signed by: Andres Alcala M.D. 11/16/2022 5:18 PM ECG Data Attestation: I personally reviewed and interpreted this ECG as follows: Indication: + vomiting and + weakness Rate (beats per minute): 101 Rhythm: + sinus tachycardia ECG Intervals/blocks: + Normal QRS, + Prolonged QT and + Normal ND ECG [place]: + Normal ECG ST segments: + Nonspecific ST abnormalities ECG Findings: + Other (Nonspecific T wave); no PACs or no PVCs Comparison ECG Date: from (10/06/22) Change: the following changes noted (QTc has increased slightly) MDM Narrative This patient comes in as described above he has a history of liver disease and has been nausea and vomiting weak since last evening his p.o. intake has been down. On my exam he says he is feeling better after receiving IV fluids his abdomen is benign and has no tenderness to suggest SBP. He is afebrile here. His labs were markedly abnormal with his electrolytes of a potassium of 2.4 and mag of 1.2. I did order IV repletion to be started in the ED but he is clearly going to be needed to be admitted. I ordered 2 K- riders as well as magnesium IV. I ordered a second 500 cc normal saline IV bolus, he had already received a IV liter. I added additional labs including chest x-ray and COVID testing. [facility] was [facility] Continuous [facility] monitoring: An order was placed in EMR for continuous cardiac monitoring. Upon my interpretation, the patient was noted to be in normal sinus rhythm rate of 90 Impression & Plan Weakness, Hypomagnesemia, Vomiting, Alcoholic cirrhosis of liver, Acute hypokalemia Discharge Plan Visit Data Chief Complaint: Weakness ED Provider: Paramjit Hanley Discharge Problem: Weakness, Hypomagnesemia, Vomiting, Alcoholic cirrhosis of liver, Acute hypokalemia Patient Disposition: Admitted As Inpatient Discharge Instructions Interventions: ED Discharge Assessment Last Done: 11/16/22 20:49 Vomiting Qualifiers: Vomiting type: unspecified Nausea presence: with nausea Qualified Code(s): R11.2 - Nausea with vomiting, unspecified Alcoholic cirrhosis of liver Qualifiers: Ascites presence: unspecified Qualified Code(s): K70.30 - Alcoholic cirrhosis of liver without ascites
--- NOTE | 2022-11-16 17:19 | XRay Report ---
XR chest 1V portable CLINICAL HISTORY: weakness TECHNIQUE: Single frontal radiograph of the chest was obtained. Comparison: Comparison is made to chest radiograph 10/06/2022 FINDINGS: No lines and tubes are seen. The cardiomediastinal silhouette is normal. The lungs are clear. No evid ence of pleural effusion or pneumothorax. IMPRESSION: No acute chest disease. ACT 112: Negative or not required by law. Electronically signed by: Andres Alcala M.D. 11/16/2022 5:18 PM
[2022-11-16] MEDS ORDERED: cefTRIAXone SODIUM 2,000 MG/70 ML BAG IV STA (18:46)
--- NOTE | 2022-11-16 19:03 | History & Physical Report ---
Date of Service November 16, 2022 Assessment & Plan (1) Orthostasis: Plan: Appears to be due to dehydration, hypokalemia, hypomagnesemia ---> Most likely due to simply baseline level of illness with cirrhosis with ascites compounded by dehydration, at the same time his orthostasis does seem a bit disproportionate to what I am seeing with his labs and vitalsfollow for any evidence of POTS (particularly after having volume repleted), and check random cortisol (with follow-up further testing if abnormally low) ---> Has been given a saline bolus, continue with LR at 125, continue to replace magnesium and potassium. (2) Vomiting: Plan: Intractable nausea and vomitingmost likely due to viral enteritis given its abrupt onset and now appearance of abrupt resolution. Hard to rule out SBP given his baseline cirrhosis with ascites, although I doubt itsee below under abdominal ascites. Otherwise supportive care as above, antiemetics with Zofran and Phenergan, continue to follow abdominal exam for any other clues of possible etiologies (3) Hypomagnesemia: Plan: Due to intractable nausea vomiting poor p.o. intakereplace (4) Hypokalemia: Plan: Same as abovereplace (5) Abdominal ascites: Plan: His ascites seems less than normal, and I actually cannot feel any myself, at the same time given his baseline of cirrhosis with ascites, intractable vomiting and elevated bilirubinwhile I suspect this is all from an enteritis and dehydration (and the elevated bilirubin/hypercalcemia/etc. being simply due to volume contraction), very difficult to rule out SBP empirically given his overall situation. Rocephin for now, radiology to attempt paracentesisif paracentesis is able to be completed, treat as ascitic fluid indicates, if there is not enough ascites to obtain a paracentesis, that too would be very reassuring (6) Alcoholic cirrhosis of liver: (7) Depression: Plan: Home meds (8) Discharge planning issues: Plan[facility], otherwise as above. DVT prophylaxis not warranted due to her young age and no overtly high risk conditions for VTE Updated at patient's request. History of Present Illness Chief Complaint: intractable nausea/vomiting, lightheadedness Primary Care Provider: Kathleen Key PA-C very pleasant 32M cirrhosis/ascites in usual state of health until yesterday morning. He woke up with what he felt was a migraine and some nausea, felt nauseated all day but had no vomiting. Then right around 7:00 last night he started with intractable vomitingto the point of not being able to keep down any food or drink, vomiting yellow liquid, abdominal pain mostly from the profuse vomiting, as well as dry heaving. He tried to rest through the night, was not really feeling much better this morning is not related to the nausea and vomiting. Further. He got to where he could really not stand up without feeling extremely lightheaded like he was going to pass out. He has had this happen before, so he was trying to get up extremely slowly and was not even able to get up at all slowlyso he gave up on trying rather than losing consciousness. (To be clearabsolutely no loss of consciousness). He was actually scheduled for an abdominal MRI today working towards transplant evaluation, was obviously not able to go through with that. No blood in the vomitus. No diarrhea. Actually no bowel movement for at least a dayshe was not really able to remember when his last bowel movement was. No fevers but he did have some chillsalthough he does clarify later that he is lost about 160 pounds over the last year or so (since diagnosis with cirrhosis) and so to that end he is always very easily cold. Notes his skin may be looks a little more yellow than usual. He is getting a therapeutic paracentesis every 1 to 2 weeks as an outpatient, but actually feels like his abdomen is more deflated than usual right now. Allergies Allergy/AdvReac Type Severity Reaction Status Date / Time No Known Allergies Allergy Verified 10/09/22 09:14 Home Medications Medication Instructions Recorded Confirmed Type multivitamin (Daily-Danny tablet) 1 tab PO QAM #30 tabs 10/08/20 10/06/22 Rx potassium chloride 20 mEq 40 meq PO BID 04/25/21 10/06/22 History tablet,extended release ergocalciferol (vitamin D2) 1,250 1,250 mcg PO WK 11/30/21 10/09/22 History mcg (50,000 unit) capsule (Vitamin D2) magnesium oxide 400 mg PO QAM 11/30/21 10/06/22 History furosemide 20 mg tablet (Lasix) 40 mg PO DAILY 08/27/22 10/18/22 History spironolactone 50 mg tablet 50 mg PO DAILY 08/27/22 10/06/22 History (Aldactone) fluoxetine 20 mg capsule 20 mg PO DAILY #30 caps 08/31/22 10/09/22 Rx rifaximin 550 mg tablet (Xifaxan) 500 mg PO BID 08/31/22 10/09/22 History Past Med/Surg History Medical History Alcoholic hepatitis no alcohol since sep 2020 Anxiety Ascites due to alcoholic cirrhosis Depression Hematemesis Hepatic encephalopathy History of gastritis Migraine Panic attacks Surgical History History of circumcision at the age of 8 Hx of esophagogastroduodenoscopy Family History Other No family history of adverse response to anesthesia Social History Smoking Status: Current some day smoker Second Hand Exposure: No; Hx Alcohol Use: Yes Alcohol type: hard liquor Alcohol Intake Frequency Comment: 3-5 X weekly Hx Substance Use: No Preferred Language: [place] Communication Ability: Effective Loan Operations Specialist Required: No Beliefs That Will Affect Care: None Current Living Situation: Significant Other current occupational status: employed Feels Safe at Home: Yes Physical Activity Frequency: Does not Exercise Assistive Devices: None Review of Systems Review of Systems: All systems reviewed & are unremarkable except as noted in HPI & below Physical Exam Physical Exam: In general he is awake and alert oriented pleasant but fatigued no distress. HEENT normocephalic atraumatic mucous membranes moist. Cardio is tachycardic no rubs murmurs gallops. Lungs are clear to auscultation bilaterally no rales rhonchi or wheezes good effort. Abdomen is soft nondistended nontender except for epigastric tenderness with no guarding rebound or rigidity. I really cannot feel any ascites, his abdomen has an odd texture to it that does not entirely feel like crepitus but has a little bit of an odd to give to it. Appears mildly icteric all over, no pallor, no overt rashes. Neuro shows cranial nerves II through XII are grossly intact gross motor and sensory intact. Musculoskeletal shows no gross lesions and no paraspinal hypertonicity. Mental status shows good recent and remote recall normal mood and affect good judgment and insight. Results & Data Results & Data ([facility]) Vital Signs (Past 12 Hours) Vital Signs Temp Pulse Resp BP Pulse Ox O2 Del Method 11/16/22 16:33 95 H 11/16/22 13:57 98.6 F 128 H 20 104/51 L 100 Room Air Code Status & VTE Plan VTE Prophylaxis Plan VTE Prophylaxis will be ordered: No Reason for no VTE drug order: Treatment not indicated PG Care Time/CCT Total # of Minutes Spent Total Time Spent with Patient: Total time spent is greater than 50% in coordination of care (as documented) at patient's floor/unit and/or counseling patient: Coding Level of Care Code 62967 INT INP/OBS CARE 3/75MIN Diagnoses Orthostasis I95.1 Vomiting R11.2 Nausea presence: with nausea Vomiting Intractability: non-intractable Vomiting type: unspecified Hypomagnesemia E83.42 Hypokalemia E87.6 Abdominal ascites R18.8 Alcoholic cirrhosis of liver K70.30 Depression F32.9 Discharge planning issues Z02.9 (2) Vomiting Nausea presence: with nausea Vomiting Intractability: non-intractable Vomiting type: unspecified Qualified Code(s): R11.2 - Nausea with vomiting, unspecified
[2022-11-16] MEDS ORDERED: Patient's HEIGHT &/or WEIGHT Needed SCH (21:30)
[2022-11-16] MEDS ORDERED: ONDANSETRON INJ 2 MG/ML 2 ML VIAL IV PRN (21:39)
[2022-11-16] MEDS ORDERED: rifAXIMin 550 MG TABLET PO SCH (21:39)
[2022-11-16] MEDS ORDERED: PROMETHAZINE HCL INJ 25 MG/ML 1 ML VIAL IM PRN (21:39)
[2022-11-16] MEDS ORDERED: ALUMINUM/MAGNESIUM SUSP 30 ML UDC PO PRN (21:39)
[2022-11-16] MEDS ORDERED: POLYETHYLENE (MIRALAX) 17 GM PACK PO PRN (21:39)
[2022-11-16] MEDS ORDERED: MAGNESIUM HYDROXIDE SUSP 30 ML UDC PO PRN (21:39)
[2022-11-16] MEDS: LACTATED RINGER'S 1,000 ML IV SCH (22:48)
[2022-11-16] MEDS: POTASSIUM CHLORIDE CRTAB 20 MEQ TABCR PO SCH (22:56)
[2022-11-16] MEDS ORDERED: cefTRIAXone SODIUM 2,000 MG in DEXTROSE 5% 50 ML IV SCH (23:00)
[2022-11-16] MEDS ORDERED: Flu Vaccine (Fluarix) 0.5mL SYR (Standard Dose) IM ONE (23:00)
[2022-11-16] MEDS: MAGNESIUM SULFATE / D5W 1 GM/100 ML BAG IV SCH (23:25)
[2022-11-17] MEDS: POTASSIUM CHLORIDE / WTR 10 MEQ/100 ML PLCT IV SCH ×4 (01:08→04:30)
[2022-11-17] MEDS: MAGNESIUM SULFATE / D5W 1 GM/100 ML BAG IV SCH (01:22)
[2022-11-17 06:37] LABS: Appearance Urine Clear (Clear); Bacteria Urine Automated Negative (Negative); Blood Urine Negative (Negative); Color Urine Dark Yellow; Glucose Urine UA Negative (Negative); Ketones Urine 2+ (Negative); Leukocyte Esterase Urine Trace (Negative); Nitrite Urine Negative (Negative); Protein Urine Negative (Negative); RBC Urine Automated 0-4 /hpf (0-4); Specific Gravity Urine 1.019 (1.000-1.030); Urobilinogen Urine Positive (Negative)
[2022-11-17 07:16] LABS: Bilirubin Urine 1+ (Negative)
--- NOTE | 2022-11-17 07:48 | Electrocardiogram Report ---
Test Reason : Blood Pressure : / mmHG Vent. Rate : 101 BPM Atrial Rate : 101 BPM P-R Int : 124 ms QRS Dur : 098 ms QT Int : 450 ms P-R-T Axes : -18 064 039 degrees QTc Int : 583 ms Poor data quality, interpretation may be adversely affected Sinus tachycardia Diffuse Minor Nonspecific ST and T wave abnormality Prolonged QT Abnormal ECG When compared with ECG of 06-OCT-2022 15:02, QT has lengthened Confirmed by Brett Burgess ([id number]) on 11/17/2022 7:48:31 AM Referred By: REFERRED SELF Confirmed By:Brett Burgess
[2022-11-17] MEDS: FLUoxetine HCL 20 MG CAP PO SCH (08:27)
[2022-11-17] MEDS: POTASSIUM CHLORIDE CRTAB 20 MEQ TABCR PO SCH ×2 (08:27→19:56)
[2022-11-17] MEDS: SPIRONOLACTONE 25 MG TAB PO SCH (08:27)
[2022-11-17] MEDS: MAGNESIUM OXIDE 400 MG TAB PO SCH (08:27)
[2022-11-17] MEDS: MULTIVITAMIN TAB PO SCH (08:27)
--- NOTE | 2022-11-17 09:27 | Ultrasound Report ---
US abdomen ltd ascites CLINICAL HISTORY: Ascites volume TECHNIQUE: Real-time grayscale sonographic images of the abdomen were obtained. Comparison: Comparison is made to paracentesis 11/02/2022 FINDINGS/IMPRESSION: No ascites is seen. Cirrhotic contour of the liver is noted. Splenomegaly is see n, the spleen measures 18.7 cm in length. ACT 112: Negative or not required by law. Electronically signed by: Andres Alcala M.D. 11/17/2022 9:26 AM
[2022-11-17 10:44] LABS: Albumin Globulin Ratio 1.3 (0.9-2); Albumin Level 3.7 gm/dl (3.4-5.0); Basophils # (auto) 0.01 K/uL (0-0.2); Basophils % (auto) 0.2 %; Bilirubin,Total 3.3 mg/dl (0.2-1.0); C Reactive Protein 0.71 mg/dl (0-0.5); Calcium 8.8 mg/dl (8.5-10.1); Creatinine Clr Calc Pharmacy 120.1 ml/min; Eosinophils # (auto) 0.03 K/uL (0-0.50); Eosinophils % (auto) 0.7 %; Est GFR (African American) 134.4 ml/min; Globulin 2.8 gm/dl (2.5-4.0); Hematocrit (blood only) 27.9 % (42.0-52.0); Hemoglobin 9.9 g/dl (14.0-18.0); Immature Granulocytes # (auto) 0.01 K/uL (0.01-0.20); Immature Granulocytes % (auto) 0.2 %; Lymphocytes # (auto) 1.08 K/uL (1.2-3.4); Lymphocytes % (auto) 24.4 %; Mean Corpuscular Hemoglobin 31.3 pg (25.0-34.0); Mean Corpuscular Hgb Conc 35.5 g/dL (32.0-36.0); Mean Corpuscular Volume 88.3 fL (80.0-100.0); Mean Platelet Volume 10.5 fL (9.4-12.4); Monocytes # (auto) 0.41 K/uL (0.11-0.59); Monocytes % (auto) 9.3 %; Neutrophils # (auto) 2.89 K/uL (1.40-6.50); Neutrophils % (auto) 65.2 %; Platelet Count 70 K/uL (130-400); Platelet Estimate Decreased (Normal); Potassium 3.1 mmol/L (3.5-5.1); RDW Coefficient of Variation 14.3 % (11.5-14.5); RDW Standard Deviation 45.1 fL (36.4-46.3); Red Blood Count 3.16 M/uL (4.70-6.10); Total Protein 6.5 gm/dl (6.0-8.3); White Blood Count 4.43 K/ul (4.8-10.8)
[2022-11-17] MEDS: LACTATED RINGER'S 1,000 ML IV SCH ×2 (10:51→18:17)
[2022-11-17] MEDS ORDERED: KETOROLAC TROMETHAMINE 15 MG/ML VIAL IV ONE (11:45)
[2022-11-17] MEDS ORDERED: KETOROLAC TROMETHAMINE 15 MG/ML VIAL IV PRN (18:00)
--- NOTE | 2022-11-17 19:02 | Hospitalist Progress Note ---
Date of Service November 17, 2022 Assessment & Plan (1) Orthostasis: Plan: Appears to be due to dehydration, hypokalemia, hypomagnesemia ---> Most likely due to simply baseline level of illness with cirrhosis with ascites compounded by dehydration, cortisol reassurringly high, symptoms improved and overall situation improving w fluids/electrolytes. ---> after further review, with no ascites to tap and inflammatory markers reassurring - highly unlikely to be SBP. stop rocephin (2) Vomiting: Plan: Intractable nausea and vomitingmost likely due to viral enteritis given its abrupt onset and now appearance of abrupt resolution. improving. continue fluids and supportive care. (3) Hypomagnesemia: Plan: Due to intractable nausea vomiting poor p.o. intakereplace, recheck in AM (4) Hypokalemia: Plan: Same as abovereplacing (5) Abdominal ascites: Plan: His ascites seems less than normal, US doesn't show enough to tap. (6) Alcoholic cirrhosis of liver: Plan: working through the initial steps of transplant process (7) Depression: Plan: Home meds (8) Discharge planning issues: Plan: hopefully home tomorrow DVT prophylaxis not warranted due to her young age and no overtly high risk co nditions for VTE Admission and Anticipated Discharge Date Admission Date: November 16, 2022 Subjective feeling better eating better less orthostatic. still feels fairly weak though. no other new complaints Review of Systems Review of Systems: ros otherwise negative except for as above Physical Exam Physical Exam: gen aaox3 pleasant nad heent nc at mmm breathing unlabored no accessory muscles good effort abd soft nd nt - feeling of general give to soft tissues similar to yesterday and still absolutely nontender. stable icterus. no focal neuro deficits Results & Data Results & Data ([facility]) Vital Signs (Past 12 Hours) Vital Signs Temp Pulse Resp BP Pulse Ox O2 Del Method 11/17/22 14:53 98.1 F 94 H 16 104/56 L 98 Room Air 11/17/22 07:10 98.1 F 86 16 110/63 100 Room Air PG Care Time/CCT Total # of Minutes Spent Total Time Spent with Patient: Total time spent is greater than 50% in coordination of care (as documented) at patient's floor/unit and/or counseling patient: Coding Level of Care Code 79085 SUB INP/OBS CARE 3/50MIN Diagnoses Orthostasis I95.1 Vomiting R11.2 Nausea presence: with nausea Vomiting type: unspecified Hypomagnesemia E83.42 Hypokalemia E87.6 Abdominal ascites R18.8 Alcoholic cirrhosis of liver K70.30 Ascites presence: unspecified Depression F32.9 Discharge planning issues Z02.9 (2) Vomiting Nausea presence: with nausea Vomiting type: unspecified Qualified Code(s): R11.2 - Nausea with vomiting, unspecified (6) Alcoholic cirrhosis of liver Ascites presence: unspecified Qualified Code(s): K70.30 - Alcoholic cirrhosis of liver without ascites
[2022-11-18] MEDS: LACTATED RINGER'S 1,000 ML IV SCH ×2 (01:57→09:08)
[2022-11-18 06:45] LABS: Albumin Globulin Ratio 1.3 (0.9-2); Albumin Level 3.5 gm/dl (3.4-5.0); BUN Creatinine Ratio 17.6 (10-20); Bilirubin,Total 2.8 mg/dl (0.2-1.0); Calcium 8.5 mg/dl (8.5-10.1); Creatinine Clr Calc Pharmacy 143.1 ml/min; Est GFR (African American) 144.4 ml/min; Est GFR (Non-African American) 124.6 ml/min; Globulin 2.6 gm/dl (2.5-4.0); Magnesium 1.6 mg/dl (1.7-2.4); Potassium 3.4 mmol/L (3.5-5.1); Total Protein 6.1 gm/dl (6.0-8.3)
[2022-11-18 07:00] LABS: INR 1.4 (0.9-1.1); Prothrombin Time 14.6 Seconds (9.0-12.0)
[2022-11-18 07:14] LABS: Hemoglobin 9.9 g/dl (14.0-18.0); Mean Corpuscular Hgb Conc 34.1 g/dL (32.0-36.0); Mean Corpuscular Volume 90.9 fL (80.0-100.0); Mean Platelet Volume 10.9 fL (9.4-12.4); Platelet Count 68 K/uL (130-400); RDW Coefficient of Variation 14.5 % (11.5-14.5); RDW Standard Deviation 47.5 fL (36.4-46.3); Red Blood Count 3.19 M/uL (4.70-6.10); White Blood Count 4.66 K/ul (4.8-10.8)
[2022-11-18 07:15] LABS: Basophils # (auto) 0.02 K/uL (0-0.2); Basophils % (auto) 0.4 %; Eosinophils # (auto) 0.05 K/uL (0-0.50); Eosinophils % (auto) 1.1 %; Immature Granulocytes # (auto) 0.02 K/uL (0.01-0.20); Immature Granulocytes % (auto) 0.4 %; Lymphocytes # (auto) 0.78 K/uL (1.2-3.4); Lymphocytes % (auto) 16.7 %; Monocytes # (auto) 0.28 K/uL (0.11-0.59); Neutrophils # (auto) 3.51 K/uL (1.40-6.50); Neutrophils % (auto) 75.4 %
[2022-11-18] MEDS: MAGNESIUM OXIDE 400 MG TAB PO SCH (08:38)
[2022-11-18] MEDS: SPIRONOLACTONE 25 MG TAB PO SCH (08:38)
[2022-11-18] MEDS: FLUoxetine HCL 20 MG CAP PO SCH (08:38)
[2022-11-18] MEDS: POTASSIUM CHLORIDE CRTAB 20 MEQ TABCR PO SCH (08:38)
[2022-11-18] MEDS: MULTIVITAMIN TAB PO SCH (08:38)
[2022-11-18] MEDS: POTASSIUM CHLORIDE / WTR 10 MEQ/100 ML PLCT IV SCH ×3 (09:10→11:06)
[2022-11-18] MEDS: MAGNESIUM SULFATE / D5W 1 GM/100 ML BAG IV SCH ×2 (09:10→10:43)
--- NOTE | 2022-11-18 20:50 | Discharge Summary ---
Date of Service November 18, 2022 Admission HPI Per Admitting Provider very pleasant 32M cirrhosis/ascites in usual state of health until yesterday morning. He woke up with what he felt was a migraine and some nausea, felt nauseated all day but had no vomiting. Then right around 7:00 last night he started with intractable vomitingto the point of not being able to keep down any food or drink, vomiting yellow liquid, abdominal pain mostly from the profuse vomiting, as well as dry heaving. He tried to rest through the night, was not really feeling much better this morning is not related to the nausea and vomiting. Further. He got to where he could really not stand up without feel ing extremely lightheaded like he was going to pass out. He has had this happen before, so he was trying to get up extremely slowly and was not even able to get up at all slowlyso he gave up on trying rather than losing consciousness. (To be clearabsolutely no loss of consciousness). He was actually scheduled for an abdominal MRI today working towards transplant evaluation, was obviously not able to go through with that. No blood in the vomitus. No diarrhea. Actually no bowel movement for at least a dayshe was not really able to remember when his last bowel movement was. No fevers but he did have some chillsalthough he does clarify later that he is lost about 160 pounds over the last year or so (since diagnosis with cirrhosis) and so to that end he is always very easily cold. Notes his skin may be looks a little more yellow than usual. He is getting a therapeutic paracentesis every 1 to 2 weeks as an outpatient, but actually feels like his abdomen is more deflated than usual right now. Principal Diagnosis dehydration Discharge Exam gen aaox3 pleasant nad heent nc at mmm breathing unlabored no accessory muscles good effort skin no rashes no pallor or icterus abd soft nd nt no guarding/rebound/rigidity no fluid wave Discharge Data Allergies Allergy/AdvReac Type Severity Reaction Status Date / Time No Known Allergies Allergy Verified 11/16/22 19:20 Consultations 11/16/22 17:32 ED Decision to Admit Stat Ordered Studies 11/17/22 US abdomen ltd ascites Routine Hospital Course (1) Orthostasis: Appears to be due to dehydration, hypokalemia, hypomagnesemia ---> Most likely due to simply baseline level of illness with cirrhosis with ascites compounded by dehydration, cortisol reassurringly high, symptoms improved and overall situation improving w fluids/electrolytes. ---> after further review, with no ascites to tap and inflammatory markers reassurring - highly unlikely to be SBP. stopped rocephin - no worsening ---> safe/stable for home (2) Vomiting: Intractable nausea and vomitingmost likely due to viral enteritis given its abrupt onset and now appearance of abrupt resolution. improved - safe for home (3) Hypomagnesemia: due to vomiting acutely, diuretics chronically. additional 2g given today, safe for home, repeat mag ~1wk (4) Hypokalemia: Same as abovesafe for home, ongoing PO, BMP ~1wk (5) Abdominal ascites: His ascites seems less than normal, US doesn't show enough to tap. very low prob for SBP (6) Alcoholic cirrhosis of liver: working through the initial steps of transplant process (7) Depression: Home meds (8) Discharge planning issues: stable for home Total Time Total Time Spent Total Time Spent (In Minutes): <30 Discharge Plan Discharge Items Patient Disposition: Home - Self-Care Reason For Visit: DEHYDRATION Discharge Diagnosis: dehydration Activity: Resume your previous activity Non-emergency contact: Primary Care Provider and Make Up Operator Helper Call non-emergency contact if: you have any medication questions and your symptoms worsen Follow-up/Referrals: Kathleen Key PA-C [Primary Care Provider] - Diet: Regular Addtl Attending Provider Instructions: Nausea/vomitingfortunately after further review, it really looks like the nausea and vomiting was most likely the stomach bug going around, versus less likely food poisoning. Fortunately we did not see anything consistent with an active infection, peritoneal infection, upper gastroenterology issues like ulcers, etc.given that you are eating and drinking well, I think this whole thing is probably "in your rearview mirror" and nothing else needs to be done. On the very off chance it would recur in short order, then seeing a solid glass rod dowel machine operator and considering an upper endoscopy to evaluate things further would be reasonable neck stepbut I only mention that so that you do not have any question of what would come next; I really think that it is probably all better. Low potassium/low magnesiumwith your chronic liver disease, you tend to run on the low side. To that end, once you were not really able to eat or drink meaningfully, and were vomitingyou are already borderline stores got low. We have replenished things. I would continue to take your home supplements. And also have your PCP repeat lab work as it relates to your potassium and magnesium by the end of the week to see how things look once you are home and on your own. Lightheadednessthis was almost certainly due to dehydration. Fortunately that corrected nicely with IV fluids. I would try to target about 60 ounces of oral fluid intake a day. Certainly with the abdominal fluid that you accumulate, it could be tempting to really restrict fluidsbut I suspect that will cause more harm than good by making you more weak and lightheaded then the benefit of keeping the fluid off. Looking at the fluid on your belly, in my experience, generally people accumulate fluid far more in line with the sodium that they eat then how much fluid they drink. To that end, try to be strict with sodiumas best as possible may be see if you can eat less than 2000 mg of sodium a day. Pending Studies at Discharge: No Stand-Alone Forms: [facility], Smoking Cessation Medications and DC Order Prescriptions: Continued multivitamin [Daily-Danny] Tablet 1 tab PO QAM Qty: 30 0RF potassium chloride 20 mEq Tablet Extended Release 20 meq PO BID furosemide 40 mg tablet 40 mg PO QAM spironolactone 100 mg tablet 100 mg PO DAILY fluoxetine 20 mg capsule 20 mg PO DAILY magnesium oxide 400 mg magnesium Tablet 400 mg PO QAM Discharge Orders: Discharge Order (Routine); Ordered 11/18/22 Ordered By: Wilfredo Kevin Admission Data Admit Date/Time: 11/16/22 18:52 Attending Provider: Wilfredo Kevin Admit Provider: Wilfredo Kevin Primary Care Provider: Kathleen Key Other Providers: Wilfredo Kevin Other Interventions: Discharge Summary Assessment (RN) Last Done: 11/18/22 16:43 Coding Level of Care Code 42337 IN/OBS DISCH 30 MIN/LESS Diagnoses Orthostasis I95.1 Vomiting R11.2 Nausea presence: with nausea Vomiting type: unspecified Hypomagnesemia E83.42 Hypokalemia E87.6 Abdominal ascites R18.8 Alcoholic cirrhosis of liver K70.30 Ascites presence: unspecified Depression F32.9 Discharge planning issues Z02.9
--- NOTE | 2022-11-18 20:51 | Billing Data ---
Date of Service November 18, 2022 Coding Level of Care Code 10574 IN/OBS DISCH 30 MIN/LESS
[2022-11-19] MEDS ORDERED: ERGOCALCIFEROL 50,000 UNITS 1250 MCG CAP PO SCH (09:00)
== END 2022-11-18 17:52 | disposition home or self-care (01) | DRG 392 ==
LOC: ED 13:50 → 3E 18:52

== ENCOUNTER 2023-02-13 14:57 | Inpatient (IN) ==
--- NOTE | 2023-02-13 15:03 | ED Triage Note ---
Date of Service February 13, 2023 History of Present Illness This patient was briefly evaluated while in triage. An abbreviated physical exam was performed. This patient is a 32-year-old Male who presents to the ED for evaluation of History alcoholic liver cirrhosis-sober x 2 years generalized abdominal pain, sweats, shaky, headaches, nausea/vomiting-bilious, nonbloody started upon waking this AM not bloated/distended no diarrhea Physical Exam GENERAL: NAD CARDIOVASCULAR: RRR RESPIRATORY: CTA ABDOMEN: BS x 4. Nondistended. Diffusely TTP. Initial orders for labs and / or imaging were placed and patient was placed in the waiting area until a bed is available. Please see further documentation for the full ED course.
[2023-02-13] MEDS ORDERED: ONDANSETRON INJ 2 MG/ML 2 ML VIAL IV STA (15:04)
[2023-02-13] MEDS ORDERED: SODIUM CHLORIDE 0.9% 1000ML 1,000 ML IV SCH (15:05)
[2023-02-13 16:39] LABS: Basophils # (auto) 0.06 K/uL (0-0.2); Basophils % (auto) 1.8 %; Eosinophils # (auto) 0.07 K/uL (0-0.50); Eosinophils % (auto) 2.1 %; Hematocrit (blood only) 27.9 % (42.0-52.0); Hemoglobin 8.8 g/dl (14.0-18.0); Immature Granulocytes # (auto) 0.01 K/uL (0.01-0.20); Immature Granulocytes % (auto) 0.3 %; Lymphocytes # (auto) 0.87 K/uL (1.2-3.4); Lymphocytes % (auto) 25.6 %; Mean Corpuscular Hgb Conc 31.5 g/dL (32.0-36.0); Mean Platelet Volume 9.6 fL (9.4-12.4); Monocytes # (auto) 0.46 K/uL (0.11-0.59); Monocytes % (auto) 13.5 %; Neutrophils # (auto) 1.93 K/uL (1.40-6.50); Neutrophils % (auto) 56.7 %; Platelet Count 78 K/uL (130-400); RDW Standard Deviation 49.6 fL (36.4-46.3); Red Blood Count 3.82 M/uL (4.70-6.10)
[2023-02-13 16:53] LABS: Alanine Aminotransferase 39 U/L (7-52); Albumin Globulin Ratio 1.4 (0.9-2); Albumin Level 4.4 gm/dl (3.4-5.0); Alkaline Phosphatase 178 U/L (34-104); Anion Gap 11 (3-11); Aspartate Aminotransferase 184 U/L (13-39); BUN Creatinine Ratio 12.1 (10-20); Bilirubin,Total 3.5 mg/dl (0.2-1.0); Blood Urea Nitrogen 7 mg/dl (6-23); Carbon Dioxide 27 mmol/L (21-32); Chloride 98 mmol/L (98-107); Creatinine Clr Calc Pharmacy 167.8 ml/min; Est GFR (African American) > 150.0 ml/min; Globulin 3.1 gm/dl (2.5-4.0); Glucose 110 mg/dl (70-99(Fasting)); Lipase 62 U/L (11-82); Magnesium 1.3 mg/dl (1.7-2.4); Potassium 3.2 mmol/L (3.5-5.1); Sodium 136 mmol/L (136-145); Total Protein 7.5 gm/dl (6.0-8.3)
[2023-02-13 17:06] LABS: INR 1.4 (0.9-1.1); Prothrombin Time 14.6 Seconds (9.0-12.0)
--- NOTE | 2023-02-13 17:49 | Emergency Department Note ---
History of Present Illness General Chief Complaint: Abdominal Pain Stated Complaint: ABDOMINAL PAIN, VOMITING, HEADACHE Time Seen by Provider: 02/13/23 16:53 History of Present Illness Provider Complaint: abdominal pain Onset (ago): 1 hour(s) Pain Consistency: constant Location: epigastric Severity: moderate Maximum Pain Intensity: 8 Current Pain Intensity: 8 Quality: + stabbing and + sharp Relieved By: + nothing Exacerbated By: + nothing Context: no foreign travel, no possible food poisoning, no sick contacts, no recent antibiotic use, no recent surgery/procedure or no recent injury Associated Symptoms: + nausea, + vomiting and + headache; no diarrhea, no fever, no chills, no constipation, no dysuria, no hematemesis, no hematochezia, no melena, no hematuria, no syncope and no chest pain Home Medications Medication Instructions Recorded Confirmed Type potassium chloride 20 mEq 20 meq PO BID 04/25/21 02/13/23 History tablet,extended release magnesium oxide 400 mg PO HS 11/30/21 02/13/23 History fluoxetine 20 mg capsule 20 mg PO HS 11/16/22 02/13/23 History furosemide 40 mg tablet 40 mg PO HS 11/16/22 02/13/23 History spironolactone 100 mg tablet 100 mg PO HS 11/16/22 02/13/23 History multivitamin (Daily-Danny tablet) 1 tab PO HS 02/13/23 02/13/23 History Allergies Allergy/AdvReac Type Severity Reaction Status Date / Time No Known Allergies Allergy Verified 02/13/23 17:53 Past Med/Surg History Medical History Alcoholic hepatitis no alcohol since sep 2020 Anxiety Ascites due to alcoholic cirrhosis Depression Hematemesis Hepatic encephalopathy History of gastritis Migraine Panic attacks Surgical History History of circumcision at the age of 8 Hx of esophagogastroduodenoscopy Family History Other No family history of adverse response to anesthesia Social History Smoking Status: Never smoker Second Hand Exposure: No; Do You Dip or Chew Tobacco: No; Hx Alcohol Use: Yes Alcohol type: hard liquor Alcohol Intake Frequency Comment: 3-5 X weekly Hx Substance Use: No Preferred Language: [place] Communication Ability: Effective Donations Attendant Required: No Beliefs That Will Affect Care: None Current Living Situation: Significant Other current occupational status: employed Feels Safe at Home: Yes Physical Activity Frequency: Does not Exercise Assistive Devices: Glasses Physical Exam Vital Signs: Vital Signs - 24 hr 02/13/23 15:01 02/13/23 17:03 02/13/23 17:03 Temperature 37.2 C Temperature Source Temporal Artery Sc an Pulse Rate 99 H Pulse Rate [Apical ] 81 Pulse Rhythm [Apic al] Regular Respiratory Rate 20 18 Respiratory Effort / Characteristics Non-Labored Non-Labored Sponta neous Respiratory Depth Normal Normal Respiratory Patter n Regular Blood Pressure 143/75 H Blood Pressure [Ri ght Arm] 129/70 Blood Pressure Elinor n 97 Blood Pressure Elinor n [Right Arm] 89 Blood Pressure Pos ition [Right Arm] Lying Pulse Oximetry 99 99 99 Oxygen Delivery Me thod Room Air Room Air Room Air Sepsis Recent Feve r Within 48 Hours No Sepsis New/Unexpla ined Change in Men ozzy Status N/A Sepsis Action Take n by Nursing No Action Required 02/13/23 17:01 02/13/23 19:27 02/13/23 21:37 Temperature Temperature Source Pulse Rate 83 Pulse Rate [Apical ] 92 H 90 Pulse Rhythm [Apic al] Regular Regular Respiratory Rate 18 18 Respiratory Effort / Characteristics Non-Labored Sponta neous Non-Labored Sponta neous Respiratory Depth Normal Normal Respiratory Patter n Regular Regular Blood Pressure Blood Pressure [Ri ght Arm] 132/82 139/76 Blood Pressure Elinor n Blood Pressure Elinor n [Right Arm] 98 97 Blood Pressure Pos ition [Right Arm] Lying Pulse Oximetry 98 98 Oxygen Delivery Me thod Room Air Room Air Sepsis Recent Feve r Within 48 Hours Sepsis New/Unexpla ined Change in Men ozzy Status Sepsis Action Take n by Nursing 02/13/23 20:57 Temperature Temperature Source Pulse Rate 89 Pulse Rate [Apical ] Pulse Rhythm [Apic al] Respiratory Rate Respiratory Effort / Characteristics Respiratory Depth Respiratory Patter n Blood Pressure Blood Pressure [Ri ght Arm] Blood Pressure Elinor n Blood Pressure Elinor n [Right Arm] Blood Pressure Pos ition [Right Arm] Pulse Oximetry Oxygen Delivery Me thod Sepsis Recent Feve r Within 48 Hours Sepsis New/Unexpla ined Change in Men ozzy Status Sepsis Action Take n by Nursing Physical Exam: Physical Exam GENERAL: He is oriented to person, place, and time. He appears well-developed and well-nourished. HENT: Exam performed. - Head: Normocephalic and atraumatic. - Right Ear: External ear normal. No mastoid erythema - Left Ear: External ear normal. No mastoid erythema - Mouth/Throat: The oropharynx is clear and moist. No trismus in the jaw. No dental abscesses or uvula swelling. No oropharyngeal exudate or tonsillar abscesses. EYES: Conjunctivae and EOM are normal. Pupils are equal, round, and reactive to light. Right eye exhibits no discharge. Left eye exhibits no discharge. No scleral icterus. NECK: Normal range of motion. Neck supple. No JVD present. No spinous process tenderness present. No tracheal deviation and normal range of motion present. CV: Normal rate, regular rhythm, normal heart sounds and intact distal pulses. There is no peripheral edema. Palpable radial pulses bue. PULM/CHEST: Effort normal and breath sounds normal. No respiratory distress. No stridor. He has no wheezes. He has no rales. ABD: The abdomen is soft. Bowel sounds are normal. He has no distension. No mass is present. There is tenderness to palpation of the epigastric area. There is no rebound, no guarding, no Kirkland's sign and no tenderness at McBurney's point. Rovsig negative. MUSC/SKEL: Normal range of motion. There is no peripheral edema, tenderness or deformity. LYMPH: No cervical adenopathy. NEURO: He is alert and oriented to person, place, and time. He has normal strength. No cranial nerve deficit or sensory deficit. Coordination and gait normal. GCS eye subscore is 4. GCS verbal subscore is 5. GCS motor subscore is 6. Cerebellar tests wnl. SKIN: Skin is warm and dry. He is not diaphoretic. PSYCH: He has a normal mood and affect. Behavior is normal. Judgment and thought content normal. Course Course 1652: The patient was evaluated in room B9. A complete history and physical exam was performed Cardiac monitoring: An order was placed for continuous cardiac monitoring. The monitor shows a rate of 80 with sinus rhythm interpreted by me 1935: Vital signs stable. Labs show hemoglobin 8.8. Potassium 3.2. Magnesium 1.3. Magnesium repletion started in the emergency department. Alkaline phosphatase 178. Bilirubin level 3.5. AST [address] of the head was within normal limits. CT of the abdomen pelvis showed diffuse irregular low-attenuation changes in the liver that are perivascular distribution which may represent an infiltrative mass or a fatty infiltration. Repletion of electrolytes will be started in the emergency department and the patient will be admitted to the [facility] team 2010: Spoke with Dr. Almanza [facility] hospitalist [phone] who will evaluate the patient for admission. Administered Medications Discontinued Medications Sodium Chloride (Nss 1000ml) 1,000 mls @ 999 mls/hr IV .Q1H1M ANGEL Stop: 02/13/23 16:05 Last Infusion: 02/13/23 18:27 Dose: 0 mls/hr Documented By: Admin: 02/13/23 17:01 Dose: 999 mls/hr Documented By: ANGE Magnesium Sulfate/Dextrose (Magnesium Sulfate / D5w) 1 gm in 100 mls @ 100 mls/hr IV Q1H ANGEL Stop: 02/13/23 19:49 Last Infusion: 02/13/23 20:35 Dose: 0 mls/hr Documented By: Admin: 02/13/23 19:25 Dose: 100 mls/hr Documented By: Infusion: 02/13/23 19:24 Dose: 0 mls/hr Documented By: Admin: 02/13/23 17:58 Dose: 100 mls/hr Documented By: CHRISTIANO Ioversol (Optiray 320 100ml) 86 ml IV ONCE ONE Stop: 02/13/23 18:26 Last Admin: 02/13/23 18:26 Dose: 86 ml Documented By: REX Ondansetron HCl (Ondansetron Inj 2 Mg/Ml 2 Ml Vial) 4 mg IV NOW STA Stop: 02/13/23 15:05 Last Admin: 02/13/23 17:01 Dose: 4 mg Documented By: ANGE Medical Decision Making Laboratory Data Attestation: I reviewed the patient's lab results. 02/13/23 15:55 02/13/23 15:55 Lab Results 02/13/23 02/13/23 02/13/23 Range/Units 15:55 15:55 15:55 WBC 3.40 L (4.8-10.8) K/ul RBC 3.82 L (4.70-6.10) M/uL Hgb 8.8 L (14.0-18.0) g/dl Hct 27.9 L (42.0-52.0) % MCV 73.0 L (80.0-100.0) fL MCH 23.0 L (25.0-34.0) pg MCHC 31.5 L (32.0-36.0) g/dL RDW Std Deviation 49.6 H (36.4-46.3) fL RDW Coeff of Cali 19.0 H (11.5-14.5) % Plt Count 78 L (130-400) K/uL MPV 9.6 (9.4-12.4) fL Immature Gran % (Auto) 0.3 % Neut % (Auto) 56.7 % Lymph % (Auto) 25.6 % Grand % (Auto) 13.5 % Eos % (Auto) 2.1 % Baso % (Auto) 1.8 % Neut # (Auto) 1.93 (1.40-6.50) K/uL Lymph # (Auto) 0.87 L (1.2-3.4) K/uL Grand # (Auto) 0.46 (0.11-0.59) K/uL Eos # (Auto) 0.07 (0-0.50) K/uL Baso # (Auto) 0.06 (0-0.2) K/uL Immature Gran # (Auto) 0.01 (0.01-0.20) K/uL PT 14.6 H (9.0-12.0) Seconds INR 1.4 H (0.9-1.1) Sodium 136 (136-145) mmol/L Potassium 3.2 L (3.5-5.1) mmol/L Chloride 98 (98-107) mmol/L Carbon Dioxide 27 (21-32) mmol/L Anion Gap 11 (3-11) BUN 7 (6-23) mg/dl Creatinine 0.58 L (0.6-1.4) mg/dl Est Cr Clr Drug Dosing 167.8 ml/min Est GFR ( Amer) > 150.0 ml/min Est GFR (Non-Af Amer) 133.0 ml/min BUN/Creatinine Ratio 12.1 (10-20) Glucose 110 H (70-99(Fasting)) mg/dl Calcium 9.0 (8.6-10.3) mg/dl Magnesium 1.3 L (1.7-2.4) mg/dl Total Bilirubin 3.5 H (0.2-1.0) mg/dl AST 184 H (13-39) U/L ALT 39 (7-52) U/L Alkaline Phosphatase 178 H (34-104) U/L Total Protein 7.5 (6.0-8.3) gm/dl Albumin 4.4 (3.4-5.0) gm/dl Globulin 3.1 (2.5-4.0) gm/dl Albumin/Globulin Ratio 1.4 (0.9-2) Lipase 62 (11-82) U/L SARS-CoV-2, RNA, NAAT (NEGATIVE) 02/13/23 Range/Units 20:19 WBC (4.8-10.8) K/ul RBC (4.70-6.10) M/uL Hgb (14.0-18.0) g/dl Hct (42.0-52.0) % MCV (80.0-100.0) fL MCH (25.0-34.0) pg MCHC (32.0-36.0) g/dL RDW Std Deviation (36.4-46.3) fL RDW Coeff of Cali (11.5-14.5) % Plt Count (130-400) K/uL MPV (9.4-12.4) fL Immature Gran % (Auto) % Neut % (Auto) % Lymph % (Auto) % Grand % (Auto) % Eos % (Auto) % Baso % (Auto) % Neut # (Auto) (1.40-6.50) K/uL Lymph # (Auto) (1.2-3.4) K/uL Grand # (Auto) (0.11-0.59) K/uL Eos # (Auto) (0-0.50) K/uL Baso # (Auto) (0-0.2) K/uL Immature Gran # (Auto) (0.01-0.20) K/uL PT (9.0-12.0) Seconds INR (0.9-1.1) Sodium (136-145) mmol/L Potassium (3.5-5.1) mmol/L Chloride (98-107) mmol/L Carbon Dioxide (21-32) mmol/L Anion Gap (3-11) BUN (6-23) mg/dl Creatinine (0.6-1.4) mg/dl Est Cr Clr Drug Dosing ml/min Est GFR ( Amer) ml/min Est GFR (Non-Af Amer) ml/min BUN/Creatinine Ratio (10-20) Glucose (70-99(Fasting)) mg/dl Calcium (8.6-10.3) mg/dl Magnesium (1.7-2.4) mg/dl Total Bilirubin (0.2-1.0) mg/dl AST (13-39) U/L ALT (7-52) U/L Alkaline Phosphatase (34-104) U/L Total Protein (6.0-8.3) gm/dl Albumin (3.4-5.0) gm/dl Globulin (2.5-4.0) gm/dl Albumin/Globulin Ratio (0.9-2) Lipase (11-82) U/L SARS-CoV-2, RNA, NAAT NEGATIVE (NEGATIVE) Imaging Data Attestation: I personally reviewed and interpreted this imaging study as follows: My Impression: CT head no ICH Radiologist's Impression: Abdomen/Pelvis CT 02/13/23 17:19 Exam(s): CT ABDOMEN + PELVIS With Contrast IV Amt: 86 ml optiray 32- EXAM: CT Abdomen and Pelvis With Intravenous Contrast CLINICAL HISTORY: Reason for exam: abd pain. TECHNIQUE: Axial computed tomography images of the abdomen and pelvis with intravenous contrast. CTDI is 21.29 mGy and DLP is 1081.29 mGy-cm. Automated exposure control was utilized for the study. A dose lowering technique was utilized adhering to the principles of ALARA. CONTRAST: Patient received 86 ml optiray 32- of IV contrast COMPARISON: 10/06/22, noncontrast study. FINDINGS: Mediastinum: Small hiatal hernia. ABDOMEN: Liver: Relatively diffuse, irregular low-attenuation changes in the liver with some periportal distribution. Nodular, cirrhotic liver with portal hypertension. Gallbladder and bile ducts: No radiodense gallstones. Mild nonspecific pericholecystic haziness. Pancreas: Unremarkable. Spleen: Splenomegaly, 17 cm. Adrenals: Unremarkable. Kidneys and ureters: No renal or ureteral calculi. No obstructive changes. Stomach and bowel: Colonic diverticula without diverticulitis. PELVIS: Appendix: Unremarkable appendix. Bladder: Unremarkable. Reproductive: Unremarkable. ABDOMEN and PELVIS: Intraperitoneal space: No ascites. Bones/joints: No acute fracture. Soft tissues: Unremarkable. Vasculature: Collateral vessel/shunts in the peritoneal cavity. Lymph nodes: Mild haziness and small nodes in the mesentery that could be from mesenteric panniculitis. IMPRESSION: 1. Relatively diffuse irregular low-attenuation changes in the liver with some periportal distribution. MRI can further assess. Could represent unusual fatty infiltration or diffusely infiltrative mass lesions. 2. Cirrhosis with portal hypertension. 3. Splenomegaly, 17 cm. Electronically signed by: Regine Dixon M.D. 02/13/23 19:[address] 02/13/23 17:19 Exam(s): CT HEAD Without Contrast EXAM: CT Head Without Intravenous Contrast CLINICAL HISTORY: Reason for exam: bennett. TECHNIQUE: Axial computed tomography images of the head/brain without intravenous contrast. CTDI is 38.74 mGy and DLP is 546.36 mGy-cm. Automated exposure control was utilized for the study. A dose lowering technique was utilized adhering to the principles of ALARA. COMPARISON: No relevant prior studies available. FINDINGS: Brain: No hemorrhage. No apparent acute cortical infarct. No mass lesion or midline shift. Ventricles: No hydrocephalus. Bones/joints: No acute fracture. Soft tissues: Unremarkable. Sinuses: No acute sinusitis. Mastoid air cells: No mastoid effusion. Orbits: Unremarkable as visualized. IMPRESSION: No acute intracranial process. Electronically signed by: Regine Dixon M.D. 02/13/23 19:03 PM [facility] Narrative 1653: The patient was evaluated in room B9. A complete history and physical exam was performed Cardiac monitoring: An order was placed for continuous cardiac monitoring. The monitor shows a rate of 80 with sinus rhythm interpreted by me 1935: Vital signs stable. Labs show hemoglobin 8.8. Potassium 3.2. Magnesium 1.3. Magnesium repletion started in the emergency department. Alkaline phosphatase 178. Bilirubin level 3.5. AST [address] of the head was within normal limits. CT of the abdomen pelvis showed diffuse irregular low- attenuation changes in the liver that are perivascular distribution which may represent an infiltrative mass or a fatty infiltration. Repletion of electrolytes will be started in the emergency department and the patient will be admitted to the [facility] hospitalist team 2010: Spoke with Dr. Almanza [facility] hospitalist [phone] who will evaluate the patient for admission. Impression & Plan Hypomagnesemia, Alcoholic cirrhosis of liver, Acute hypokalemia Discharge Plan Visit Data Chief Complaint: Abdominal Pain Stated Complaint: ABDOMINAL PAIN, VOMITING, HEADACHE ED Provider: Arsenio Bartlett Discharge Problem: Hypomagnesemia, Alcoholic cirrhosis of liver, Acute hypokalemia Patient Disposition: Being Evaluated by Hospitalist Forms Stand Alone Forms: My [facility] Prescriptions Prescriptions: No Action potassium chloride 20 mEq Tablet Extended Release 20 meq PO BID Rx Instructions: PER PT "TRY TO USUALLY TAKE 1 TAB IN AM & 1 QPM, IF FORGETS TO TAKE IN AM, WILL TAKE BOTH AT HS". furosemide 40 mg tablet 40 mg PO HS spironolactone 100 mg tablet 100 mg PO HS fluoxetine 20 mg capsule 20 mg PO HS magnesium oxide 400 mg magnesium Tablet 400 mg PO HS multivitamin [Daily-Danny] Tablet 1 tab PO HS Referrals Referrals: Kathleen Key PA-C [Primary Care Provider] -
[2023-02-13] MEDS: MAGNESIUM SULFATE / D5W 1 GM/100 ML BAG IV SCH ×2 (17:58→19:25)
[2023-02-13] MEDS ORDERED: OPTIRAY 320 100ml IV ONE (18:25)
--- NOTE | 2023-02-13 19:04 | CT Scan Report ---
Exam(s): CT HEAD Without Contrast EXAM: CT Head Without Intravenous Contrast CLINICAL HISTORY: Reason for exam: bennett. TECHNIQUE: Axial computed tomography images of the head/brain without intravenous contrast. CTDI is 38.74 mGy and DLP is 546.36 mGy-cm. Automated exposure control was utilized for the study. A dose lowering technique was utilized adhering to the principles of ALARA. COMPARISON: No relevant prior studies available. FINDINGS: Brain: No hemorrhage. No apparent acute cortical infarct. No mass lesion or midline shift. Ventricles: No hydrocephalus. Bones/joints: No acute fracture. Soft tissues: Unremarkable. Sinuses: No acute sinusitis. Mastoid air cells: No mastoid effusion. Orbits: Unremarkable as visualized. IMPRESSION: No acute intracranial process. Electronically signed by: Regine Dixon M.D. 02/13/23 19:03 PM
--- NOTE | 2023-02-13 19:20 | CT Scan Report ---
Exam(s): CT ABDOMEN + PELVIS With Contrast IV Amt: 86 ml optiray 32- EXAM: CT Abdomen and Pelvis With Intravenous Contrast CLINICAL HISTORY: Reason for exam: abd pain. TECHNIQUE: Axial computed tomography images of the abdomen and pelvis with intravenous contrast. CTDI is 21.29 mGy and DLP is 1081.29 mGy-cm. Automated exposure control was utilized for the study. A dose lowering technique was utilized adhering to the principles of ALARA. CONTRAST: Patient received 86 ml optiray 32- of IV contrast COMPARISON: 10/06/22, noncontrast study. FINDINGS: Mediastinum: Small hiatal hernia. ABDOMEN: Liver: Relatively diffuse, irregular low-attenuation changes in the liver with some periportal distribution. Nodular, cirrhotic liver with portal hypertension. Gallbladder and bile ducts: No radiodense gallstones. Mild nonspecific pericholecystic haziness. Pancreas: Unremarkable. Spleen: Splenomegaly, 17 cm. Adrenals: Unremarkable. Kidneys and ureters: No renal or ureteral calculi. No obstructive changes. Stomach and bowel: Colonic diverticula without diverticulitis. PELVIS: Appendix: Unremarkable appendix. Bladder: Unremarkable. Reproductive: Unremarkable. ABDOMEN and PELVIS: Intraperitoneal space: No ascites. Bones/joints: No acute fracture. Soft tissues: Unremarkable. Vasculature: Collateral vessel/shunts in the peritoneal cavity. Lymph nodes: Mild haziness and small nodes in the mesentery that could be from mesenteric panniculitis. IMPRESSION: 1. Relatively diffuse irregular low-attenuation changes in the liver with some periportal distribution. MRI can further assess. Could represent unusual fatty infiltration or diffusely infiltrative mass lesions. 2. Cirrhosis with portal hypertension. 3. Splenomegaly, 17 cm. Electronically signed by: Regine Dixon M.D. 02/13/23 19:19 PM
--- NOTE | 2023-02-13 20:39 | History & Physical Report ---
Resident Physician Supervision Note: I discussed the case with the resident and agree with the findings and plan as documented in the note. Documented By: Niels Gavin MD Date of Service February 13, 2023 Assessment & Plan (1) Abdominal pain: Plan: -Acute on chronic abdominal pain in setting of known alcoholic cirrhosis, portal HTN -CTAP with irregular liver findings representing fatty infiltration vs diffusely infiltrative mass lesions. MRI recommended for further assessment -MRI abdomen pending -Pt currently hemodynamically stable and baseline mental status, no hepatic encephalopathy -Suspect abdominal pain exacerbated by viral enteritis, lower suspicion for acutely worsening liver disease or SBP at this time -Though pt is without clear ascites, his report of shakes/chills does raise question of underlying infection -ESR, CRP, procalcitonin ordered for AM to investigate further infectious cause -Ceftriaxone 2g one-time dose given on admission, continuing deferred to day team (2) Vomiting: Plan: -Multiple episodes of bilious, non-bloody emesis -Suspect potentially due to viral enteritis- pt does report his partner had viral URI a few weeks prior but he himself did not have any URI symptoms -Zofran PRN -Fluid repletion- LR 80 cc/hr -Carefully monitor volume status given history of cirrhosis (3) Hypomagnesemia: Plan: -Mg 1.3 on admission -Likely 2/2 GI losses -Repleted in ED -Monitor Mg (4) Hypokalemia: Plan: -K 3.2 on admission -Likely 2/2 vomiting/GI losses -Repletion ongoing -Continue home KCl 20 meq BID -Trend CMP (5) Alcoholic cirrhosis of liver: Plan: -Chronic, MELD score 16 on admission -Currently holding diuretics as pt is without overt ascites and dehydrated -Resume spironolactine, Lasix as able (6) Pancytopenia: Plan: -Pancytopenia noted on admission, likely 2/2 cirrhotic liver disease -Anemia -Hgb 8.8 on admission, MCV 73- microcytic anemia -Ordered iron panel for AM -Trend CBC -Leukopenia -WBC 3.4 on admission -Trend CBC -Thrombocytopenia -Plts 78 on admission -No acute bleeding risk suspected at present -Trend CBC (7) Transaminitis: Plan: -AST 184, ALT wnl on admission -Likely reactive to acute illness in setting of cirrhosis -Monitor CMP (8) Hyperbilirubinemia: Plan: -TB 3.5 with some scleral icterus on admission, ALP 178 -Likely reactive to acute illness in setting of cirrhosis -Monitor CMP (9) Depression: Plan: -Continue Prozac Plan FENGI: NPO given emesis, advance as tolerated Code status: Full DVT prophylaxis: SCDs, deferring chemoprophylaxis in setting of thrombocytopenia Isolation: None Disposition: Medical/surgical History of Present Illness Chief Complaint: Abdominal pain Primary Care Provider: Kathleen Key PA-C Pt is 32 yo M with PMH alcoholic cirrhosis w/ portal HTN, depression presenting with abdominal pain. Pt reports onset of acute generalized abdominal pain last night. It was of moderate severity so he went to sleep but awoke this AM with worsened pain. Associated nausea and 5 episodes of non-bloody, bilious emesis. He also reports some shakes, chills and night sweats overnight. Does feel like his eyes have become more yellow as well. Denies any worsened abdominal distension or bloating. No chest pain or dyspnea. He is in process of trying to get on a liver transplant list. Reportedly follows with [facility]. Pt arrived to ER hemodynamically stable. Initial evaluation significant for WBC 3.4, Hgb 8.8, MCV 73, Plts 78, INR 1.4, K 3.2, Mg 1.3, TB 3.5, AST 184, ALP 178. CTAP with "relatively diffuse irregular low-attenuation changes in liver with periportal distribution which could represent unusual fatty infiltration or diffusely infiltrative mass lesions", cirrhosis w/ portal HTN, splenomegaly. Head CT clear. ER interventions include 1L NS bolus, Zofran, Mg repletion. At present, pt reports some improvement in abdominal pain. He did have a recent admission in 11/2022 for similar presentation. Allergies Allergy/AdvReac Type Severity Reaction Status Date / Time No Known Allergies Allergy Verified 02/13/23 17:53 Home Medications Medication Instructions Recorded Confirmed Type potassium chloride 20 mEq 20 meq PO BID 04/25/21 02/13/23 History tablet,extended release magnesium oxide 400 mg PO HS 11/30/21 02/13/23 History fluoxetine 20 mg capsule 20 mg PO HS 11/16/22 02/13/23 History furosemide 40 mg tablet 40 mg PO HS 11/16/22 02/13/23 History spironolactone 100 mg tablet 100 mg PO HS 11/16/22 02/13/23 History multivitamin (Daily-Danny tablet) 1 tab PO HS 02/13/23 02/13/23 History Past Med/Surg History Medical History Alcoholic hepatitis no alcohol since sep 2020 Anxiety Ascites due to alcoholic cirrhosis Depression Hematemesis Hepatic encephalopathy History of gastritis Migraine Panic attacks Surgical History History of circumcision at the age of 8 Hx of esophagogastroduodenoscopy Family History Other No family history of adverse response to anesthesia Social History Smoking Status: Never smoker Second Hand Exposure: No; Do You Dip or Chew Tobacco: No; Hx Alcohol Use: Yes Alcohol type: hard liquor Alcohol Intake Frequency Comment: 3-5 X weekly Hx Substance Use: No Preferred Language: French Communication Ability: Effective Sports Media Required: No Beliefs That Will Affect Care: None Current Living Situation: Significant Other current occupational status: employed Feels Safe at Home: Yes Physical Activity Frequency: Does not Exercise Assistive Devices: Glasses Review of Systems Review of Systems: Per HPI/Subjective Physical Exam Physical Exam: General: well-appearing, no acute distress HEENT: PERRL, EOMI, conjunctivae clear without injection, mildly icteric sclerae, dry mucous membranes, clear oropharynx without exudate or erythema Neck: supple, trachea midline, no thyromegaly, no JVD, no cervical lymphadenopathy CV: RRR, normal S1 and S2, no murmurs Resp: CTAB, no increased work of breathing, no crackles or wheezes Abd: Soft, +diffusely tender, nondistended w/o fluid wave, no guarding or rebound, +splenomegaly MSK: Normal bulk of all four extremities Neuro: AOx3, no focal motor or sensory deficits Skin: no rashes or lesions, warm and dry, no central jaundice Ext: no LE peripheral edema or erythema, capillary refill <2s in all four extremities, 2+ LE peripheral pulses b/l Results & Data Results & Data Vital Signs (Past 12 Hours) Vital Signs Temp Pulse Pulse Resp BP BP Pulse Ox 02/13/23 19:27 92 H 18 132/82 98 02/13/23 17:01 83 02/13/23 17:03 99 02/13/23 17:03 81 18 129/70 99 02/13/23 15:01 37.2 C 99 H 20 143/75 H 99 O2 Del Method 02/13/23 19:27 Room Air 02/13/23 17:01 02/13/23 17:03 Room Air 02/13/23 17:03 Room Air 02/13/23 15:01 Room Air Code Status & VTE Plan VTE Prophylaxis Plan VTE Prophylaxis will be ordered: Yes Resident Activity Tracking Resident Involvement: Resident Care Provided Care Provided: Adult Hospital Medicine (2) Vomiting Nausea presence: with nausea Vomiting type: unspecified Qualified Code(s): R11.2 - Nausea with vomiting, unspecified
[2023-02-13] MEDS ORDERED: GADOXETATE DISODIUM IV ONE (23:10)
[2023-02-13] MEDS ORDERED: LACTATED RINGER'S 1,000 ML IV SCH (23:48)
[2023-02-13] MEDS ORDERED: ACETAMINOPHEN 325 MG TAB PO PRN (23:48)
[2023-02-13] MEDS ORDERED: IBUPROFEN 600 MG TAB PO PRN (23:48)
[2023-02-13] MEDS ORDERED: ONDANSETRON INJ 2 MG/ML 2 ML VIAL IV PRN (23:48)
--- NOTE | 2023-02-14 00:01 | Magnetic Resonance Report ---
Exam(s): MRI ABDOMEN W/WO Contrast IV Amt: 10ml eovist EXAM: MR Abdomen Without and With Intravenous Contrast CLINICAL HISTORY: Cirrhosis and portal hypertension. TECHNIQUE: Multiplanar magnetic resonance images of the abdomen without and with intravenous contrast. CONTRAST: Patient received 10ml eovist of IV contrast COMPARISON: Abdominal ultrasound 11/17/[address] abdomen pelvis 10/06/2022. FINDINGS: Lung bases: Unremarkable. No mass. No consolidation. Liver: Nodular liver contour is consistent with cirrhosis. Cirrhosis with sequelae of portal hypertension. Hypoattenuation surrounding the portal tracts. There is drops out on in and out of phase imaging. No concerning hepatic mass. Gallbladder and bile ducts: Unremarkable. No calcified stones. No ductal dilation. Pancreas: Unremarkable. No ductal dilation. No mass. Spleen: Splenomegaly with the spleen measuring 16.5 cm. Adrenals: Unremarkable. No mass. Kidneys and ureters: Unremarkable. No hydronephrosis. No solid mass. Stomach and bowel: Unremarkable. No obstruction. Intraperitoneal space: Unremarkable. No significant fluid collection. Soft tissues: Unremarkable. Vasculature: The portal vein is dilated measuring 1.7 cm. Varices are present. Lymph nodes: Unremarkable. No enlarged lymph nodes. IMPRESSION: 1. Cirrhosis with sequelae of portal hypertension. 2. Hypoattenuation surrounding the portal tracts. There is drops out on in and out of phase imaging. This most likely represents periportal fat deposition. Other considerations are considered less likely such as congestive heart disease, Budd-Chiari syndrome or inflammatory process such as sarcoidosis. 3. No concerning hepatic mass. Electronically signed by: Mahogany Angeles MD 02/14/23 00:01 AM
[2023-02-14] MEDS ORDERED: cefTRIAXone SODIUM 1,000 MG in DEXTROSE 5% AD-VAN 50 ML IV ONE (00:15)
[2023-02-14] MEDS: FLUoxetine HCL 20 MG CAP PO SCH ×2 (00:53→20:05)
[2023-02-14] MEDS: MAGNESIUM OXIDE 400 MG TAB PO SCH ×2 (00:54→20:05)
[2023-02-14] MEDS: POTASSIUM CHLORIDE CRTAB 20 MEQ TABCR PO SCH ×3 (00:54→17:37)
[2023-02-14] MEDS: POTASSIUM CHLORIDE / WTR 10 MEQ/100 ML PLCT IV SCH ×4 (01:45→05:11)
[2023-02-14 06:56] LABS: Hematocrit (blood only) 29.3 % (42.0-52.0); Mean Corpuscular Hemoglobin 22.8 pg (25.0-34.0); Mean Corpuscular Hgb Conc 30.7 g/dL (32.0-36.0); Mean Corpuscular Volume 74.2 fL (80.0-100.0); Mean Platelet Volume 10.5 fL (9.4-12.4); Platelet Count 69 K/uL (130-400); RDW Coefficient of Variation 19.2 % (11.5-14.5); RDW Standard Deviation 51.2 fL (36.4-46.3); Red Blood Count 3.95 M/uL (4.70-6.10); White Blood Count 3.85 K/ul (4.8-10.8)
[2023-02-14 07:18] LABS: Alanine Aminotransferase 36 U/L (7-52); Albumin Globulin Ratio 1.3 (0.9-2); Albumin Level 4.3 gm/dl (3.4-5.0); Alkaline Phosphatase 165 U/L (34-104); Anion Gap 9 (3-11); Aspartate Aminotransferase 158 U/L (13-39); BUN Creatinine Ratio 13.1 (10-20); Bilirubin,Total 4.7 mg/dl (0.2-1.0); Blood Urea Nitrogen 8 mg/dl (6-23); C Reactive Protein < 0.50 mg/dl (0-0.5); Calcium 8.9 mg/dl (8.6-10.3); Carbon Dioxide 24 mmol/L (21-32); Chloride 99 mmol/L (98-107); Creatinine Clr Calc Pharmacy 159.5 ml/min; Est GFR (African American) > 150.0 ml/min; Est GFR (Non-African American) 130.3 ml/min; Globulin 3.2 gm/dl (2.5-4.0); Glucose 87 mg/dl (70-99(Fasting)); Iron 40 mcg/dl (35-175); Magnesium 1.7 mg/dl (1.7-2.4); Phosphorus 2.7 mg/dl (2.5-4.9); Potassium 4.1 mmol/L (3.5-5.1); Sodium 132 mmol/L (136-145); Total Protein 7.5 gm/dl (6.0-8.3)
[2023-02-14 07:24] LABS: INR 1.4 (0.9-1.1)
[2023-02-14 07:39] LABS: Ferritin 20.4 ng/ml (8-388)
--- NOTE | 2023-02-14 14:15 | Communication Note ---
Date of Service: February 14, 2023 Came by to see patient. Not in room. Will see later today or in am.
--- NOTE | 2023-02-14 15:20 | Ultrasound Report ---
US duplex portal hepatic veins CLINICAL HISTORY: r/o portal vein thrombosis TECHNIQUE: Grayscale, color and spectral waveform Doppler examination of the abdomen was performed. Comparison: Comparison is made to portal and hepatic vein ultrasound 08/18/2022 FINDINGS: The hepatic veins, portal veins, IVC and splenic vein are patent with no thrombus identified. Left po rtal vein demonstrates reversed flow. Main and right portal vein demonstrate antegrade flow. Cirrhoti c appearance of the liver parenchyma seen. IMPRESSION: Left portal vein demonstrates reversed flow, new from prior exam. Hepatofugal flow is seen in the eleno n and right portal vein. No occlusion is seen. Cirrhosis is again noted. ACT 112: Negative or not required by law. Electronically signed by: Andres Alcala M.D. 02/14/2023 3:19 PM
--- NOTE | 2023-02-14 15:52 | Hospitalist Progress Note ---
Date of Service February 14, 2023 Assessment & Plan (1) Abdominal pain: Plan: -Acute on chronic abdominal pain in setting of known alcoholic cirrhosis, portal HTN -CTAP with irregular liver findings representing fatty infiltration vs diffusely infiltrative mass lesions. -MRI abdomen: No concerning hepatic mass. -US doppler of portal veins: new reverse flow of L portal vein w/o thrombus -Pt currently hemodynamically stable and baseline mental status, no hepatic encephalopathy -Suspect abdominal pain due to acutely worsening liver disease or less likely viral gastroenteritis -D/c rocephin as there is no indication of infection at this time (2) Vomiting: Plan: -Multiple episodes of bilious, non-bloody emesis -Suspect potentially due worsening of cirrhosis given new doppler findings as above. -Zofran PRN -Fluid repletion- LR discontinued, pt able to tolerate a diet (3) Hypomagnesemia: Plan: -Mg 1.3 on admission, now 1.7 after repletion -Likely 2/2 GI losses -Monitor Mg (4) Hypokalemia: Plan: -K 3.2 on admission, now 4.1 -Likely 2/2 vomiting/GI losses -Repletion as needed -Continue home KCl 20 meq BID -Trend CMP (5) Alcoholic cirrhosis of liver: Plan: -Chronic, MELD score 16 on admission -Resume spironolactone, Lasix since now taking PO (6) Pancytopenia: Plan: -Pancytopenia noted on admission, likely 2/2 cirrhotic liver disease -Anemia -Hgb 8.8 on admission, MCV 73- microcytic anemia -Ferritin low indicating iron deficient anemia -Trend CBC -Leukopenia -WBC 3.4 on admission -Trend CBC -Thrombocytopenia -Plts 78 on admission -No acute bleeding risk suspected at present -Trend CBC (7) Transaminitis: Plan: -AST 184-->158, ALT wnl -Monitor CMP (8) Hyperbilirubinemia: Plan: -TB 3.5 with some scleral icterus on admission, ALP 178 -Likely reactive to acute vomiting in setting of cirrhosis, but may indicate worsening clinical picture -Monitor CMP (9) Depression: Plan: -Continue Prozac Plan FENGI: Low sodium diet Code status: Full DVT prophylaxis: SCDs, deferring chemoprophylaxis in setting of thrombocytopeni a, low risk Isolation: None Disposition: Medical/surgical Admission and Anticipated Discharge Date Admission Date: February 13, 2023 Supervising Physician Co-Signing Physician Notes Resident Physician Supervision Note: I independently interviewed and examined the patient and verified the gutierres history and physical, reviewed labs and image studies and agree with resident findings and care plan. Subjective Patient seen at bedside this morning. No acute events reported overnight. Patient reports improvement in his abdominal pain going from 9 out of 10 to 6 out of 10. Reports improvement in nausea and is actually quite hungry. Patient would like something to eat. Otherwise no new complaints at this time. Review of Systems Review of Systems: Per HPI/Subjective Physical Exam Constitutional: WD/WN, vitals as above Eyes: + scleral abnormality Neck: trachea midline, no thyromegaly Respiratory: normal respiratory effort, lungs clear to auscultation Cardiovascular: RRR, no murmur, no edema Gastrointestinal (Abdomen): Inspection/Auscultation: abdomen normal to inspection and normal bowel sounds; abdomen not distended Percussion/Palpation: + abdomen tender (RUQ>[id number]>RLQ>LLQ), abdomen soft, + hepatomegaly and + splenomegaly; no ascites and no fluid wave Skin: + jaundice Neurologic: moves all extremities Motor/Sensory: + tremor Psychiatric: A+Ox3, euthymic affect Results & Data Results & Data Vital Signs (Past 12 Hours) Vital Signs Temp Pulse Resp BP Pulse Ox O2 Del Method 02/14/23 15:35 36.9 C 86 16 136/75 97 Room Air 02/14/23 08:04 37.3 C 82 16 149/77 H 99 Room Air (2) Vomiting Nausea presence: with nausea Vomiting type: unspecified Qualified Code(s): R11.2 - Nausea with vomiting, unspecified
--- NOTE | 2023-02-14 17:31 | Electrocardiogram Report ---
Test Reason : Blood Pressure : / mmHG Vent. Rate : 079 BPM Atrial Rate : 079 BPM P-R Int : 156 ms QRS Dur : 094 ms QT Int : 404 ms P-R-T Axes : 013 041 035 degrees QTc Int : 463 ms Normal sinus rhythm Normal ECG When compared with ECG of 16-NOV-2022 16:43, T wave inversion no longer evident in Anterior leads Confirmed by Brett Burgess ([id number]) on 02/14/2023 5:30:50 PM Referred By: REFERRED SELF Confirmed By:Brett Burgess
[2023-02-14 18:13] LABS: Appearance Urine Clear (Clear); Bilirubin Urine Negative (Negative); Blood Urine Negative (Negative); Color Urine Dark Yellow; Glucose Urine UA Negative (Negative); Ketones Urine Negative (Negative); Leukocyte Esterase Urine Negative (Negative); Nitrite Urine Negative (Negative); Protein Urine Negative (Negative); Specific Gravity Urine 1.009 (1.000-1.030); Urobilinogen Urine Negative (Negative)
--- NOTE | 2023-02-15 05:21 | Hospitalist Progress Note ---
Date of Service February 15, 2023 Assessment & Plan (1) Abdominal pain: Plan: Omar is a 32-year-old man with a history of alcohol-associated cirrhosis currently being evaluated for transplant who presented to [facility] on 02/13 for acute-onset abdominal pain, nausea, and vomiting subsequently found to have worsening transaminitis and imaging findings (reverse portal flow, more pronounced splenomegaly) that are concerning for progressive cirrhosis. Abdominal Pain, Nausea - Presented w/ [id number] abdominal pain in context of known alcohol- associated cirrhosis, portal HTN, and more pronounced transaminitis / liver dysfunction on labs - Work-up performed while here: -- Admission (02/13): Plt 78 / INR 1.4 / Na 136 / Cr 0.58 / TBili 3.5 / AST 184 / ALT 39 / ALP 178 / Alb 4.4 / Protein 7.5 -- CT-A/P: "Relatively diffuse irregular low-attenuation changes in the liver ... cirrhosis with portal HTN ... splenomegaly, 17 cm" -- MRI: Cirrhosis, portal tract hypoattenuation (most likely periportal fat deposition), no mass -- Portal vein US: New reverse flow in left portal vein compared to prior exam - Suspect abdominal pain and nausea secondary to progressive liver dysfunction/inflammatory change and possibly component of gastroenteritis - Briefly on CFTX, stopped given no c/f active bacterial infection - Antiemetics utilized PRN, patient able to tolerate a diet prior to discharge Transaminitis, Alcohol-associated Cirrhosis - MELD score 16 on admission - More pronounced transaminitis in setting of Doppler and MRI findings concerning for progression of cirrhosis on admission --> At discharge: AST 112 / ALT 30 / ALP 153 / TBili 5.4 --> Consider CMP follow-up in 1-2 weeks post-discharge - GI consulted while here: -- - Currently being evaluated by [facility] for possible liver transplantation - Diuretics briefly held during admission, resumed prior to discharge - Continue screening EGDs as outpatient (no h/o varices per patient) Electrolyte Abnormalities -- HypoMg, HypoK - Secondary to GI losses. Repleted while here. Pancytopenia - Chronic. Likely secondary to reduced hematopoietic stimulator production and s plenic sequestration. - Microcytic Anemia - Hgb between 8-9 while here - Ferritin low indicating iron deficient anemia; recommend considering Venofer as outpatient - Continue EGD surveillance as outpatient; no h/o varices as of last year per patient -Leukopenia -WBC between 3-4 while here -Thrombocytopenia -Plts between 70-90 while here FENGI: Low sodium diet Code status: Full DVT prophylaxis: SCDs, deferring chemoprophylaxis in setting of thrombocytopenia, low risk Isolation: None Disposition: Medical/surgical (2) Vomiting: (3) Hypomagnesemia: (4) Hypokalemia: (5) Alcoholic cirrhosis of liver: (6) Pancytopenia: (7) Transaminitis: (8) Hyperbilirubinemia: (9) Depression: Admission and Anticipated Discharge Date Admission Date: February 13, 2023 Subjective NAEO. Feeling well. Wants to go home. No more abdominal pain or n/v. Review of Systems Review of Systems: as per HPI Physical Exam Physical Exam: General: 32-year-old male who is in NAD. HEENT: NCAT. - Eyes - Sclera are white, +icteric, and without injection. - Mouth - MMM - Neck - supple, no appreciable JVD Cardiac: Normal rate and regular rhythm; S1 and S2 present with grade 1/6 systolic murmur best heart at LLSB. Pulmonary: Good respiratory effort with symmetric expansion of the chest. No use of accessory muscles. Lungs were CTAB Abdominal: Normoactive bowel sounds. Abdomen was soft, nondistended, and non- tender to palpation. Extremities: Upper and lower extremities are warm and well perfused. No peripheral edema in the lower extremities bilaterally Results & Data Results & Data Vital Signs (Past 12 Hours) Vital Signs Temp Resp BP Pulse Ox O2 Del Method 02/14/23 20:00 Room Air 02/14/23 20:05 37.1 C 17 137/81 96 Room Air Resident Activity Tracking Resident Involvement: Resident Care Provided Care Provided: Adult Hospital Medicine (2) Vomiting Nausea presence: with nausea Vomiting type: unspecified Qualified Code(s): R11.2 - Nausea with vomiting, unspecified
[2023-02-15] MEDS: POTASSIUM CHLORIDE CRTAB 20 MEQ TABCR PO SCH (08:37)
[2023-02-15] MEDS ORDERED: FUROSEMIDE 40 MG TAB PO SCH (09:00)
[2023-02-15] MEDS ORDERED: SPIRONOLACTONE 100 MG TAB PO SCH (09:00)
[2023-02-15 09:07] LABS: Hematocrit (blood only) 29.1 % (42.0-52.0); Hemoglobin 9.3 g/dl (14.0-18.0); Mean Corpuscular Hemoglobin 23.3 pg (25.0-34.0); Mean Corpuscular Volume 72.9 fL (80.0-100.0); Mean Platelet Volume 9.7 fL (9.4-12.4); Platelet Count 91 K/uL (130-400); RDW Coefficient of Variation 19.5 % (11.5-14.5); RDW Standard Deviation 50.7 fL (36.4-46.3); Red Blood Count 3.99 M/uL (4.70-6.10); White Blood Count 4.85 K/ul (4.8-10.8)
[2023-02-15 09:16] LABS: Albumin Globulin Ratio 1.4 (0.9-2); Albumin Level 4.3 gm/dl (3.4-5.0); BUN Creatinine Ratio 13.8 (10-20); Bilirubin,Total 5.4 mg/dl (0.2-1.0); Calcium 9.3 mg/dl (8.6-10.3); Creatinine Clr Calc Pharmacy 149.7 ml/min; Est GFR (African American) 147.1 ml/min; Est GFR (Non-African American) 126.9 ml/min; Globulin 3.1 gm/dl (2.5-4.0); Potassium 4.1 mmol/L (3.5-5.1); Total Protein 7.4 gm/dl (6.0-8.3)
--- NOTE | 2023-02-15 09:29 | Gastrointestinal Consultation ---
Supervising physicians note Discussed case and plans with Ayesha Benoit NP and reviewed records. Patient was discharged before I was able to get to the hospital to assess. Patient with alcohol related liver disease who was admitted with what sounds like a viral illness. he will follow up with Ayesha Benoit in the clinic Muna Grayson Jr, MD, [facility] [place] Date of Consultation February 15, 2023 Assessment & Plan (1) Alcoholic cirrhosis of liver: Alcoholic cirrhosis: Patient well-known to me from the outpatient clinic. He also follows with our hepatology department at [facility]. He has had marked improvement during his admission and is at baseline. I will help arrange outpatient follow-up with GI/hepatology. Requested images be pushed to the [place] PACS so his mall manager can review. Would continue current medication regimen. Patient denies current alcohol intake, stressed importance of continued abstinence. No GI barriers for discharge are noted. Case reviewed with Dr. Grayson. Please refer to supervising physician addendum for further recommendations. I have spent 40 minutes of discrete time performing the activities of this visit which include but are not limited to review of the medical record, obtaining a history, physical exam, and entering information in the electronic record. History of Present Illness Attending Physician: Jasmyne Saldaña MD History of Present Illness The patient is a pleasant 32-year-old male with past medical history to include alcoholic cirrhosis with portal hypertension, depression who presented to the ER due to abdominal pain, vomiting. He was subsequently admitted and the GI service consulted due to his history of alcoholic cirrhosis. The patient is well-known to me from the outpatient clinic. He follows with our hepatology department at [facility]. Most recently evaluated by his mall manager 12/2022. He reports that he began having abdominal pain throughout his abdomen with vomiting. He denies any alcohol intake adamantly. Reports at home having bowel movement 2-3 times per day. No bowel movement during admission. Using lactulose 15 g, 1 time daily. Rifaximin twice daily. Denies fever or weight loss. Denies edema in his lower extremities or abdominal ascites. He questions if he is able to start taking iron supplementation due to low iron findings in the hospital. Allergies Allergy/AdvReac Type Severity Reaction Status Date / Time No Known Allergies Allergy Verified 02/13/23 17:53 Home Medications Medication Instructions Recorded Confirmed Type potassium chloride 20 mEq 20 meq PO BID 04/25/21 02/13/23 History tablet,extended release magnesium oxide 400 mg PO HS 11/30/21 02/13/23 History fluoxetine 20 mg capsule 20 mg PO HS 11/16/22 02/13/23 History furosemide 40 mg tablet 40 mg PO HS 11/16/22 02/13/23 History spironolactone 100 mg tablet 100 mg PO HS 11/16/22 02/13/23 History multivitamin (Daily-Danny tablet) 1 tab PO HS 02/13/23 02/13/23 History Patient History Medical History Alcoholic hepatitis no alcohol since sep 2020 Anxiety Ascites due to alcoholic cirrhosis Depression Hematemesis Hepatic encephalopathy History of gastritis Migraine Panic attacks Surgical History History of circumcision at the age of 8 Hx of esophagogastroduodenoscopy Family History Other No family history of adverse response to anesthesia Social History Smoking Status: Never smoker Second Hand Exposure: No; Do You Dip or Chew Tobacco: No; Hx Alcohol Use: Yes Alcohol type: hard liquor Alcohol Intake Frequency Comment: 3-5 X weekly Hx Substance Use: No Preferred Language: Kinyarwanda Communication Ability: Effective Guest Services Assistant Required: No Beliefs That Will Affect Care: None Current Living Situation: Significant Other current occupational status: employed Feels Safe at Home: Yes Physical Activity Frequency: Does not Exercise Assistive Devices: None Review of Systems Review of Systems: All systems reviewed & are unremarkable except as noted in Subjective Physical Exam Respiratory: normal respiratory effort, lungs clear to auscultation Cardiovascular: RRR, no murmur, no edema Gastrointestinal (Abdomen): Inspection/Auscultation: abdomen normal to inspection; abdomen not distended, + abnormal bowel sounds and no abdominal edema Percussion/Palpation: abdomen soft; abdomen nontender, no guarding and abdomen not rigid Results & Data Vital Signs (Past 12 Hours) Vital Signs Temp Pulse Resp BP Pulse Ox O2 Del Method 02/15/23 09:09 36.7 C 91 H 16 118/68 96 Room Air 02/15/23 07:19 37.2 C 87 18 132/77 99 Room Air Laboratory Results Laboratory Results - last 24 hr 02/14/23 02/15/23 02/15/23 17:55 08:20 08:20 WBC 4.85 RBC 3.99 L Hgb 9.3 L Hct 29.1 L MCV 72.9 L MCH 23.3 L MCHC 32.0 RDW Std Deviation 50.7 H RDW Coeff of Cali 19.5 H Plt Count 91 L MPV 9.7 Sodium 130 L Potassium 4.1 Chloride 97 L Carbon Dioxide 25 Anion Gap 8 BUN 9 Creatinine 0.65 Est Cr Clr Drug Dosing 149.7 Est GFR ( Amer) 147.1 Est GFR (Non-Af Amer) 126.9 BUN/Creatinine Ratio 13.8 Glucose 86 Calcium 9.3 Total Bilirubin 5.4 H AST 112 H ALT 30 Alkaline Phosphatase 153 H Total Protein 7.4 Albumin 4.3 Globulin 3.1 Albumin/Globulin Ratio 1.4 Urine Color Dark Yellow Urine Appearance Clear Urine pH 8.0 H Ur Specific [place] 1.009 Urine Protein Negative Urine Glucose (UA) Negative Urine Ketones Negative Urine Blood Negative Urine Nitrite Negative Urine Bilirubin Negative Urine Urobilinogen Negative Ur Leukocyte Esterase Negative Diagnostic Findings Abdomen/Pelvis CT 02/13/23 17:19 Exam(s): CT ABDOMEN + PELVIS With Contrast IV Amt: 86 ml optiray 32- EXAM: CT Abdomen and Pelvis With Intravenous Contrast CLINICAL HISTORY: Reason for exam: abd pain. TECHNIQUE: Axial computed tomography images of the abdomen and pelvis with intravenous contrast. CTDI is 21.29 mGy and DLP is 1081.29 mGy-cm. Automated exposure control was utilized for the study. A dose lowering technique was utilized adhering to the principles of ALARA. CONTRAST: Patient received 86 ml optiray 32- of IV contrast COMPARISON: 10/06/22, noncontrast study. FINDINGS: Mediastinum: Small hiatal hernia. ABDOMEN: Liver: Relatively diffuse, irregular low-attenuation changes in the liver with some periportal distribution. Nodular, cirrhotic liver with portal hypertension. Gallbladder and bile ducts: No radiodense gallstones. Mild nonspecific pericholecystic haziness. Pancreas: Unremarkable. Spleen: Splenomegaly, 17 cm. Adrenals: Unremarkable. Kidneys and ureters: No renal or ureteral calculi. No obstructive changes. Stomach and bowel: Colonic diverticula without diverticulitis. PELVIS: Appendix: Unremarkable appendix. Bladder: Unremarkable. Reproductive: Unremarkable. ABDOMEN and PELVIS: Intraperitoneal space: No ascites. Bones/joints: No acute fracture. Soft tissues: Unremarkable. Vasculature: Collateral vessel/shunts in the peritoneal cavity. Lymph nodes: Mild haziness and small nodes in the mesentery that could be from mesenteric panniculitis. IMPRESSION: 1. Relatively diffuse irregular low-attenuation changes in the liver with some periportal distribution. MRI can further assess. Could represent unusual fatty infiltration or diffusely infiltrative mass lesions. 2. Cirrhosis with portal hypertension. 3. Splenomegaly, 17 cm. Electronically signed by: Regine Dixon M.D. 02/13/23 19:[address] 02/13/23 17:19 Exam(s): CT HEAD Without Contrast EXAM: CT Head Without Intravenous Contrast CLINICAL HISTORY: Reason for exam: bennett. TECHNIQUE: Axial computed tomography images of the head/brain without intravenous contrast. CTDI is 38.74 mGy and DLP is 546.36 mGy-cm. Automated exposure control was utilized for the study. A dose lowering technique was utilized adhering to the principles of ALARA. COMPARISON: No relevant prior studies available. FINDINGS: Brain: No hemorrhage. No apparent acute cortical infarct. No mass lesion or midline shift. Ventricles: No hydrocephalus. Bones/joints: No acute fracture. Soft tissues: Unremarkable. Sinuses: No acute sinusitis. Mastoid air cells: No mastoid effusion. Orbits: Unremarkable as visualized. IMPRESSION: No acute intracranial process. Electronically signed by: Regine Dixon M.D. 02/13/23 19:03 PM Abdomen MRI 02/13/23 20:37 Exam(s): MRI ABDOMEN W/WO Contrast IV Amt: 10ml eovist EXAM: MR Abdomen Without and With Intravenous Contrast CLINICAL HISTORY: Cirrhosis and portal hypertension. TECHNIQUE: Multiplanar magnetic resonance images of the abdomen without and with intravenous contrast. CONTRAST: Patient received 10ml eovist of IV contrast COMPARISON: Abdominal ultrasound 11/17/[address] abdomen pelvis 10/06/2022. FINDINGS: Lung bases: Unremarkable. No mass. No consolidation. Liver: Nodular liver contour is consistent with cirrhosis. Cirrhosis with sequelae of portal hypertension. Hypoattenuation surrounding the portal tracts. There is drops out on in and out of phase imaging. No concerning hepatic mass. Gallbladder and bile ducts: Unremarkable. No calcified stones. No ductal dilation. Pancreas: Unremarkable. No ductal dilation. No mass. Spleen: Splenomegaly with the spleen measuring 16.5 cm. Adrenals: Unremarkable. No mass. Kidneys and ureters: Unremarkable. No hydronephrosis. No solid mass. Stomach and bowel: Unremarkable. No obstruction. Intraperitoneal space: Unremarkable. No significant fluid collection. Soft tissues: Unremarkable. Vasculature: The portal vein is dilated measuring 1.7 cm. Varices are present. Lymph nodes: Unremarkable. No enlarged lymph nodes. IMPRESSION: 1. Cirrhosis with sequelae of portal hypertension. 2. Hypoattenuation surrounding the portal tracts. There is drops out on in and out of phase imaging. This most likely represents periportal fat deposition. Other considerations are considered less likely such as congestive heart disease, Budd-Chiari syndrome or inflammatory process such as sarcoidosis. 3. No concerning hepatic mass. Electronically signed by: Mahogany Angeles MD 02/14/23 00:01 AM Portal Vein US 02/14/23 10:32 US duplex portal hepatic veins CLINICAL HISTORY: r/o portal vein thrombosis TECHNIQUE: Grayscale, color and spectral waveform Doppler examination of the abdomen was performed. Comparison: Comparison is made to portal and hepatic vein ultrasound 08/18/2022 FINDINGS: The hepatic veins, portal veins, IVC and splenic vein are patent with no thrombus identified. Left portal vein demonstrates reversed flow. Main and right portal vein demonstrate antegrade flow. Cirrhotic appearance of the liver parenchyma seen. IMPRESSION: Left portal vein demonstrates reversed flow, new from prior exam. Hepatofugal flow is seen in the main and right portal vein. No occlusion is seen. Cirrhosis is again noted. ACT 112: Negative or not required by law. Electronically signed by: Andres Alcala M.D. 02/14/2023 3:19 PM
--- NOTE | 2023-02-15 10:01 | Discharge Summary ---
Date of Service February 15, 2023 Admission HPI Per Admitting Provider Pt is 32 yo M with PMH alcoholic cirrhosis w/ portal HTN, depression presenting with abdominal pain. Pt reports onset of acute generalized abdominal pain last night. It was of moderate severity so he went to sleep but awoke this AM with worsened pain. Associated nausea and 5 episodes of non-bloody, bilious emesis. He also reports some shakes, chills and night sweats overnight. Does feel like his eyes have become more yellow as well. Denies any worsened abdominal distension or bloating. No chest pain or dyspnea. He is in process of trying to get on a liver transplant list. Reportedly follows with [facility] GI. Pt arrived to ER hemodynamically stable. Initial evaluation significant for WBC 3.4, Hgb 8.8, MCV 73, Plts 78, INR 1.4, K 3.2, Mg 1.3, TB 3.5, AST 184, ALP 178. CTAP with "relatively diffuse irregular low-attenuation changes in liver with periportal distribution which could represent unusual fatty infiltration or diffusely infiltrative mass lesions", cirrhosis w/ portal HTN, splenomegaly. Head CT clear. ER interventions include 1L NS bolus, Zofran, Mg repletion. At present, pt reports some improvement in abdominal pain. He did have a recent admission in 11/2022 for similar presentation. Admission Exam Per Admitting Provider General: well-appearing, no acute distress HEENT: PERRL, EOMI, conjunctivae clear without injection, mildly icteric sclerae, dry mucous membranes, clear oropharynx without exudate or erythema Neck: supple, trachea midline, no thyromegaly, no JVD, no cervical lymphadenopathy CV: RRR, normal S1 and S2, no murmurs Resp: CTAB, no increased work of breathing, no crackles or wheezes Abd: Soft, +diffusely tender, nondistended w/o fluid wave, no guarding or rebound, +splenomegaly MSK: Normal bulk of all four extremities Neuro: AOx3, no focal motor or sensory deficits Skin: no rashes or lesions, warm and dry, no central jaundice Ext: no LE peripheral edema or erythema, capillary refill <2s in all four extremities, 2+ LE peripheral pulses b/l Principal Diagnosis abdominal pain, nausea cirrhosis Discharge Exam General: 32-year-old male who is in NAD. HEENT: NCAT. - Eyes - Sclera are white, +icteric, and without injection. - Mouth - MMM - Neck - supple, no appreciable JVD Cardiac: Normal rate and regular rhythm; S1 and S2 present with grade 1/6 systolic murmur best heart at LLSB. Pulmonary: Good respiratory effort with symmetric expansion of the chest. No use of accessory muscles. Lungs were CTAB Abdominal: Normoactive bowel sounds. Abdomen was soft, nondistended, and non-tender to palpation. Extremities: Upper and lower extremities are warm and well perfused. No peripheral edema in the lower extremities bilaterally Discharge Data Allergies Allergy/AdvReac Type Severity Reaction Status Date / Time No Known Allergies Allergy Verified 02/13/23 17:53 Consultations 02/13/23 19:35 ED Decision to Admit Stat 02/14/23 10:30 Consult Gastroenterology Routine -- excerpted from Ayesha LFOREZ 02/15 "Alcoholic cirrhosis: Patient well-known to me from the outpatient clinic. He also follows with our hepatology department at [facility]. He has had marked improvement during his admission and is at baseline. I will help arrange outpatient follow-up with GI/hepatology. 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 Would continue current medication regimen. Patient denies current alcohol intake, stressed importance of continued abstinence. No GI barriers for discharge are noted." Ordered Studies 02/13/23 17:19 CT abd pelvis IV con only Stat IMPRESSION: 1. Relatively diffuse irregular low-attenuation changes in the liver with some periportal distribution. MRI can further assess. Could represent unusual fatty infiltration or diffusely infiltrative mass lesions. 2. Cirrhosis with portal hypertension. 3. Splenomegaly, [address] head/brain wo con Stat IMPRESSION: No acute intracranial process. 02/13/23 20:37 MRI Abdomen [MR abdomen wo/w con] Routine IMPRESSION: 1. Cirrhosis with sequelae of portal hypertension. 2. Hypoattenuation surrounding the portal tracts. There is drops out on in and out of phase imaging. This most likely represents periportal fat deposition. Other considerations are considered less likely such as congestive heart disease, Budd-Chiari syndrome or inflammatory process such as sarcoidosis. 3. No concerning hepatic mass. 02/14/23 10:32 US portal veins doppler [US duplex portal hepatic veins] Routine IMPRESSION: Left portal vein demonstrates reversed flow, new from prior exam. Hepatofugal flow is seen in the main and right portal vein. No occlusion is seen. Cirrhosis is again noted. Hospital Course (1) Abdominal pain: Omar is a 32-year-old man with a history of alcohol-associated cirrhosis curr ently being evaluated for transplant who presented to [facility] on 02/13 for acute- onset abdominal pain, nausea, and vomiting subsequently found to have worsening transaminitis and imaging findings (reverse portal flow, more pronounced splenomegaly) that is jointly concerning for progressive cirrhosis, as well as possible component from gastroenteritis. Abdominal Pain, Nausea - Presented w/ [id number] abdominal pain in context of known alcohol- associated cirrhosis, portal HTN, and more pronounced transaminitis / liver dysfunction on labs - Work-up performed while here: -- Admission (02/13): Plt 78 / INR 1.4 / Na 136 / Cr 0.58 / TBili 3.5 / AST 184 / ALT 39 / ALP 178 / Alb 4.4 / Protein 7.5 -- CT-A/P: "Relatively diffuse irregular low-attenuation changes in the liver ... cirrhosis with portal HTN ... splenomegaly, 17 cm" -- MRI: Cirrhosis, portal tract hypoattenuation (most likely periportal fat deposition), no mass -- Portal vein US: New reverse flow in left portal vein compared to prior exam -- Lipase negative - Suspect abdominal pain and nausea secondary to progressive liver dysfunction/inflammatory change and component of gastroenteritis. Denies EtOH consumption. - Briefly on CFTX, stopped given no c/f active bacterial infection - Antiemetics utilized PRN, patient able to tolerate a diet prior to discharge Transaminitis, Alcohol-associated Cirrhosis - MELD score 16 on admission - More pronounced transaminitis in setting of Doppler and MRI findings concerning for progression of cirrhosis on admission --> At discharge: AST 112 / ALT 30 / ALP 153 / TBili 5.4 --> Consider CMP follow-up in 1-2 weeks post-discharge - GI consulted while here: -- Back at baseline numbers prior to discharge. Follow-up as outpatient. - Currently being evaluated by [facility] for possible liver transplantation - Diuretics briefly held during admission, resumed prior to discharge - Continue screening EGDs as outpatient (no h/o varices per patient) Electrolyte Abnormalities-- HypoMg, HypoK - Secondary to GI losses. Repleted while here. Pancytopenia - Chronic. Likely secondary to reduced hematopoietic stimulator production and splenic sequestration. - Microcytic Anemia - Hgb between 8-9 while here - Ferritin low indicating iron deficient anemia; recommend considering Venofer as outpatient - Continue EGD surveillance as outpatient; no h/o varices as of last year per patient -Leukopenia -WBC between 3-4 while here -Thrombocytopenia -Plts between 70-90 while here Murmur - Benign-quality murmur best heard at LLSB throughout admission; patient has been told this has been noted on exams in the past before - No e/o complication from it -- however, may wish to consider TTE to r/o early valvular disease given it has been appreciated x years Code: Identifies as FULL CODE (2) Vomiting: (3) Hypomagnesemia: (4) Hypokalemia: (5) Alcoholic cirrhosis of liver: (6) Pancytopenia: (7) Transaminitis: (8) Hyperbilirubinemia: (9) Depression: Total Time Total Time Spent Total Time Spent (In Minutes): 30 Discharge Plan Discharge Items Patient Disposition: Home - Self-Care Reason For Visit: ABDOMINAL PAIN, VOMITING Discharge Diagnosis: abdominal pain, nausea cirrhosis Activity: Per Instructions section Non-emergency contact: Primary Care Provider and Event Manager Call non-emergency contact if: you have any medication questions, your pain is worsening and your temperature is above 101 Follow-up/Referrals: Ayesha Benoit CRNP [Nurse Practitioner] - 03/06/23 2:00 pm Kathleen Key PA-C [Primary Care Provider] - 02/21/23 8:30 am (Appointment will be at the [facility] office) Diet: Low Sodium (2gm) Addtl Attending Provider Instructions: You were evaluated at [facility] for abdominal pain, nausea, and vomiting. During your work-up, you were noted to have findings suggestive of advancing liver disease, including labs, spleen enlargement, and changes within the blood flow throughout the liver. Thankfully, however, your liver numbers returned to baseline following rehydration and resolution of your nausea. You were treated with hydration, pain medication, and anti-nausea medications. Please continue to follow your medication regimen and limit salt intake to <2g/day. It will be important you follow-up with your GI/liver team within the next few weeks to review this visit and plan next steps. We also recommend following-up with your primary care provider to review this visit and ensure continuity of care. Further, we did discuss that you had a benign (non-worrisome) sounding murmur while in the hospital. Since this has been noted throughout your life, although we don't suspect it is causing any problems, you may wish to discuss getting an ultrasound of your heart (an "echo") with your PCP. No medication changes were made while here. In the interim, if you experience any worsening of your belly pain, nausea, vomiting, confusion, somnolence, chest pain, palpitations, shortness of breath, or progressive belly enlargement, please seek medical evaluation; if your symptoms are severe, please report to the ER for evaluation. Pending Studies at Discharge: No Stand-Alone Forms: My [facility], Smoking Cessation Medications and DC Order Prescriptions: Continued potassium chloride 20 mEq Tablet Extended Release 20 meq PO BID Rx Instructions: PER PT "TRY TO USUALLY TAKE 1 TAB IN AM & 1 QPM, IF FORGETS TO TAKE IN AM, WILL TAKE BOTH AT HS". furosemide 40 mg tablet 40 mg PO HS spironolactone 100 mg tablet 100 mg PO HS fluoxetine 20 mg capsule 20 mg PO HS magnesium oxide 400 mg magnesium Tablet 400 mg PO HS multivitamin [Daily-Danny] Tablet 1 tab PO HS Discharge Orders: Discharge Order (Routine); Ordered 02/15/23 Ordered By: Wilfredo Thakkar/Other Patient Handouts: Cirrhosis of Liver Dc Admission Data Admit Date/Time: 02/13/23 20:37 Attending Provider: Jasmyne Saldaña Admit Provider: Mike Priest Primary Care Provider: Kathleen Key Other Providers: Niels Gavin ; Muna Grayson Jr Other Interventions: Discharge Summary Assessment (RN) Last Done: 02/15/23 11:37 Supervising Physician Co-Signing Physician Notes Resident Physician Supervision Note: I independently interviewed and examined the patient and verified the gutierres history and physical, reviewed labs and image studies and agree with resident findings and care plan.
== END 2023-02-15 13:58 | disposition home or self-care (01) | DRG 433 ==
LOC: ED 14:57 → 3W 20:37 → SUATTDRO 20:37 → 3W 22:33

== ENCOUNTER 2023-03-28 19:26 | Inpatient (IN) ==
[2023-03-28] MEDS ORDERED: ONDANSETRON INJ 2 MG/ML 2 ML VIAL IV STA ×2 (19:49→22:25)
[2023-03-28] MEDS ORDERED: SODIUM CHLORIDE 0.9% 1000ML 1,000 ML IV STA (19:49)
--- NOTE | 2023-03-28 19:57 | Emergency Department Note ---
ED Provider Note History of Present Illness Chief Complaint: Abdominal Pain Stated Complaint: SHAKINESS, DIZZINESS, LIGHT HEADED, ABDOMINAL PAIN Time Seen by Provider: 03/28/23 19:43 32-year-old male who presents to the emergency department for evaluation of shakiness, dizziness, lightheadedness, epigastric pain and tingling in his hands and fingers. He also reports 5 episodes of vomiting since awakening this morning. The patient has not been able to keep any fluids down. He reports being admitted in the past for low magnesium and potassium levels. He does take magnesium at bedtime, along with potassium twice daily. The patient rates his abdominal discomfort an 8 out of 10. The pain does not radiate into the back or lower abdomen. He denies any chest pain, shortness of breath, urinary symptoms or diarrhea. Home Medications Medication Instructions Recorded Confirmed Type potassium chloride 20 mEq 20 meq PO BID 04/25/21 03/28/23 History tablet,extended release magnesium oxide 400 mg PO HS 11/30/21 03/28/23 History fluoxetine 20 mg capsule 20 mg PO HS 11/16/22 03/28/23 History furosemide 40 mg tablet 40 mg PO HS 11/16/22 03/28/23 History spironolactone 100 mg tablet 100 mg PO HS 11/16/22 03/28/23 History multivitamin (Daily-Danny tablet) 1 tab PO HS 02/13/23 03/28/23 History Allergies Allergy/AdvReac Type Severity Reaction Status Date / Time No Known Allergies Allergy Verified 03/28/23 20:30 Past Med/Surg History Medical History Acute hypokalemia Alcoholic hepatitis no alcohol since sep 2020 Anxiety Ascites due to alcoholic cirrhosis Depression Hematemesis Hepatic encephalopathy History of gastritis Hypokalemia Hypomagnesemia Migraine Panic attacks Vomiting Surgical History History of circumcision at the age of 8 Hx of esophagogastroduodenoscopy Family History Other No family history of adverse response to anesthesia Social History Smoking Status: Never smoker Second Hand Exposure: No; Do You Dip or Chew Tobacco: No; Hx Alcohol Use: Yes Alcohol type: hard liquor Alcohol Intake Frequency Comment: 3-5 X weekly Hx Substance Use: No Preferred Language: Italian Communication Ability: Effective Vp Strategic Planning Required: No Beliefs That Will Affect Care: None Current Living Situation: Significant Other current occupational status: employed Feels Safe at Home: Yes Physical Activity Frequency: Does not Exercise Assistive Devices: None Physical Exam Vital Signs Vital Signs - 24 hr 03/28/23 19:28 03/28/23 19:38 03/28/23 19:48 Temperature 37.3 C 37.1 C Temperature Source Temporal Artery Scan Oral Pulse Rate 102 H 93 H Pulse Rate [Finger] 91 H Pulse Rate from SpO2 Sensor Pulse Rhythm [Finger] Regular Respiratory Rate 16 18 Respiratory Effort / Characteristics Non-Labored Spontaneous Non-Labored Respiratory Depth Normal Normal Respiratory Pattern Regular Blood Pressure 125/81 Blood Pressure [Right Arm] 147/87 H Blood Pressure Mean 95 Blood Pressure Mean [Right Arm] 107 Blood Pressure Position [Right Arm] Sitting Pulse Oximetry 99 98 Oxygen Delivery Method Room Air Room Air Sepsis Recent Fever Within 48 Hours No Sepsis New/Unexplained Change in Mental Status No Sepsis Action Taken by Nursing No Action Required 03/28/23 19:48 03/28/23 20:00 03/28/23 20:30 Temperature Temperature Source Pulse Rate 94 H 91 H 88 Pulse Rate [Finger] Pulse Rate from SpO2 Sensor 93 H Pulse Rhythm [Finger] Respiratory Rate 18 20 20 Respiratory Effort / Characteristics Respiratory Depth Respiratory Pattern Blood Pressure 120/87 Blood Pressure [Right Arm] Blood Pressure Mean 98 Blood Pressure Mean [Right Arm] Blood Pressure Position [Right Arm] Pulse Oximetry 98 97 98 Oxygen Delivery Method Sepsis Recent Fever Within 48 Hours Sepsis New/Unexplained Change in Mental Status Sepsis Action Taken by Nursing 03/28/23 21:00 Temperature Temperature Source Pulse Rate 86 Pulse Rate [Finger] Pulse Rate from SpO2 Sensor Pulse Rhythm [Finger] Respiratory Rate 18 Respiratory Effort / Characteristics Respiratory Depth Respiratory Pattern Blood Pressure 141/81 H Blood Pressure [Right Arm] Blood Pressure Mean 101 Blood Pressure Mean [Right Arm] Blood Pressure Position [Right Arm] Pulse Oximetry 98 Oxygen Delivery Method Sepsis Recent Fever Within 48 Hours Sepsis New/Unexplained Change in Mental Status Sepsis Action Taken by Nursing CONSTITUTIONAL: Healthy and well nourished. Alert and oriented X 3. GCS 15. HEENT: No scleral icterus or conjunctival injection/pallor. Mucous membranes are dry. RESPIRATORY: Clear to auscultation bilaterally with no wheezing, crackles, rhonchi or stridor. CARDIOVASCULAR: Regular rate and rhythm with no murmurs, rubs or gallops. GASTROINTESTINAL: Bowel sounds present in all quadrants. Patient has mild upper abdominal tenderness to palpation. Negative CVA tenderness. Negative McBurney's point tenderness. MUSCULOSKELETAL: Full range of motion of all joints without discomfort. INTEGUMENTARY: Patient has a few lesions on the left ankle and right upper eyelid consistent with psoriasis. HEMATOLOGIC: No ecchymosis or petechiae. PSYCHIATRIC: Positive affect. NEUROLOGIC: Cranial nerves II-XII grossly intact. No focal neurologic deficits noted. Patient does have small twitching of the face and arms. Course Course Patient history and physical exam were performed. Nurses notes were reviewed. Vital signs were reviewed. I also reviewed prior medical records, showing that his last 2 ED visits resulted in admissions for hypomagnesemia and hypokalemia. He has a known history of alcoholic hepatitis as well. Review of prior medical records also shows a history of marijuana use, but the patient denies currently. IV access was established, and labs were drawn. The patient was hydrated with a liter of normal saline, and administered IV Zofran for nausea. The patient initially refused any analgesics. Review of labs shows a typical pattern with the patient's prior admissions, with a leukocytosis, anemia and thrombocytopenia. CMP shows a magnesium of 1.2 with a normal creatinine, mildly elevated total bilirubin and elevated AST. Lactate was also ordered and was mildly elevated at 2.1. The patient was ordered 2 g of magnesium sulfate. Upon reevaluation, the patient did report improvement of his nausea. Given his magnesium level, I did recommend repletion, suggesting an overnight stay. The patient was in agreement with this plan. The case was also discussed with Dr. Morgan, ED attending physician, who was in agreement with this plan. I did discuss the possibility of repeat imaging, however given the patient's prior known history and recent MRI of the abdomen and pelvis, CT imaging was deferred. The case was also discussed with Dr. Gray, [facility] hospitalist, who agrees with this plan. Please see her dictation for further treatment and final disposition. After discussing the case with the hospitalist, I did receive a phone call from the patient's nurse requesting additional IV Zofran for nausea and vomiting. This was ordered for the patient. Administered Medications Discontinued Medications Sodium Chloride (Nss 1000ml) 1,000 mls @ 999 mls/hr IV .Q1H1M STA Stop: 03/28/23 20:49 Last Infusion: 03/28/23 21:20 Dose: 0 mls/hr Documented By: Admin: 03/28/23 20:07 Dose: 999 mls/hr Documented By: TANIA Magnesium Sulfate/Dextrose (Magnesium Sulfate / D5w) 1 gm in 100 mls @ 200 mls/hr IV Q30M ANGEL Stop: 03/28/23 22:10 Last Admin: 03/28/23 22:24 Dose: 200 mls/hr Documented By: Infusion: 03/28/23 21:47 Dose: 200 mls/hr Documented By: Admin: 03/28/23 21:17 Dose: 200 mls/hr Documented By: EFRAIN Ondansetron HCl (Ondansetron Inj 2 Mg/Ml 2 Ml Vial) 4 mg IV NOW STA Stop: 03/28/23 19:50 Last Admin: 03/28/23 20:06 Dose: 4 mg Documented By: TANIA Medical Decision Making Medical Records Attestation: I reviewed the patient's medical records. Home Medications was personally reviewed by me Laboratory Data Attestation: I reviewed the patient's lab results. 03/28/23 19:55 03/28/23 19:55 Lab Results 03/28/23 03/28/23 03/28/23 Range/Units 19:55 19:55 19:55 WBC 3.97 L (4.8-10.8) K/ul RBC 4.04 L (4.70-6.10) M/uL Hgb 9.4 L (14.0-18.0) g/dl Hct 28.9 L (42.0-52.0) % MCV 71.5 L (80.0-100.0) fL MCH 23.3 L (25.0-34.0) pg MCHC 32.5 (32.0-36.0) g/dL RDW Std Deviation 61.1 H (36.4-46.3) fL RDW Coeff of Cali 23.7 H (11.5-14.5) % Plt Count 109 L (130-400) K/uL MPV 9.1 L (9.4-12.4) fL Immature Gran % (Auto) 0.0 % Neut % (Auto) 53.9 % Lymph % (Auto) 29.7 % Lynn % (Auto) 12.6 % Eos % (Auto) 1.3 % Baso % (Auto) 2.5 % Neut # (Auto) 2.14 (1.40-6.50) K/uL Lymph # (Auto) 1.18 L (1.2-3.4) K/uL Lynn # (Auto) 0.50 (0.11-0.59) K/uL Eos # (Auto) 0.05 (0-0.50) K/uL Baso # (Auto) 0.10 (0-0.2) K/uL Immature Gran # (Auto) 0.00 L (0.01-0.20) K/uL Polychromasia 1+ Target Cells 1+ Tear Drop Cells 1+ Sodium 136 (136-145) mmol/L Potassium 3.6 (3.5-5.1) mmol/L Chloride 99 (98-107) mmol/L Carbon Dioxide 25 (21-32) mmol/L Anion Gap 12 H (3-11) BUN 8 (6-23) mg/dl Creatinine 0.50 L (0.6-1.4) mg/dl Est Cr Clr Drug Dosing 221.2 ml/min Est GFR ( Amer) > 150.0 ml/min Est GFR (Non-Af Amer) 141.4 ml/min BUN/Creatinine Ratio 16.0 (10-20) Glucose 101 H (70-99(Fasting)) mg/dl Lactate 2.1 H* (0.4-2.0) mmol/L Calcium 9.1 (8.6-10.3) mg/dl Phosphorus 3.2 (2.5-4.9) mg/dl Magnesium 1.2 L (1.7-2.4) mg/dl Total Bilirubin 3.1 H (0.2-1.0) mg/dl AST 160 H (13-39) U/L ALT 34 (7-52) U/L Alkaline Phosphatase 150 H (34-104) U/L Total Protein 7.6 (6.0-8.3) gm/dl Albumin 4.5 (3.4-5.0) gm/dl Globulin 3.1 (2.5-4.0) gm/dl Albumin/Globulin Ratio 1.5 (0.9-2) Lipase 76 (11-82) U/L SARS-CoV-2, RNA, NAAT (NEGATIVE) 03/28/23 Range/Units 21:10 WBC (4.8-10.8) K/ul RBC (4.70-6.10) M/uL Hgb (14.0-18.0) g/dl Hct (42.0-52.0) % MCV (80.0-100.0) fL MCH (25.0-34.0) pg MCHC (32.0-36.0) g/dL RDW Std Deviation (36.4-46.3) fL RDW Coeff of Cali (11.5-14.5) % Plt Count (130-400) K/uL MPV (9.4-12.4) fL Immature Gran % (Auto) % Neut % (Auto) % Lymph % (Auto) % Lynn % (Auto) % Eos % (Auto) % Baso % (Auto) % Neut # (Auto) (1.40-6.50) K/uL Lymph # (Auto) (1.2-3.4) K/uL Lynn # (Auto) (0.11-0.59) K/uL Eos # (Auto) (0-0.50) K/uL Baso # (Auto) (0-0.2) K/uL Immature Gran # (Auto) (0.01-0.20) K/uL Polychromasia Target Cells Tear Drop Cells Sodium (136-145) mmol/L Potassium (3.5-5.1) mmol/L Chloride (98-107) mmol/L Carbon Dioxide (21-32) mmol/L Anion Gap (3-11) BUN (6-23) mg/dl Creatinine (0.6-1.4) mg/dl Est Cr Clr Drug Dosing ml/min Est GFR ( Amer) ml/min Est GFR (Non-Af Amer) ml/min BUN/Creatinine Ratio (10-20) Glucose (70-99(Fasting)) mg/dl Lactate (0.4-2.0) mmol/L Calcium (8.6-10.3) mg/dl Phosphorus (2.5-4.9) mg/dl Magnesium (1.7-2.4) mg/dl Total Bilirubin (0.2-1.0) mg/dl AST (13-39) U/L ALT (7-52) U/L Alkaline Phosphatase (34-104) U/L Total Protein (6.0-8.3) gm/dl Albumin (3.4-5.0) gm/dl Globulin (2.5-4.0) gm/dl Albumin/Globulin Ratio (0.9-2) Lipase (11-82) U/L SARS-CoV-2, RNA, NAAT NEGATIVE (NEGATIVE) MDM Narrative See ED Course section for further details of today's visit. The patient does have a history of alcoholic cirrhosis with portal hypertension. His last 2 visits to the emergency department have resulted in admissions for further electrolyte repletion. The patient is currently on a liver transplant wait list. His laboratory studies today shows his typical pattern when he presents with abdominal pain, nausea and other neurologic complaints. Patient does have a magnesium of 1.2 that warrants adequate repletion. He was ordered 2 g of magnesium sulfate. He does have an elevated lactate, however this should improve with IV hydration. If it continues to elevate, he may need repeat imaging of the abdomen. I do not suspect overwhelming infection, acute kidney injury, bowel obstruction or cardiopulmonary etiologies. Patient does not have any ascites on exam. Impression Hypomagnesemia, Alcoholic cirrhosis of liver with ascites, History of portal hypertension Discharge Plan Visit Data Chief Complaint: Abdominal Pain Stated Complaint: SHAKINESS, DIZZINESS, LIGHT HEADED, ABDOMINAL PAIN ED Provider: Darion Morgan ED Midlevel Provider: Shyam Burt Discharge Problem: Hypomagnesemia, Alcoholic cirrhosis of liver with ascites, History of portal hypertension Forms Stand Alone Forms: [facility] Prescriptions Prescriptions: No Action potassium chloride 20 mEq Tablet Extended Release 20 meq PO BID Rx Instructions: PER PT "TRY TO USUALLY TAKE 1 TAB IN AM & 1 QPM, IF FORGETS TO TAKE IN AM, W ILL TAKE BOTH AT HS". furosemide 40 mg tablet 40 mg PO HS spironolactone 100 mg tablet 100 mg PO HS fluoxetine 20 mg capsule 20 mg PO HS magnesium oxide 400 mg magnesium Tablet 400 mg PO HS multivitamin [Daily-Danny] Tablet 1 tab PO HS Referrals Referrals: Kathleen eKy PA-C [Primary Care Provider] -
[2023-03-28 20:39] LABS: Hematocrit (blood only) 28.9 % (42.0-52.0); Hemoglobin 9.4 g/dl (14.0-18.0); Mean Corpuscular Hemoglobin 23.3 pg (25.0-34.0); Mean Corpuscular Hgb Conc 32.5 g/dL (32.0-36.0); Mean Corpuscular Volume 71.5 fL (80.0-100.0); Mean Platelet Volume 9.1 fL (9.4-12.4); Platelet Count 109 K/uL (130-400); RDW Coefficient of Variation 23.7 % (11.5-14.5); RDW Standard Deviation 61.1 fL (36.4-46.3); Red Blood Count 4.04 M/uL (4.70-6.10); White Blood Count 3.97 K/ul (4.8-10.8)
[2023-03-28 20:41] LABS: Alanine Aminotransferase 34 U/L (7-52); Albumin Globulin Ratio 1.5 (0.9-2); Albumin Level 4.5 gm/dl (3.4-5.0); Alkaline Phosphatase 150 U/L (34-104); Anion Gap 12 (3-11); Aspartate Aminotransferase 160 U/L (13-39); Bilirubin,Total 3.1 mg/dl (0.2-1.0); Blood Urea Nitrogen 8 mg/dl (6-23); Calcium 9.1 mg/dl (8.6-10.3); Carbon Dioxide 25 mmol/L (21-32); Chloride 99 mmol/L (98-107); Creatinine Clr Calc Pharmacy 221.2 ml/min; Est GFR (African American) > 150.0 ml/min; Est GFR (Non-African American) 141.4 ml/min; Globulin 3.1 gm/dl (2.5-4.0); Glucose 101 mg/dl (70-99(Fasting)); Lipase 76 U/L (11-82); Magnesium 1.2 mg/dl (1.7-2.4); Phosphorus 3.2 mg/dl (2.5-4.9); Potassium 3.6 mmol/L (3.5-5.1); Sodium 136 mmol/L (136-145); Total Protein 7.6 gm/dl (6.0-8.3)
[2023-03-28 20:56] LABS: Basophils % (auto) 2.5 %; Eosinophils # (auto) 0.05 K/uL (0-0.50); Eosinophils % (auto) 1.3 %; Lymphocytes # (auto) 1.18 K/uL (1.2-3.4); Lymphocytes % (auto) 29.7 %; Monocytes % (auto) 12.6 %; Neutrophils # (auto) 2.14 K/uL (1.40-6.50); Neutrophils % (auto) 53.9 %; Polychromasia 1+; Target Cells 1+; Tear Drop Cells 1+
[2023-03-28] MEDS: MAGNESIUM SULFATE / D5W 1 GM/100 ML BAG IV SCH ×2 (21:17→22:24)
--- NOTE | 2023-03-28 21:51 | History & Physical Report ---
Date of Service March 28, 2023 Assessment & Plan (1) Hypomagnesemia: Plan: 32yo male with cirrhosis of the liver secondary to EtOH use presenting with nausea, vomiting and abdominal pain. Hypomagnesemia with Mg=1.2 Patient reports compliance with his oral magnesium supplementation at home. -Mg x 2 gm administered in the ER. Will administer 2 additional grams for total of 4 grams -Repeat Mg level in AM -Will give KCL 40mEq PO x 1 as well - K on low end of normal -Encourage po intake -Zofran as needed for nausea (2) Alcoholic cirrhosis of liver with ascites: Plan: Patient with laboratory findings consistent with liver cirrhosis. Stable microcytic/hypochromic anemia with Hgb=9.4, Hct=28.9. Platelets of 109 - improved from prior. Renal function is normal. Tbili of 3.1, improved from prior AP of 150 - near baseline DNU=989 - slightly increased from baseline -Repeat LFTs in AM -Repeat lactate in AM -Hold Lasix and Spironolactone for now (3) Abdominal pain: Plan: Improved. Abdomen is soft with minimal tenderness. Repeat CT if pain returns F/E/N - NSS at 80mL/hr x 1 additional liter, Mg repletion as above, Low Na as above Ppx - Low risk for DVT Code - Full Dispo - Admit to medical with telemetry History of Present Illness Chief Complaint: nausea, vomiting, shaking Primary Care Provider: Kathleen Key PA-C Omar Turk is a 32yo male with history of liver cirrhosis secondary to EtOH use. He has not had a drink in over 2 years and is undergoing workup through [facility] for liver transplant. Patient has had nausea with multiple episodes of non-bloody/non-bilious vomiting as well as dizziness, cold sweats, light headedness, body shaking and tingling in his hands. Complaining of abdominal pain as well, 8/10 in severity on arrival, now improved. He had approximately 5 episodes of vomiting prior to arrival - last episode around 18:00. He denies fever, chills, chest pain, cough, SOB. Denies diarrhea. No urinary complaints. No dietary changes, sick contacts, recent travel. Patient has presented similarly and found to have hypomagnesia and hypokalemia. In the ER he is afebrile, mildly hypertensive otherwise HD stable, NAD ER Course: Mg x 2gm Zofran 4mg IV x 2 NSS x 1L Allergies Allergy/AdvReac Type Severity Reaction Status Date / Time No Known Allergies Allergy Verified 03/28/23 20:30 Home Medications Medication Instructions Recorded Confirmed Type potassium chloride 20 mEq 20 meq PO BID 04/25/21 03/28/23 History tablet,extended release magnesium oxide 400 mg PO HS 11/30/21 03/28/23 History fluoxetine 20 mg capsule 20 mg PO HS 11/16/22 03/28/23 History furosemide 40 mg tablet 40 mg PO HS 11/16/22 03/28/23 History spironolactone 100 mg tablet 100 mg PO HS 11/16/22 03/28/23 History multivitamin (Daily-Danny tablet) 1 tab PO HS 02/13/23 03/28/23 History Past Med/Surg History Medical History Acute hypokalemia Alcoholic hepatitis no alcohol since sep 2020 Anxiety Ascites due to alcoholic cirrhosis Depression Hematemesis Hepatic encephalopathy History of gastritis Hypokalemia Hypomagnesemia Migraine Panic attacks Vomiting Surgical History History of circumcision at the age of 8 Hx of esophagogastroduodenoscopy Family History Other No family history of adverse response to anesthesia Social History Smoking Status: Never smoker Second Hand Exposure: No; Do You Dip or Chew Tobacco: No; Hx Alcohol Use: Yes Alcohol type: hard liquor Alcohol Intake Frequency Comment: 3-5 X weekly Hx Substance Use: No Preferred Language: Armenian Communication Ability: Effective Compliance Auditor Required: No Beliefs That Will Affect Care: None Current Living Situation: Significant Other current occupational status: employed Feels Safe at Home: Yes Physical Activity Frequency: Does not Exercise Assistive Devices: None Review of Systems Review of Systems: All systems reviewed & are unremarkable except as noted in HPI & below Physical Exam Physical Exam: General: patient resting comfortably, NAD, non-toxic in appearance, AA&O x 4 Skin: warm, dry, intact, scattered spider angiomata on chest, skin scaling over left eye HEENT: NC/AT, PERRL, EOMI, anicteric sclera, conjunctiva without injection, ex ternal ear normal to inspection and nontender, nares patent, dry mucus membranes, dentition intact, no oropharyngeal lesions, neck supple, trachea midline, no LAD, no thyromegaly, no JVD Heart: +S1/S2, regular, no m/r/g Lungs: equal air entry bilaterally, no rales/rhonchi/wheezes Abd: +BS, soft, ND, mild tenderness to deep palpation in upper abdomen, no rebound/guarding/peritonitis, no masses/organomegaly/ascites Ext: warm, 2+ pulses in UE/LE bilaterally, no clubbing/cyanosis or edema Neuro: nonfocal, patient AA&O x 4, speech intact, no facial droop, moving all extremities on command with equal strength 5/5 Results & Data Results & Data Vital Signs (Past 12 Hours) Vital Signs Temp Pulse Pulse Resp BP BP Pulse Ox 03/28/23 21:00 86 18 141/81 H 98 03/28/23 20:30 88 20 98 03/28/23 20:00 91 H 20 120/87 97 03/28/23 19:48 94 H 18 98 03/28/23 19:48 93 H 03/28/23 19:38 37.1 C 91 H 18 147/87 H 98 03/28/23 19:28 37.3 C 102 H 16 125/81 99 O2 Del Method 03/28/23 21:00 03/28/23 20:30 03/28/23 20:00 03/28/23 19:48 03/28/23 19:48 03/28/23 19:38 Room Air 03/28/23 19:28 Room Air Laboratory Results Laboratory Results WBC 3.97 K/ul (4.8-10.8) L 03/28/23 19:55 RBC 4.04 M/uL (4.70-6.10) L 03/28/23 19:55 Hgb 9.4 g/dl (14.0-18.0) L 03/28/23 19:55 Hct 28.9 % (42.0-52.0) L 03/28/23 19:55 MCV 71.5 fL (80.0-100.0) L 03/28/23 19:55 MCH 23.3 pg (25.0-34.0) L 03/28/23 19:55 MCHC 32.5 g/dL (32.0-36.0) 03/28/23 19:55 RDW Std Deviation 61.1 fL (36.4-46.3) H 03/28/23 19:55 RDW Coeff of Cali 23.7 % (11.5-14.5) H 03/28/23 19:55 Plt Count 109 K/uL (130-400) L 03/28/23 19:55 MPV 9.1 fL (9.4-12.4) L 03/28/23 19:55 Immature Gran % (Auto) 0.0 % 03/28/23 19:55 Neut % (Auto) 53.9 % 03/28/23 19:55 Lymph % (Auto) 29.7 % 03/28/23 19:55 Gila % (Auto) 12.6 % 03/28/23 19:55 Eos % (Auto) 1.3 % 03/28/23 19:55 Baso % (Auto) 2.5 % 03/28/23 19:55 Neut # (Auto) 2.14 K/uL (1.40-6.50) 03/28/23 19:55 Lymph # (Auto) 1.18 K/uL (1.2-3.4) L 03/28/23 19:55 Gila # (Auto) 0.50 K/uL (0.11-0.59) 03/28/23 19:55 Eos # (Auto) 0.05 K/uL (0-0.50) 03/28/23 19:55 Baso # (Auto) 0.10 K/uL (0-0.2) 03/28/23 19:55 Immature Gran # (Auto) 0.00 K/uL (0.01-0.20) L 03/28/23 19:55 Polychromasia 1+ 03/28/23 19:55 Target Cells 1+ 03/28/23 19:55 Tear Drop Cells 1+ 03/28/23 19:55 Sodium 136 mmol/L (136-145) 03/28/23 19:55 Potassium 3.6 mmol/L (3.5-5.1) 03/28/23 19:55 Chloride 99 mmol/L (98-107) 03/28/23 19:55 Carbon Dioxide 25 mmol/L (21-32) 03/28/23 19:55 Anion Gap 12 (3-11) H 03/28/23 19:55 BUN 8 mg/dl (6-23) 03/28/23 19:55 Creatinine 0.50 mg/dl (0.6-1.4) L 03/28/23 19:55 Est Cr Clr Drug Dosing 221.2 ml/min 03/28/23 19:55 Est GFR ( Amer) > 150.0 ml/min 03/28/23 19:55 Est GFR (Non-Af Amer) 141.4 ml/min 03/28/23 19:55 BUN/Creatinine Ratio 16.0 (10-20) 03/28/23 19:55 Glucose 101 mg/dl (70-99(Fasting)) H 03/28/23 19:55 Lactate 2.1 mmol/L (0.4-2.0) H* 03/28/23 19:55 Calcium 9.1 mg/dl (8.6-10.3) 03/28/23 19:55 Phosphorus 3.2 mg/dl (2.5-4.9) 03/28/23 19:55 Magnesium 1.2 mg/dl (1.7-2.4) L 03/28/23 19:55 Total Bilirubin 3.1 mg/dl (0.2-1.0) H 03/28/23 19:55 AST 160 U/L (13-39) H 03/28/23 19:55 ALT 34 U/L (7-52) 03/28/23 19:55 Alkaline Phosphatase 150 U/L (34-104) H 03/28/23 19:55 Total Protein 7.6 gm/dl (6.0-8.3) 03/28/23 19:55 Albumin 4.5 gm/dl (3.4-5.0) 03/28/23 19:55 Globulin 3.1 gm/dl (2.5-4.0) 03/28/23 19:55 Albumin/Globulin Ratio 1.5 (0.9-2) 03/28/23 19:55 Lipase 76 U/L (11-82) 03/28/23 19:55 SARS-CoV-2, RNA, NAAT NEGATIVE (NEGATIVE) 03/28/23 21:10 PG Care Time/CCT Total # of Minutes Spent Total Time Spent with Patient: Total time spent is greater than 50% in coordination of care (as documented) at patient's floor/unit and/or counseling patient: Coding Level of Care Code 87400 INT INP/OBS CARE 2/55MIN Diagnoses Hypomagnesemia E83.42 Alcoholic cirrhosis of liver with ascites K70.31 Abdominal pain R10.9
[2023-03-28] MEDS ORDERED: ACETAMINOPHEN 325 MG TAB PO PRN (23:54)
[2023-03-28] MEDS ORDERED: ONDANSETRON INJ 2 MG/ML 2 ML VIAL IV PRN (23:54)
[2023-03-29] MEDS ORDERED: SODIUM CHLORIDE 0.9% 1000ML 1,000 ML IV SCH
[2023-03-29] MEDS ORDERED: POTASSIUM CHLORIDE CRTAB 20 MEQ TABCR PO STA ×2 (00:04→09:05)
[2023-03-29] MEDS: MAGNESIUM SULFATE / D5W 1 GM/100 ML BAG IV SCH ×2 (01:47→03:36)
[2023-03-29 03:14] LABS: Appearance Urine Clear (Clear); Bacteria Urine Automated Negative (Negative); Bilirubin Urine Negative (Negative); Blood Urine Negative (Negative); Cast Urine Automated 0 /lpf (0-5); Color Urine Dark Yellow; Glucose Urine UA Negative (Negative); Ketones Urine 1+ (Negative); Leukocyte Esterase Urine Negative (Negative); Nitrite Urine Negative (Negative); RBC Urine Automated 0-4 /hpf (0-4); Specific Gravity Urine 1.017 (1.000-1.030); Urobilinogen Urine Negative (Negative); WBC Urine Automated 0 /hpf (0-5); pH Urine >= 9.0 (4.5-7.5)
[2023-03-29 03:33] LABS: Protein Urine 1+ (Negative)
--- NOTE | 2023-03-29 06:26 | Hospitalist Progress Note ---
Date of Service March 29, 2023 Assessment & Plan (1) Hypomagnesemia: (2) Alcoholic cirrhosis of liver with ascites: (3) Abdominal pain: Plan: Improved. Abdomen is soft with minimal tenderness. Repeat CT if pain returns F/E/N - NSS at 80mL/hr x 1 additional liter, Mg repletion as above, Low Na as above Ppx - Low risk for DVT Code - Full Dispo - Admit to medical with telemetry Plan #Hypomagnesemia Mg=1.2--> 2.2 today Patient reports compliance with his oral magnesium supplementation at home. Received total 4 grams since presentation Encourage po intake Zofran as needed for nausea #Hypokalemia Low end normal on presentation K 3.6 today, will give another 40 mEq PO Received KCL 40mEq PO x 1 #Alcoholic Cirrhosis with Ascites Patient with laboratory findings consistent with liver cirrhosis. Stable microcytic/hypochromic anemia with Hgb=9.4, Hct=28.9. Platelets of 109 - improved from prior. Renal function is normal. Tbili of 3.1-->3.9, still better than prior AP of 150 - near baseline WTW=318-->137 - slightly increased from baseline Lactate 2.1-->1.0 Hold Lasix and Spironolactone for now #Abdominal Pain Improved Admission and Anticipated Discharge Date Admission Date: March 28, 2023 Supervising Physician Co-Signing Physician Notes I personally examined the patient and verified all gutierres points of history and exam, discussed case, and agree with decision making and plan documented by Dr. Garza. Subjective 32 yo male PMHx liver cirrhosis 2/2 EtOH use. Last drink was over two years ago. Undergoing workup @ [facility] for liver transplant. On presentation pt had approximately 5 episodes of non-bloody/non-bilious vomiting associated with dizziness, cold sweats, lightheadedness body shaking and tingling in hands. Also complaining of 8/10 abdominal pain which improved after arrival. No changes in diet, sick contacts, or recent travel. In the past the patient has had similar symptoms and was found to be hypomagnesemic and hypokalemic. He confirms with Mg supplementation at home, unable to take for the last few days 2/2 N/V This Morning: Resting comfortably in bed. NAD. No complaints, wants to go home. Denies fever, chills, chest pain, cough, SOB, N/V/D. Mg x2gm Zofran 4mg IV x 2 Review of Systems Review of Systems: reviewed, as above Physical Exam Physical Exam: General: patient resting comfortably, NAD, non-toxic in appearance, AA&O x 4, answers questions appropriately and follows commands. Skin: warm, dry, intact, no rashes or lesions HEENT: NC/AT, PERRL, EOMI, anicteric sclera, conjunctiva without injection, external ear normal to inspection and nontender, nares patent, moist mucus membranes, dentition intact, no oropharyngeal lesions, neck supple, trachea midline, no LAD, no thyromegaly, no JVD Heart: +S1/S2, regular, no m/r/g Lungs: equal air entry bilaterally, no rales/rhonchi/wheezes Abd: +BS, soft, NT/ND, no masses/organomegaly/ascites Ext: warm, 2+ pulses in UE/LE bilaterally, no clubbing/cyanosis or edema Neuro: nonfocal, patient AA&O x 4, speech intact, no facial droop, moving all extremities on command with equal strength 5/5 Results & Data Results & Data Vital Signs (Past 12 Hours) Vital Signs Temp Pulse Pulse Resp BP BP Pulse Ox 03/29/23 03:02 36.9 C 89 19 150/80 H 97 03/29/23 00:06 84 03/29/23 00:22 37.1 C 85 20 151/76 H 99 03/28/23 23:00 84 18 144/81 H 03/28/23 22:30 90 17 03/28/23 22:00 94 H 17 136/100 99 03/28/23 21:30 83 13 100 03/28/23 21:00 86 18 141/81 H 98 03/28/23 20:30 88 20 98 03/28/23 20:00 91 H 20 120/87 97 03/28/23 19:48 94 H 18 98 03/28/23 19:48 93 H 03/28/23 19:38 37.1 C 91 H 18 147/87 H 98 03/28/23 19:28 37.3 C 102 H 16 125/81 99 O2 Del Method 03/29/23 03:02 Room Air 03/29/23 00:06 03/29/23 00:22 Room Air 03/28/23 23:00 03/28/23 22:30 03/28/23 22:00 03/28/23 21:30 03/28/23 21:00 03/28/23 20:30 03/28/23 20:00 03/28/23 19:48 03/28/23 19:48 03/28/23 19:38 Room Air 03/28/23 19:28 Room Air Laboratory Results Abnormal lab results 03/28/23 03/28/23 03/28/23 Range/Units 19:55 19:55 19:55 WBC 3.97 L (4.8-10.8) K/ul RBC 4.04 L (4.70-6.10) M/uL Hgb 9.4 L (14.0-18.0) g/dl Hct 28.9 L (42.0-52.0) % MCV 71.5 L (80.0-100.0) fL MCH 23.3 L (25.0-34.0) pg RDW Std Deviation 61.1 H (36.4-46.3) fL RDW Coeff of [place] 23.7 H (11.5-14.5) % Plt Count 109 L (130-400) K/uL MPV 9.1 L (9.4-12.4) fL Lymph # (Auto) 1.18 L (1.2-3.4) K/uL Immature Gran # (Auto) 0.00 L (0.01-0.20) K/uL Anion Gap 12 H (3-11) Creatinine 0.50 L (0.6-1.4) mg/dl Glucose 101 H (70-99(Fasting)) mg/dl Lactate 2.1 H* (0.4-2.0) mmol/L Magnesium 1.2 L (1.7-2.4) mg/dl Total Bilirubin 3.1 H (0.2-1.0) mg/dl AST 160 H (13-39) U/L Alkaline Phosphatase 150 H (34-104) U/L Urine pH (4.5-7.5) Urine Protein (Negative) Urine Ketones (Negative) U Epithel Cells (Auto) (0-5) /lpf 07/14/23 Range/Units Unknown WBC (4.8-10.8) K/ul RBC (4.70-6.10) M/uL Hgb (14.0-18.0) g/dl Hct (42.0-52.0) % MCV (80.0-100.0) fL MCH (25.0-34.0) pg RDW Std Deviation (36.4-46.3) fL RDW Coeff of [place] (11.5-14.5) % Plt Count (130-400) K/uL MPV (9.4-12.4) fL Lymph # (Auto) (1.2-3.4) K/uL Immature Gran # (Auto) (0.01-0.20) K/uL Anion Gap (3-11) Creatinine (0.6-1.4) mg/dl Glucose (70-99(Fasting)) mg/dl Lactate (0.4-2.0) mmol/L Magnesium (1.7-2.4) mg/dl Total Bilirubin (0.2-1.0) mg/dl AST (13-39) U/L Alkaline Phosphatase (34-104) U/L Urine pH >= 9.0 H (4.5-7.5) Urine Protein 1+ H (Negative) Urine Ketones 1+ H (Negative) U Epithel Cells (Auto) 10-20 H (0-5) /lpf Resident Activity Tracking Resident Involvement: Resident Care Provided Care Provided: Adult Hospital Medicine
[2023-03-29 07:00] LABS: Hematocrit (blood only) 28.9 % (42.0-52.0); Hemoglobin 9.4 g/dl (14.0-18.0); Mean Corpuscular Hemoglobin 23.2 pg (25.0-34.0); Mean Corpuscular Hgb Conc 32.5 g/dL (32.0-36.0); Mean Corpuscular Volume 71.2 fL (80.0-100.0); Mean Platelet Volume 9.1 fL (9.4-12.4); Platelet Count 70 K/uL (130-400); RDW Coefficient of Variation 23.6 % (11.5-14.5); RDW Standard Deviation 60.8 fL (36.4-46.3); Red Blood Count 4.06 M/uL (4.70-6.10); White Blood Count 3.56 K/ul (4.8-10.8)
[2023-03-29 07:13] LABS: Alanine Aminotransferase 31 U/L (7-52); Albumin Level 4.4 gm/dl (3.4-5.0); Alkaline Phosphatase 130 U/L (34-104); Anion Gap 10 (3-11); Aspartate Aminotransferase 137 U/L (13-39); BUN Creatinine Ratio 18.8 (10-20); Bilirubin Direct 1.6 mg/dl (0-0.2); Bilirubin,Total 3.9 mg/dl (0.2-1.0); Blood Urea Nitrogen 9 mg/dl (6-23); Calcium 8.6 mg/dl (8.6-10.3); Carbon Dioxide 26 mmol/L (21-32); Chloride 101 mmol/L (98-107); Creatinine Clr Calc Pharmacy 202.7 ml/min; Est GFR (African American) > 150.0 ml/min; Est GFR (Non-African American) 143.8 ml/min; Glucose 105 mg/dl (70-99(Fasting)); Magnesium 2.2 mg/dl (1.7-2.4); Potassium 3.6 mmol/L (3.5-5.1); Sodium 137 mmol/L (136-145); Total Protein 7.4 gm/dl (6.0-8.3)
--- NOTE | 2023-03-29 12:13 | Electrocardiogram Report ---
Test Reason : Blood Pressure : / mmHG Vent. Rate : 095 BPM Atrial Rate : 095 BPM P-R Int : 146 ms QRS Dur : 092 ms QT Int : 380 ms P-R-T Axes : 044 027 016 degrees QTc Int : 477 ms Normal sinus rhythm Normal ECG When compared with ECG of 14-FEB-2023 14:39, No significant change was found Confirmed by Benito Haque ([id number] on 03/29/2023 12:13:25 PM Referred By: REFERRED SELF Confirmed By:Bret Haque
--- NOTE | 2023-03-29 17:46 | Discharge Summary ---
Date of Service March 29, 2023 Admission HPI Per Admitting Provider Omar Turk is a 32yo male with history of liver cirrhosis secondary to EtOH use. He has not had a drink in over 2 years and is undergoing workup through [facility] for liver transplant. Patient has had nausea with multiple episodes of non-bloody/non-bilious vomiting as well as dizziness, cold sweats, light headedness, body shaking and tingling in his hands. Complaining of abdominal pain as well, 8/10 in severity on ar rival, now improved. He had approximately 5 episodes of vomiting prior to arrival - last episode around 18:00. He denies fever, chills, chest pain, cough, SOB. Denies diarrhea. No urinary complaints. No dietary changes, sick contacts, recent travel. Patient has presented similarly and found to have hypomagnesia and hypokalemia. In the ER he is afebrile, mildly hypertensive otherwise HD stable, NAD ER Course: Mg x 2gm Zofran 4mg IV x 2 NSS x 1L Discharge Data Consultations 03/28/23 21:12 ED Decision to Admit Stat Hospital Course (1) Hypomagnesemia: (2) Alcoholic cirrhosis of liver with ascites: (3) Abdominal pain: Plan Omar Turk is a 32 year old male admitted with nausea and vomiting in the setting of known alcoholic cirrhosis. He was found to be dehydrated, hypomagnesemic and hypokalemic. He was given fluids and his lytes were repleted as necessary. His symptoms resolved the next morning. He is currently undergoing workup at [facility] for liver transplant. #Hypomagnesemia Mg=1.2--> 2.2 today Patient reports compliance with his oral magnesium supplementation at home. Received total 4 grams since presentation Encourage po intake Zofran as needed for nausea #Hypokalemia Low end normal on presentation K 3.6 today, will give another 40 mEq PO Received KCL 40mEq PO x 1 #Alcoholic Cirrhosis with Ascites Patient with laboratory findings consistent with liver cirrhosis. Stable microcytic/hypochromic anemia with Hgb=9.4, Hct=28.9. Platelets of 109 - improved from prior. Renal function is normal. Tbili of 3.1-->3.9, still better than prior AP of 150 - near baseline VTT=919-->137 - slightly increased from baseline Lactate 2.1-->1.0 Hold Lasix and Spironolactone for now #Abdominal Pain Improved Supervising Physician Co-Signing Physician Notes I personally examined the patient and verified all gutierres points of history and exam, discussed case, and agree with decision making and plan documented by Dr. Garza. Patient feeling much better, electrolytes corrected, VS stable. Patient will continue working with [facility] for possible transplantation. Resident Activity Tracking Resident Involvement: Resident Care Provided Care Provided: Adult [facility] Medicine
[2023-03-29] MEDS ORDERED: FUROSEMIDE 40 MG TAB PO SCH (21:00)
[2023-03-29] MEDS ORDERED: SPIRONOLACTONE 100 MG TAB PO SCH (21:00)
[2023-03-29] MEDS ORDERED: FLUoxetine HCL 20 MG CAP PO SCH (21:00)
== END 2023-03-29 13:12 | disposition home or self-care (01) | DRG 641 ==
LOC: ED 19:26 → SUATTDRO 21:48 → 2S 21:48

== ENCOUNTER 2024-06-09 18:20 | Inpatient (IN) ==
--- NOTE | 2024-06-09 19:25 | Emergency Department Note ---
Impression & Plan Abdominal pain, Hyperbilirubinemia, Jaundice, Alcoholic hepatitis ED Provider Note HISTORY OF PRESENT ILLNESS: Patient is a 33-year-old male presenting with lower abdominal pain, nausea and diarrhea. Patient reports that starting yesterday at 1900, he developed generalized abdominal pain, but seem to be more focused in his lower abdomen. He states pain has been constant since onset yesterday evening. He reports yesterday he took a dose of Tylenol. He reports he is had about 6 episodes of vomiting today. He is also had uncontrollable diarrhea. He has a history of alcoholic cirrhosis. He denies any chest pain or shortness of breath. Denies any fevers. He reports his pain is constant and seems to be worse with "doing anything other than laying down." He denies any dysuria or hematuria. He reports his urine is dark in color. He denies any history of abdominal surgeries. He does have a history of esophageal varices. Denies any dark discoloration of his stool. He is not on any anticoagulation. Patient reports that he has been sober for a number of years. ROS: as above PHYSICAL EXAM: Constitutional: Patient appears in no acute distress. HENT: Head: Normocephalic and atraumatic. Eyes: EOMI, PERRL. Scleral icterus Mouth/Throat: Mucous membranes moist. Neck: Trachea midline. Neck supple. Cardiovascular: RRR, No murmurs, rubs or gallops. Intact distal pulses. Pulmonary/Chest: No respiratory distress. Breath sounds clear and equal bilaterally. No wheezes or rales. Abdominal: Abdomen soft, no rebound or guarding. LLQ TTP Musculoskeletal: No edema, tenderness or deformity noted. Skin: Warm and dry. Patient is severely jaundiced throughout his face, trunk, and bilateral upper and lower extremities. Psychiatric: Appropriate mood and affect for situation. Neurological: Alert and keenly responsive. CN II-XII grossly intact, moving all extremities equally and fully. MDM: - Vitals signs showed elevated temperature. - History obtained via patient. History as above. - Chronic conditions affecting care: Alcoholic cirrhosis; depression; thrombocytopenia - Differential diagnoses include, but are not limited to: Acute cholangitis; choledocholithiasis; colitis; viral syndrome; cirrhosis - Order placed for continuous cardiac monitoring. At this time, monitor showed rate of 68 bpm with normal sinus rhythm, per my interpretation. - External medical records reviewed. GI consultation note dated 02/15/2023 was reviewed. Patient followed in their clinic for history of alcoholic cirrhosis of the liver. It was noted at that time that he follows with the hepatology department at [facility]. - Laboratory workup interpreted by myself showed normal WBC; anemia (Hgb 12.7); hypokalemia (K 3.4); hyponatremia (Na 131); hyperbilirubinemia (total bilirubin 28); elevated AST (105); normal ALT elevated INR (1.6) - Lipase unable to be resulted secondary to it being icteric. - UA negative for infection. But noted to be nitrite positive and have significant bilirubin. - CT abdomen/pelvis with IV contrast showed cirrhosis with splenomegaly and distal esophageal abdominal varices. Noted to have a mildly distended gallbladder with wall enhancement that is nonspecific. No noted ductal dilatation per radiology. - Patient given 4 mg IV zofran and 4 mg IV morphine in ER for nausea and pain. Given 2L NS and IV zosyn for antibiotic coverage. - MELD score 26. - Discussed case with GI medical transcription radiology, Dr. Grayson, at 22:30. He reports that if there is concern for cholangitis, the patient should be transferred. If no concern for cholangitis, the patient can stay here and GI can be on for consults. Recommended discussion between ER and hospitalist service for whether the patient can stay. - Low concern for acute cholangitis at this time, given the patient has a normal white blood cell count and no reproducible right upper quadrant abdominal pain. CT and ultrasound imaging does not show any evidence of gallbladder infection or ductal dilatation or obstruction. - Discussed case with hospitalist, Dr. Wright. He recommended discussion with hepatology/GI at [facility], where the patient has been seen previously. - Discussed case with GI physician on-call at [facility], Dr. Scott, at 23:15. She reports that the patient will need close monitoring and treatment for alcoholic hepatitis. Reports does not sound like a biliary issue and thus no GI interventions or procedures would likely need to be done acutely. Reports that it sounds like a liver hepatology issue and patient should be treated for alcoholic hepatitis. - Discussion was had with embedded case manager about patient's case and need for admission - Hospitalist, Dr. Wright, consulted for admission - Patient admitted to [facility] for further evaluation and management. ASSESSMENT AND PLAN: Diagnosis: Abdominal pain; hyperbilirubinemia; jaundice; alcoholic hepatitis Plan: Admit Past Med/Surg History Problem List (Updated 06/09/24 @ 23:18 by Mary Thompson MD) Alcoholic hepatitis (Acute) Jaundice (Acute) Hyperbilirubinemia (Acute) Abdominal pain (Acute) Multiple fractures of ribs Fracture dislocation of left shoulder joint Alcoholic cirrhosis of liver with ascites (Acute) History of portal hypertension (Acute) Hyperbilirubinemia Transaminitis Pancytopenia Leukopenia Thrombocytopenia Anemia Weakness (Acute) Discharge planning issues Orthostasis Abdominal ascites (Acute) Acute kidney injury (Acute) Acute liver failure (Acute) Coagulopathy (Acute) YENNY (acute kidney injury) Depression Anxiety Alcoholic hepatitis (Acute) Alcohol use disorder Hyponatremia Metabolic alkalosis DVT prophylaxis Abnormal CT scan Alcoholic cirrhosis of liver (Acute) Spontaneous bacterial peritonitis Medical History Acute hypokalemia Alcoholic hepatitis no alcohol since sep 2020 Anxiety Ascites due to alcoholic cirrhosis Depression Hematemesis Hepatic encephalopathy History of gastritis Hypokalemia Hypomagnesemia Migraine Panic attacks Vomiting Surgical History History of circumcision at the age of 8 Hx of esophagogastroduodenoscopy Family History Other No family history of adverse response to anesthesia Social History Smoking Status: Never smoker Second Hand Exposure: No; Do You Dip or Chew Tobacco: No; Hx Alcohol Use: Yes Alcohol type: hard liquor Alcohol Intake Frequency Comment: 3-5 X weekly Hx Substance Use: No Preferred Language: Guinean Communication Ability: Effective 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 Required: No Beliefs That Will Affect Care: None Current Living Situation: Significant Other current occupational status: employed Feels Safe at Home: Yes Physical Activity Frequency: Does not Exercise Assistive Devices: None Allergies Allergies Allergy/AdvReac Type Severity Reaction Status Date / Time No Known Allergies Allergy Verified 05/05/23 18:15 Home Meds Home Medications Medication Instructions Recorded Confirmed magnesium oxide 400 mg PO HS 11/30/21 06/09/24 fluoxetine 20 mg capsule 20 mg PO HS 11/16/22 06/09/24 furosemide 40 mg tablet 60 mg PO HS 11/16/22 06/09/24 spironolactone 100 mg tablet 150 mg PO HS 11/16/22 06/09/24 multivitamin (Daily-Danny tablet) 1 tab PO HS 02/13/23 06/09/24 cholecalciferol (vitamin D3) 1,250 50,000 unit PO WK 05/05/23 06/09/24 mcg (50,000 unit) capsule lactulose 10 gram/15 mL oral 15 ml PO BID 05/05/23 06/09/24 solution potassium chloride 20 mEq 20 meq PO AMHS 06/09/24 06/09/24 tablet,extended release(part/cryst) (Klor-Con M) Results & Data (ED) Vital Signs Vital Signs - 24 hr 06/09/24 18:31 06/09/24 19:20 06/09/24 19:20 Temperature 37.6 C H Temperature Source Temporal Artery Scan Pulse Rate 92 H 83 Pulse Rate [Apical] 84 Pulse Rate from SpO2 Sensor Pulse Rhythm Pulse Rhythm [Apical] Regular Pulse Strength [Apical] Normal Respiratory Rate 14 18 Respiratory Effort / Characteristics Non-Labored Spontaneous Respiratory Depth Normal Respiratory Pattern Regular Blood Pressure 126/77 Blood Pressure [Right Arm] 118/83 Blood Pressure Mean 93 Blood Pressure Mean [Right Arm] 94 Blood Pressure Position [Right Arm] Pulse Oximetry 99 98 Oxygen Delivery Method Room Air Room Air Sepsis New/Unexplained Change in Mental Status No Sepsis Action Taken by Nursing No Action Required 06/09/24 19:20 06/09/24 19:24 06/09/24 19:45 Temperature Temperature Source Pulse Rate 86 86 81 Pulse Rate [Apical] Pulse Rate from SpO2 Sensor 86 81 Pulse Rhythm Regular Pulse Rhythm [Apical] Pulse Strength [Apical] Respiratory Rate 18 17 23 Respiratory Effort / Characteristics Respiratory Depth Respiratory Pattern Blood Pressure Blood Pressure [Right Arm] Blood Pressure Mean Blood Pressure Mean [Right Arm] Blood Pressure Position [Right Arm] Pulse Oximetry 98 98 100 Oxygen Delivery Method Room Air Sepsis New/Unexplained Change in Mental Status Sepsis Action Taken by Nursing 06/09/24 20:00 06/09/24 20:00 06/09/24 20:00 Temperature Temperature Source Pulse Rate 79 78 Pulse Rate [Apical] Pulse Rate from SpO2 Sensor 79 77 Pulse Rhythm Pulse Rhythm [Apical] Pulse Strength [Apical] Respiratory Rate 15 18 Respiratory Effort / Characteristics Respiratory Depth Respiratory Pattern Blood Pressure 119/69 119/69 Blood Pressure [Right Arm] Blood Pressure Mean 77 77 Blood Pressure Mean [Right Arm] Blood Pressure Position [Right Arm] Pulse Oximetry 96 96 Oxygen Delivery Method Sepsis New/Unexplained Change in Mental Status Sepsis Action Taken by Nursing 06/09/24 20:15 06/09/24 20:30 06/09/24 20:30 Temperature Temperature Source Pulse Rate 74 75 Pulse Rate [Apical] Pulse Rate from SpO2 Sensor 74 75 Pulse Rhythm Pulse Rhythm [Apical] Pulse Strength [Apical] Respiratory Rate 13 22 Respiratory Effort / Characteristics Respiratory Depth Respiratory Pattern Blood Pressure 114/65 114/65 Blood Pressure [Right Arm] Blood Pressure Mean 90 81 Blood Pressure Mean [Right Arm] Blood Pressure Position [Right Arm] Pulse Oximetry 99 98 Oxygen Delivery Method Sepsis New/Unexplained Change in Mental Status Sepsis Action Taken by Nursing 06/09/24 20:54 06/09/24 21:00 06/09/24 21:00 Temperature Temperature Source Pulse Rate 70 Pulse Rate [Apical] 75 Pulse Rate from SpO2 Sensor 70 Pulse Rhythm Pulse Rhythm [Apical] Regular Pulse Strength [Apical] Respiratory Rate 14 18 Respiratory Effort / Characteristics Non-Labored Spontaneous Respiratory Depth Normal Respiratory Pattern Blood Pressure 112/70 94/62 L Blood Pressure [Right Arm] 94/62 L Blood Pressure Mean 84 85 Blood Pressure Mean [Right Arm] 72 Blood Pressure Position [Right Arm] Semi-fowlers Pulse Oximetry 95 97 Oxygen Delivery Method Room Air Sepsis New/Unexplained Change in Mental Status Sepsis Action Taken by Nursing 06/09/24 21:03 06/09/24 21:21 06/09/24 21:30 Temperature Temperature Source Pulse Rate 70 73 Pulse Rate [Apical] Pulse Rate from SpO2 Sensor 70 73 Pulse Rhythm Pulse Rhythm [Apical] Pulse Strength [Apical] Respiratory Rate 9 L 16 Respiratory Effort / Characteristics Respiratory Depth Respiratory Pattern Blood Pressure 118/67 Blood Pressure [Right Arm] Blood Pressure Mean 78 Blood Pressure Mean [Right Arm] Blood Pressure Position [Right Arm] Pulse Oximetry 96 96 Oxygen Delivery Method Sepsis New/Unexplained Change in Mental Status Sepsis Action Taken by Nursing 06/09/24 21:30 06/09/24 21:51 06/09/24 22:00 Temperature Temperature Source Pulse Rate 70 77 68 Pulse Rate [Apical] Pulse Rate from SpO2 Sensor 69 77 69 Pulse Rhythm Pulse Rhythm [Apical] Pulse Strength [Apical] Respiratory Rate 5 L 18 17 Respiratory Effort / Characteristics Respiratory Depth Respiratory Pattern Blood Pressure 118/67 123/81 Blood Pressure [Right Arm] Blood Pressure Mean 84 95 Blood Pressure Mean [Right Arm] Blood Pressure Position [Right Arm] Pulse Oximetry 97 96 97 Oxygen Delivery Method Sepsis New/Unexplained Change in Mental Status Sepsis Action Taken by Nursing 06/09/24 23:08 Temperature Temperature Source Pulse Rate 77 Pulse Rate [Apical] Pulse Rate from SpO2 Sensor Pulse Rhythm Pulse Rhythm [Apical] Pulse Strength [Apical] Respiratory Rate Respiratory Effort / Characteristics Respiratory Depth Respiratory Pattern Blood Pressure Blood Pressure [Right Arm] Blood Pressure Mean Blood Pressure Mean [Right Arm] Blood Pressure Position [Right Arm] Pulse Oximetry Oxygen Delivery Method Sepsis New/Unexplained Change in Mental Status Sepsis Action Taken by Nursing Laboratory Data 06/09/24 19:15 06/09/24 19:15 Lab Results 06/09/24 06/09/24 Range/Units 19:15 19:21 WBC 6.90 (4.8-10.8) K/ul RBC 4.26 L (4.70-6.10) M/uL Hgb 12.7 L (14.0-18.0) g/dl POC Hgb 13.9 L (14.0-18.0) g/dl Hct 36.4 L (42.0-52.0) % POC Hct 41 L (42-52) % MCV 85.4 (80.0-100.0) fL MCH 29.8 (25.0-34.0) pg MCHC 34.9 (32.0-36.0) g/dL RDW Std Deviation 66.7 H (36.4-46.3) fL RDW Coeff of [place] 21.6 H (11.5-14.5) % Plt Count 160 (130-400) K/uL MPV 10.5 (9.4-12.4) fL Immature Gran % (Auto) 0.6 % Neut % (Auto) 60.7 % Lymph % (Auto) 13.9 % [place] % (Auto) 22.2 % Eos % (Auto) 1.2 % Baso % (Auto) 1.4 % Neut # (Auto) 4.19 (1.40-6.50) K/uL Lymph # (Auto) 0.96 L (1.20-3.40) K/uL [place] # (Auto) 1.53 H (0.11-0.59) K/uL Eos # (Auto) 0.08 (0.00-0.50) K/uL Baso # (Auto) 0.10 (0.00-0.20) K/uL Immature Gran # (Auto) 0.04 (0.01-0.20) K/uL Anisocytosis Present Target Cells 1+ Tear Drop Cells 1+ Echinocytes 1+ PT 16.7 H (9.0-12.0) Seconds INR 1.6 H (0.9-1.1) POC Sodium 133 L (135-144) mmol/L Sodium 131 L (136-145) mmol/L POC Potassium 3.3 (3.3-5.0) mmol/L Potassium 3.4 L (3.5-5.1) mmol/L POC Chloride 94 L (101-112) mmol/L Chloride 95 L (98-107) mmol/L Carbon Dioxide 28 (21-32) mmol/L POC Total CO2 26 (24-31) mmol/L Anion Gap 8 (3-11) POC Anion Gap 17.0 (16-25) mmol/L POC BUN 6 L (7-18) mg/dl BUN TNP Creatinine 0.76 (0.6-1.4) mg/dl POC Creatinine 0.6 (0.6-1.3) mg/dl Est Cr Clr Drug Dosing 138.2 ml/min Est GFR ( Amer) 137.0 ml/min Est GFR (Non-Af Amer) 118.2 ml/min BUN/Creatinine Ratio TNP Glucose 99 (70-99(Fasting)) mg/dl POC Glucose (other) 99 (70-99) mg/dl Calcium 8.7 (8.6-10.3) mg/dl POC Ioniz Calcium Genet 1.08 L (1.12-1.32) mmol/l Total Bilirubin 28.0 H (0.2-1.0) mg/dl AST 105 H (13-39) U/L ALT 29 (7-52) U/L Alkaline Phosphatase TNP Total Protein 6.0 (6.0-8.3) gm/dl Albumin 3.6 (3.4-5.0) gm/dl Globulin 2.4 L (2.5-4.0) gm/dl Albumin/Globulin Ratio 1.5 (0.9-2) Lipase TNP Urine Color Dark Yellow Urine Appearance Clear (Clear) Urine pH 6.5 (4.5-7.5) Ur Specific Bath 1.021 (1.000-1.030) Urine Protein Trace H (Negative) Urine Glucose (UA) Negative (Negative) Urine Ketones Negative (Negative) Urine Blood Negative (Negative) Urine Nitrite Positive A (Negative) Urine Bilirubin 3+ H (Negative) Urine Urobilinogen Negative (Negative) Ur Leukocyte Esterase 1+ H (Negative) Urine WBC (Auto) 0-5 (0-5) /hpf Urine RBC (Auto) 6-10 H (0-2) /hpf U Hyaline Cast (Auto) 0-2 (0-2) /lpf U Epithel Cells (Auto) 0-2 (0-2) /hpf Urine Bacteria (Auto) None Seen (None Seen) Administered Medications Discontinued Medications Sodium Chloride (Nss) 1,000 mls @ 999 mls/hr IV .Q1H1M ONE Stop: 06/09/24 20:25 Last Infusion: 06/09/24 22:13 Dose: Infused Documented By: Admin: 06/09/24 19:42 Dose: 999 mls/hr Documented By: MARITZA Piperacillin Sod/Tazobactam Sod (Zosyn) 4.5 gm in 100 mls @ 200 mls/hr IV NOW ONE Stop: 06/09/24 20:27 Last Infusion: 06/09/24 22:13 Dose: Infused Documented By: Admin: 06/09/24 20:31 Dose: 200 mls/hr Documented By: MARITZA Sodium Chloride (Nss) 1,000 mls @ 999 mls/hr IV .Q1H1M ONE Stop: 06/09/24 20:58 Last Infusion: 06/09/24 22:13 Dose: Infused Documented By: Admin: 06/09/24 20:31 Dose: 999 mls/hr Documented By: MARITZA Ioversol (Optiray 320 100ml) 93 ml IV ONCE ONE Stop: 06/09/24 19:35 Last Admin: 06/09/24 19:35 Dose: 93 ml Documented By: REX Morphine Sulfate (Morphine Sulfate 4 Mg/Ml 1 Ml Carp\\Vial) 4 mg IV NOW STA Stop: 06/09/24 19:26 Last Admin: 06/09/24 19:42 Dose: 4 mg Documented By: MARITZA Ondansetron HCl (Ondansetron Inj 2 Mg/Ml 2 Ml Vial) 4 mg IV NOW STA Stop: 06/09/24 19:26 Last Admin: 06/09/24 19:42 Dose: 4 mg Documented By: DILIP Imaging Data Radiologist's Impression: Abdomen/Pelvis CT 06/09/24 19:07 Exam(s): CT ABDOMEN + PELVIS With Contrast IV Amt: 93ml optiray 320 EXAM: CT Abdomen and Pelvis With Intravenous Contrast CLINICAL HISTORY: Reason for exam: diffuse abd pain; N/V/D. TECHNIQUE: Axial computed tomography images of the abdomen and pelvis with intravenous contrast. CTDI is 22.26 mGy and DLP is 1219.53 mGy-cm. Automated exposure control was utilized for the study. A dose lowering technique was utilized adhering to the principles of ALARA. CONTRAST: Patient received 93ml optiray 320 of IV contrast COMPARISON: None. FINDINGS: Lung bases: Clear. Distal esophageal varices and esophageal wall thickening, nonspecific, cannot rule out esophagitis. Liver: Cirrhosis. Gallbladder and bile ducts: Mildly distended gallbladder with wall enhancement that is nonspecific in the setting of liver disease. No ductal dilation. Pancreas: No ductal dilation. Spleen: Moderate splenomegaly. Adrenals: Unremarkable. Kidneys and ureters: No pyelonephritis or hydronephrosis. Stomach and bowel: Mild sigmoid wall thickening is nonspecific, may reflect passive congestion, cannot rule out mild colitis. Diverticulosis without diverticulitis. Haziness in the mesentery, and prominent varices in the anterior abdomen, probably reflects passive congestion. Mildly dilated small bowel loops with fluid, nonspecific, cannot rule out mild gastroenteritis or ileus. No obstruction. Appendix: Normal. Intraperitoneal space: No free air or fluid. Bones/joints: No acute fracture. Soft tissues: Unremarkable. Vasculature: No aortic aneurysm. Lymph nodes: No enlarged lymph nodes. Bladder: No stones. Reproductive: Unremarkable as visualized. IMPRESSION: 1. Question mild sigmoid colitis and gastroenteritis/ileus. 2. Cirrhosis with splenomegaly, distal esophageal abdominal varices. 3. Normal appendix and kidneys. 4. No SBO, free air or free fluid. Electronically signed by: Giovana Anguiano M.D. 06/09/24 21:39 PM Gallbladder Ultrasound 06/09/24 19:48 Exam(s): US GALLBLADDER EXAM: US Abdomen Limited, Gallbladder CLINICAL HISTORY: Reason for exam: abd pain; jaundice. TECHNIQUE: Real-time ultrasound of the right upper quadrant with image documentation. COMPARISON: CT abdomen pelvis 06/09/24. FINDINGS: Gallbladder: Wall thickening 4 mm, is nonspecific in the presence of cirrhosis and ascites. No gallstones. Common bile duct: Unremarkable as visualized. No stones. No dilation. Pancreas: Unremarkable as visualized. Other: Trace free fluid inferior liver margin. IMPRESSION: 1. Cirrhosis and ascites. 2. No cholelithiasis or ductal dilatation. 3. Gallbladder wall thickening is nonspecific in the presence of cirrhosis and ascites. Electronically signed by: Giovana Anguiano M.D. 06/09/24 22:15 PM Discharge Plan Visit Data Chief Complaint: Abdominal Pain Stated Complaint: SEVERE ABDOMINAL DARK URINE, JAUDICE, BACK PAIN, ED Provider: Mary Thompson Discharge Problem: Abdominal pain, Hyperbilirubinemia, Jaundice, Alcoholic hepatitis Forms Stand Alone Forms: My [facility] [employer] Prescriptions Prescriptions: No Action furosemide 40 mg tablet 60 mg PO HS spironolactone 100 mg tablet 150 mg PO HS fluoxetine 20 mg capsule 20 mg PO HS magnesium oxide 400 mg magnesium Tablet 400 mg PO HS multivitamin [Daily-Danny] Tablet 1 tab PO HS lactulose 10 gram/15 mL solution 15 ml PO BID Rx Instructions: IF MORE THAN 4 BM'S, HOLD 1 DOSE. cholecalciferol (vitamin D3) 1,250 mcg (50,000 unit) capsule 50,000 unit PO WK Rx Instructions: SATURDAY NIGHTS potassium chloride [Klor-Con M20] 20 mEq Tablet,Er Particles/Crystals 20 meq PO [facility]HS Referrals Referrals: Kathleen Key PA-C [Primary Care Provider] -
[2024-06-09 19:34] LABS: iSTAT Creatinine 0.6 mg/dl (0.6-1.3); iSTAT Hemoglobin 13.9 g/dl (14.0-18.0); iSTAT Ionized Calcium 1.08 mmol/l (1.12-1.32); iSTAT Potassium 3.3 mmol/L (3.3-5.0)
[2024-06-09] MEDS: OPTIRAY 320 100ml IV ONE (19:35)
[2024-06-09 19:38] LABS: Basophils % (auto) 1.4 %; Eosinophils # (auto) 0.08 K/uL (0.00-0.50); Eosinophils % (auto) 1.2 %; Hematocrit (blood only) 36.4 % (42.0-52.0); Hemoglobin 12.7 g/dl (14.0-18.0); Immature Granulocytes # (auto) 0.04 K/uL (0.01-0.20); Immature Granulocytes % (auto) 0.6 %; Lymphocytes # (auto) 0.96 K/uL (1.20-3.40); Lymphocytes % (auto) 13.9 %; Mean Corpuscular Hemoglobin 29.8 pg (25.0-34.0); Mean Corpuscular Hgb Conc 34.9 g/dL (32.0-36.0); Mean Corpuscular Volume 85.4 fL (80.0-100.0); Mean Platelet Volume 10.5 fL (9.4-12.4); Monocytes # (auto) 1.53 K/uL (0.11-0.59); Monocytes % (auto) 22.2 %; Neutrophils # (auto) 4.19 K/uL (1.40-6.50); Neutrophils % (auto) 60.7 %; Platelet Count 160 K/uL (130-400); RDW Coefficient of Variation 21.6 % (11.5-14.5); RDW Standard Deviation 66.7 fL (36.4-46.3); Red Blood Count 4.26 M/uL (4.70-6.10)
[2024-06-09] MEDS: MoRPHine SULFATE 4 MG/ML 1 ML CARP\\VIAL IV STA (19:42)
[2024-06-09] MEDS: SODIUM CHLORIDE 0.9% 1,000 ML IV ONE ×2 (19:42→20:31)
[2024-06-09] MEDS: ONDANSETRON INJ 2 MG/ML 2 ML VIAL IV STA (19:42)
[2024-06-09 19:49] LABS: Appearance Urine Clear (Clear); Bacteria Urine Automated None Seen (None Seen); Bilirubin Urine 3+ (Negative); Blood Urine Negative (Negative); Cast Urine Automated 0-2 /lpf (0-2); Color Urine Dark Yellow; Epithelial Cell Urine Auto 0-2 /hpf (0-2); Glucose Urine UA Negative (Negative); Ketones Urine Negative (Negative); Leukocyte Esterase Urine 1+ (Negative); Nitrite Urine Positive (Negative); Protein Urine Trace (Negative); Specific Gravity Urine 1.021 (1.000-1.030); Urobilinogen Urine Negative (Negative); WBC Urine Automated 0-5 /hpf (0-5); pH Urine 6.5 (4.5-7.5)
[2024-06-09 19:58] LABS: Anisocytosis Present; Echinocytes 1+; Target Cells 1+; Tear Drop Cells 1+
[2024-06-09] MEDS: PIPERACILLIN/TAZOBACTAM 4.5 GM/100 ML BAG IV ONE (20:31)
[2024-06-09 21:02] LABS: Alanine Aminotransferase 29 U/L (7-52); Albumin Globulin Ratio 1.5 (0.9-2); Albumin Level 3.6 gm/dl (3.4-5.0); Anion Gap 8 (3-11); Aspartate Aminotransferase 105 U/L (13-39); Calcium 8.7 mg/dl (8.6-10.3); Carbon Dioxide 28 mmol/L (21-32); Chloride 95 mmol/L (98-107); Creatinine Clr Calc Pharmacy 138.2 ml/min; Est GFR (Non-African American) 118.2 ml/min; Globulin 2.4 gm/dl (2.5-4.0); Glucose 99 mg/dl (70-99(Fasting)); Potassium 3.4 mmol/L (3.5-5.1); Sodium 131 mmol/L (136-145)
--- NOTE | 2024-06-09 21:40 | CT Scan Report ---
Exam(s): CT ABDOMEN + PELVIS With Contrast IV Amt: 93ml optiray 320 EXAM: CT Abdomen and Pelvis With Intravenous Contrast CLINICAL HISTORY: Reason for exam: diffuse abd pain; N/V/D. TECHNIQUE: Axial computed tomography images of the abdomen and pelvis with intravenous contrast. CTDI is 22.26 mGy and DLP is 1219.53 mGy-cm. Automated exposure control was utilized for the study. A dose lowering technique was utilized adhering to the principles of ALARA. CONTRAST: Patient received 93ml optiray 320 of IV contrast COMPARISON: None. FINDINGS: Lung bases: Clear. Distal esophageal varices and esophageal wall thickening, nonspecific, cannot rule out esophagitis. Liver: Cirrhosis. Gallbladder and bile ducts: Mildly distended gallbladder with wall enhancement that is nonspecific in the setting of liver disease. No ductal dilation. Pancreas: No ductal dilation. Spleen: Moderate splenomegaly. Adrenals: Unremarkable. Kidneys and ureters: No pyelonephritis or hydronephrosis. Stomach and bowel: Mild sigmoid wall thickening is nonspecific, may reflect passive congestion, cannot rule out mild colitis. Diverticulosis without diverticulitis. Haziness in the mesentery, and prominent varices in the anterior abdomen, probably reflects passive congestion. Mildly dilated small bowel loops with fluid, nonspecific, cannot rule out mild gastroenteritis or ileus. No obstruction. Appendix: Normal. Intraperitoneal space: No free air or fluid. Bones/joints: No acute fracture. Soft tissues: Unremarkable. Vasculature: No aortic aneurysm. Lymph nodes: No enlarged lymph nodes. Bladder: No stones. Reproductive: Unremarkable as visualized. IMPRESSION: 1. Question mild sigmoid colitis and gastroenteritis/ileus. 2. Cirrhosis with splenomegaly, distal esophageal abdominal varices. 3. Normal appendix and kidneys. 4. No SBO, free air or free fluid. Electronically signed by: Giovana Anguiano M.D. 06/09/24 21:39 PM
[2024-06-09 22:11] LABS: INR 1.6 (0.9-1.1); Prothrombin Time 16.7 Seconds (9.0-12.0)
--- NOTE | 2024-06-09 22:16 | Ultrasound Report ---
Exam(s): US GALLBLADDER EXAM: US Abdomen Limited, Gallbladder CLINICAL HISTORY: Reason for exam: abd pain; jaundice. TECHNIQUE: Real-time ultrasound of the right upper quadrant with image documentation. COMPARISON: CT abdomen pelvis 06/09/24. FINDINGS: Gallbladder: Wall thickening 4 mm, is nonspecific in the presence of cirrhosis and ascites. No gallstones. Common bile duct: Unremarkable as visualized. No stones. No dilation. Pancreas: Unremarkable as visualized. Other: Trace free fluid inferior liver margin. IMPRESSION: 1. Cirrhosis and ascites. 2. No cholelithiasis or ductal dilatation. 3. Gallbladder wall thickening is nonspecific in the presence of cirrhosis and ascites. Electronically signed by: Giovana Anguiano M.D. 06/09/24 22:15 PM
[2024-06-09 23:42] LABS: Alkaline Phosphatase 152 U/L (34-104); Blood Urea Nitrogen 8 mg/dl (6-23)
--- NOTE | 2024-06-10 00:08 | History & Physical Report ---
Date of Service June 09, 2024 Assessment & Plan (1) Alcoholic hepatitis: Plan: - Acutely decompensated - ED reached out to [facility] and no acute need for transfer at present - TBili= 28, INR= 1.6, AST= 105 ALT= 29 - MELD= 26 - Maddrey's= 54.2-> would benefit from glucocorticoids. Would start 40mg prednisone daily if hepatitis panels come back negative - Continue lactulose-> ammonia level pending - Hold furosemide/spironolactone-> restart when blood pressure can tolerate - varices noted on CT would consider adding beta oniel when blood pressure can tolerate - add PPI/famotidine for GI ppx in the setting of varices and likely steroid use - some gallbladder thickening on US-> continue Zosyn for SBP and possible intraabdominal etiology - s/p 2L IVF in ED -> continue maintenance LR @ 125ml/hr for an additional liter - ammonia/lipase pending -> had to be sent out (2) Jaundice: Plan: Plan as per above (3) Hyperbilirubinemia: Plan: Plan as per above (4) Coagulopathy: Plan: - in the setting of advanced cirrhosis - will give vitamin K x 10mg IV to evaluated synthetic function of liver, trend INR (5) Hyponatremia: Plan: - Na= 131 in the setting of diarrhea and cirrhosis - asymptomatic - S/p 2L IVF in ED - continue to trend (6) Abdominal pain: Plan: - with nausea/diarrhea - possible viral etiology-> stool studies pending - plan for hepatitis/antibiotics as per above Plan Chronic Medical Conditions: Anxiety/Depression: continue SSRI VTE ppx- SCD, defer chemical pending GI eval Diet: Clears liquids, advance as tolerated Code: Full Dispo: PCU History of Present Illness Primary Care Provider: Kathleen Key PA-C 33 year old male with a past medical history alcoholic cirrhosis presenting with abdominal pain, nausea, diarrhea, worsening jaundice. GI symptoms started yesterday. Increased jaundice for the past 4-5 days. Took one dose of Tylenol yesterday. States that he has not drank alcohol in 2 years. Was following with [facility], elevated for transplant 03/2023 but felt he was well compensated at the time and did not qualify. Denies blood in stool/dark stools. Denies fever/chills, dyspnea, chest pain. In ED TBili= 28, INR= 1.6, AST= 105, ALT= 29. CT A&P with cirrhosis with splenomegaly and distal esophageal abdominal varices. Noted to have a mildly distended gallbladder with wall enhancement that is nonspecific. US gallbladder with thickening of gallbladder. Started on Zosyn in ED. ED discussed case with [facility]. Allergies Allergy/AdvReac Type Severity Reaction Status Date / Time No Known Allergies Allergy Verified 05/05/23 18:15 Home Medications Medication Instructions Recorded Confirmed Type magnesium oxide 400 mg PO HS 11/30/21 06/09/24 History fluoxetine 20 mg capsule 20 mg PO HS 11/16/22 06/09/24 History furosemide 40 mg tablet 60 mg PO HS 11/16/22 06/09/24 History spironolactone 100 mg tablet 150 mg PO HS 11/16/22 06/09/24 History multivitamin (Daily-Danny tablet) 1 tab PO HS 02/13/23 06/09/24 History cholecalciferol (vitamin D3) 1,250 50,000 unit PO WK 05/05/23 06/09/24 History mcg (50,000 unit) capsule lactulose 10 gram/15 mL oral 15 ml PO BID 05/05/23 06/09/24 History solution potassium chloride 20 mEq 20 meq PO AMHS 06/09/24 06/09/24 History tablet,extended release(part/cryst) (Klor-Con M) Past Med/Surg History Problem List (Updated 06/10/24 @ 18:28 by Seven Blunt MD) Alcoholic hepatitis (Acute) Jaundice (Acute) Hyperbilirubinemia (Acute) Abdominal pain (Acute) Multiple fractures of ribs Fracture dislocation of left shoulder joint Alcoholic cirrhosis of liver with ascites (Acute) History of portal hypertension (Acute) Hyperbilirubinemia Transaminitis Pancytopenia Leukopenia Thrombocytopenia Anemia Weakness (Acute) Discharge planning issues Orthostasis Abdominal ascites (Acute) Acute kidney injury (Acute) Acute liver failure (Acute) Coagulopathy (Acute) YENNY (acute kidney injury) Depression Anxiety Alcoholic hepatitis (Acute) Alcohol use disorder Hyponatremia Metabolic alkalosis DVT prophylaxis Abnormal CT scan Alcoholic cirrhosis of liver (Acute) Spontaneous bacterial peritonitis Medical History Hypomagnesemia Acute hypokalemia Hepatic encephalopathy Abdominal pain Ascites due to alcoholic cirrhosis Hematemesis Alcoholic hepatitis no alcohol since sep 2020 History of gastritis Migraine Vomiting Hypomagnesemia Hypokalemia Panic attacks Surgical History Hx of esophagogastroduodenoscopy History of circumcision at the age of 8 Family History Other No family history of adverse response to anesthesia Social History Smoking Status: Never smoker Second Hand Exposure: No; Do You Dip or Chew Tobacco: No; Hx Alcohol Use: No Hx Substance Use: No Preferred Language: Lao Communication Ability: Effective Wellhead Pumper Required: No Beliefs That Will Affect Care: None Current Living Situation: Other Current Living Situation Comment: Roommate current occupational status: employed Other Information That Helps Us Care for You: No Feels Safe at Home: Yes Safety Concerns: Feels Safe At This Time Physical Activity Frequency: Does not Exercise Assistive Devices: Glasses Review of Systems Review of Systems: As per above Physical Exam Physical Exam: Constitutional: well-appearing, no acute distress HEENT: NCAT, no conjunctival injection CV: regular rhythm, no murmur appreciated, extremities well-perfused, no LE edema Resp: CTABL, no wheezes/rales/rhonchi appreciated, no increased work of breathing GI: distended- mild diffuse tenderness MSK: no gross deformities appreciated Skin: jaundiced Neuro: alert, oriented, no focal neurologic deficit appreciated Results & Data Results & Data Vital Signs (Past 12 Hours) Vital Signs Temp Pulse Pulse Resp BP BP Pulse Ox 06/09/24 23:08 77 06/09/24 22:00 68 17 123/81 97 06/09/24 21:51 77 18 96 06/09/24 21:30 70 5 L 118/67 97 06/09/24 21:30 118/67 06/09/24 21:21 73 16 96 06/09/24 21:03 70 9 L 96 06/09/24 21:00 94/62 L 06/09/24 21:00 75 18 94/62 L 97 06/09/24 20:54 70 14 112/70 95 06/09/24 20:30 75 22 114/65 98 06/09/24 20:30 114/65 06/09/24 20:15 74 13 99 06/09/24 20:00 78 18 96 06/09/24 20:00 119/69 06/09/24 20:00 79 15 119/69 96 06/09/24 19:45 81 23 100 06/09/24 19:24 86 17 98 06/09/24 19:20 86 18 98 06/09/24 19:20 84 18 118/83 98 06/09/24 19:20 83 06/09/24 18:31 37.6 C H 92 H 14 126/77 99 O2 Del Method 06/09/24 23:08 06/09/24 22:00 06/09/24 21:51 06/09/24 21:30 06/09/24 21:30 06/09/24 21:21 06/09/24 21:03 06/09/24 21:00 06/09/24 21:00 Room Air 06/09/24 20:54 06/09/24 20:30 06/09/24 20:30 06/09/24 20:15 06/09/24 20:00 06/09/24 20:00 06/09/24 20:00 06/09/24 19:45 06/09/24 19:24 06/09/24 19:20 Room Air 06/09/24 19:20 Room Air 06/09/24 19:20 06/09/24 18:31 Room Air Supervising Physician Co-Signing Physician Notes Attending addendum: I have physically seen this patient, have supervised the medical residents activities, and agree with the H&P unless as otherwise noted. Assessment and Plan: Alcoholic hepatitis/cirrhosis- Total bilirubin 28.0, AST 105, ALT 29, MELD score 26 Madrey's equals 54.2 Patient be started on prednisone 40 mg daily if hepatitis B and C laboratories which are pending come back negative NPO except medications Pantoprazole IV and famotidine IV as noted Zosyn 4.5 g IV every 8 hours, as peritonitis remains in the differential Gallbladder wall thickening noted, consideration to ordering a HIDA scan ED hilario case with [facility], who felt that there was no emergent need for transfer, and suggested treatment for alcoholic hepatitis as above Coagulopathy- INR is increased from 1.4-1.6 Will do a trial of vitamin K 10 mg IV and repeat lab in a.m. Hyponatremia- Sodium 131 with normal creatinine Status post 2 L NSS bolus from the ED Recheck laboratories in the a.m. Resident Activity Tracking Resident Involvement: Resident Care Provided Care Provided: Adult Hospital Medicine
[2024-06-10 00:18] LABS: Adenovirus PCR Not Detected (NotDetected); Bordetella parapertussis PCR Not Detected (NotDetected); Bordetella pertussis PCR Not Detected (NotDetected); Chlamydia pneumoniae PCR Not Detected (NotDetected); Coronavirus 229E PCR Not Detected (NotDetected); Coronavirus CoV-2 (COVID19)PCR Not Detected (NotDetected); Coronavirus HKU1 PCR Not Detected (NotDetected); Coronavirus NL63 PCR Not Detected (NotDetected); Coronavirus OC43PCR Not Detected (NotDetected); Human Metapneumovirus PCR Not Detected (NotDetected); Influenza A PCR Not Detected (NotDetected); Influenza B PCR Not Detected (NotDetected); Mycoplasma pneumoniae PCR Not Detected (NotDetected); Parainfluenza Virus 1 PCR Not Detected (NotDetected); Parainfluenza Virus 2 PCR Not Detected (NotDetected); Parainfluenza Virus 3 PCR Not Detected (NotDetected); Parainfluenza Virus 4 PCR Not Detected (NotDetected); Respiratory Syncytial VirusPCR Not Detected (NotDetected); Rhinovirus/Enterovirus PCR Not Detected (NotDetected)
[2024-06-10] MEDS: LACTATED RINGER'S 1,000 ML IV SCH (01:25)
[2024-06-10] MEDS: POTASSIUM CHLORIDE CRTAB 20 MEQ TABCR PO STA (01:25)
[2024-06-10] MEDS: PHYTONADIONE 10 MG in DEXTROSE 5% 50 ML IV ONE (01:49)
[2024-06-10] MEDS: PIPERACILLIN/TAZOBACTAM 4.5 GM/100 ML BAG IV SCH (03:59)
[2024-06-10] MEDS: MoRPHine SULFATE 2 MG/ML CARP IV PRN (04:37)
[2024-06-10 06:54] LABS: Albumin Globulin Ratio 1.6 (0.9-2); Albumin Level 3.1 gm/dl (3.4-5.0); Bilirubin,Total 25.3 mg/dl (0.2-1.0); Calcium 7.9 mg/dl (8.6-10.3); Creatinine Clr Calc Pharmacy 143.9 ml/min; Est GFR (African American) 139.3 ml/min; Est GFR (Non-African American) 120.2 ml/min; Potassium 3.5 mmol/L (3.5-5.1); Total Protein 5.1 gm/dl (6.0-8.3)
[2024-06-10 06:57] LABS: BUN Creatinine Ratio 9.6 (10-20); Magnesium 1.6 mg/dl (1.7-2.4)
[2024-06-10 06:58] LABS: Anisocytosis Present; Basophils # (auto) 0.09 K/uL (0.00-0.20); Basophils % (auto) 1.8 %; Eosinophils # (auto) 0.11 K/uL (0.00-0.50); Eosinophils % (auto) 2.2 %; Hematocrit (blood only) 34.5 % (42.0-52.0); Immature Granulocytes # (auto) 0.02 K/uL (0.01-0.20); Immature Granulocytes % (auto) 0.4 %; Lymphocytes # (auto) 0.97 K/uL (1.20-3.40); Lymphocytes % (auto) 19.3 %; Mean Corpuscular Hemoglobin 29.9 pg (25.0-34.0); Mean Corpuscular Hgb Conc 34.8 g/dL (32.0-36.0); Mean Platelet Volume 9.9 fL (9.4-12.4); Monocytes # (auto) 0.87 K/uL (0.11-0.59); Monocytes % (auto) 17.3 %; Neutrophils # (auto) 2.96 K/uL (1.40-6.50); Platelet Count 139 K/uL (130-400); Polychromasia 1+; RDW Coefficient of Variation 22.1 % (11.5-14.5); RDW Standard Deviation 68.4 fL (36.4-46.3); Red Blood Count 4.01 M/uL (4.70-6.10); Target Cells 1+; White Blood Count 5.02 K/ul (4.8-10.8)
[2024-06-10 07:11] LABS: INR 1.7 (0.9-1.1); Prothrombin Time 17.3 Seconds (9.0-12.0)
[2024-06-10] MEDS: PANTOprazole 40 MG in SYRINGE 0 ML IV SCH (08:53)
[2024-06-10] MEDS: LACTULOSE SYRUP 20 GM/30 ML UDC PO SCH (08:54)
[2024-06-10] MEDS: FAMOTIDINE 40 MG TABLET PO SCH (08:54)
--- NOTE | 2024-06-10 12:15 | Gastrointestinal Consultation ---
Date of Consultation June 10, 2024 Assessment & Plan (1) Alcoholic hepatitis: Alcoholic hepatitis that has worsened for some reason although labs today are better. Perhaps worsened by acute enteritis as he denies alcohol. Xray readings confusing with CT saying no intraperitoneal fluid and ultrasound mentioning ascites. Agree with coverage of SBP with zosyn. Don't have an issue with steroids for alcoholic hepatitis at this point. Okay with me to advance diet when you are ready. Not much else we can offer now. History of Present Illness Reason for Consultation: alcoholic hepatitis Attending Physician: Wilfredo Kevin DO History of Present Illness 33 year old man with alcoholic liver disease who presents with abdominal pain and worsening jaundice. The jaundice he noticed about 4 days ago. The pain started two days ago with pain in his lower abdomen. He does have a history of ascites but his last paracentesis was 2 years ago. He denies fevers or chills. He did have a few weeks of diarrhea but feels he is constipated now. CT scan on admit suggests mild enteritis and no ascites. Presence of varices and gallstones. US shows gallstones but mentions ascites. Allergies Allergy/AdvReac Type Severity Reaction Status Date / Time No Known Allergies Allergy Verified 05/05/23 18:15 Home Medications Medication Instructions Recorded Confirmed Type magnesium oxide 400 mg PO HS 11/30/21 06/09/24 History fluoxetine 20 mg capsule 20 mg PO HS 11/16/22 06/09/24 History furosemide 40 mg tablet 60 mg PO HS 11/16/22 06/09/24 History spironolactone 100 mg tablet 150 mg PO HS 11/16/22 06/09/24 History multivitamin (Daily-Danny tablet) 1 tab PO HS 02/13/23 06/09/24 History cholecalciferol (vitamin D3) 1,250 50,000 unit PO WK 05/05/23 06/09/24 History mcg (50,000 unit) capsule lactulose 10 gram/15 mL oral 15 ml PO BID 05/05/23 06/09/24 History solution potassium chloride 20 mEq 20 meq PO AMHS 06/09/24 06/09/24 History tablet,extended release(part/cryst) (Klor-Con M) Patient History Medical History Hypomagnesemia Acute hypokalemia Hepatic encephalopathy Abdominal pain Ascites due to alcoholic cirrhosis Hematemesis Alcoholic hepatitis no alcohol since sep 2020 History of gastritis Migraine Vomiting Hypomagnesemia Hypokalemia Panic attacks Surgical History Hx of esophagogastroduodenoscopy History of circumcision at the age of 8 Family History Other No family history of adverse response to anesthesia Social History Smoking Status: Never smoker Second Hand Exposure: No; Do You Dip or Chew Tobacco: No; Hx Alcohol Use: No Hx Substance Use: No Preferred Language: Yemeni Communication Ability: Effective Animal Sticker Required: No Beliefs That Will Affect Care: None Current Living Situation: Other Current Living Situation Comment: Roommate current occupational status: employed Other Information That Helps Us Care for You: No Feels Safe at Home: Yes Safety Concerns: Feels Safe At This Time Physical Activity Frequency: Does not Exercise Assistive Devices: Glasses Review of Systems Review of Systems: All systems reviewed & are unremarkable except as noted in HPI & below Physical Exam Physical Exam: markedly icteric Constitutional: + ill appearing Eyes: sclerae not anicteric Neck: trachea midline, no thyromegaly Respiratory: normal respiratory effort, lungs clear to auscultation Cardiovascular: RRR, no murmur, no edema Gastrointestinal (Abdomen): normal bowel sounds, soft, nontender, no hepatosplenomegaly Results & Data Vital Signs (Past 12 Hours) Vital Signs Pulse Pulse Resp BP BP Pulse Ox Pulse Ox 06/10/24 11:36 83 18 120/69 97 06/10/24 08:53 78 18 131/75 96 06/10/24 04:04 77 22 140/79 99 06/10/24 04:04 98 06/10/24 01:18 74 15 119/69 98 06/10/24 00:30 77 13 112/69 95 O2 Del Method O2 Del Method 06/10/24 11:36 Room Air 06/10/24 08:53 Room Air 06/10/24 04:04 Room Air 06/10/24 04:04 Room Air 06/10/24 01:18 06/10/24 00:30 Laboratory Results 06/10/24 06/10/24 06/10/24 Range/Units 11:30 07:53 06:13 WBC 5.02 (4.8-10.8) K/ul RBC 4.01 L (4.70-6.10) M/uL Hgb 12.0 L (14.0-18.0) g/dl POC Hgb (14.0-18.0) g/dl Hct 34.5 L (42.0-52.0) % POC Hct (42-52) % MCV 86.0 (80.0-100.0) fL MCH 29.9 (25.0-34.0) pg MCHC 34.8 (32.0-36.0) g/dL RDW Std Deviation 68.4 H (36.4-46.3) fL RDW Coeff of [place] 22.1 H (11.5-14.5) % Plt Count 139 (130-400) K/uL MPV 9.9 (9.4-12.4) fL Immature Gran % (Auto) 0.4 % Neut % (Auto) 59.0 % Lymph % (Auto) 19.3 % [place] % (Auto) 17.3 % Eos % (Auto) 2.2 % Baso % (Auto) 1.8 % Neut # (Auto) 2.96 (1.40-6.50) K/uL Lymph # (Auto) 0.97 L (1.20-3.40) K/uL [place] # (Auto) 0.87 H (0.11-0.59) K/uL Eos # (Auto) 0.11 (0.00-0.50) K/uL Baso # (Auto) 0.09 (0.00-0.20) K/uL Immature Gran # (Auto) 0.02 (0.01-0.20) K/uL Polychromasia 1+ Anisocytosis Present Target Cells 1+ Tear Drop Cells Echinocytes PT 17.3 H (9.0-12.0) Seconds INR 1.7 H (0.9-1.1) POC Sodium (135-144) mmol/L Sodium 135 L (136-145) mmol/L POC Potassium (3.3-5.0) mmol/L Potassium 3.5 (3.5-5.1) mmol/L POC Chloride (101-112) mmol/L Chloride 102 (98-107) mmol/L Carbon Dioxide 26 (21-32) mmol/L POC Total CO2 (24-31) mmol/L Anion Gap 7 (3-11) POC Anion Gap (16-25) mmol/L POC BUN (7-18) mg/dl BUN 7 (6-23) mg/dl Creatinine 0.73 (0.6-1.4) mg/dl POC Creatinine (0.6-1.3) mg/dl Est Cr Clr Drug Dosing 143.9 ml/min Est GFR ( Amer) 139.3 ml/min Est GFR (Non-Af Amer) 120.2 ml/min BUN/Creatinine Ratio 9.6 L Glucose 84 (70-99(Fasting)) mg/dl POC Glucose (other) (70-99) mg/dl Calcium 7.9 L (8.6-10.3) mg/dl POC Ioniz Calcium Genet (1.12-1.32) mmol/l Magnesium 1.6 L (1.7-2.4) mg/dl Total Bilirubin 25.3 H (0.2-1.0) mg/dl AST 96 H (13-39) U/L ALT 27 (7-52) U/L Alkaline Phosphatase 114 H (34-104) U/L Ammonia TNP Total Protein 5.1 L (6.0-8.3) gm/dl Albumin 3.1 L (3.4-5.0) gm/dl Globulin 2.0 L (2.5-4.0) gm/dl Albumin/Globulin Ratio 1.6 (0.9-2) Lipase Urine Color Urine Appearance (Clear) Urine pH (4.5-7.5) Ur Specific [place] (1.000-1.030) Urine Protein (Negative) Urine Glucose (UA) (Negative) Urine Ketones (Negative) Urine Blood (Negative) Urine Nitrite (Negative) Urine Bilirubin (Negative) Urine Urobilinogen (Negative) Ur Leukocyte Esterase (Negative) Urine WBC (Auto) (0-5) /hpf Urine RBC (Auto) (0-2) /hpf U Hyaline Cast (Auto) (0-2) /lpf U Epithel Cells (Auto) (0-2) /hpf Urine Bacteria (Auto) (None Seen) Acetaminophen (10-30) ug/ml Ethyl Alcohol mg/dL (<10.0) mg/dl Adenovirus (PCR) (NotDetected) B. pertussis DNA (PCR) (NotDetected) B.parapertussis DNA PCR (NotDetected) C. pneumoniae DNA (PCR) (NotDetected) Coronavirus OC43 (PCR) (NotDetected) Coronavirus HKU1 (PCR) (NotDetected) Coronavirus 229E (PCR) (NotDetected) SARS-CoV-2 (PCR) (NotDetected) Coronavirus NL63 (PCR) (NotDetected) Hepatitis A IgM Ab Hep Bs Antigen Hep B Core IgM Ab Hepatitis C Antibody Monoscreen Cancelled Human Metapneumovir PCR (NotDetected) Influenza Type A (PCR) (NotDetected) Influenza Type B (PCR) (NotDetected) M. pneumoniae (PCR) (NotDetected) Parainfluenza 1 (PCR) (NotDetected) Parainfluenza 2 (PCR) (NotDetected) Parainfluenza 3 (PCR) (NotDetected) Parainfluenza 4 (PCR) (NotDetected) RSV (PCR) (NotDetected) Entero/Rhino (PCR) (NotDetected) Miscellaneous Test Pending Ref Lab Test Result 06/10/24 06/09/24 06/09/24 Range/Units 00:47 23:13 22:30 WBC (4.8-10.8) K/ul RBC (4.70-6.10) M/uL Hgb (14.0-18.0) g/dl POC Hgb (14.0-18.0) g/dl Hct (42.0-52.0) % POC Hct (42-52) % MCV (80.0-100.0) fL MCH (25.0-34.0) pg MCHC (32.0-36.0) g/dL RDW Std Deviation (36.4-46.3) fL RDW Coeff of [place] (11.5-14.5) % Plt Count (130-400) K/uL MPV (9.4-12.4) fL Immature Gran % (Auto) % Neut % (Auto) % Lymph % (Auto) % [place] % (Auto) % Eos % (Auto) % Baso % (Auto) % Neut # (Auto) (1.40-6.50) K/uL Lymph # (Auto) (1.20-3.40) K/uL [place] # (Auto) (0.11-0.59) K/uL Eos # (Auto) (0.00-0.50) K/uL Baso # (Auto) (0.00-0.20) K/uL Immature Gran # (Auto) (0.01-0.20) K/uL Polychromasia Anisocytosis Target Cells Tear Drop Cells Echinocytes PT (9.0-12.0) Seconds INR (0.9-1.1) POC Sodium (135-144) mmol/L Sodium (136-145) mmol/L POC Potassium (3.3-5.0) mmol/L Potassium (3.5-5.1) mmol/L POC Chloride (101-112) mmol/L Chloride (98-107) mmol/L Carbon Dioxide (21-32) mmol/L POC Total CO2 (24-31) mmol/L Anion Gap (3-11) POC Anion Gap (16-25) mmol/L POC BUN (7-18) mg/dl BUN (6-23) mg/dl Creatinine (0.6-1.4) mg/dl POC Creatinine (0.6-1.3) mg/dl Est Cr Clr Drug Dosing ml/min Est GFR ( Amer) ml/min Est GFR (Non-Af Amer) ml/min BUN/Creatinine Ratio Glucose (70-99(Fasting)) mg/dl POC Glucose (other) (70-99) mg/dl Calcium (8.6-10.3) mg/dl POC Ioniz Calcium Genet (1.12-1.32) mmol/l Magnesium (1.7-2.4) mg/dl Total Bilirubin (0.2-1.0) mg/dl AST (13-39) U/L ALT (7-52) U/L Alkaline Phosphatase (34-104) U/L Ammonia TNP Total Protein (6.0-8.3) gm/dl Albumin (3.4-5.0) gm/dl Globulin (2.5-4.0) gm/dl Albumin/Globulin Ratio (0.9-2) Lipase Urine Color Urine Appearance (Clear) Urine pH (4.5-7.5) Ur Specific [place] (1.000-1.030) Urine Protein (Negative) Urine Glucose (UA) (Negative) Urine Ketones (Negative) Urine Blood (Negative) Urine Nitrite (Negative) Urine Bilirubin (Negative) Urine Urobilinogen (Negative) Ur Leukocyte Esterase (Negative) Urine WBC (Auto) (0-5) /hpf Urine RBC (Auto) (0-2) /hpf U Hyaline Cast (Auto) (0-2) /lpf U Epithel Cells (Auto) (0-2) /hpf Urine Bacteria (Auto) (None Seen) Acetaminophen < 3 L (10-30) ug/ml Ethyl Alcohol mg/dL 11.1 H (<10.0) mg/dl Adenovirus (PCR) Not Detected (NotDetected) B. pertussis DNA (PCR) Not Detected (NotDetected) B.parapertussis DNA PCR Not Detected (NotDetected) C. pneumoniae DNA (PCR) Not Detected (NotDetected) Coronavirus OC43 (PCR) Not Detected (NotDetected) Coronavirus HKU1 (PCR) Not Detected (NotDetected) Coronavirus 229E (PCR) Not Detected (NotDetected) SARS-CoV-2 (PCR) Not Detected (NotDetected) Coronavirus NL63 (PCR) Not Detected (NotDetected) Hepatitis A IgM Ab Pending Hep Bs Antigen Hep B Core IgM Ab Pending Hepatitis C Antibody Monoscreen Human Metapneumovir PCR Not Detected (NotDetected) Influenza Type A (PCR) Not Detected (NotDetected) Influenza Type B (PCR) Not Detected (NotDetected) M. pneumoniae (PCR) Not Detected (NotDetected) Parainfluenza 1 (PCR) Not Detected (NotDetected) Parainfluenza 2 (PCR) Not Detected (NotDetected) Parainfluenza 3 (PCR) Not Detected (NotDetected) Parainfluenza 4 (PCR) Not Detected (NotDetected) RSV (PCR) Not Detected (NotDetected) Entero/Rhino (PCR) Not Detected (NotDetected) Miscellaneous Test Ref Lab Test Result Pending 06/09/24 06/09/24 06/09/24 Range/Units 19:21 19:15 18:35 WBC 6.90 (4.8-10.8) K/ul RBC 4.26 L (4.70-6.10) M/uL Hgb 12.7 L (14.0-18.0) g/dl POC Hgb 13.9 L (14.0-18.0) g/dl Hct 36.4 L (42.0-52.0) % POC Hct 41 L (42-52) % MCV 85.4 (80.0-100.0) fL MCH 29.8 (25.0-34.0) pg MCHC 34.9 (32.0-36.0) g/dL RDW Std Deviation 66.7 H (36.4-46.3) fL RDW Coeff of [place] 21.6 H (11.5-14.5) % Plt Count 160 (130-400) K/uL MPV 10.5 (9.4-12.4) fL Immature Gran % (Auto) 0.6 % Neut % (Auto) 60.7 % Lymph % (Auto) 13.9 % [place] % (Auto) 22.2 % Eos % (Auto) 1.2 % Baso % (Auto) 1.4 % Neut # (Auto) 4.19 (1.40-6.50) K/uL Lymph # (Auto) 0.96 L (1.20-3.40) K/uL [place] # (Auto) 1.53 H (0.11-0.59) K/uL Eos # (Auto) 0.08 (0.00-0.50) K/uL Baso # (Auto) 0.10 (0.00-0.20) K/uL Immature Gran # (Auto) 0.04 (0.01-0.20) K/uL Polychromasia Anisocytosis Present Target Cells 1+ Tear Drop Cells 1+ Echinocytes 1+ PT 16.7 H (9.0-12.0) Seconds INR 1.6 H (0.9-1.1) POC Sodium 133 L (135-144) mmol/L Sodium 131 L (136-145) mmol/L POC Potassium 3.3 (3.3-5.0) mmol/L Potassium 3.4 L (3.5-5.1) mmol/L POC Chloride 94 L (101-112) mmol/L Chloride 95 L (98-107) mmol/L Carbon Dioxide 28 (21-32) mmol/L POC Total CO2 26 (24-31) mmol/L Anion Gap 8 (3-11) POC Anion Gap 17.0 (16-25) mmol/L POC BUN 6 L (7-18) mg/dl BUN 8 (6-23) mg/dl Creatinine 0.76 (0.6-1.4) mg/dl POC Creatinine 0.6 (0.6-1.3) mg/dl Est Cr Clr Drug Dosing 138.2 ml/min Est GFR ( Amer) 137.0 ml/min Est GFR (Non-Af Amer) 118.2 ml/min BUN/Creatinine Ratio TNP Glucose 99 (70-99(Fasting)) mg/dl POC Glucose (other) 99 (70-99) mg/dl Calcium 8.7 (8.6-10.3) mg/dl POC Ioniz Calcium Genet 1.08 L (1.12-1.32) mmol/l Magnesium (1.7-2.4) mg/dl Total Bilirubin 28.0 H (0.2-1.0) mg/dl AST 105 H (13-39) U/L ALT 29 (7-52) U/L Alkaline Phosphatase 152 H (34-104) U/L Ammonia Total Protein 6.0 (6.0-8.3) gm/dl Albumin 3.6 (3.4-5.0) gm/dl Globulin 2.4 L (2.5-4.0) gm/dl Albumin/Globulin Ratio 1.5 (0.9-2) Lipase TNP Urine Color Dark Yellow Urine Appearance Clear (Clear) Urine pH 6.5 (4.5-7.5) Ur Specific [place] 1.021 (1.000-1.030) Urine Protein Trace H (Negative) Urine Glucose (UA) Negative (Negative) Urine Ketones Negative (Negative) Urine Blood Negative (Negative) Urine Nitrite Positive A (Negative) Urine Bilirubin 3+ H (Negative) Urine Urobilinogen Negative (Negative) Ur Leukocyte Esterase 1+ H (Negative) Urine WBC (Auto) 0-5 (0-5) /hpf Urine RBC (Auto) 6-10 H (0-2) /hpf U Hyaline Cast (Auto) 0-2 (0-2) /lpf U Epithel Cells (Auto) 0-2 (0-2) /hpf Urine Bacteria (Auto) None Seen (None Seen) Acetaminophen (10-30) ug/ml Ethyl Alcohol mg/dL (<10.0) mg/dl Adenovirus (PCR) (NotDetected) B. pertussis DNA (PCR) (NotDetected) B.parapertussis DNA PCR (NotDetected) C. pneumoniae DNA (PCR) (NotDetected) Coronavirus OC43 (PCR) (NotDetected) Coronavirus HKU1 (PCR) (NotDetected) Coronavirus 229E (PCR) (NotDetected) SARS-CoV-2 (PCR) (NotDetected) Coronavirus NL63 (PCR) (NotDetected) Hepatitis A IgM Ab Hep Bs Antigen Pending Hep B Core IgM Ab Hepatitis C Antibody Pending Monoscreen Human Metapneumovir PCR (NotDetected) Influenza Type A (PCR) (NotDetected) Influenza Type B (PCR) (NotDetected) M. pneumoniae (PCR) (NotDetected) Parainfluenza 1 (PCR) (NotDetected) Parainfluenza 2 (PCR) (NotDetected) Parainfluenza 3 (PCR) (NotDetected) Parainfluenza 4 (PCR) (NotDetected) RSV (PCR) (NotDetected) Entero/Rhino (PCR) (NotDetected) Miscellaneous Test Ref Lab Test Result Pending Diagnostic Findings Abdomen/Pelvis CT 06/09/24 19:07 Exam(s): CT ABDOMEN + PELVIS With Contrast IV Amt: 93ml optiray 320 EXAM: CT Abdomen and Pelvis With Intravenous Contrast CLINICAL HISTORY: Reason for exam: diffuse abd pain; N/V/D. TECHNIQUE: Axial computed tomography images of the abdomen and pelvis with intravenous contrast. CTDI is 22.26 mGy and DLP is 1219.53 mGy-cm. Automated exposure control was utilized for the study. A dose lowering technique was utilized adhering to the principles of ALARA. CONTRAST: Patient received 93ml optiray 320 of IV contrast COMPARISON: None. FINDINGS: Lung bases: Clear. Distal esophageal varices and esophageal wall thickening, nonspecific, cannot rule out esophagitis. Liver: Cirrhosis. Gallbladder and bile ducts: Mildly distended gallbladder with wall enhancement that is nonspecific in the setting of liver disease. No ductal dilation. Pancreas: No ductal dilation. Spleen: Moderate splenomegaly. Adrenals: Unremarkable. Kidneys and ureters: No pyelonephritis or hydronephrosis. Stomach and bowel: Mild sigmoid wall thickening is nonspecific, may reflect passive congestion, cannot rule out mild colitis. Diverticulosis without diverticulitis. Haziness in the mesentery, and prominent varices in the anterior abdomen, probably reflects passive congestion. Mildly dilated small bowel loops with fluid, nonspecific, cannot rule out mild gastroenteritis or ileus. No obstruction. Appendix: Normal. Intraperitoneal space: No free air or fluid. Bones/joints: No acute fracture. Soft tissues: Unremarkable. Vasculature: No aortic aneurysm. Lymph nodes: No enlarged lymph nodes. Bladder: No stones. Reproductive: Unremarkable as visualized. IMPRESSION: 1. Question mild sigmoid colitis and gastroenteritis/ileus. 2. Cirrhosis with splenomegaly, distal esophageal abdominal varices. 3. Normal appendix and kidneys. 4. No SBO, free air or free fluid. Electronically signed by: Giovana Anguiano M.D. 06/09/24 21:39 PM Gallbladder Ultrasound 06/09/24 19:48 Exam(s): US GALLBLADDER EXAM: US Abdomen Limited, Gallbladder CLINICAL HISTORY: Reason for exam: abd pain; jaundice. TECHNIQUE: Real-time ultrasound of the right upper quadrant with image documentation. COMPARISON: CT abdomen pelvis 06/09/24. FINDINGS: Gallbladder: Wall thickening 4 mm, is nonspecific in the presence of cirrhosis and ascites. No gallstones. Common bile duct: Unremarkable as visualized. No stones. No dilation. Pancreas: Unremarkable as visualized. Other: Trace free fluid inferior liver margin. IMPRESSION: 1. Cirrhosis and ascites. 2. No cholelithiasis or ductal dilatation. 3. Gallbladder wall thickening is nonspecific in the presence of cirrhosis and ascites. Electronically signed by: Giovana Anguiano M.D. 06/09/24 22:15 PM
[2024-06-10 12:46] LABS: Hep B Surface Ag with confirm Negative (Negative)
[2024-06-10 12:51] LABS: Hep C Ab Rflx HepCQuant RNA Negative (Negative)
--- NOTE | 2024-06-10 13:37 | XRay Report ---
XR chest 2V PA/lateral CLINICAL HISTORY: cough TECHNIQUE: 2 views of the chest were obtained. Comparison: Comparison is made to chest radiograph 11/16/2022 FINDINGS: No lines and tubes are seen. The cardiomediastinal silhouette is normal. The lungs are clear. No evid ence of pleural effusion or pneumothorax. IMPRESSION: No acute abnormalities and in particular no radiographic evidence of pneumonia. ACT 112: Negative or not required by law. Electronically signed by: Andres Alcala M.D. 06/10/2024 1:36 PM
--- NOTE | 2024-06-10 14:14 | Hospitalist Progress Note ---
Date of Service June 10, 2024 Assessment & Plan (1) Alcoholic hepatitis: Plan: - Acutely decompensated - TBili= 25.3, INR= 1.7, AST= 96 ALT= 27 - MELD= 26 - Maddrey's= 54.2 - Hep Bs Antigen - Neg - Hep C Antibody - Neg - Pending: Hep A IgM Ab, Hep B Core IgM Ab - [place] screen - Negative - Ultrasound : ascites. mild gallbladder thickening. c/w Continue lactulose C/w PPI/famotidine c/w Zosyn PRN pain control Liquid diet. To start steroids if Viral screen is negative. check labs. GI onboard (2) Jaundice: Plan: As per plan above (3) Abdominal ascites: Plan: +US but not enough to drain for sampling/testing at this time. As per plan above (4) Hyperbilirubinemia: Plan: [place] jaundice. monitor (5) Abdominal pain: Plan: Likely due to hepatitis/possible SBP As above + PRN pain control. Plan Chronic Medical Conditions: Anxiety/Depression: continue SSRI Admission and Anticipated Discharge Date Admission Date: June 09, 2024 Supervising Physician Co-Signing Physician Notes I personally examined the patient and verified all gutierres points of history and exam, discussed case, and agree with decision making with Dr Dena Blunt feeling okay. Abdominal pain starting to improve or at least morphine is helping. Notes that he had noticeable onset of jaundice about 3-4 days agoabdominal pain really just starting yesterday. Lower predominance feels like a constant cramping. Also notes that a few weeks ago his roommate was sick and probably about 2 weeks ago he was sick with upper respiratory symptoms that have largely resolved. Denies any alcohol intake for the last 2 yearsnotes overall sobriety for 4 years with 1 relapse a little over 2 years ago. Generally eats healthy, but on directed questioning he did have a burger and fries 3 days ago with no problems. Vitals noted, in general he is awake and alert pleasant no distress. HEENT normocephalic atraumatic mucous membranes moist. Breathing unlabored no accessory muscle use good effort. Skin without rashes or pallor, Marked icterus. Abdomen soft nondistended no real fluid wave, diffuse mild tenderness predominantly lower abdomen as well as a little bit right upper abdomen no gu arding rebound or rigidity negative [place] sign. Jaundicedifferential fairly broad. Doubt acute alcoholic hepatitis given that he pretty reliably and repeatedly denies drinking, and does not seem evasive at all with this (his alcohol level in the ER of 11.1 being marginally above upper limits of normal seems to be a false positive most likely, PTH was sent to confirm what I believe is his reported sobrietymostly to make sure that given that that was on other providers differentials we can rule it outboth acutely and for his ongoing journey towards transplant); SBP was considered, but given that there is not any noticeable ascites on exam, and not enough ascites for radiology to even perform a paracentesis, SBP seems exceedingly unlikely; biliary pathology/cholangitis seems very unlikely given his lack of an overall septic pictureI suspect his gallbladder is edematous due to the liver, not a primary gallbladder process itselfhis alk phos does not seem to be elevated enough and we do not see any ductal dilation on CT or ultrasoundwill continue Zosyn for now to allow for another day for the situation to evolve, for another day for serial examsbut if nothing consistent with cholangitis by tomorrow we can DC the Zosyn then; I am most suspicious of a viral insulteither a hepatitis virus such as a, B, C (we did have a recent hep A case in the community) or a systemic, "mono like" virus (we have had several young and healthy people with respiratory symptoms followed by jaundice to a bilirubin of 10 all of which with a healthy liverso my largest suspicion is that he picked up that particular viral etiology superimposed on his baseline liver disease. Serial exams, supportive care, advance diet. Otherwise as above. Appreciate GI input. Subjective CP started having abdominal pain 2 days ago in the evening. The next day, the pain progressed to be intolerable abdominal pain and lower back pain, which caused him to come to the ED. The abdominal pain was most painful in the RLQ, however it radiated to the whole abdomen. 3-4 days ago, he noticed that his skin started to jaundice. 2 days ago, he vomited 6 times. The vomit was clear. He also has been having white-colored diarrhea and dark-colored urine for the past 2 days. He denies any alcohol use for the past 2 years. His alcohol test was positive (although barely, 11.1, may talk to lab to make sure testing is correctly calibrated). When asked about this, he said that he was cooking a sauce with white wine yesterday and may not have cooked all the alcohol off, leading to the positive alcohol test. He said that he has a very robust social support regarding his alcohol use, with his roommate checking the level of his wine bottles periodically to make sure that wine is only used when CP is cooking with it. He also noticed a rash across his chest. He claimed that it was a rash associated with his psoriasis, however they appeared to be spider angiomas. Previous to 's reason for admission, he experienced an unspecified URI-like illness, involving body aches, headache, cough, and a large amount of mucus production. Review of Systems Gastrointestinal: as per Subjective / HPI Integumentary: as per Subjective / HPI Physical Exam Cardiovascular: RRR, no murmur, no edema Gastrointestinal (Abdomen): Inspection/Auscultation: normal bowel sounds Percussion/Palpation: + abdomen tender, + hepatosplenomegaly and + dullness to percussion Skin: + jaundice and + ecchymosis Multiple spider angiomas across chest bilaterally Results & Data Results & Data Vital Signs (Past 12 Hours) Vital Signs Pulse Pulse Resp BP BP Pulse Ox Pulse Ox 06/10/24 04:04 77 22 140/79 99 06/10/24 04:04 98 06/10/24 01:18 74 15 119/69 98 06/10/24 00:30 77 13 112/69 95 06/10/24 00:03 73 13 127/75 98 06/09/24 23:30 74 13 99/58 L 97 06/09/24 23:08 77 06/09/24 22:57 75 15 117/66 98 06/09/24 22:33 76 13 120/70 98 06/09/24 22:00 68 17 123/81 97 06/09/24 21:51 77 18 96 06/09/24 21:30 70 5 L 118/67 97 06/09/24 21:30 118/67 06/09/24 21:21 73 16 96 06/09/24 21:03 70 9 L 96 06/09/24 21:00 94/62 L 06/09/24 21:00 75 18 94/62 L 97 06/09/24 20:54 70 14 112/70 95 06/09/24 20:30 75 22 114/65 98 06/09/24 20:30 114/65 06/09/24 20:15 74 13 99 06/09/24 20:00 78 18 96 06/09/24 20:00 119/69 06/09/24 20:00 79 15 119/69 96 O2 Del Method O2 Del Method 06/10/24 04:04 Room Air 06/10/24 04:04 Room Air 06/10/24 01:18 06/10/24 00:30 06/10/24 00:03 06/09/24 23:30 06/09/24 23:08 06/09/24 22:57 06/09/24 22:33 06/09/24 22:00 06/09/24 21:51 06/09/24 21:30 06/09/24 21:30 06/09/24 21:21 06/09/24 21:03 06/09/24 21:00 06/09/24 21:00 Room Air 06/09/24 20:54 06/09/24 20:30 06/09/24 20:30 06/09/24 20:15 06/09/24 20:00 06/09/24 20:00 06/09/24 20:00 (1) Alcoholic hepatitis Ascites presence: unspecified Qualified Code(s): K70.10 - Alcoholic hepatitis without ascites (3) Abdominal ascites Ascites type: other type Qualified Code(s): R18.8 - Other ascites (5) Abdominal pain Abdominal location: right lower quadrant Qualified Code(s): R10.31 - Right lower quadrant pain
--- NOTE | 2024-06-10 17:08 | Billing Data ---
Date of Service June 10, 2024 Coding Level of Care Code 50631 SUB INP/OBS CARE MIN
[2024-06-10] MEDS: MULTIVITAMIN TAB PO SCH (20:39)
[2024-06-10] MEDS: FLUoxetine HCL 20 MG CAP PO SCH (20:39)
--- NOTE | 2024-06-10 22:24 | Electrocardiogram Report ---
Test Reason : Blood Pressure : */* mmHG Vent. Rate : 82 BPM Atrial Rate : 82 BPM P-R Int : 168 ms QRS Dur : 92 ms QT Int : 408 ms P-R-T Axes : 12 22 5 degrees QTcB Int : 476 ms Normal sinus rhythm Normal ECG When compared with ECG of 31-Aug-2023 16:27, Criteria for Anterior infarct are no longer Present Minimal criteria for Inferior infarct are no longer Present Nonspecific T wave abnormality no longer evident in Lateral leads Confirmed by Eze Gregorio ([id number]) on 06/10/2024 10:23:56 PM Referred By: REFERRED SELF Confirmed By: Eze Gregorio
--- NOTE | 2024-06-10 23:26 | Billing Data ---
Date of Service June 10, 2024 Coding Level of Care Code 91906 INT INP/OBS CARE
[2024-06-11 06:04] LABS: Basophils # (auto) 0.12 K/uL (0.00-0.20); Basophils % (auto) 2.4 %; Eosinophils # (auto) 0.15 K/uL (0.00-0.50); Hematocrit (blood only) 32.8 % (42.0-52.0); Hemoglobin 11.5 g/dl (14.0-18.0); Immature Granulocytes # (auto) 0.03 K/uL (0.01-0.20); Immature Granulocytes % (auto) 0.6 %; Lymphocytes # (auto) 0.82 K/uL (1.20-3.40); Lymphocytes % (auto) 16.5 %; Mean Corpuscular Hemoglobin 29.9 pg (25.0-34.0); Mean Corpuscular Hgb Conc 35.1 g/dL (32.0-36.0); Mean Corpuscular Volume 85.2 fL (80.0-100.0); Mean Platelet Volume 9.6 fL (9.4-12.4); Monocytes # (auto) 0.77 K/uL (0.11-0.59); Monocytes % (auto) 15.5 %; Neutrophils # (auto) 3.07 K/uL (1.40-6.50); Platelet Count 151 K/uL (130-400); RDW Coefficient of Variation 22.3 % (11.5-14.5); Red Blood Count 3.85 M/uL (4.70-6.10); White Blood Count 4.96 K/ul (4.8-10.8)
[2024-06-11 06:32] LABS: INR 1.5 (0.9-1.1); Prothrombin Time 15.5 Seconds (9.0-12.0)
[2024-06-11 06:40] LABS: Magnesium 1.8 mg/dl (1.7-2.4)
[2024-06-11 06:41] LABS: Albumin Globulin Ratio 1.5 (0.9-2); Albumin Level 2.9 gm/dl (3.4-5.0); Anisocytosis Present; BUN Creatinine Ratio 9.2 (10-20); Bilirubin,Total 24.7 mg/dl (0.2-1.0); Calcium 7.8 mg/dl (8.6-10.3); Creatinine Clr Calc Pharmacy 138.3 ml/min; Est GFR (Non-African American) 118.2 ml/min; Potassium 3.6 mmol/L (3.5-5.1); Total Protein 4.9 gm/dl (6.0-8.3)
--- NOTE | 2024-06-11 10:20 | Gastroenterology Progress Note ---
Date of Service June 11, 2024 Assessment & Plan (1) Alcoholic hepatitis: Plan: Seems to be doing well. Okay with me to discharge. I am going off service so will sign off. Please call GI evaluation assistant if needed Admission and Anticipated Discharge Date Admission Date: June 09, 2024 Subjective Feels well today. Labs stable if not a little better. Physical Exam Physical Exam: Still jaundiced Constitutional: WD/WN, vitals as above Results & Data Vital Signs (Past 12 Hours) Vital Signs Temp Pulse Resp BP Pulse Ox O2 Del Method 06/11/24 07:26 37.3 C 84 18 120/71 96 Room Air 06/11/24 03:22 37.2 C 77 18 114/73 96 Room Air 06/10/24 22:25 36.9 C 71 18 127/75 96 Room Air (1) Alcoholic hepatitis Ascites presence: unspecified Qualified Code(s): K70.10 - Alcoholic hepatitis without ascites
[2024-06-11 12:17] LABS: Hepatitis A Antibody IgM NON-REACTIVE (NON-REACTIVE); Hepatitis B Core Antibody IgM NON-REACTIVE (NON-REACTIVE)
--- NOTE | 2024-06-11 14:14 | Hospitalist Progress Note ---
Date of Service June 11, 2024 Assessment & Plan (1) Liver disorder due to infection: Plan: - Acutely decompensated - Patient had viral illness in weeks prior to illness - Previous patients in the area has a mono-like illness that raised bilirubin to 10 - Labs are trending in the right direction - TBili= 24.7, INR= 1.5, AST= 94 ALT= 29 - MELD= 25 - Maddrey's= 45.4 - Hep A IgM Ab - Non reactive - Heb B Core IgM Ab - Non reactive - Hep Bs Antigen - Neg - Hep C Antibody - Neg - [place] screen - Negative - Pending: EBV Capsid IgG, IgM, Nuclear Antigen Ab, EBV EA Restrict + Diffuse, EBV Antibody Interp c/w Continue lactulose C/w PPI/famotidine PRN pain control Transition to regular diet To start steroids if Viral screen is negative. check labs. GI onboard (2) Jaundice: Plan: As per plan above (3) Abdominal pain: Plan: Likely due to hepatitis As above + PRN pain control. (4) Alcoholic hepatitis: Plan: - To be clear due to possible confusion in prior documentation, current illness is likely not to be due to alcoholic hepatitis - Patient has been sober for 2 years - Patient has chronic liver disease due to alcohol, however current reason for admission is likely due to a viral cause - Currently testing for viral causes of symptoms as per plan listed above Plan Chronic Medical Conditions: Anxiety/Depression: continue SSRI Admission and Anticipated Discharge Date Admission Date: June 09, 2024 Supervising Physician Co-Signing Physician Notes I personally examined the patient and verified all gutierres points of history and exam, discussed case, and agree with decision making with Dr Delong and Vincent Burch MS2 Feeling about the same as yesterday. Still diffuse abdominal pain worse bilateral lower quadrants with a bit of a cramping and dull ache quality to it. He is able to eat well and while he had to go slow, he was able to eat pretty much his entire lunchgoing slow seems to be a fairly chronic thing for him off and on with his baseline disease. He otherwise has no new complaints. Vitals noted, in general he is awake and alert pleasant no distress. HEENT normocephalic atraumatic mucous membranes moist. Breathing unlabored no accessory muscle use good effort. Skin with diffuse jaundice. Labs noted jaundicegiven his baseline liver disease the differential is quite broadbut at this point in time a viral insult superimposed on his chronic alcoholic cirrhosis appears to be the most likelyand while viral etiologies for hepatitis A, B, and C are all still pending, given that we have seen several people with a mono like virus in the community have completely healthy liver with a bilirubin of 10 during the acute phase of illness, I am most suspicious of a mono like illness hereespecially given that he had viral respiratory symptoms about a week ago. We did consider SBPbut fortunately he does not have enough ascites to tap making this exceedingly unlikely. We did consider biliary etiologybut this has absolutely not involved in a way that appears consistent with biliary (given SBP and biliary effectively ruled out we will stop Zosyn), and he seems to be very forthcoming about his alcohol history and denies any recent alcohol intaketherefore acute alcoholic hepatitis seems to be off the differential (of note his alcohol level in the ER was 11.1 with an upper limits of normal being 10this is such a nominal elevation and seems to be of no clear significanceand I do wonder about lab error given that it really would not be consistent with alcohol intakeespecially not to a degree to cause alcoholic hepatitis) improving, hopefully home soon Subjective Patient is feeling better today. His skin is still jaundiced, has spider angiomas, and has abdominal pain upon palpation. However, he has not experienced any nausea, vomiting, or diarrhea. His urine is no longer a dark brown color and has returned to yellow. His abdominal pain today was a 6-7/10 while yesterday it was an 8-9/10. He has not had a bowl movement since admission. Patient is tolerating liquids well. He said that he would like to start eating a regular diet. Given his improvement in symptoms and no nausea/vomiting, we will start a regular diet. Review of Systems Genitourinary: + as per Subjective / HPI Physical Exam Gastrointestinal (Abdomen): Abdomen tender to palpation, although less than yesterday Skin: + jaundice Spider angiomas Results & Data Results & Data Vital Signs (Past 12 Hours) Vital Signs Temp Pulse Resp BP Pulse Ox O2 Del Method 06/11/24 10:50 37.1 C 79 20 120/71 98 Room Air 06/11/24 07:26 37.3 C 84 18 120/71 96 Room Air 06/11/24 03:22 37.2 C 77 18 114/73 96 Room Air (3) Abdominal pain Abdominal location: right lower quadrant Qualified Code(s): R10.31 - Right lower quadrant pain (4) Alcoholic hepatitis Ascites presence: unspecified Qualified Code(s): K70.10 - Alcoholic hepatitis without ascites
--- NOTE | 2024-06-11 17:49 | Billing Data ---
Date of Service June 11, 2024 Coding Level of Care Code 64547 SUB INP/OBS CARE
--- NOTE | 2024-06-12 04:57 | Communication Note ---
Date of Service: June 12, 2024 Notified by nursing of concern for blood streaked stool, stool was loose. Pt states that he had similar episodes at home prior to coming it, this episode is similar to what was going on at home. Hemodynamically stable. On IV PPI BID and IV famotidine. Will get CBC now with AM labs. Add type and screen. Check Hemoccult.
[2024-06-12] MEDS: ONDANSETRON INJ 2 MG/ML 2 ML VIAL ONE (05:05)
[2024-06-12] MEDS: ONDANSETRON INJ 2 MG/ML 2 ML VIAL IV STA (05:06)
[2024-06-12] MEDS: FAMOTIDINE 20MG IV PUSH 20 MG/5 ML SYR IV SCH (05:38)
[2024-06-12 06:26] LABS: Basophils # (auto) 0.11 K/uL (0.00-0.20); Basophils % (auto) 1.7 %; Eosinophils # (auto) 0.12 K/uL (0.00-0.50); Eosinophils % (auto) 1.9 %; Hematocrit (blood only) 33.2 % (42.0-52.0); Hemoglobin 11.8 g/dl (14.0-18.0); Immature Granulocytes # (auto) 0.05 K/uL (0.01-0.20); Immature Granulocytes % (auto) 0.8 %; Lymphocytes # (auto) 1.06 K/uL (1.20-3.40); Lymphocytes % (auto) 16.4 %; Mean Corpuscular Hemoglobin 30.5 pg (25.0-34.0); Mean Corpuscular Hgb Conc 35.5 g/dL (32.0-36.0); Mean Corpuscular Volume 85.8 fL (80.0-100.0); Mean Platelet Volume 10.1 fL (9.4-12.4); Monocytes # (auto) 1.02 K/uL (0.11-0.59); Monocytes % (auto) 15.8 %; Neutrophils % (auto) 63.4 %; Platelet Count 172 K/uL (130-400); RDW Coefficient of Variation 22.4 % (11.5-14.5); RDW Standard Deviation 68.7 fL (36.4-46.3); Red Blood Count 3.87 M/uL (4.70-6.10); White Blood Count 6.46 K/ul (4.8-10.8)
[2024-06-12 06:50] LABS: Albumin Globulin Ratio 1.6 (0.9-2); Bilirubin,Total 23.9 mg/dl (0.2-1.0); Creatinine Clr Calc Pharmacy 135.2 ml/min; Est GFR (African American) 135.5 ml/min; Est GFR (Non-African American) 116.9 ml/min; Globulin 1.9 gm/dl (2.5-4.0); Potassium 3.9 mmol/L (3.5-5.1); Total Protein 4.9 gm/dl (6.0-8.3)
[2024-06-12 06:51] LABS: BUN Creatinine Ratio 10.2 (10-20)
[2024-06-12 07:01] LABS: Anisocytosis Present; Target Cells 1+
[2024-06-12 13:32] LABS: Epstein Barr Virus Early Ag Ab <9.00 U/mL
--- NOTE | 2024-06-12 16:18 | Hospitalist Progress Note ---
Date of Service June 12, 2024 Assessment & Plan (1) Liver disorder due to infection: Plan: - Acutely decompensated - Patient had viral illness in weeks prior to illness - Previous patients in the area has a mono-like illness that raised bilirubin to 10 - Labs seem to be stabilizing/moving in the right direction - TBili= 23.9, INR= 1.5, AST= 98 ALT= 31 - MELD= 26 - Maddrey's= 44.6 - Hep A IgM Ab - Non reactive - Heb B Core IgM Ab - Non reactive - Hep Bs Antigen - Neg - Hep C Antibody - Neg - [place] screen - Negative - Pending: EBV Capsid IgG, IgM, Nuclear Antigen Ab, EBV EA Restrict + Diffuse, EBV Antibody Interp PRN pain control Transition to regular diet To start steroids if Viral screen is negative. check labs. GI onboard (2) Bloody diarrhea: Plan: - Bloody diarrhea with bright red blood - Fecal occult blood was positive - Hbg = 11.8 - Likely due to portal hypertension from liver disease causing hemorrhoids - RBCs are marginally low, however not causing symptoms - Monitor these symptoms (3) Jaundice: Plan: As per plan above (4) Abdominal pain: Plan: Likely due to hepatitis As above + PRN pain control. Plan Chronic Medical Conditions: Anxiety/Depression: continue SSRI Admission and Anticipated Discharge Date Admission Date: June 09, 2024 Supervising Physician Co-Signing Physician Notes I personally examined the patient and verified all gutierres points of history and exam, discussed case, and agree with decision making with Vincent Burch MS2 overall feels about the same. did have 2 bloody BMs - regular stool with blood on/in/around. no other new symptoms. Vitals noted, in general he is awake and alert pleasant no distress. HEENT normocephalic atraumatic mucous membranes moist. Breathing unlabored no accessory muscle use good effort. Skin with diffuse jaundice. Labs noted jaundicegiven his baseline liver disease the differential is quite broadbut at this point in time a viral insult superimposed on his chronic alcoholic cirrhosis appears to be the most likely hepatitis A, B, and C are negative, and given that we have seen several people with a mono like virus in the community have completely healthy liver with a bilirubin of 10 during the acute phase of illness, I am most suspicious of a mono like illness hereespecially given that he had viral respiratory symptoms about a week ago. We did consider SBPbut fortunately he does not have enough ascites to tap making this exceedingly unlikely. We did consider biliary etiologybut this has absolutely not involved in a way that appears consistent with biliary (given SBP and biliary effectively ruled out we will stop Zosyn), and he seems to be very forthcoming about his alcohol history and denies any recent alcohol intaketherefore acute alcoholic hepatitis seems to be off the differential (of note his alcohol level in the ER was 11.1 with an upper limits of normal being 10this is such a nominal elevation and seems to be of no clear significanceand I do wonder about lab error given that it really would not be consistent with alcohol intakeespecially not to a degree to cause alcoholic hepatitis) bloody bowel movements seemed far and away most consistent with hemorrhoids. Hemodynamically stable. Follow into tomorrow to ensure this continues to behave is the case. Outpatient GI follow-up otherwise. improving, hopefully home soon Subjective Patient is feeling about the same as yesterday regarding his pain. Patient is still jaundiced, however some yellow coloration is staring to fade on his hands and forearms. Chest and face are still yellow. Patient started a regular diet yesterday and is tolerating it well. No nausea, vomiting. Last night pt had bloody diarrhea. This bowl moment was not painful. The blood was bright red and was mixed in with the stool as well as on top of the water. This is the first bowl movement since admission. Physical Exam Gastrointestinal (Abdomen): Abdomen tender to palpation, although less than yesterday Skin: + jaundice Spider angiomas Results & Data Results & Data Vital Signs (Past 12 Hours) Vital Signs Temp Pulse Pulse Resp BP Pulse Ox O2 Del Method 06/12/24 14:38 83 06/12/24 12:16 37.2 C 85 17 111/63 93 Room Air 06/12/24 07:58 81 (4) Abdominal pain Abdominal location: right lower quadrant Qualified Code(s): R10.31 - Right lower quadrant pain
--- NOTE | 2024-06-12 17:08 | Billing Data ---
Date of Service June 12, 2024 Coding Level of Care Code 99164 SUB INP/OBS CARE
[2024-06-13 04:50] VITALS: O2SAT 95
--- NOTE | 2024-06-13 07:40 | Hospitalist Progress Note ---
Date of Service June 13, 2024 Assessment & Plan (1) Liver disorder due to infection: Plan: - Acutely decompensated - Patient had viral illness in weeks prior to illness - Previous patients in the area has a mono-like illness that raised bilirubin to 10 - Labs seem to be stabilizing/moving in the right direction - TBili= 23.9, INR= 1.5, AST= 98 ALT= 31 - MELD= 26 - Maddrey's= 44.6 - Hep A IgM Ab - Non reactive - Heb B Core IgM Ab - Non reactive - Hep Bs Antigen - Neg - Hep C Antibody - Neg - [place] screen - Negative - EBV Capsid IgG- 34.3 - IgM- <36.00 - Nuclear Antigen Ab-64.1 - EBV EA Restrict + Diffuse- <9.00 - EBV Antibody Interp- Indicates past EBV infection PRN morphine for pain control Tolerating regular diet To start steroids if Viral screen is negative. check labs. GI onboard (2) Bloody diarrhea: Plan: - Bloody diarrhea with bright red blood - Fecal occult blood was positive - Hbg = 11.8 - Likely due to portal hypertension from liver disease causing hemorrhoids - RBCs are marginally low, however not causing symptoms - Monitor these symptoms (3) Jaundice: Plan: As per plan above (4) Abdominal pain: Plan: Likely due to hepatitis As above + PRN pain control. Plan Chronic Medical Conditions: Anxiety/Depression: continue SSRI Admission and Anticipated Discharge Date Admission Date: June 09, 2024 Subjective Pt is a 33 yo male with hx of cirrhosis who presented with jaundice, dark urine and abdominal pain on 06/09. Currently, pt is reporting reduction in need for pain medication. He is tolerating regular diet without nausea. He has not had blood in his BM since 06/11. No pain with BMs. Review of Systems Review of Systems: As per above Physical Exam Constitutional: WD/WN, vitals as above Respiratory: normal respiratory effort, lungs clear to auscultation Gastrointestinal (Abdomen): Inspection/Auscultation: normal bowel sounds Percussion/Palpation: + abdomen tender and abdomen soft Skin: + jaundice Neurologic: PERRL, EOMI, accommodation nl, no face palsy, no dysarthria Psychiatric: A+Ox3, euthymic affect Results & Data Results & Data Vital Signs (Past 12 Hours) Vital Signs Temp Pulse Pulse Resp BP Pulse Ox O2 Del Method 06/13/24 07:10 77 06/13/24 03:16 37.1 C 73 16 112/64 95 Room Air 06/13/24 00:18 76 06/13/24 00:04 36.9 C 75 16 110/61 97 Room Air (4) Abdominal pain Abdominal location: right lower quadrant Qualified Code(s): R10.31 - Right lower quadrant pain
[2024-06-13 08:06] VITALS: RESP 18
[2024-06-13 09:41] LABS: Basophils # (auto) 0.11 K/uL (0.00-0.20); Basophils % (auto) 1.6 %; Eosinophils # (auto) 0.14 K/uL (0.00-0.50); Hematocrit (blood only) 36.1 % (42.0-52.0); Hemoglobin 12.4 g/dl (14.0-18.0); Immature Granulocytes # (auto) 0.08 K/uL (0.01-0.20); Immature Granulocytes % (auto) 1.1 %; Lymphocytes # (auto) 1.11 K/uL (1.20-3.40); Lymphocytes % (auto) 15.9 %; Mean Corpuscular Hgb Conc 34.3 g/dL (32.0-36.0); Mean Corpuscular Volume 87.4 fL (80.0-100.0); Mean Platelet Volume 9.6 fL (9.4-12.4); Monocytes # (auto) 0.74 K/uL (0.11-0.59); Monocytes % (auto) 10.6 %; Neutrophils % (auto) 68.8 %; Platelet Count 178 K/uL (130-400); RDW Coefficient of Variation 22.8 % (11.5-14.5); RDW Standard Deviation 73.3 fL (36.4-46.3); Red Blood Count 4.13 M/uL (4.70-6.10); White Blood Count 6.98 K/ul (4.8-10.8)
[2024-06-13 10:10] LABS: Alanine Aminotransferase 36 U/L (7-52); Albumin Globulin Ratio 1.4 (0.9-2); Anion Gap 5 (3-11); Aspartate Aminotransferase 111 U/L (13-39); Bilirubin,Total 23.7 mg/dl (0.2-1.0); Carbon Dioxide 27 mmol/L (21-32); Chloride 101 mmol/L (98-107); Creatinine Clr Calc Pharmacy 119.1 ml/min; Est GFR (African American) 128.4 ml/min; Est GFR (Non-African American) 110.8 ml/min; Globulin 2.1 gm/dl (2.5-4.0); Glucose 107 mg/dl (70-99(Fasting)); Potassium 3.9 mmol/L (3.5-5.1); Sodium 133 mmol/L (136-145); Total Protein 5.1 gm/dl (6.0-8.3)
[2024-06-13 10:14] LABS: Anisocytosis Present
--- NOTE | 2024-06-13 11:27 | Discharge Summary ---
Date of Service June 13, 2024 Admission HPI Per Admitting Provider 33 year old male with a past medical history alcoholic cirrhosis presenting with abdominal pain, nausea, diarrhea, worsening jaundice. GI symptoms started yesterday. Increased jaundice for the past 4-5 days. Took one dose of Tylenol yesterday. States that he has not drank alcohol in 2 years. Was following with Maday BOUCHER, elevated for transplant 03/2023 but felt he was well compensated at the time and did not qualify. Denies blood in stool/dark stools. Denies fever/chills, dyspnea, chest pain. In ED TBili= 28, INR= 1.6, AST= 105, ALT= 29. CT A&P with cirrhosis with splenomegaly and distal esophageal abdominal varices. Noted to have a mildly distended gallbladder with wall enhancement that is nonspecific. US gallbladder with thickening of gallbladder. Started on Zosyn in ED. ED discussed case with Maday BOUCHER. Admission Exam Per Admitting Provider Constitutional: well-appearing, no acute distress HEENT: NCAT, no conjunctival injection CV: regular rhythm, no murmur appreciated, extremities well-perfused, no LE edema Resp: CTABL, no wheezes/rales/rhonchi appreciated, no increased work of breathing GI: distended- mild diffuse tenderness MSK: no gross deformities appreciated Skin: jaundiced Neuro: alert, oriented, no focal neurologic deficit appreciated Principal Diagnosis Liver dysfunction due to viral illness Discharge Exam Constitutional WD/WN, vitals as above Respiratory normal respiratory effort, lungs clear to auscultation Cardiovascular RRR, no murmur, no edema Gastrointestinal (Abdomen) Inspection/Auscultation: abdomen normal to inspection Percussion/Palpation: + abdomen tender and abdomen soft Skin + jaundice Neurologic PERRL, EOMI, accommodation nl, no face palsy, no dysarthria Psychiatric A+Ox3, euthymic affect Discharge Data Allergies Allergy/AdvReac Type Severity Reaction Status Date / Time No Known Allergies Allergy Verified 05/05/23 18:15 Consultations 06/09/24 23:18 ED Decision to Admit Stat 06/10/24 00:29 Consult Gastroenterology Routine Ordered Studies 06/09/24 19:07 CT Abd and Pelvis [CT abd pelvis IV con only] Stat 06/09/24 19:48 US gallbladder Stat Hospital Course (1) Liver disorder due to infection: (2) Bloody diarrhea: (3) Jaundice: (4) Abdominal pain: Plan - Acutely decompensated - Patient had viral illness in weeks prior to illness - Previous patients in the area has a mono-like illness that raised bilirubin to 10 - Labs seem to be stabilizing/moving in the right direction - TBili= 23.7, INR= 1.5, AST= 111 ALT= 36 - MELD= 26 - Maddrey's= 44.6 - Hep A IgM Ab - Non reactive - Heb B Core IgM Ab - Non reactive - Hep Bs Antigen - Neg - Hep C Antibody - Neg - [place] screen - Negative - Pending: EBV Capsid IgG, IgM, Nuclear Antigen Ab, EBV EA Restrict + Diffuse, EBV Antibody Interp PRN pain control Transition to regular diet To start steroids if Viral screen is negative. check labs. GI onboard (2) Bloody diarrhea: Plan: - Bloody diarrhea with bright red blood - Fecal occult blood was positive - Hbg = 11.8 on 06/12, 12.4 on 06/13 - Likely due to portal hypertension from liver disease causing hemorrhoids - RBCs are marginally low, however not causing symptoms - Monitor these symptoms (3) Jaundice: Plan: As per plan above (4) Abdominal pain: Plan: Likely due to hepatitis As above + PRN pain control. Plan Chronic Medical Conditions: Anxiety/Depression: continue SSRI Total Time Total Time Spent Total Time Spent (In Minutes): <30 Discharge Plan Discharge Items Patient Disposition: Home - Self-Care Reason For Visit: HEPATITIS Discharge Diagnosis: Liver disorder due to viral illness Activity: Resume your previous activity Non-emergency contact: Primary Care Provider Call non-emergency contact if: your symptoms worsen Follow-up/Referrals: Kathleen Key PA-C [Primary Care Provider] - Diet: Regular Addtl Attending Provider Instructions: You were hospitalized due to jaundice, abdominal pain, and bloody stools related to hepatitis exacerbated by viral illness. While you skin discoloration continues, it will improve as your bilirubin level reduces over time. We recommend that you follow up with your PCP in the next 7 days and have weekly lab testing to monitor your liver function until your bilirubin returns to your baseline value. You may return to your regular diet to tolerance. Maintain proper hydration and high fiber diet to reduce constipation, which could aggravate hemorrhoids that were causing bloody stools. Resume taking your home medications. Can use up to 2000mg daily of Tylenol as needed for abominal pain Pending Studies at Discharge: Yes Stand-Alone Forms: My [facility], Smoking Cessation Medications and DC Order Prescriptions: Continued furosemide 40 mg tablet 60 mg PO HS spironolactone 100 mg tablet 150 mg PO HS fluoxetine 20 mg capsule 20 mg PO HS magnesium oxide 400 mg magnesium Tablet 400 mg PO HS multivitamin [Daily-Danny] Tablet 1 tab PO HS lactulose 10 gram/15 mL solution 15 ml PO BID Rx Instructions: IF MORE THAN 4 BM'S, HOLD 1 DOSE. cholecalciferol (vitamin D3) 1,250 mcg (50,000 unit) capsule 50,000 unit PO WK Rx Instructions: SATURDAY NIGHTS potassium chloride [Klor-Con M20] 20 mEq Tablet,Er Particles/Crystals 20 meq PO [facility]HS Discharge Orders: Discharge Order (Routine); Ordered 06/13/24 Ordered By: Kavita Paul Admission Data Admit Date/Time: 06/09/24 23:44 Attending Provider: Wilfredo Kevin Admit Provider: Leora Canseco Primary Care Provider: Kathleen Key Other Providers: Muna Grayson Jr; Gavino Wright Other Interventions: Discharge Summary Assessment (RN) Last Done: 06/13/24 13:36 Supervising Physician Co-Signing Physician Notes I personally examined the patient and verified all gutierres points of history and exam, discussed case, and agree with decision making with Dr Paul No further bloody bowel movements. Feels up to going home.. Vitals noted, in general he is awake and alert pleasant no distress. HEENT normocephalic atraumatic mucous membranes moist. Breathing unlabored no accessory muscle use good effort. Skin with diffuse jaundice. Labs noted jaundicegiven his baseline liver disease the differential is quite broadbut at this point in time a viral insult superimposed on his chronic alcoholic cirrhosis appears to be the most likely hepatitis A, B, and C are negative, and given that we have seen several people with a mono like virus in the community have completely healthy liver with a bilirubin of 10 during the acute phase of illness, I am most suspicious of a mono like illness hereespecially given that he had viral respiratory symptoms about a week ago. We did consider SBPbut fortunately he does not have enough ascites to tap making this exceedingly unlikely. We did consider biliary etiologybut this has absolutely not involved in a way that appears consistent with biliary (given SBP and biliary effectively ruled out we stopped empiric Zosyn after about 48 hours and have been watching him for about 48 hours since), and he seems to be very forthcoming about his alcohol history and denies any recent alcohol intaketherefore acute alcoholic hepatitis seems to be off the differential (of note his alcohol level in the ER was 11.1 with an upper limits of normal being 10this is such a nominal elevation and seems to be of no clear significanceand I do wonder about lab error given that it really would not be consistent with alcohol intakeespecially not to a degree to cause alcoholic hepatitis) bloody bowel movements seemed far and away most consistent with hemorrhoids. Hemodynamically stable. hemoglobin higher than yesterday. Symptomatically bleeding has stopped. strongly suspect hemorrhoidalsafe/stable for home. Outpatient GI follow-up improving, safe/stable for home outpt PCP and GI f/u weekly LFTs until back to his baseline Resident Activity Tracking Resident Involvement: Resident Care Provided Care Provided: Adult Hospital Medicine
[2024-06-13 11:44] VITALS: BP 108/64; PULSE 76; TEMP 98.8
--- NOTE | 2024-06-13 14:24 | Billing Data ---
Date of Service June 13, 2024 Coding Level of Care Code 08209 IN/OBS DISCH 30 MIN/LESS
[2024-06-15] MEDS ORDERED: ERGOCALCIFEROL 1250 MCG (50,000 UNITS) CAP PO SCH (21:00)
== END 2024-06-13 16:37 | disposition home or self-care (01) | DRG 442 ==
LOC: ED 18:20 → EDINP 23:44 → SUATTDRO 23:44 → 4W 06-10 01:18

== ENCOUNTER 2025-04-28 09:35 | Observation (INO) ==
--- NOTE | 2025-04-28 09:43 | Emergency Department Note ---
Impression & Plan Coffee ground emesis, Alcoholic cirrhosis of liver, Low grade fever, Esophageal varices, Hyponatremia, Hypomagnesemia, Thrombocytopenia ED Provider Note NAME: REILLY ALCALA AGE: 34 SEX: M : 1990 ARRIVES VIA: Ambulance INFORMANT: Patient ED PROVIDER(S): Pardeep Collins MD CHIEF COMPLAINT: vomiting PLAN: Disposition: Admit MEDICAL DECISION MAKING: The patient is a pleasant 34-year-old gentleman with a past medical history of alcoholic cirrhosis, alcohol abuse several years in remission, who presents to emergency department via EMS for nausea and vomiting that began last night which she reports initially was clear but then this morning was coffee-ground/dark red in color which concerned him for blood. Patient reports he has had no change in his bowel movements which have been brown. He reports he has not moved his bowels for couple of days however. He denies any fevers, chills, cough congestion, chest pain or shortness of breath. On my evaluation the patient is in no distress, with temperature of 37.6, heart in the 110s and blood pressure 150/100s. He appears clinically dry. He exhibits a mild jaundice and icterus. Abdomen is nondistended and nontender. EKG without overt acute ischemia. CXR negative for acute cardiopulmonary process per my personal preliminary review/interpretation. WBC, H/H within normal limits. Platelets 63K, decreased from recent though proximal to prior range of values. INR 1.4 similar to prior range values. Chemistry without metabolic acidosis. Potassium 3.2 and magnesium 1.3. LFTs are elevated though not as significant as May 2024. Total bilirubin 7.5, direct bilirubin 2.5 with AST 219 and ALT 54. Alk phos 123. Procalcitonin is not elevated. Medical alcohol was undetectable. CT of the abdomen pelvis was performed and demonstrates evidence of cirrhosis with stigmata of portal hypertension with splenomegaly and abdominal pelvic varicosities. Small hiatal hernia is noted with esophageal wall thickening and esophageal varicosities. Patient was treated with IV for hydration, IV Protonix and octreotide bolus and drip given concern for upper GI bleeding in the setting of his cirrhosis. IV ceftriaxone administered for prophylaxis in the setting of GI bleeding with cirrhosis. Patient was referred to the hospital service for further management. Case was discussed with Dr Owen, [facility] [place] hospitalist, who will evaluate the patient for admission. Further management per admitting team. Triage Nursing notes reviewed and agree them. Prior/external medical records reviewed Vital Signs: reviewed Differential diagnosis: Gastroenteritis, food borne illness, infections, appendicitis, diverticulitis, inflammatory bowel disease, obstruction, GI bleed, biliary pathology, volvulus, as well as other pathologies. ER treatment provided: See below. Diagnostics interpreted by me: ECG: Sinus tachycardia, 109 bpm, no ectopy, no overt ST elevation or depression, QTc 527, QRS 96. Cardiac Monitoring: An order for continuous cardiac monitoring was placed and demonstrated Sinus tachycardia, 109 bpm, no ectopy. Laboratory studies: See below Imaging studies: See below Consultation(s): Dr Owen, [facility] [place] hospitalist HPI: Per MDM. ROS: See above HPI for pertinent positives & negatives. A total of 10 systems reviewed and were otherwise negative. VITALS:See Below PHYSICAL EXAMINATION: GENERAL: Awake, alert, in no distress HENT: Normocephalic, atraumatic. Oropharynx with dry mucous membranes and otherwise unremarkable. EYES: Normal conjunctiva. Sclera icteric. NECK: Supple. No nuchal rigidity. FROM. No JVD. RESPIRATORY: Clear to auscultation. CARDIAC: Tachycardic rate, normal rhythm. Extremities warm and well perfused. Pulses equal. ABDOMEN: Soft, non-distended. No tenderness to palpation. No rebound or guarding. No masses. MUSCULOSKELETAL: Chest examination reveals no tenderness. The back is symmetrical on inspection without obvious abnormality. There is no CVA tenderness to palpation. No joint edema. LOWER EXTREMITIES: Calves are equal size bilaterally and non-tender. No edema. No discoloration. NEURO: Normal sensorium. No sensory or motor deficits noted. SKIN: Jaundice noted. Pardeep Collins MD Past Med/Surg History Problem List (Updated 04/29/25 @ 01:32 by Pardeep Collins MD) Hypomagnesemia (Acute) Abnormal CT scan, esophagus Esophageal varices (Acute) Coffee ground emesis (Acute) Low grade fever (Acute) Bloody diarrhea (Acute) Liver disorder due to infection (Acute) Alcoholic hepatitis (Acute) Jaundice (Acute) Hyperbilirubinemia (Acute) Abdominal pain (Acute) Multiple fractures of ribs Fracture dislocation of left shoulder joint Alcoholic cirrhosis of liver with ascites (Acute) History of portal hypertension (Acute) Hyperbilirubinemia Transaminitis Pancytopenia Leukopenia Thrombocytopenia (Acute) Anemia Weakness (Acute) Discharge planning issues Orthostasis Abdominal ascites (Acute) Acute kidney injury (Acute) Acute liver failure (Acute) Coagulopathy (Acute) YENNY (acute kidney injury) Depression Anxiety Alcoholic hepatitis (Acute) Alcohol use disorder Hyponatremia (Acute) Metabolic alkalosis DVT prophylaxis Abnormal CT scan Alcoholic cirrhosis of liver (Acute) Spontaneous bacterial peritonitis Medical History Hypomagnesemia Acute hypokalemia Hepatic encephalopathy Abdominal pain Ascites due to alcoholic cirrhosis Hematemesis Alcoholic hepatitis no alcohol since sep 2020 History of gastritis Migraine Vomiting Hypomagnesemia Hypokalemia Panic attacks Surgical History Hx of esophagogastroduodenoscopy History of circumcision at the age of 8 Family History Father Alcoholism Other Heart disease No family history of adverse response to anesthesia Social History Smoking Status: Never smoker Second Hand Exposure: No; Do You Dip or Chew Tobacco: No; Hx Alcohol Use: Yes (no drinks for 2 years) Alcohol type: hard liquor Alcohol type Comment: HEAVY prior use up until 2022 Alcohol Intake Frequency Comment: quit 2022 Hx Substance Use: No Preferred Language: Tajik Communication Ability: Effective Clinical Account Manager Required: No Beliefs That Will Affect Care: None marital status: Single Current Living Situation: Other Current Living Situation Comment: Lives in apartment with roommate current occupational status: unemployed How many Children do You have: 0 Feels Safe at Home: Yes Physical Activity Frequency: Does not Exercise Assistive Devices: None Allergies Allergies Allergy/AdvReac Type Severity Reaction Status Date / Time No Known Allergies Allergy Verified 05/05/23 18:15 Home Meds Home Medications Medication Instructions Recorded Confirmed magnesium oxide 400 mg PO 11/30/21 04/28/25 fluoxetine 20 mg capsule 20 mg PO 11/16/22 04/28/25 furosemide 40 mg tablet 60 mg PO 11/16/22 04/28/25 spironolactone 100 mg tablet 150 mg PO 11/16/22 04/28/25 multivitamin (Daily-Danny tablet) 1 tab PO 02/13/23 04/28/25 lactulose 10 gram/15 mL oral 15 ml PO BID 05/05/23 04/28/25 solution potassium chloride 20 mEq 20 meq PO AMHS 06/09/24 04/28/25 tablet,extended release(part/cryst) (Klor-Con M) cholecalciferol (vitamin D3) 25 50 mcg PO 3XWK 04/28/25 04/28/25 mcg (1,000 unit) tablet (Vitamin D3) Results & Data (ED) Vital Signs Vital Signs - 24 hr 04/28/25 09:41 04/28/25 09:44 04/28/25 10:50 Temperature 37.6 C H Temperature Source Oral Pulse Rate 120 H 117 H 92 H Pulse Rate [Apical] Pulse Rate from SpO2 Sensor Respiratory Rate 16 21 Respiratory Effort / Characteristics Respiratory Depth Normal Blood Pressure 151/106 H 143/92 H Blood Pressure [Right Arm] Blood Pressure Mean 121 104 Blood Pressure Mean [Right Arm] Pulse Oximetry 99 99 Oxygen Delivery Method Room Air Sepsis Recent Fever Within 48 Hours No Sepsis New/Unexplained Change in Mental Status No Sepsis Action Taken by Nursing No Action Required 04/28/25 10:52 04/28/25 10:52 04/28/25 11:00 Temperature Temperature Source Pulse Rate 95 H Pulse Rate [Apical] 65 Pulse Rate from SpO2 Sensor Respiratory Rate 20 23 Respiratory Effort / Characteristics Non-Labored Respiratory Depth Normal Blood Pressure 152/90 H Blood Pressure [Right Arm] 143/92 H Blood Pressure Mean 106 Blood Pressure Mean [Right Arm] 109 Pulse Oximetry 99 99 98 Oxygen Delivery Method Room Air Room Air Sepsis Recent Fever Within 48 Hours Sepsis New/Unexplained Change in Mental Status Sepsis Action Taken by Nursing 04/28/25 11:24 04/28/25 11:30 04/28/25 11:42 Temperature Temperature Source Pulse Rate 100 H 110 H Pulse Rate [Apical] Pulse Rate from SpO2 Sensor 100 H 110 H Respiratory Rate 25 H 25 H Respiratory Effort / Characteristics Respiratory Depth Blood Pressure 142/77 H Blood Pressure [Right Arm] Blood Pressure Mean 101 Blood Pressure Mean [Right Arm] Pulse Oximetry 94 96 Oxygen Delivery Method Sepsis Recent Fever Within 48 Hours Sepsis New/Unexplained Change in Mental Status Sepsis Action Taken by Nursing 04/28/25 12:12 04/28/25 12:30 04/28/25 12:30 Temperature Temperature Source Pulse Rate 111 H Pulse Rate [Apical] Pulse Rate from SpO2 Sensor 111 H Respiratory Rate 17 Respiratory Effort / Characteristics Respiratory Depth Blood Pressure 147/76 H 147/76 H Blood Pressure [Right Arm] Blood Pressure Mean 98 98 Blood Pressure Mean [Right Arm] Pulse Oximetry 96 Oxygen Delivery Method Sepsis Recent Fever Within 48 Hours Sepsis New/Unexplained Change in Mental Status Sepsis Action Taken by Nursing 04/28/25 12:30 04/28/25 12:30 04/28/25 13:00 Temperature Temperature Source Pulse Rate 109 H 107 H Pulse Rate [Apical] Pulse Rate from SpO2 Sensor 110 H 108 H Respiratory Rate 26 H 36 H Respiratory Effort / Characteristics Respiratory Depth Blood Pressure 147/76 H Blood Pressure [Right Arm] Blood Pressure Mean 98 Blood Pressure Mean [Right Arm] Pulse Oximetry 95 95 Oxygen Delivery Method Sepsis Recent Fever Within 48 Hours Sepsis New/Unexplained Change in Mental Status Sepsis Action Taken by Nursing 04/28/25 13:00 04/28/25 13:33 04/28/25 13:47 Temperature Temperature Source Pulse Rate 94 H 95 H Pulse Rate [Apical] Pulse Rate from SpO2 Sensor 94 H Respiratory Rate 14 Respiratory Effort / Characteristics Respiratory Depth Blood Pressure 115/83 Blood Pressure [Right Arm] Blood Pressure Mean 94 Blood Pressure Mean [Right Arm] Pulse Oximetry 97 Oxygen Delivery Method Sepsis Recent Fever Within 48 Hours Sepsis New/Unexplained Change in Mental Status Sepsis Action Taken by Nursing Laboratory Data Attestation: I reviewed the patient's lab results. 04/28/25 16:13 04/28/25 16:24 Lab Results 04/28/25 04/28/25 04/28/25 Range/Units 09:44 09:49 10:38 WBC 5.58 (4.8-10.8) K/ul RBC 4.81 (4.70-6.10) M/uL Hgb 14.3 (14.0-18.0) g/dl POC Hgb 15.3 (14.0-18.0) g/dl Hct 41.8 L (42.0-52.0) % POC Hct 45 (42-52) % MCV 86.9 (80.0-100.0) fL MCH 29.7 (25.0-34.0) pg MCHC 34.2 (32.0-36.0) g/dL RDW Std Deviation 51.8 H (36.4-46.3) fL RDW Coeff of [place] 16.5 H (11.5-14.5) % Plt Count 63 L (130-400) K/uL MPV 9.8 (9.4-12.4) fL Immature Gran % (Auto) 0.2 % Neut % (Auto) 70.7 % Lymph % (Auto) 18.8 % [place] % (Auto) 9.0 % Eos % (Auto) 0.4 % Baso % (Auto) 0.9 % Neut # (Auto) 3.95 (1.40-6.50) K/uL Lymph # (Auto) 1.05 L (1.20-3.40) K/uL [place] # (Auto) 0.50 (0.11-0.59) K/uL Eos # (Auto) 0.02 (0.00-0.50) K/uL Baso # (Auto) 0.05 (0.00-0.20) K/uL Immature Gran # (Auto) 0.01 (0.01-0.20) K/uL PT 14.9 H (9.0-12.0) Seconds INR 1.4 H (0.9-1.1) POC Sodium 135 (135-144) mmol/L Sodium 137 (136-145) mmol/L POC Potassium 3.1 L (3.3-5.0) mmol/L Potassium 3.2 L (3.5-5.1) mmol/L POC Chloride 92 L (101-112) mmol/L Chloride 88 L (98-107) mmol/L Carbon Dioxide 29 (21-32) mmol/L POC Total CO2 28 (24-31) mmol/L Anion Gap 20 H (3-11) POC Anion Gap 20.0 (16-25) mmol/L POC BUN 13 (7-18) mg/dl BUN 15 (6-23) mg/dl Creatinine 0.87 (0.6-1.4) mg/dl POC Creatinine 1.0 (0.6-1.3) mg/dl Est Cr Clr Drug Dosing 109.7 ml/min eGFR 114.68 BUN/Creatinine Ratio 17.2 (10-20) Glucose 96 (70-99(Fasting)) mg/dl POC Glucose (other) 97 (70-99) mg/dl Calcium 11.5 H (8.6-10.3) mg/dl POC Ioniz Calcium Genet 1.22 (1.12-1.32) mmol/l Phosphorus 5.3 H (2.5-4.9) mg/dl Magnesium 1.3 L (1.7-2.4) mg/dl Iron 385 H (35-175) mcg/dl TIBC 417 (250-450) mcg/dl Transferrin 298 (200-360) mg/dl Transferrin % Sat 92 H (20-50) % Ferritin 76.0 (8-388) ng/ml Total Bilirubin 7.5 H (0.2-1.0) mg/dl Direct Bilirubin 2.5 H (0-0.2) mg/dl AST 219 H (13-39) U/L ALT 54 H (7-52) U/L Alkaline Phosphatase 123 H (34-104) U/L Total Protein 7.9 (6.0-8.3) gm/dl Albumin 4.6 (3.4-5.0) gm/dl Globulin 3.3 (2.5-4.0) gm/dl Albumin/Globulin Ratio 1.4 (0.9-2) Lipase 58 (11-82) U/L Vitamin B12 1069 H (180-914) pg/ml Folate 12.90 (>5.38) ng/ml Procalcitonin 0.13 Cancelled (0-0.5) ng/ml Urine Color Urine Appearance (Clear) Urine pH (4.5-7.5) Ur Specific Wilson (1.000-1.030) Urine Protein (Negative) Urine Glucose (UA) (Negative) Urine Ketones (Negative) Urine Blood (Negative) Urine Nitrite (Negative) Urine Bilirubin (Negative) Urine Urobilinogen (Negative) Ur Leukocyte Esterase (Negative) Urine WBC (Auto) (0-5) /hpf Urine RBC (Auto) (0-2) /hpf U Hyaline Cast (Auto) (0-2) /lpf U Epithel Cells (Auto) (0-2) /hpf Urine Bacteria (Auto) (None Seen) Urine Comment Urine Opiates Screen (Neg) Ur Methadone, Qual (Neg) Urine Fentanyl Screen (Neg) Urine Barbiturates (Neg) Ur Phencyclidine (PCP) (Neg) U Amphetamin/Meth Scrn (Neg) MDMA (Ecstasy) Screen (Neg) U Benzodiazepines Scrn (Neg) Ur Cocaine Metabolite (Neg) U Marijuana (THC) Screen (Neg) Ethyl Alcohol mg/dL < 10.0 (<10.0) mg/dl SARS-CoV-2 (PCR) (Negative) Influenza Type A (PCR) (Neg) Influenza Type B (PCR) (Neg) RSV (RT-PCR) (Neg) Blood Type Antibody Screen 04/28/25 04/28/25 04/28/25 Range/Units 12:09 12:58 13:19 WBC (4.8-10.8) K/ul RBC (4.70-6.10) M/uL Hgb (14.0-18.0) g/dl POC Hgb (14.0-18.0) g/dl Hct (42.0-52.0) % POC Hct (42-52) % MCV (80.0-100.0) fL MCH (25.0-34.0) pg MCHC (32.0-36.0) g/dL RDW Std Deviation (36.4-46.3) fL RDW Coeff of [place] (11.5-14.5) % Plt Count (130-400) K/uL MPV (9.4-12.4) fL Immature Gran % (Auto) % Neut % (Auto) % Lymph % (Auto) % [place] % (Auto) % Eos % (Auto) % Baso % (Auto) % Neut # (Auto) (1.40-6.50) K/uL Lymph # (Auto) (1.20-3.40) K/uL [place] # (Auto) (0.11-0.59) K/uL Eos # (Auto) (0.00-0.50) K/uL Baso # (Auto) (0.00-0.20) K/uL Immature Gran # (Auto) (0.01-0.20) K/uL PT (9.0-12.0) Seconds INR (0.9-1.1) POC Sodium (135-144) mmol/L Sodium (136-145) mmol/L POC Potassium (3.3-5.0) mmol/L Potassium (3.5-5.1) mmol/L POC Chloride (101-112) mmol/L Chloride (98-107) mmol/L Carbon Dioxide (21-32) mmol/L POC Total CO2 (24-31) mmol/L Anion Gap (3-11) POC Anion Gap (16-25) mmol/L POC BUN (7-18) mg/dl BUN (6-23) mg/dl Creatinine (0.6-1.4) mg/dl POC Creatinine (0.6-1.3) mg/dl Est Cr Clr Drug Dosing ml/min eGFR BUN/Creatinine Ratio (10-20) Glucose (70-99(Fasting)) mg/dl POC Glucose (other) (70-99) mg/dl Calcium (8.6-10.3) mg/dl POC Ioniz Calcium Genet (1.12-1.32) mmol/l Phosphorus (2.5-4.9) mg/dl Magnesium (1.7-2.4) mg/dl Iron (35-175) mcg/dl TIBC (250-450) mcg/dl Transferrin (200-360) mg/dl Transferrin % Sat (20-50) % Ferritin (8-388) ng/ml Total Bilirubin (0.2-1.0) mg/dl Direct Bilirubin (0-0.2) mg/dl AST (13-39) U/L ALT (7-52) U/L Alkaline Phosphatase (34-104) U/L Total Protein (6.0-8.3) gm/dl Albumin (3.4-5.0) gm/dl Globulin (2.5-4.0) gm/dl Albumin/Globulin Ratio (0.9-2) Lipase (11-82) U/L Vitamin B12 (180-914) pg/ml Folate (>5.38) ng/ml Procalcitonin (0-0.5) ng/ml Urine Color Dark Yellow Urine Appearance Clear (Clear) Urine pH 7.5 (4.5-7.5) Ur Specific Wilson > 1.045 H (1.000-1.030) Urine Protein 1+ H (Negative) Urine Glucose (UA) Negative (Negative) Urine Ketones 1+ H (Negative) Urine Blood 1+ H (Negative) Urine Nitrite Negative (Negative) Urine Bilirubin 1+ H (Negative) Urine Urobilinogen Negative (Negative) Ur Leukocyte Esterase Negative (Negative) Urine WBC (Auto) 0-5 (0-5) /hpf Urine RBC (Auto) 6-10 H (0-2) /hpf U Hyaline Cast (Auto) 0-2 (0-2) /lpf U Epithel Cells (Auto) 0-2 (0-2) /hpf Urine Bacteria (Auto) None Seen (None Seen) Urine Comment Urine Opiates Screen Neg (Neg) Ur Methadone, Qual Neg (Neg) Urine Fentanyl Screen Neg (Neg) Urine Barbiturates Neg (Neg) Ur Phencyclidine (PCP) Neg (Neg) U Amphetamin/Meth Scrn Neg (Neg) MDMA (Ecstasy) Screen Neg (Neg) U Benzodiazepines Scrn Neg (Neg) Ur Cocaine Metabolite Neg (Neg) U Marijuana (THC) Screen Neg (Neg) Ethyl Alcohol mg/dL (<10.0) mg/dl SARS-CoV-2 (PCR) NEGATIVE (Negative) Influenza Type A (PCR) Negative (Neg) Influenza Type B (PCR) Negative (Neg) RSV (RT-PCR) Negative (Neg) Blood Type O Positive Antibody Screen NEGATIVE Administered Medications Fluoxetine HCl (Fluoxetine Hcl 20 Mg Cap) 20 mg PO HS ANGEL Stop: 05/28/25 20:59 Last Admin: 04/28/25 20:08 Dose: 20 mg Documented By: MADDIE Octreotide Acetate 500 mcg/ (Sodium Chloride) 100.5 mls @ 10.05 mls/hr IV .Q10H ANGEL Stop: 05/28/25 09:59 Last Admin: 04/28/25 18:43 Dose: 50 mcg/hr, 10.1 mls/hr Documented By: Infusion: 04/28/25 18:43 Dose: Infused Documented By: Admin: 04/28/25 10:50 Dose: 50 mcg/hr, 10.1 mls/hr Documented By: ES Pantoprazole Sodium 40 mg/ (Dextrose) 100 mls @ 20 mls/hr IV Q5H ANGEL Stop: 05/28/25 16:29 Last Admin: 04/28/25 22:28 Dose: 8 mg/hr, 20 mls/hr Documented By: Infusion: 04/28/25 22:28 Dose: Infused Documented By: Admin: 04/28/25 18:01 Dose: 8 mg/hr, 20 mls/hr Documented By: JHON Potassium Chloride/Sodium Chloride (Normal Saline W/20 Meq Kcl) 20 meq in 1,000 mls @ 75 mls/hr IV .[id number] ANGEL Stop: 04/29/25 20:24 Last Admin: 04/28/25 18:20 Dose: 75 mls/hr Documented By: JHON Discontinued Medications Sodium Chloride (Nss) 1,000 mls @ 999 mls/hr IV .Q1H1M ONE Stop: 04/28/25 10:43 Last Infusion: 04/28/25 11:37 Dose: Infused Documented By: Admin: 04/28/25 09:50 Dose: 999 mls/hr Documented By: TRAN Famotidine (Pepcid 20mg Iv Push) 20 mg in 5 mls @ 2.5 mls/min IV NOW STA Stop: 04/28/25 09:44 Last Admin: 04/28/25 09:50 Dose: 2.5 mls/min Documented By: TRAN Pantoprazole Sodium (Protonix) 40 mg in 10 mls @ 5 mls/min IV NOW ONE Stop: 04/28/25 09:57 Last Admin: 04/28/25 10:10 Dose: 5 mls/min Documented By: TRAN Octreotide Acetate 50 mcg/ (Syringe) 10 mls @ 3 mls/min IV ONE STA Stop: 04/28/25 09:59 Last Admin: 04/28/25 10:50 Dose: 3 mls/min Documented By: DAE Ceftriaxone Sodium (Rocephin) 2,000 mg in 50 mls @ 100 mls/hr IV NOW STA Stop: 04/28/25 13:19 Last Infusion: 04/28/25 14:21 Dose: Infused Documented By: Admin: 04/28/25 13:48 Dose: 100 mls/hr Documented By: DENNISE Magnesium Sulfate/Dextrose (Magnesium Sulfate / D5w) 1 gm in 100 mls @ 200 mls/hr IV Q30M ANGEL Stop: 04/28/25 15:05 Last Infusion: 04/28/25 15:29 Dose: Infused Documented By: Admin: 04/28/25 14:56 Dose: 200 mls/hr Documented By: Infusion: 04/28/25 14:53 Dose: Infused Documented By: Admin: 04/28/25 14:23 Dose: 200 mls/hr Documented By: DENNISE Magnesium Sulfate/Dextrose (Magnesium Sulfate / D5w) 1 gm in 100 mls @ 50 mls/hr IV Q2H ANGEL Stop: 04/28/25 21:44 Last Infusion: 04/28/25 22:14 Dose: Infused Documented By: Admin: 04/28/25 20:14 Dose: 50 mls/hr Documented By: Infusion: 04/28/25 20:14 Dose: Infused Documented By: Admin: 04/28/25 18:14 Dose: 50 mls/hr Documented By: JHON Ioversol (Optiray 320 100ml) 94 ml IV ONCE ONE Stop: 04/28/25 10:28 Last Admin: 04/28/25 10:27 Dose: 94 ml Documented By: YUMIKO Miscellaneous (Stat Iv/Im) 1 each N/A NOW STA Stop: 04/28/25 09:57 Last Admin: 04/28/25 10:50 Dose: 1 each Documented By: DAE Ondansetron HCl (Ondansetron Inj 2 Mg/Ml 2 Ml Vial) 4 mg IV NOW STA Stop: 04/28/25 09:44 Last Admin: 04/28/25 09:49 Dose: 4 mg Documented By: TRAN Imaging Data Radiologist's Impression: Chest X-Ray 04/28/25 09:43 XR chest 1V portable CLINICAL HISTORY: vomiting COMPARISON STUDY: 06/10/2024 FINDINGS: Heart size and pulmonary vasculature are normal. No consolidation or pleural effusion. No pneumothorax. IMPRESSION: No acute findings. ACT 112: Negative or not required by law. Electronically signed by: Jalil Aden M.D. 04/28/2025 10:17 AM Abdomen/Pelvis CT 04/28/25 10:[address] WITH IV CONTRAST CT DOSE: 879.84 mGy.cm HISTORY: Acute generalized abdominal pain with cirrhosis and vomiting abd pain, coffee ground emesis, cirrhosis TECHNIQUE: Multiaxial CT images of the abdomen and pelvis were performed following the IV administration of 94 cc of Optiray, A dose lowering technique was utilized adhering to the principles of ALARA. COMPARISON STUDY: CT 06/09/2024 FINDINGS: Study is degraded by respiratory motion. Clear lung bases. No pneumatosis or pneumoperitoneum. Spleen is again enlarged measuring up to 17 cm, previously 19 cm. Unremarkable pancreas, gallbladder and adrenal glands. Cirrhotic liver with advanced graphic hepatic steatosis. The portal vein appears patent. Recanalization of the umbilical vein. Numerous abdominal pelvic varicosities redemonstrated which includes periesophageal varicosities with moderate distal esophageal wall thickening. Small hiatal hernia. Unremarkable kidneys without hydronephrosis. Small ill-defined area of slightly decreased enhancement of the superior pole right kidney, image 11 series 3 measuring approximately 1.8 cm. Decompressed bladder with mild wall thickening. Borderline enlarged prostate. No abdominal aortic aneurysm or lymphadenopathy. Colonic diverticulosis without acute diverticulitis. Normal appendix. No acute fracture or destructive bone lesion. There is decreased inflammation within the mesentery compared to the prior study. No ascites. IMPRESSION: 1. Cirrhosis with hepatic steatosis. Stigmata of portal venous hypertension include splenomegaly with abdominal pelvic varicosities. 2. Small hiatal hernia with esophageal wall thickening and esophageal varicosities. 3. No bowel obstruction or bowel wall thickening. 4. Small area of ill-defined decreased enhancement within the superior pole right kidney. Correlate with urinalysis to exclude pyelonephritis. ACT 112: Negative or not required by law. The above report was generated using voice recognition software. It may contain grammatical, syntax or spelling errors. Electronically signed by: Shaan Koroma M.D. 04/28/2025 11:05 AM Discharge Plan Visit Data Chief Complaint: Vomiting Stated Complaint: VOMITING ED Provider: Pardeep Collins Discharge Problem: Coffee ground emesis, Alcoholic cirrhosis of liver, Low grade fever, Esophageal varices, Hyponatremia, Hypomagnesemia, Thrombocytopenia Patient Disposition: Admitted As Inpatient Condition: Serious Discharge Instructions Interventions: ED Discharge Assessment Last Done: 04/28/25 17:29 Discharge Problem: Alcoholic cirrhosis of liver Qualifiers: Ascites presence: unspecified Qualified Code(s): K70.30 - Alcoholic cirrhosis of liver without ascites Esophageal varices Qualifiers: Esophageal varices type: unspecified type Esophageal varices bleeding: without bleeding Qualified Code(s): I85.00 - Esophageal varices without bleeding
[2025-04-28] MEDS: ONDANSETRON INJ 2 MG/ML 2 ML VIAL IV STA (09:49)
[2025-04-28] MEDS: SODIUM CHLORIDE 0.9% 1,000 ML IV ONE (09:50)
[2025-04-28] MEDS: FAMOTIDINE 20MG IV PUSH 20 MG/5 ML SYR IV STA (09:50)
[2025-04-28 10:02] LABS: Hematocrit (blood only) 41.8 % (42.0-52.0); Hemoglobin 14.3 g/dl (14.0-18.0); Immature Granulocytes # (auto) 0.01 K/uL (0.01-0.20); Immature Granulocytes % (auto) 0.2 %; Mean Corpuscular Hemoglobin 29.7 pg (25.0-34.0); Mean Corpuscular Volume 86.9 fL (80.0-100.0); Platelet Count 63 K/uL (130-400); RDW Standard Deviation 51.8 fL (36.4-46.3); Red Blood Count 4.81 M/uL (4.70-6.10); White Blood Count 5.58 K/ul (4.8-10.8)
[2025-04-28] MEDS: PANTOprazole 40 MG/10 ML SYR IV ONE (10:10)
[2025-04-28 10:18] LABS: Alanine Aminotransferase 54.0 U/L (7-52); Albumin Globulin Ratio 1.4 (0.9-2); Alkaline Phosphatase 123.0 U/L (34-104); Anion Gap 20.0 (3-11); Bilirubin,Total 7.5 mg/dl (0.2-1.0); Blood Urea Nitrogen 15.0 mg/dl (6-23); Calcium 11.5 mg/dl (8.6-10.3); Carbon Dioxide 29.0 mmol/L (21-32); Chloride 88.0 mmol/L (98-107); Creatinine Clr Calc Pharmacy 109.7 ml/min; Globulin 3.3 gm/dl (2.5-4.0); Glucose 96.0 mg/dl (70-99(Fasting)); Lipase 58.0 U/L (11-82); Magnesium 1.3 mg/dl (1.7-2.4); Potassium 3.2 mmol/L (3.5-5.1); Sodium 137.0 mmol/L (136-145); Total Protein 7.9 gm/dl (6.0-8.3)
--- NOTE | 2025-04-28 10:18 | XRay Report ---
XR chest 1V portable CLINICAL HISTORY: vomiting COMPARISON STUDY: 06/10/2024 FINDINGS: Heart size and pulmonary vasculature are normal. No consolidation or pleural effusion. No p neumothorax. IMPRESSION: No acute findings. ACT 112: Negative or not required by law. Electronically signed by: Jalil Aden M.D. 04/28/2025 10:17 AM
[2025-04-28 10:25] LABS: INR 1.4 (0.9-1.1); Prothrombin Time 14.9 Seconds (9.0-12.0)
[2025-04-28] MEDS: OPTIRAY 320 100ml IV ONE (10:27)
[2025-04-28] MEDS: OCTREOTIDE ACETATE 500 MCG in SODIUM CHLORIDE 0.9% 100 ML IV SCH (10:50)
[2025-04-28] MEDS: STAT IV/IM STA (10:50)
[2025-04-28] MEDS: OCTREOTIDE ACETATE 50 MCG in SYRINGE 9.5 ML IV STA (10:50)
--- NOTE | 2025-04-28 11:07 | CT Scan Report ---
ABDOMEN AND PELVIS CT WITH IV CONTRAST CT DOSE: 879.84 mGy.cm HISTORY: Acute generalized abdominal pain with cirrhosis and vomiting abd pain, coffee ground emesis , cirrhosis TECHNIQUE: Multiaxial CT images of the abdomen and pelvis were performed following the IV administrat ion of 94 cc of Optiray, A dose lowering technique was utilized adhering to the principles of ALARA. COMPARISON STUDY: CT 06/09/2024 FINDINGS: Study is degraded by respiratory motion. Clear lung bases. No pneumatosis or pneumoperitone um. Spleen is again enlarged measuring up to 17 cm, previously 19 cm. Unremarkable pancreas, gallblad le and adrenal glands. Cirrhotic liver with advanced graphic hepatic steatosis. The portal vein appe ars patent. Recanalization of the umbilical vein. Numerous abdominal pelvic varicosities redemonstrat ed which includes periesophageal varicosities with moderate distal esophageal wall thickening. Small hiatal hernia. Unremarkable kidneys without hydronephrosis. Small ill-defined area of slightly decreased enhancement of the superior pole right kidney, image 11 series 3 measuring approximately 1.8 cm. Decompressed bl adder with mild wall thickening. Borderline enlarged prostate. No abdominal aortic aneurysm or lympha denopathy. Colonic diverticulosis without acute diverticulitis. Normal appendix. No acute fracture or destructiv e bone lesion. There is decreased inflammation within the mesentery compared to the prior study. No a scites. IMPRESSION: 1. Cirrhosis with hepatic steatosis. Stigmata of portal venous hypertension include splenomegaly with abdominal pelvic varicosities. 2. Small hiatal hernia with esophageal wall thickening and esophageal varicosities. 3. No bowel obstruction or bowel wall thickening. 4. Small area of ill-defined decreased enhancement within the superior pole right kidney. Correlate w ith urinalysis to exclude pyelonephritis. ACT 112: Negative or not required by law. The above report was generated using voice recognition software. It may contain grammatical, syntax o r spelling errors. Electronically signed by: Shaan Koroma M.D. 04/28/2025 11:05 AM
[2025-04-28 12:43] LABS: Appearance Urine Clear (Clear); Bacteria Urine Automated None Seen (None Seen); Cast Urine Automated 0-2 /lpf (0-2); Epithelial Cell Urine Auto 0-2 /hpf (0-2); Glucose Urine UA Negative (Negative); WBC Urine Automated 0-5 /hpf (0-5)
--- NOTE | 2025-04-28 13:04 | History & Physical Report ---
Date of Service April 28, 2025 Assessment & Plan (1) Low grade fever: (2) Coffee ground emesis: (3) Esophageal varices: (4) Alcoholic cirrhosis of liver: (5) Hypomagnesemia: (6) Abnormal CT scan, esophagus: (7) Pancytopenia: (8) Thrombocytopenia: (9) Depression: (10) Anxiety: Plan 34yo male with known cirrhosis (due to prior alcohol abuse +/- NAFLD vs other?), esophageal varices, and anxiety/depression presents with 1-2 days of feeling unwell, vomiting after eating breakfast on 04/27, 10+ episodes of vomiting evening of 04/27, then the development of coffee-ground emesis x 1 this morning. No hematemesis. No melena stool. No BRBPR. #coffee-ground emesis - -occurred in the setting of severe emesis starting last night -fortunately only 1 episode of coffee-ground emesis since this am, and H/H are stable with normal BPs -differential - gastritis vs esophagitis vs variceal bleeding (possible but don't highly suspect) vs PUD vs other -s/p protonix bolus and octreotide in the ER; now on drips of both medicines -octretide drip to be continued as previous EGD several years ago showed varices -keep NPO except for meds -GI consult for consideration of EGD -if the patient develops diarrhea send stool for BioFire as the severe vomiting starting last pm may have been the beginning of a GI illness (in light of fever, chills, etc) -continue rocephin 2gm daily if this turns out to be variceal bleeding #cirrhosis with h/o esophageal varices - -h/o alcoholism; cirrhosis has been suspected to be alcohol-induced; can't rule out NAFLD but much less likely; uncertain if he ever had other work-up (ceruloplasmin, Fe studies, SPEP, etc); prior hepatitis studies negative (B, C) -appears compensated on examination and on abdominal imaging -see above re: coffee-ground emesis and plan for such -hold diuretics in setting of GI bleeding -with evidence of portal HTN he should be on non-selective beta oniel; start later in the stay #low-grade fever - -Tm 37.6 -checked COVID/flu/RSV --> negative -nothing infectious on CT a/p -consider blood cultures with any temp spike -rocephin 2gm IV daily in the setting of upper GI bleeding -if he develops diarrhea send stool for BioFire #pancytopenia with severe thrombocytopenia - -likely 2nd to cirrhosis -can't rule out other factors (superimposed viral process, tick-borne disease, nutritional deficiency, etc) -platelets have dropped considerably from previous baseline levels -patient consistently states he is no longer drinking etoh (none in 2 years) thus bone marrow suppression from etoh not suspected -repeat CBC later today in light of UGI bleeding -then repeat CBC in am #abnormal LFTs - -acute/chronic elevations including bilirubin -acute component - etiology? -denies etoh -COVID/flu negative -repeat LFTs am #hypomagnesemia - -2nd to chronic lasix use? -give mag sulfate 4gm IV x 1 -repeat mag level am #anxiety/depression - -cont fluoxetine #abnormal esophagus on CT scan - -esophageal inflammation seen on CT suggestive of esophagitis -PPI -GI consult for consideration of EGD #hypercalcemia - -total calcium elevated, but ionized calcium is normal -lab error? -repeat calcium later today -NS hydration #hypokalemia - -replace, serial levels -add KCL to IV fluids #DVT proph - -chemical means contraindicated due to UGI bleeding and low platelets -ambulation/SCDs History of Present Illness Chief Complaint: coffee-ground emesis, headache, chills, stomach cramps Primary Care Provider: Kathleen Key PA-C 34yo male with known cirrhosis (due to prior alcohol abuse +/- NAFLD vs other?), known esophageal varices, and anxiety/depression presents with 1-2 days of feeling unwell, vomiting after eating breakfast on 04/27, 10+ episodes of vomiting evening of 04/27, then the development of coffee-ground emesis x 1 this morning. No hematemesis. No melena stool. No BRBPR. He has had stomach discomfort & cramps mainly in the upper abdomen. Since arrival to the ER he has had no further coffee-ground vomiting. In addition to the above he reports he had a frontal headache all day yesterday, chills last pm, low-grade fever this morning, and fatigue. Denies any travel or sick contacts. Allergies Allergy/AdvReac Type Severity Reaction Status Date / Time No Known Allergies Allergy Verified 05/05/23 18:15 Home Medications Medication Instructions Recorded Confirmed Type magnesium oxide 400 mg PO HS 11/30/21 04/28/25 History fluoxetine 20 mg capsule 20 mg PO HS 11/16/22 04/28/25 History furosemide 40 mg tablet 60 mg PO HS 11/16/22 04/28/25 History spironolactone 100 mg tablet 150 mg PO HS 11/16/22 04/28/25 History multivitamin (Daily-Danny tablet) 1 tab PO HS 02/13/23 04/28/25 History lactulose 10 gram/15 mL oral 15 ml PO BID 05/05/23 04/28/25 History solution potassium chloride 20 mEq 20 meq PO AMHS 06/09/24 04/28/25 History tablet,extended release(part/cryst) (Klor-Con M) cholecalciferol (vitamin D3) 25 50 mcg PO 3XWK 04/28/25 04/28/25 History mcg (1,000 unit) tablet (Vitamin D3) Past Med/Surg History Problem List (Updated 04/28/25 @ 14:21 by Rui Owen MD) Abnormal CT scan, esophagus Esophageal varices Coffee ground emesis Low grade fever Bloody diarrhea (Acute) Liver disorder due to infection (Acute) Alcoholic hepatitis (Acute) Jaundice (Acute) Hyperbilirubinemia (Acute) Abdominal pain (Acute) Multiple fractures of ribs Fracture dislocation of left shoulder joint Alcoholic cirrhosis of liver with ascites (Acute) History of portal hypertension (Acute) Hyperbilirubinemia Transaminitis Pancytopenia Leukopenia Thrombocytopenia Anemia Weakness (Acute) Discharge planning issues Orthostasis Abdominal ascites (Acute) Acute kidney injury (Acute) Acute liver failure (Acute) Coagulopathy (Acute) YENNY (acute kidney injury) Depression Anxiety Alcoholic hepatitis (Acute) Alcohol use disorder Hyponatremia Metabolic alkalosis DVT prophylaxis Abnormal CT scan Alcoholic cirrhosis of liver (Acute) Spontaneous bacterial peritonitis Medical History Hypomagnesemia Acute hypokalemia Hepatic encephalopathy Abdominal pain Ascites due to alcoholic cirrhosis Hematemesis Alcoholic hepatitis no alcohol since sep 2020 History of gastritis Migraine Vomiting Hypomagnesemia Hypokalemia Panic attacks Surgical History Hx of esophagogastroduodenoscopy History of circumcision at the age of 8 Family History (Updated 04/28/25 @ 14:19 by Rui Owen MD) Father Alcoholism Other Heart disease No family history of adverse response to anesthesia Social History (Updated 04/28/25 @ 14:20 by Rui Owen MD) Smoking Status: Never smoker Second Hand Exposure: No; Do You Dip or Chew Tobacco: No; Hx Alcohol Use: Yes (no drinks for 2 years) Alcohol type: hard liquor Alcohol type Comment: HEAVY prior use up until 2022 Alcohol Intake Frequency Comment: quit 2022 Hx Substance Use: No Preferred Language: [place] Communication Ability: 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 Beliefs That Will Affect Care: None marital status: Single Current Living Situation: Other Current Living Situation Comment: Lives in apartment with roommate current occupational status: unemployed How many Children do You have: 0 Feels Safe at Home: Yes Physical Activity Frequency: Does not Exercise Assistive Devices: None Review of Systems Review of Systems: gen - chills last pm, fever today; poor appetite x 24 hours eyes - no visual changes HENT - mild runny nose x 2 days; no sore throat, no ear pain CV - no chest pain, no orthopnea, no edema pulm - no dyspnea, no dyspnea on exertion GI - nausea, vomiting, coffee-ground emesis, upper abd pain, no diarrhea/melena/BRBPR - no dysuria musculo - denies myalgias neuro - headaches x 24 hours; no motor weakness skin - no rashes endo - no diabetes Physical Exam Physical Exam: gen - nontoxic, NAD, awake/alert eyes - PERRL; icteric sclera b/l HENT - MM modestly dry, no lesions neck - no JVD heart - RRR, s1 s2, 2/6 EPIFANIO LLSB lungs - CTA b/l chest - [place] angiomas/telangiectasias on chest wall abd - mildly tender epigastric region, spleen palpable, liver edge not palpable, BS+, ND, no ascites ext - no edema, pulses 2+ b/l neuro - strength 5/5 x 4 exts; DTRs 2+ b/l upper/lower ext; no asterixis psych - a/o x 3 skin - telangiectasias on chest wall, but otherwise no rash Results & Data Results & Data Vital Signs (Past 12 Hours) Vital Signs Temp Pulse Pulse Resp BP BP Pulse Ox 04/28/25 11:00 95 H 23 152/90 H 98 04/28/25 10:52 99 04/28/25 10:52 65 20 143/92 H 99 04/28/25 10:50 92 H 21 143/92 H 99 04/28/25 09:44 117 H 04/28/25 09:41 37.6 C H 120 H 16 151/106 H 99 O2 Del Method 04/28/25 11:00 04/28/25 10:52 Room Air 04/28/25 10:52 Room Air 04/28/25 10:50 04/28/25 09:44 04/28/25 09:41 Room Air Laboratory Results Laboratory Results - last 24 hr 04/28/25 04/28/25 04/28/25 09:44 09:49 10:38 WBC 5.58 RBC 4.81 Hgb 14.3 POC Hgb 15.3 Hct 41.8 L POC Hct 45 MCV 86.9 MCH 29.7 MCHC 34.2 RDW Std Deviation 51.8 H RDW Coeff of Cali 16.5 H Plt Count 63 L MPV 9.8 Immature Gran % (Auto) 0.2 Neut % (Auto) 70.7 Lymph % (Auto) 18.8 Lea % (Auto) 9.0 Eos % (Auto) 0.4 Baso % (Auto) 0.9 Neut # (Auto) 3.95 Lymph # (Auto) 1.05 L Lea # (Auto) 0.50 Eos # (Auto) 0.02 Baso # (Auto) 0.05 Immature Gran # (Auto) 0.01 PT 14.9 H INR 1.4 H POC Sodium 135 Sodium 137 POC Potassium 3.1 L Potassium 3.2 L POC Chloride 92 L Chloride 88 L Carbon Dioxide 29 POC Total CO2 28 Anion Gap 20 H POC Anion Gap 20.0 POC BUN 13 BUN 15 Creatinine 0.87 POC Creatinine 1.0 Est Cr Clr Drug Dosing 109.7 eGFR 114.68 BUN/Creatinine Ratio 17.2 Glucose 96 POC Glucose (other) 97 Calcium 11.5 H POC Ioniz Calcium Genet 1.22 Phosphorus 5.3 H Magnesium 1.3 L Total Bilirubin 7.5 H Direct Bilirubin 2.5 H AST 219 H ALT 54 H Alkaline Phosphatase 123 H Total Protein 7.9 Albumin 4.6 Globulin 3.3 Albumin/Globulin Ratio 1.4 Lipase 58 Procalcitonin 0.13 Cancelled Urine Color Urine Appearance Urine pH Ur Specific [place] Urine Protein Urine Glucose (UA) Urine Ketones Urine Blood Urine Nitrite Urine Bilirubin Urine Urobilinogen Ur Leukocyte Esterase Urine WBC (Auto) Urine RBC (Auto) U Hyaline Cast (Auto) U Epithel Cells (Auto) Urine Bacteria (Auto) Urine Comment Urine Opiates Screen Ur Methadone, Qual Urine Fentanyl Screen Urine Barbiturates Ur Phencyclidine (PCP) U Amphetamin/Meth Scrn MDMA (Ecstasy) Screen U Benzodiazepines Scrn Ur Cocaine Metabolite U Marijuana (THC) Screen Ethyl Alcohol mg/dL < 10.0 SARS-CoV-2 (PCR) Influenza Type A (PCR) Influenza Type B (PCR) RSV (RT-PCR) Blood Type Antibody Screen 04/28/25 04/28/25 04/28/25 12:09 12:58 13:19 WBC RBC Hgb POC Hgb Hct POC Hct MCV MCH MCHC RDW Std Deviation RDW Coeff of [place] Plt Count MPV Immature Gran % (Auto) Neut % (Auto) Lymph % (Auto) Lea % (Auto) Eos % (Auto) Baso % (Auto) Neut # (Auto) Lymph # (Auto) Lea # (Auto) Eos # (Auto) Baso # (Auto) Immature Gran # (Auto) PT INR POC Sodium Sodium POC Potassium Potassium POC Chloride Chloride Carbon Dioxide POC Total CO2 Anion Gap POC Anion Gap POC BUN BUN Creatinine POC Creatinine Est Cr Clr Drug Dosing eGFR BUN/Creatinine Ratio Glucose POC Glucose (other) Calcium POC Ioniz Calcium Gente Phosphorus Magnesium Total Bilirubin Direct Bilirubin AST ALT Alkaline Phosphatase Total Protein Albumin Globulin Albumin/Globulin Ratio Lipase Procalcitonin Urine Color Dark Yellow Urine Appearance Clear Urine pH 7.5 Ur Specific [place] > 1.045 H Urine Protein 1+ H Urine Glucose (UA) Negative Urine Ketones 1+ H Urine Blood 1+ H Urine Nitrite Negative Urine Bilirubin 1+ H Urine Urobilinogen Negative Ur Leukocyte Esterase Negative Urine WBC (Auto) 0-5 Urine RBC (Auto) 6-10 H U Hyaline Cast (Auto) 0-2 U Epithel Cells (Auto) 0-2 Urine Bacteria (Auto) None Seen Urine Comment Urine Opiates Screen Neg Ur Methadone, Qual Neg Urine Fentanyl Screen Neg Urine Barbiturates Neg Ur Phencyclidine (PCP) Neg U Amphetamin/Meth Scrn Neg MDMA (Ecstasy) Screen Neg U Benzodiazepines Scrn Neg Ur Cocaine Metabolite Neg U Marijuana (THC) Screen Neg Ethyl Alcohol mg/dL SARS-CoV-2 (PCR) NEGATIVE Influenza Type A (PCR) Negative Influenza Type B (PCR) Negative RSV (RT-PCR) Negative Blood Type O Positive Antibody Screen NEGATIVE Diagnostic Findings Chest X-Ray 04/28/25 09:43 XR chest 1V portable CLINICAL HISTORY: vomiting COMPARISON STUDY: 06/10/2024 FINDINGS: Heart size and pulmonary vasculature are normal. No consolidation or pleural effusion. No pneumothorax. IMPRESSION: No acute findings. ACT 112: Negative or not required by law. Electronically signed by: Jalil Aden M.D. 04/28/2025 10:17 AM Abdomen/Pelvis CT 04/28/25 10:[address] WITH IV CONTRAST CT DOSE: 879.84 mGy.cm HISTORY: Acute generalized abdominal pain with cirrhosis and vomiting abd pain, coffee ground emesis, cirrhosis TECHNIQUE: Multiaxial CT images of the abdomen and pelvis were performed following the IV administration of 94 cc of Optiray, A dose lowering technique was utilized adhering to the principles of ALARA. COMPARISON STUDY: CT 06/09/2024 FINDINGS: Study is degraded by respiratory motion. Clear lung bases. No pneumatosis or pneumoperitoneum. Spleen is again enlarged measuring up to 17 cm, previously 19 cm. Unremarkable pancreas, gallbladder and adrenal glands. Cirrhotic liver with advanced graphic hepatic steatosis. The portal vein appears patent. Recanalization of the umbilical vein. Numerous abdominal pelvic varicosities redemonstrated which includes periesophageal varicosities with moderate distal esophageal wall thickening. Small hiatal hernia. Unremarkable kidneys without hydronephrosis. Small ill-defined area of slightly decreased enhancement of the superior pole right kidney, image 11 series 3 measuring approximately 1.8 cm. Decompressed bladder with mild wall thickening. Borderline enlarged prostate. No abdominal aortic aneurysm or lymphadenopathy. Colonic diverticulosis without acute diverticulitis. Normal appendix. No acute fracture or destructive bone lesion. There is decreased inflammation within the mesentery compared to the prior study. No ascites. IMPRESSION: 1. Cirrhosis with hepatic steatosis. Stigmata of portal venous hypertension include splenomegaly with abdominal pelvic varicosities. 2. Small hiatal hernia with esophageal wall thickening and esophageal varicosities. 3. No bowel obstruction or bowel wall thickening. 4. Small area of ill-defined decreased enhancement within the superior pole right kidney. Correlate with urinalysis to exclude pyelonephritis. ACT 112: Negative or not required by law. The above report was generated using voice recognition software. It may contain grammatical, syntax or spelling errors. Electronically signed by: Shaan Koroma M.D. 04/28/2025 11:05 AM EKG - my reading - NSR, NS ST Changes inferior leads, prolonged QTc PG Care Time/CCT Total # of Minutes Spent Total Time Spent with Patient: Total time spent is greater than 50% in coordination of care (as documented) at patient's floor/unit and/or counseling patient: Coding Level of Care Code 23595 INT INP/OBS CARE 3/75MIN Diagnoses Low grade fever R50.9 Coffee ground emesis K92.0 Esophageal varices I85.00 Alcoholic cirrhosis of liver K70.30 Hypom[address] E83.[address] scan, esophagus R93.3 Pancytopenia D61.818 Thrombocytopenia D69.6 Depression F32.9 Anxiety F41.9
[2025-04-28 13:18] LABS: Amphetamines+Metham, Urine Neg (Neg); MDMA (Ecstacy), Urine Neg (Neg); Marijuana, Urine Neg (Neg)
--- NOTE | 2025-04-28 13:19 | Electrocardiogram Report ---
Test Reason : Blood Pressure : */* mmHG Vent. Rate : 109 BPM Atrial Rate : 109 BPM P-R Int : 146 ms QRS Dur : 96 ms QT Int : 392 ms P-R-T Axes : -16 -10 -36 degrees QTcB Int : 527 ms Poor data quality, interpretation may be adversely affected Sinus tachycardia Cannot rule out Inferior infarct , age undetermined Cannot rule out Anterior infarct , age undetermined Prolonged QT Abnormal ECG When compared with ECG of 10-Jun-2024 11:35, Non-specific change in ST segment in Lateral leads QT has lengthened Confirmed by Herman Oleary ([id number]) on 04/28/2025 1:19:01 PM Referred By: Confirmed By: Herman Oleary
[2025-04-28] MEDS: cefTRIAXone SODIUM 2,000 MG/50 ML BAG IV STA (13:48)
[2025-04-28 14:08] LABS: Influenza A virus by PCR Negative (Neg); Influenza B virus by PCR Negative (Neg); SARS CoV2 RNA(COVID-19) Ceph NEGATIVE (Negative)
[2025-04-28] MEDS: MAGNESIUM SULFATE / D5W 1 GM/100 ML BAG IV SCH ×2 (14:23→18:14)
--- NOTE | 2025-04-28 15:22 | Gastrointestinal Consultation ---
Date of Consultation April 28, 2025 Assessment & Plan (1) Esophageal varices: (2) Coffee ground emesis: (3) Alcoholic cirrhosis of liver: Plan 34yowm with h/o alcoholic cirrhosis complicated by esophageal varices, Depression and anxiety is seen today in ER for coffee ground emesis. (1) Coffee ground emesis with h/o cirrhosis and varices. - Vital signs stable and Hgb 14.3g/dl. No melena to suggest ongoing bleed. - Continue with Octreotide and Pantoprazole as ordered. - Continue to monitor for active signs of bleeding. Check CBC and CMP in the AM. - Clear liquids today. NPO after midnight for further evaluation with EGD tomorrow. Patient agreeable to procedure. (2) Elevated liver enzymes with h/o cirrhosis - T-Bili 7.5, D-Bili 2.5, AST 219, ALT 54, Alk Phos 123 suspicious for alcoholic hepatitis. However he denies drinking in the past two years. Toxicology screen negative. Ethyl < 10. 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 His aunt also had liver disease. - We'll check acute hepatitis panel, Lyme, Anaplasmosis, Ehrlichiosis, Ferritin, Iron panel, Vitamin B12 and folate. - Further recommendations to come with results. - Patient was seen with Dr. [facility]. Please see co-signature comments for any additional details. Supervising Physician Co-Signing Physician Notes Patient with a history of alcoholic related liver disease. He had grade 3 varices on endoscopy in 2021. I do not believe there is been any further endoscope since that time. He is not on a beta-oniel. Comes in now with epigastric discomfort persistent nausea vomiting. Noted coffee-ground emesis. No melena. Hemoglobin is 14. Platelets however significantly lower in the 60,000 range. He has an INR of 1.4 which is improved over his INR back in May 2024. Patient's alcohol level undetectable. Patient denies recent alcohol use states he has not drank for years. That being said his liver enzymes however are suggestive of alcoholic hepatitis. Higher AST ALT ALT ratio. Significant elevated bilirubin in the face of only moderate transaminitis. Patient does have slight odor of ketosis this may be starvation ketosis with his persistent vomiting. CT scan did show cirrhosis with varices. No definite ascites. Management present agree with PPI octreotide. Clinically not a variceal bleed. EGD tomorrow. Of note patient had severe esophagitis on endoscopy in 2021. History of potential iron overload however review of his liver enzymes do not suggest hemochromatosis values. Will recheck them at this time.. History of Present Illness Reason for Consultation: Coffee ground emesis History of Present Illness 34yowf with h/o alcoholic cirrhosis with grade III esophageal varices, anxiety, depression, alcohol use disorder in skilled nursing remission is seen today in ER for ongoing vomiting and coffee ground emesis. He reports that over the last 2-3 days he felt fatigued with headaches and nausea. Over night nausea progressed with vomiting about 10x of clear liquids. He was drinking Gatorade and water to try to stay hydrated. Then around 9am he threw up coffee grounds which lead to him contacting EMS to be brought to ER. CT abd/pelvis in ER revealed cirrhosis with splenomegaly and varicosities. Small hiatal hernia and esophageal thickening with esophageal varices. CBC Hgb 14.3 Hct 41.8, Plt 63k/ul, WBC 5.58 INR 1.4 BUN 15, Cr 0.87, Cl 88, COw 29, Na 137, K 3.1. Albumin 4.6, Ca 11.5 Ionized Ca 1.22. Lipase 58, T-Bili 7.5, D-Bili 2.5, AST 219, ALT 54, Alk Phos 123. Ethyl < 10. He last ate about 2 days ago. He last drank over night. Nothing to eat today. He denies any runny nose, cough, SOB, diarrhea, melena, tick bites. No known sick contacts. We reviewed his past medical history of Liver disease. He reports he follows with [facility] which he's seen twice. Social history - He denies any NSAIDs, ALcohol or drug use. No tobacco or marijuana use. Family history - Denies any IBD, Celiacs or Liver disease. Surgical history - EGD, [facility]. CT abd/pelvis 04/28/25 FINDINGS: Study is degraded by respiratory motion. Clear lung bases. No pneumatosis or pneumoperitoneum. Spleen is again enlarged measuring up to 17 cm, previously 19 cm. Unremarkable pancreas, gallbladder and adrenal glands. Cirrhotic liver with advanced graphic hepatic steatosis. The portal vein appears patent. Recanalization of the umbilical vein. Numerous abdominal pelvic varicosities redemonstrated which includes periesophageal varicosities with moderate distal esophageal wall thickening. Small hiatal hernia. Unremarkable kidneys without hydronephrosis. Small ill-defined area of slightly decreased enhancement of the superior pole right kidney, image 11 series 3 measuring approximately 1.8 cm. Decompressed bladder with mild wall thickening. Borderline enlarged prostate. No abdominal aortic aneurysm or lymphadenopathy. Colonic diverticulosis without acute diverticulitis. Normal appendix. No acute fracture or destructive bone lesion. There is decreased inflammation within the mesentery compared to the prior study. No ascites. IMPRESSION: 1. Cirrhosis with hepatic steatosis. Stigmata of portal venous hypertension include splenomegaly with abdominal pelvic varicosities. 2. Small hiatal hernia with esophageal wall thickening and esophageal varicosities. 3. No bowel obstruction or bowel wall thickening. 4. Small area of ill-defined decreased enhancement within the superior pole right kidney. Correlate with urinalysis to exclude pyelonephritis. EGD 2021 Findings: LA Grade B (one or more mucosal breaks greater than 5 mm, not extending between the tops of two mucosal folds) esophagitis with [stigmata of recent bleeding] was found 38 to 40 cm from the incisors. Grade III varices were found at the gastroesophageal junction. They were medium in size. The Z-line was irregular and was found 39 cm from the incisors. A 1 cm hiatal hernia was present. Localized moderate inflammation characterized by congestion (edema) and erythema was found in the prepyloric region of the stomach. There is no endoscopic evidence of bleeding, ulceration, Dieulafoy lesions or erosion in the entire examined stomach. Localized moderately erythematous mucosa without active bleeding and with no stigmata of bleeding was found in the duodenal bulb. Impression: - LA Grade B reflux esophagitis. - Grade III esophageal varices. - Z-line irregular, 39 cm from the incisors. - 1 cm hiatal hernia. - Gastritis. - Erythematous duodenopathy. - No specimens collected. Recommendation: - Return patient to hospital [facility] for ongoing care. - Advance diet as tolerated. - Continue present medications. Hep Bc Ab 06/09/24 - negative Hep Bs Ag 06/09/24 - negative HCV 06/09/24 - negative. Allergies Allergy/AdvReac Type Severity Reaction Status Date / Time No Known Allergies Allergy Verified 05/05/23 18:15 Home Medications Medication Instructions Recorded Confirmed Type magnesium oxide 400 mg PO HS 11/30/21 04/28/25 History fluoxetine 20 mg capsule 20 mg PO HS 11/16/22 04/28/25 History furosemide 40 mg tablet 60 mg PO HS 11/16/22 04/28/25 History spironolactone 100 mg tablet 150 mg PO HS 11/16/22 04/28/25 History multivitamin (Daily-Danny tablet) 1 tab PO HS 02/13/23 04/28/25 History lactulose 10 gram/15 mL oral 15 ml PO BID 05/05/23 04/28/25 History solution potassium chloride 20 mEq 20 meq PO AMHS 06/09/24 04/28/25 History tablet,extended release(part/cryst) (Klor-Con M) cholecalciferol (vitamin D3) 25 50 mcg PO 3XWK 04/28/25 04/28/25 History mcg (1,000 unit) tablet (Vitamin D3) Patient History Medical History Hypomagnesemia Acute hypokalemia Hepatic encephalopathy Abdominal pain Ascites due to alcoholic cirrhosis Hematemesis Alcoholic hepatitis no alcohol since sep 2020 History of gastritis Migraine Vomiting Hypomagnesemia Hypokalemia Panic attacks Surgical History Hx of esophagogastroduodenoscopy History of circumcision at the age of 8 Family History (Updated 04/28/25 @ 14:19 by Rui Owen MD) Father Alcoholism Other Heart disease No family history of adverse response to anesthesia Social History (Updated 04/28/25 @ 14:20 by Rui Owen MD) Smoking Status: Never smoker Second Hand Exposure: No; Do You Dip or Chew Tobacco: No; Tobacco Cessation Education Requested by Patient: No Hx Alcohol Use: Yes Alcohol type: hard liquor Alcohol type Comment: HEAVY prior use up until 2022 Alcohol Intake Frequency Comment: quit 2022 Hx Substance Use: No Preferred Language: Albanian Communication Ability: Effective Shortage Worker Required: No Beliefs That Will Affect Care: None marital status: Single Current Living Situation: Other Current Living Situation Comment: roommate current occupational status: unemployed How many Children do You have: 0 Other Information That Helps Us Care for You: No Feels Safe at Home: Yes Physical Activity Frequency: Does not Exercise Assistive Devices: None Review of Systems Review of Systems: See HPI Physical Exam Physical Exam: Constitutional: NAD. Alert. Answering questions appropriately. Respiratory: Breathing is even, non-labored. Lungs burgos are clear to auscultation anteriorly. Cardiovascular: Regular Rate and Rhythm, no murmurs, rubs or gallops appreciated. Gastrointestinal (Abdomen): Normoactive bowel sounds x4, soft, non-distended, non-tender. Musculoskeletal: Lying in bed comfortably. No peripheral edema. Results & Data Vital Signs (Past 12 Hours) Vital Signs Temp Pulse Pulse Resp BP BP Pulse Ox 04/28/25 14:28 98.6 F 97 H 20 144/85 H 95 04/28/25 13:47 95 H 04/28/25 13:33 94 H 14 97 04/28/25 13:00 115/83 04/28/25 13:00 107 H 36 H 95 04/28/25 12:30 109 H 26 H 95 04/28/25 12:30 147/76 H 04/28/25 12:30 147/76 H 04/28/25 12:30 147/76 H 04/28/25 12:12 111 H 17 96 04/28/25 11:42 110 H 25 H 96 04/28/25 11:30 142/77 H 04/28/25 11:24 100 H 25 H 94 04/28/25 11:00 95 H 23 152/90 H 98 04/28/25 10:52 99 04/28/25 10:52 65 20 143/92 H 99 04/28/25 10:50 92 H 21 143/92 H 99 04/28/25 09:44 117 H 04/28/25 09:41 99.7 F H 120 H 16 151/106 H 99 O2 Del Method 04/28/25 14:28 Room Air 04/28/25 13:47 04/28/25 13:33 04/28/25 13:00 04/28/25 13:00 04/28/25 12:30 04/28/25 12:30 04/28/25 12:30 04/28/25 12:30 04/28/25 12:12 04/28/25 11:42 04/28/25 11:30 04/28/25 11:24 04/28/25 11:00 04/28/25 10:52 Room Air 04/28/25 10:52 Room Air 04/28/25 10:50 04/28/25 09:44 04/28/25 09:41 Room Air PG Care Time/CCT Total # of Minutes Spent Total Time Spent with Patient: Total time spent is greater than 50% in coordination of care (as documented) at patient's floor/unit and/or counseling patient: Coding Level of Care Code 73874 IN/OBS CONSULT LVL 3,45M Diagnoses Esophageal varices I85.00 Coffee ground emesis K92.0 Alcoholic cirrhosis of liver K70.30
[2025-04-28] MEDS ORDERED: ONDANSETRON INJ 2 MG/ML 2 ML VIAL IV PRN (16:18)
[2025-04-28] MEDS ORDERED: MELATONIN 3 MG TAB PO PRN (16:18)
[2025-04-28 16:22] LABS: Iron 385.0 mcg/dl (35-175); Total Iron Binding Cap Calc 417.0 mcg/dl (250-450); Transferrin 298.0 mg/dl (200-360); Transferrin (FE) Percent Satur 92.0 % (20-50)
[2025-04-28 16:44] LABS: Ferritin 76.0 ng/ml (8-388)
[2025-04-28 16:57] LABS: Anion Gap 15.0 (3-11); Blood Urea Nitrogen 16.0 mg/dl (6-23); Calcium 9.8 mg/dl (8.6-10.3); Carbon Dioxide 28.0 mmol/L (21-32); Chloride 92.0 mmol/L (98-107); Creatinine Clr Calc Pharmacy 104.9 ml/min; Glucose 118.0 mg/dl (70-99(Fasting)); Potassium 3.5 mmol/L (3.5-5.1); Sodium 135.0 mmol/L (136-145)
[2025-04-28 16:57] LABS: Folate (Folic Acid),Ser orPlas 12.9 ng/ml (>5.38)
[2025-04-28 16:58] LABS: Vitamin B12 1069.0 pg/ml (180-914)
[2025-04-28 17:14] LABS: Hematocrit (blood only) 36.1 % (42.0-52.0); Hemoglobin 12.3 g/dl (14.0-18.0); Mean Corpuscular Hemoglobin 29.9 pg (25.0-34.0); Mean Corpuscular Volume 87.6 fL (80.0-100.0); Platelet Count 41 K/uL (130-400); RDW Standard Deviation 53.1 fL (36.4-46.3); Red Blood Count 4.12 M/uL (4.70-6.10); White Blood Count 4.75 K/ul (4.8-10.8)
[2025-04-28 17:31] LABS: Hep B Surface Ag with confirm Negative (Negative)
[2025-04-28 17:36] LABS: Hep C Ab Rflx HepCQuant RNA Negative (Negative)
[2025-04-28] MEDS: PANTOprazole 40 MG in DEXTROSE 5% MINI-B 100 ML IV SCH (18:01)
[2025-04-28] MEDS: NSS + 20MEQ KCL 20 MEQ/1,000 ML BAG IV SCH (18:20)
[2025-04-29 06:48] LABS: Hematocrit (blood only) 32.5 % (42.0-52.0); Hemoglobin 11.7 g/dl (14.0-18.0); Immature Granulocytes # (auto) 0.00 K/uL (0.01-0.20); Immature Granulocytes % (auto) 0.0 %; Mean Corpuscular Hemoglobin 30.9 pg (25.0-34.0); Mean Corpuscular Volume 85.8 fL (80.0-100.0); Platelet Count 33 K/uL (130-400); RDW Standard Deviation 50.2 fL (36.4-46.3); Red Blood Count 3.79 M/uL (4.70-6.10); White Blood Count 2.58 K/ul (4.8-10.8)
[2025-04-29 07:06] LABS: Alanine Aminotransferase 36.0 U/L (7-52); Albumin Globulin Ratio 1.8 (0.9-2); Alkaline Phosphatase 83.0 U/L (34-104); Anion Gap 8.0 (3-11); Bilirubin,Total 5.0 mg/dl (0.2-1.0); Blood Urea Nitrogen 12.0 mg/dl (6-23); Calcium 8.5 mg/dl (8.6-10.3); Carbon Dioxide 29.0 mmol/L (21-32); Chloride 96.0 mmol/L (98-107); Creatinine Clr Calc Pharmacy 130.0 ml/min; Globulin 2.1 gm/dl (2.5-4.0); Glucose 117.0 mg/dl (70-99(Fasting)); Magnesium 1.5 mg/dl (1.7-2.4); Potassium 3.3 mmol/L (3.5-5.1); Sodium 133.0 mmol/L (136-145); Total Protein 5.8 gm/dl (6.0-8.3)
[2025-04-29] MEDS: MAGNESIUM SULFATE / D5W 1 GM/100 ML BAG IV SCH (08:52)
[2025-04-29] MEDS: POTASSIUM CHLORIDE 10 MEQ TABCR PO STA ×2 (08:54→17:10)
--- NOTE | 2025-04-29 08:56 | History & Physical Bridge Note ---
Date of Service April 29, 2025 History & Physical Bridge Note I have examined the patient, reviewed the History & Physical and in the interval since the performance of the History & Physical I have noted the following changes of clinical significance: no changes noted Patient reports no concerns. No melena or hematochezia. VSS. NPO as directed. Plan to proceed with EGD as scheduled.
--- NOTE | 2025-04-29 11:03 | Gastroenterology Progress Note ---
Date of Service April 29, 2025 Assessment & Plan (1) Alcoholic cirrhosis of liver: (2) Thrombocytopenia: (3) Coffee ground emesis: Plan 34yowm with h/o alcoholic cirrhosis complicated by esophageal varices, Depression and anxiety is seen today in for 1 day f/u of coffee ground emesis. (1) Coffee ground emesis with h/o cirrhosis and varices. - Vital signs stable and Hgb 14.3g/d dropped to 11.7g/dll. No vomiting or melena to suggest ongoing bleed. - Continue with Octreotide and Pantoprazole as ordered. - Continue to monitor for active signs of bleeding. Check CBC and CMP in the AM. - Given thombocytopenia we'll hold off on EGD today. Referral to Hematology placed. Appreciate their input. - Further recommendations to come with Supervising GI provider on medical rounds. Please see co-signature comments. Admission and Anticipated Discharge Date Admission Date: April 28, 2025 Supervising Physician Co-Signing Physician Notes Patient looks clinically stable. Sitting up in bed no confusion. Does not appear acutely toxic or ill. Minimal scleral icterus. Patient was for an EGD today for evaluation of coffee-ground emesis and portal hypertension. However his platelets are now 33,000. In the absence of obvious bleeding I would not transfuse platelets. Also would defer endoscopy at this time in the absence of bleeding due to the risk of causing bleeding at this platelet count. Vitamin studies are normal. B12 folate. Suspect this is bone marrow suppression from alcohol. Should see recovery in the next few days if that is the case. Hematology consult if appropriate. Liver tests somewhat improved bili is gone from 7.5-5. Advance diet. Continue PPI and octreotide. 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 HPI 04/29/25 Patient seen in follow up of abnormal LFTs and reported coffee ground emesis. We were planning to proceed with EGD today. Patient reports he still has some headache and ST. Denies any fevers, chills, SOB, Cough, abdominal pain, N/V/D, melena or hematochezia. However his f/u labs came back with worsening thrombocytopenia with Plt 33k/ul CBC - Hgb 11.7g/dl, Hct 32.5%, Plt 33k/ul, WBC 2.58. CMP - Na 133, K 3.3, Cl 96, CO2 29, BUN 12, Cr 0.80, Glucose 117, Ca 85, Albumin 3.7, Alk Phos 83, ALT 36, AST 145, T-Bili 5.0, Mg 1.5. Vitamin B12 1069 Folate 12.9 Initial HPI 04/28/25 He reports that over the last 2-3 days he felt fatigued with headaches and nausea. Over night nausea progressed with vomiting about 10x of clear liquids. He was drinking Gatorade and water to try to stay hydrated. Then around 9am he threw up coffee grounds which lead to him contacting EMS to be brought to ER. CT abd/pelvis in ER revealed cirrhosis with splenomegaly and varicosities. Small hiatal hernia and esophageal thickening with esophageal varices. CBC Hgb 14.3 Hct 41.8, Plt 63k/ul, WBC 5.58 INR 1.4 BUN 15, Cr 0.87, Cl 88, COw 29, Na 137, K 3.1. Albumin 4.6, Ca 11.5 Ionized Ca 1.22. Lipase 58, T-Bili 7.5, D-Bili 2.5, AST 219, ALT 54, Alk Phos 123. Ethyl < 10. He last ate about 2 days ago. He last drank over night. Nothing to eat today. He denies any runny nose, cough, SOB, diarrhea, melena, tick bites. No known sick contacts. We reviewed his past medical history of Liver disease. He reports he follows with [facility] which he's seen twice. Social history - He denies any NSAIDs, ALcohol or drug use. No tobacco or marijuana use. Family history - Denies any IBD, Celiacs or Liver disease. Surgical history - EGD, [facility]. CT abd/pelvis Review of Systems Review of Systems: See HPI Physical Exam Physical Exam: Constitutional: NAD. Alert. Answering questions appropriately. Respiratory: Breathing is even, non-labored. Lungs burgos are clear to auscultation anteriorly. Cardiovascular: Regular Rate and Rhythm, no murmurs, rubs or gallops appreciated. Gastrointestinal (Abdomen): Normoactive bowel sounds x4, soft, non-distended, non-tender. Musculoskeletal: Lying in bed comfortably. No peripheral edema. Results & Data Results & Data Vital Signs (Past 12 Hours) Vital Signs Temp Pulse Resp BP Pulse Ox O2 Del Method 04/29/25 10:57 98.4 F 74 20 130/56 L 98 Room Air 04/29/25 07:45 98.1 F 77 131/75 95 Room Air 04/29/25 03:09 98.4 F 88 20 153/80 H 97 Room Air 04/28/25 23:33 98.6 F 88 18 153/82 H 99 Room Air PG Care Time/CCT Total # of Minutes Spent Total Time Spent with Patient: Total time spent is greater than 50% in coordination of care (as documented) at patient's floor/unit and/or counseling patient: Coding Level of Care Code 88507 SUB INP/OBS CARE 2/35MIN Diagnoses Alcoholic cirrhosis of liver K70.30 Ascites presence: unspecified Thrombocytopenia D69.6 Coffee ground emesis K92.0 (1) Alcoholic cirrhosis of liver Ascites presence: unspecified Qualified Code(s): K70.30 - Alcoholic cirrhosis of liver without ascites
[2025-04-29] MEDS: cefTRIAXone SODIUM 2,000 MG/50 ML BAG IV SCH (14:42)
--- NOTE | 2025-04-29 16:43 | Hospitalist Progress Note ---
Date of Service April 29, 2025 Assessment & Plan (1) Low grade fever: (2) Coffee ground emesis: (3) Esophageal varices: (4) Alcoholic cirrhosis of liver: (5) Hypomagnesemia: (6) Abnormal CT scan, esophagus: (7) Pancytopenia: (8) Thrombocytopenia: (9) Depression: (10) Anxiety: Plan 34yo male with known cirrhosis (due to prior alcohol abuse +/- NAFLD vs other?), esophageal varices, and anxiety/depression presented with 1-2 days of feeling unwell, vomiting after eating breakfast on 04/27, 10+ episodes of vomiting evening of 04/27, then the development of coffee-ground emesis x 1 AM of 04/26. No hematemesis. No melena stool. No BRBPR. #coffee-ground emesis - resolved, has not recurred - -occurred in the setting of multiple, persistent severe emesis -fortunately only 1 episode of coffee-ground emesis in the last 48 hours -differential - gastritis vs esophagitis vs variceal bleeding (possible, but don't highly suspect) vs PUD vs other -s/p protonix bolus and octreotide in the ER; now on drips of both medicines -octretide drip to be continued as previous EGD several years ago showed varices -GI was planning EGD today, but due to severely low platelets the EGD was deferred -tolerating full liquids as ordered by GI -if the patient develops diarrhea send stool for BioFire as the severe vomiting may have been the beginning of a GI illness (in light of fever, chills, etc) - but no diarrhea since admission -continue rocephin 2gm daily until variceal bleeding has been definitively ruled out #cirrhosis with h/o esophageal varices - -h/o alcoholism; cirrhosis has been suspected to be alcohol-induced; can't rule out NAFLD but much less likely; uncertain if he ever had other work-up (ceruloplasmin, Fe studies, SPEP, etc); prior hepatitis studies negative (B, C) -compensated on examination and on abdominal imaging -see above re: coffee-ground emesis and plan for such -hold diuretics in setting of GI bleeding -with evidence of portal HTN he should be on non-selective beta oniel; start later in the stay #low-grade fever - resolved - -Tm 37.6 upon ER presentation but no fevers - even low grade - since then -checked COVID/flu/RSV --> negative -nothing infectious on CT a/p -consider blood cultures with any temp spike -rocephin 2gm IV daily in the setting of upper GI bleeding and h/o varices -if he develops diarrhea send stool for BioFire #pancytopenia with severe thrombocytopenia - -likely 2nd to cirrhosis, hypersplenism, etc. -can't rule out other factors (superimposed viral process, tick-borne disease, nutritional deficiency, etc) -platelets have dropped considerably from previous baseline levels -patient consistently states he is no longer drinking etoh (none in 2 years?) -platelets dropped further today into the low 30s but fortunately the H/H remain stable/acceptable -EGD deferred due to the drop in platelets -GI asked heme/onc to see in consult for the worsening platelets -repeat CBC in am; will also get peripheral smear to ensure no findings to suggest DIC, TTP, etc but no signs/symptoms of such -recheck INR in am for stability -if he does rebleed would need platelet infusion #abnormal LFTs - -acute/chronic elevations including bilirubin -acute component improved; bilirubin has trended down -denies etoh, although his AST:ALT ratio upon admit was 2:1... -COVID/flu negative -repeat LFTs am again #hypomagnesemia - -ongoing despite copious supplementation yesterday (4gm mag sulfate IV) -2nd to chronic lasix use? -give mag sulfate 2gm IV x 1 -repeat mag level am #anxiety/depression - -cont fluoxetine #abnormal esophagus on CT scan - -esophageal inflammation seen on CT suggestive of esophagitis -PPI -GI consult for consideration of EGD - but deferred today due to platelets #hypercalcemia - -may have been lab error; total calcium was 11.5 upon admit, quickly normalized #hypokalemia - -replace with IV & PO #DVT proph - -chemical means contraindicated due to UGI bleeding and low platelets -ambulation/SCDs Admission and Anticipated Discharge Date Admission Date: April 28, 2025 Subjective patient feeling better today mild stomach cramps at times, but not worsened by the liquid diet no abdominal pain no further nausea or emesis no coffee-ground emesis no stools/no diarrhea no dyspnea tele overnight wnl Review of Systems Review of Systems: gen - no further fevers neuro - headaches essentially resolved cv - no chest pain, no orthopnea pulm - no cough or URI symptoms Physical Exam Physical Exam: gen - lying in bed, NAD, looks better today HENT - MMM neck - no JVD heart - RRR, s1 s2, 2/6 EPIFANIO LLSB lungs - CTA b/l chest - [place] angiomas/telangiectasias on chest wall abd - soft, NT, spleen palpable, liver edge not palpable, BS+, ND, no ascites ext - no edema, pulses 2+ b/l psych - a/o x 3 Results & Data Results & Data Vital Signs (Past 12 Hours) Vital Signs Temp Pulse Resp BP Pulse Ox O2 Del Method 04/29/25 15:12 37.2 C 88 20 120/75 98 Room Air 04/29/25 10:57 36.9 C 74 20 130/56 L 98 Room Air 04/29/25 07:45 36.7 C 77 131/75 95 Room Air Laboratory Results Laboratory Results - last 24 hr 04/29/25 04/29/25 05:59 18:12 WBC 2.58 L 2.74 L RBC 3.79 L 3.71 L Hgb 11.7 L 11.1 L Hct 32.5 L 32.5 L MCV 85.8 87.6 MCH 30.9 29.9 MCHC 36.0 34.2 RDW Std Deviation 50.2 H 51.8 H RDW Coeff of Cali 16.0 H 16.4 H Plt Count 33 L 34 L MPV 10.2 10.2 Immature Gran % (Auto) 0.0 Neut % (Auto) 48.8 Lymph % (Auto) 35.3 Union % (Auto) 12.0 Eos % (Auto) 3.1 Baso % (Auto) 0.8 Neut # (Auto) 1.26 L Lymph # (Auto) 0.91 L Union # (Auto) 0.31 Eos # (Auto) 0.08 Baso # (Auto) 0.02 Immature Gran # (Auto) 0.00 L Sodium 133 L Potassium 3.3 L Chloride 96 L Carbon Dioxide 29 Anion Gap 8 BUN 12 Creatinine 0.80 Est Cr Clr Drug Dosing 130.0 eGFR 117.63 BUN/Creatinine Ratio 15.0 Glucose 117 H Calcium 8.5 L Magnesium 1.5 L Total Bilirubin 5.0 H AST 145 H ALT 36 Alkaline Phosphatase 83 Total Protein 5.8 L D Albumin 3.7 Globulin 2.1 L Albumin/Globulin Ratio 1.8 PG Care Time/CCT Total # of Minutes Spent Total Time Spent with Patient: Total time spent is greater than 50% in coordination of care (as documented) at patient's floor/unit and/or counseling patient: Coding Level of Care Code 69065 SUB INP/OBS CARE 3/50MIN Diagnoses Low grade fever R50.9 Coffee ground emesis K92.0 Esophageal varices I85.00 Esophageal varices bleeding: without bleeding Esophageal varices type: unspecified type Alcoholic cirrhosis of liver K70.30 Ascites presence: unspecified Hypomagnesemia E83.[address] scan, esophagus R93.3 Pancytopenia D61.818 Thrombocytopenia D69.6 Depression F32.9 Anxiety F41.9 (3) Esophageal varices Esophageal varices bleeding: without bleeding Esophageal varices type: unspecified type Qualified Code(s): I85.00 - Esophageal varices without bleeding (4) Alcoholic cirrhosis of liver Ascites presence: unspecified Qualified Code(s): K70.30 - Alcoholic cirrhosis of liver without ascites
[2025-04-29 18:46] LABS: Hematocrit (blood only) 32.5 % (42.0-52.0); Hemoglobin 11.1 g/dl (14.0-18.0); Mean Corpuscular Hemoglobin 29.9 pg (25.0-34.0); Mean Corpuscular Volume 87.6 fL (80.0-100.0); Platelet Count 34 K/uL (130-400); RDW Standard Deviation 51.8 fL (36.4-46.3); Red Blood Count 3.71 M/uL (4.70-6.10); White Blood Count 2.74 K/ul (4.8-10.8)
[2025-04-29] MEDS: PNEUMOCOCCAL VACCINE (PCV20) 20-VAL CONJ-DIP CRM/PF 0.5 ML SYR IM ONE (19:48)
[2025-04-30 06:44] LABS: Alanine Aminotransferase 38.0 U/L (7-52); Albumin Globulin Ratio 1.7 (0.9-2); Alkaline Phosphatase 85.0 U/L (34-104); Anion Gap 7.0 (3-11); Bilirubin,Total 5.1 mg/dl (0.2-1.0); Blood Urea Nitrogen 8.0 mg/dl (6-23); Calcium 8.3 mg/dl (8.6-10.3); Carbon Dioxide 23.0 mmol/L (21-32); Chloride 104.0 mmol/L (98-107); Creatinine Clr Calc Pharmacy 145.9 ml/min; Globulin 2.3 gm/dl (2.5-4.0); Glucose 97.0 mg/dl (70-99(Fasting)); Magnesium 1.5 mg/dl (1.7-2.4); Potassium 3.8 mmol/L (3.5-5.1); Sodium 134.0 mmol/L (136-145); Total Protein 6.1 gm/dl (6.0-8.3)
[2025-04-30 06:46] LABS: INR 1.5 (0.9-1.1); Prothrombin Time 15.3 Seconds (9.0-12.0)
[2025-04-30 06:52] LABS: Hematocrit (blood only) 34.9 % (42.0-52.0); Hemoglobin 11.9 g/dl (14.0-18.0); Mean Corpuscular Hemoglobin 29.8 pg (25.0-34.0); Mean Corpuscular Volume 87.5 fL (80.0-100.0); Platelet Count 33 K/uL (130-400); RDW Standard Deviation 51.7 fL (36.4-46.3); Red Blood Count 3.99 M/uL (4.70-6.10); White Blood Count 2.87 K/ul (4.8-10.8)
[2025-04-30 06:54] LABS: Immature Granulocytes # (auto) 0.01 K/uL (0.01-0.20); Immature Granulocytes % (auto) 0.3 %; RBC Morphology Unremarkable
[2025-04-30] MEDS: MAGNESIUM SULFATE / D5W 1 GM/100 ML BAG IV SCH (10:05)
--- NOTE | 2025-04-30 12:26 | Gastroenterology Progress Note ---
Date of Service April 30, 2025 Assessment & Plan (1) Alcoholic cirrhosis of liver: (2) Thrombocytopenia: (3) Coffee ground emesis: Plan 34yowm with h/o alcoholic cirrhosis complicated by esophageal varices, Depression and anxiety is seen today in for 1 day f/u of coffee ground emesis. No evidence of recurrence since his admission. Feeling well today. (1) Coffee ground emesis with h/o cirrhosis and varices. - Clinically patient reports he's feeling much better today. - Vital signs stable and Hgb 14.3g/d dropped to 11.7g/dl. No vomiting or melena to suggest ongoing bleed. Hgb has remained stable since then with Hgb 11.9g/dl today. Platelets remain low at 33k/ul which is why an EGD wasn't completed. No melena or coffee ground emesis. - LFTs trending down. - T-Bili 5.1, AST 132, ALT 38, Alk Phos 85 - Continue current plan of care. - Hematology consulted Re: Thrombocytopenia. - Further recommendations to come with Supervising GI provider on medical rounds. Please see co-signature comments. Admission and Anticipated Discharge Date Admission Date: April 28, 2025 Supervising Physician Co-Signing Physician Notes No active bleeding. Initial hematemesis. Platelets though significantly decreased down to 30,000 range. He has been seen by hematology feel that it is related to his underlying liver condition. Plus or minus alcohol. Patient is liver enzymes trending down no active bleeding. Continue PPI and octreotide. Defer elective endoscopy in the absence of bleeding. Could consider endoscopy on Saturday if platelets improve and concern for bleeding present. Patient has known varices. Subjective 34yowf with h/o alcoholic cirrhosis with grade III esophageal varices, anxiety, depression, alcohol use disorder in long term care administrator remission is seen today in ER for ongoing vomiting and coffee ground emesis. HPI 04/30/25 Patient seen today for f/u of abnormal LFTs and reported coffee ground emesis. EGD held d/t thrombocytopenia. 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 He's tolerating full liquids well. He denies any fevers, chills, headaches, ST, abdominal pain, N/V/D, melena or hematochezia. HPI 04/29/25 Patient seen in follow up of abnormal LFTs and reported coffee ground emesis. We were planning to proceed with EGD today. Patient reports he still has some headache and ST. Denies any fevers, chills, SOB, Cough, abdominal pain, N/V/D, melena or hematochezia. However his f/u labs came back with worsening thrombocytopenia with Plt 33k/ul CBC - Hgb 11.7g/dl, Hct 32.5%, Plt 33k/ul, WBC 2.58. CMP - Na 133, K 3.3, Cl 96, CO2 29, BUN 12, Cr 0.80, Glucose 117, Ca 85, Albumin 3.7, Alk Phos 83, ALT 36, AST 145, T-Bili 5.0, Mg 1.5. Vitamin B12 1069 Folate 12.9 Initial HPI 04/28/25 He reports that over the last 2-3 days he felt fatigued with headaches and nausea. Over night nausea progressed with vomiting about 10x of clear liquids. He was drinking Gatorade and water to try to stay hydrated. Then around 9am he threw up coffee grounds which lead to him contacting EMS to be brought to ER. CT abd/pelvis in ER revealed cirrhosis with splenomegaly and varicosities. Small hiatal hernia and esophageal thickening with esophageal varices. CBC Hgb 14.3 Hct 41.8, Plt 63k/ul, WBC 5.58 INR 1.4 BUN 15, Cr 0.87, Cl 88, COw 29, Na 137, K 3.1. Albumin 4.6, Ca 11.5 Ionized Ca 1.22. Lipase 58, T-Bili 7.5, D-Bili 2.5, AST 219, ALT 54, Alk Phos 123. Ethyl < 10. He last ate about 2 days ago. He last drank over night. Nothing to eat today. He denies any runny nose, cough, SOB, diarrhea, melena, tick bites. No known sick contacts. We reviewed his past medical history of Liver disease. He reports he follows with [facility] which he's seen twice. Social history - He denies any NSAIDs, ALcohol or drug use. No tobacco or marijuana use. Family history - Denies any IBD, Celiacs or Liver disease. Surgical history - EGD, Pertinent Diagnostics. CT abd/pelvis Review of Systems Review of Systems: See HPI Physical Exam Physical Exam: Constitutional: NAD. Alert. Answering questions appropriately. Respiratory: Breathing is even, non-labored. Lungs burgos are clear to auscultation anteriorly. Cardiovascular: Regular Rate and Rhythm, no murmurs, rubs or gallops appreciated. Gastrointestinal (Abdomen): Normoactive bowel sounds x4, soft, non-distended, non-tender. Musculoskeletal: Lying in bed comfortably. No peripheral edema. Results & Data Results & Data Vital Signs (Past 12 Hours) Vital Signs Temp Pulse Pulse Resp BP Pulse Ox O2 Del Method 04/30/25 12:20 70 04/30/25 10:59 98.1 F 71 19 120/67 96 Room Air 04/30/25 07:51 97.9 F 76 27 H 131/87 100 Room Air 04/30/25 07:15 Room Air 04/30/25 03:25 97.9 F 70 16 130/81 95 Room Air PG Care Time/CCT Total # of Minutes Spent Total Time Spent with Patient: Total time spent is greater than 50% in coordination of care (as documented) at patient's floor/unit and/or counseling patient: Coding Level of Care Code 93185 SUB INP/OBS CARE 2/35MIN Diagnoses Alcoholic cirrhosis of liver K70.30 Ascites presence: unspecified Thrombocytopenia D69.6 Coffee ground emesis K92.0 (1) Alcoholic cirrhosis of liver Ascites presence: unspecified Qualified Code(s): K70.30 - Alcoholic cirrhosis of liver without ascites
--- NOTE | 2025-04-30 14:41 | Oncology Consultation ---
Date of Consultation April 30, 2025 Assessment & Plan (1) Alcoholic cirrhosis of liver with ascites: Plan Pancytopenia likely 2/2 splenomegaly from liver cirrhosis. No concern at this time for hematologic malignancy. Can follow up with hematology outpatient. History of Present Illness Reason for Consultation: Pancytopenia Attending Physician: Rui Owen MD History of Present Illness 34 year old with alcoholic liver cirrhosis admitted for GI bleeding. Labs showed pancytopenia with normal B12, folate levels. CT A/P showed liver cirrhosis with splenomegaly. Peripheral smear review did not show dysplastic changes of any concern for hematologic malignancy Allergies Allergy/AdvReac Type Severity Reaction Status Date / Time No Known Allergies Allergy Verified 05/05/23 18:15 Home Medications Medication Instructions Recorded Confirmed Type magnesium oxide 400 mg PO HS 11/30/21 04/28/25 History fluoxetine 20 mg capsule 20 mg PO HS 11/16/22 04/28/25 History furosemide 40 mg tablet 60 mg PO HS 11/16/22 04/28/25 History spironolactone 100 mg tablet 150 mg PO HS 11/16/22 04/28/25 History multivitamin (Daily-Danny tablet) 1 tab PO HS 02/13/23 04/28/25 History lactulose 10 gram/15 mL oral 15 ml PO BID 05/05/23 04/28/25 History solution potassium chloride 20 mEq 20 meq PO AMHS 06/09/24 04/28/25 History tablet,extended release(part/cryst) (Klor-Con M) cholecalciferol (vitamin D3) 25 50 mcg PO 3XWK 04/28/25 04/28/25 History mcg (1,000 unit) tablet (Vitamin D3) Patient History Medical History Hypomagnesemia Acute hypokalemia Hepatic encephalopathy Abdominal pain Ascites due to alcoholic cirrhosis Hematemesis Alcoholic hepatitis no alcohol since sep 2020 History of gastritis Migraine Vomiting Hypomagnesemia Hypokalemia Panic attacks Surgical History Hx of esophagogastroduodenoscopy History of circumcision at the age of 8 Family History Father Alcoholism Other Heart disease No family history of adverse response to anesthesia Social History Smoking Status: Never smoker Second Hand Exposure: No; Do You Dip or Chew Tobacco: No; Hx Alcohol Use: Yes (no drinks for 2 years) Alcohol type: hard liquor Alcohol type Comment: HEAVY prior use up until 2022 Alcohol Intake Frequency Comment: quit 2022 Hx Substance Use: No Preferred Language: Turkmen Communication Ability: Effective Gun Mechanic Required: No Beliefs That Will Affect Care: None marital status: Single Current Living Situation: Other Current Living Situation Comment: Lives in apartment with roommate current occupational status: unemployed How many Children do You have: 0 Feels Safe at Home: Yes Physical Activity Frequency: Does not Exercise Assistive Devices: None Results & Data Vital Signs (Past 12 Hours) Vital Signs Temp Pulse Pulse Resp BP Pulse Ox O2 Del Method 04/30/25 12:20 70 04/30/25 10:59 36.7 C 71 19 120/67 96 Room Air 04/30/25 07:51 36.6 C 76 27 H 131/87 100 Room Air 04/30/25 07:15 Room Air 04/30/25 03:25 36.6 C 70 16 130/81 95 Room Air
--- NOTE | 2025-04-30 20:12 | Hospitalist Progress Note ---
Date of Service April 30, 2025 Assessment & Plan (1) Coffee ground emesis: (2) Low grade fever: (3) Esophageal varices: (4) Alcoholic cirrhosis of liver: (5) Hypomagnesemia: (6) Abnormal CT scan, esophagus: (7) Pancytopenia: (8) Thrombocytopenia: (9) Depression: (10) Anxiety: Plan 34yo male with known cirrhosis (due to prior alcohol abuse +/- NAFLD vs other?), esophageal varices, and anxiety/depression presented with 1-2 days of feeling unwell, vomiting after eating breakfast on 04/27, 10+ episodes of vomiting evening of 04/27, then the development of coffee-ground emesis x 1 AM of 04/26. No hematemesis. No melena stool. No BRBPR. #coffee-ground emesis - resolved, has not recurred - -occurred in the setting of multiple, persistent severe emesis at home that lasted 24 hours -fortunately only 1 episode of coffee-ground emesis since his illness started at home -differential - gastritis vs esophagitis vs variceal bleeding (possible, but not highly suspected) vs PUD vs other -remains on octreotide drip as previous EGD several years ago showed varices (but current illness not likely to be variceal) -remains on PPI drip -GI was planning EGD, but due to severely low platelets the EGD was deferred -tolerating full liquids as ordered by GI -if the patient develops diarrhea send stool for BioFire as the severe vomiting may have been the beginning of a GI illness (in light of fever, chills, etc) - but no diarrhea/stool since admission -continue rocephin 2gm daily for now #cirrhosis with h/o esophageal varices - -h/o alcoholism; cirrhosis has been suspected to be alcohol-induced; can't rule out NAFLD but much less likely; uncertain if he ever had other work-up (ceruloplasmin, Fe studies, SPEP, etc); prior hepatitis studies negative (B, C) -remains compensated on examination and on abdominal imaging -see above re: coffee-ground emesis and plan for such -hold diuretics in setting of GI bleeding -with evidence of portal HTN he should be on non-selective beta oniel; start later in the stay if BP can tolerate #low-grade fever - present on admission - resolved/has not recurred - -Tm 37.6 upon ER presentation but no fevers since then -checked COVID/flu/RSV --> negative -nothing infectious on CT a/p -rocephin 2gm IV daily in the setting of upper GI bleeding and h/o varices -if he develops diarrhea send stool for BioFire #pancytopenia with severe thrombocytopenia - -likely 2nd to cirrhosis, hypersplenism, etc. -can't rule out other factors (superimposed viral process, tick-borne disease, nutritional deficiency, etc) -platelets have dropped considerably from previous baseline levels -patient consistently states he is no longer drinking etoh (none in 2 years?) -platelets low but stable in the low 30s -fortunately the H/H remain stable/acceptable as well -EGD deferred due to the drop in platelets -GI asked heme/onc to see in consult for the worsening platelets; heme/onc feels thrombocytopenia is due to hypersplenism/splenomegaly from his cirrhosis; no further w/u needed -repeat CBC in am -INR today mildly high but stable -if he does rebleed would need platelet infusion #abnormal LFTs - -acute/chronic elevations including bilirubin -acute component improved & stable; bilirubin has trended down -denies etoh, although his AST:ALT ratio upon admit was 2:1... -COVID/flu negative -repeat LFTs am again #hypomagnesemia - -ongoing despite copious supplementation since admission; total body depletion in setting of chronic lasix use? -give mag sulfate 3gm IV x 1 again today -repeat mag level am #anxiety/depression - -cont fluoxetine #abnormal esophagus on CT scan - -esophageal inflammation seen on CT suggestive of esophagitis -PPI -GI consult for consideration of EGD - but deferred due to platelets #hypercalcemia - -likely was lab error; total calcium was 11.5 upon admit, quickly normalized without intervention #hypokalemia - -replaced/resolved #DVT proph - -chemical means contraindicated due to UGI bleeding and low platelets -ambulation/SCDs appreciate GI assistance Admission and Anticipated Discharge Date Admission Date: April 28, 2025 Subjective tele overnight wnl pt feels well no dizziness ambulating independently tolerating full liquids - no abd pain, N/V, etc with eating/drinking fulls no coffee-ground emesis no stools since admission no hematemesis Review of Systems Review of Systems: gen - no fevers or chills cv - no cp pulm - no dyspnea or GROSS Physical Exam Physical Exam: gen - lying in bed, NAD, looks very well today HENT - MMM neck - no JVD heart - RRR, s1 s2, 2/6 EPIFANIO LLSB lungs - CTA b/l abd - soft, NT, spleen palpable, liver edge not palpable, BS+, ND, no ascites ext - no edema, pulses 2+ b/l psych - a/o x 3 Results & Data Results & Data Vital Signs (Past 12 Hours) Vital Signs Temp Pulse Pulse Resp BP Pulse Ox O2 Del Method 04/30/25 20:04 36.7 C 81 18 123/68 96 Room Air 04/30/25 15:14 36.6 C 77 20 133/82 98 Room Air 04/30/25 12:20 70 04/30/25 10:59 36.7 C 71 19 120/67 96 Room Air Laboratory Results Laboratory Results - last 24 hr 04/30/25 05:51 WBC 2.87 L RBC 3.99 L Hgb 11.9 L Hct 34.9 L MCV 87.5 MCH 29.8 MCHC 34.1 RDW Std Deviation 51.7 H RDW Coeff of Cali 16.1 H Plt Count 33 L MPV 10.7 Immature Gran % (Auto) 0.3 Neut % (Auto) 53.4 Lymph % (Auto) 34.1 Bulloch % (Auto) 7.3 Eos % (Auto) 4.2 Baso % (Auto) 0.7 Neut # (Auto) 1.53 Lymph # (Auto) 0.98 L Bulloch # (Auto) 0.21 Eos # (Auto) 0.12 Baso # (Auto) 0.02 Immature Gran # (Auto) 0.01 RBC Morphology Unremarkable Peripher Smr Path Cons PT 15.3 H INR 1.5 H Sodium 134 L Potassium 3.8 Chloride 104 Carbon Dioxide 23 Anion Gap 7 BUN 8 Creatinine 0.71 Est Cr Clr Drug Dosing 145.9 eGFR 121.94 BUN/Creatinine Ratio 11.3 Glucose 97 Calcium 8.3 L Magnesium 1.5 L Total Bilirubin 5.1 H AST 132 H ALT 38 Alkaline Phosphatase 85 Total Protein 6.1 Albumin 3.8 Globulin 2.3 L Albumin/Globulin Ratio 1.7 PG Care Time/CCT Total # of Minutes Spent Total Time Spent with Patient: Total time spent is greater than 50% in coordination of care (as documented) at patient's floor/unit and/or counseling patient: Coding Level of Care Code 02509 SUB INP/OBS CARE 2/35MIN Diagnoses Coffee ground emesis K92.0 Low grade fever R50.9 Esophageal varices I85.00 Esophageal varices bleeding: without bleeding Esophageal varices type: unspecified type Alcoholic cirrhosis of liver K70.30 Ascites presence: unspecified Hypomagnesemia E83.[address] scan, esophagus R93.3 Pancytopenia D61.818 Thrombocytopenia D69.6 Depression F32.9 Anxiety F41.9 (3) Esophageal varices Esophageal varices bleeding: without bleeding Esophageal varices type: unspecified type Qualified Code(s): I85.00 - Esophageal varices without bleeding (4) Alcoholic cirrhosis of liver Ascites presence: unspecified Qualified Code(s): K70.30 - Alcoholic cirrhosis of liver without ascites
[2025-05-01 06:18] LABS: Hematocrit (blood only) 35.8 % (42.0-52.0); Hemoglobin 12.3 g/dl (14.0-18.0); Immature Granulocytes # (auto) 0.01 K/uL (0.01-0.20); Immature Granulocytes % (auto) 0.4 %; Mean Corpuscular Hemoglobin 30.4 pg (25.0-34.0); Mean Corpuscular Volume 88.6 fL (80.0-100.0); Platelet Count 35 K/uL (130-400); RDW Standard Deviation 53.6 fL (36.4-46.3); Red Blood Count 4.04 M/uL (4.70-6.10); White Blood Count 2.78 K/ul (4.8-10.8)
[2025-05-01 06:35] LABS: Alanine Aminotransferase 37.0 U/L (7-52); Albumin Globulin Ratio 1.5 (0.9-2); Alkaline Phosphatase 92.0 U/L (34-104); Anion Gap 6.0 (3-11); Bilirubin,Total 4.7 mg/dl (0.2-1.0); Blood Urea Nitrogen 7.0 mg/dl (6-23); Calcium 8.3 mg/dl (8.6-10.3); Carbon Dioxide 24.0 mmol/L (21-32); Chloride 105.0 mmol/L (98-107); Creatinine Clr Calc Pharmacy 155.4 ml/min; Globulin 2.4 gm/dl (2.5-4.0); Glucose 99.0 mg/dl (70-99(Fasting)); Magnesium 1.7 mg/dl (1.7-2.4); Potassium 3.9 mmol/L (3.5-5.1); Sodium 135.0 mmol/L (136-145); Total Protein 6.1 gm/dl (6.0-8.3)
[2025-05-01 07:16] VITALS: RESP 18
--- NOTE | 2025-05-01 09:48 | Gastroenterology Progress Note ---
Date of Service May 01, 2025 Assessment & Plan (1) Coffee ground emesis: Plan: Seems stable. No reason from my standpoint that he cannot advance his diet. Admission and Anticipated Discharge Date Admission Date: April 28, 2025 Subjective no more emesis. Not having BM's. Would like to eat. H/H are climbing although platelets remain low Physical Exam Physical Exam: Pleasant, in no distress Results & Data Vital Signs (Past 12 Hours) Vital Signs Temp Pulse Resp BP Pulse Ox O2 Del Method 05/01/25 07:15 36.6 C 78 18 127/71 98 Room Air 05/01/25 03:52 36.4 C L 68 16 133/77 97 Room Air 04/30/25 23:10 36.8 C 73 16 123/72 98 Room Air
[2025-05-01] MEDS: MAGNESIUM SULFATE / D5W 1 GM/100 ML BAG IV ONE (10:47)
--- NOTE | 2025-05-01 13:06 | Hospitalist Progress Note ---
Date of Service May 01, 2025 Assessment & Plan (1) Coffee ground emesis: (2) Low grade fever: (3) Esophageal varices: (4) Alcoholic cirrhosis of liver: (5) Hypomagnesemia: (6) Abnormal CT scan, esophagus: (7) Pancytopenia: (8) Thrombocytopenia: (9) Depression: (10) Anxiety: Plan 34yo male with known cirrhosis (due to prior alcohol abuse +/- NAFLD vs other?), esophageal varices, and anxiety/depression presented with 1-2 days of feeling unwell, vomiting after eating breakfast on 04/27, 10+ episodes of vomiting evening of 04/27, then the development of coffee-ground emesis x 1 on AM of 04/26. No hematemesis. No melena stool. No BRBPR. #coffee-ground emesis, concern for UGI bleeding - resolved, has not recurred - -1 event at home prior to coming to [facility] -differential - gastritis vs esophagitis vs variceal bleeding (possible, but not highly suspected) vs PUD vs other -H/H remain stable -remains on octreotide drip as previous EGD several years ago showed varices (but current illness not likely to be variceal) -remains on PPI drip -can stop both drips -change to protonix 40mg PO BID -advance diet to 2-gram salt restricted diet -GI was planning EGD, but due to severely low platelets the EGD was deferred -continue rocephin 2gm daily for now; day #4 of 5 - to cover for possibility this was variceal bleed #cirrhosis with h/o esophageal varices - -h/o alcoholism; cirrhosis has been suspected to be alcohol-induced; can't rule out NAFLD but much less likely; uncertain if he ever had other work-up (ceruloplasmin, Fe studies, SPEP, etc); prior hepatitis studies negative (B, C) -remains compensated -hold diuretics until tomorrow -with evidence of portal HTN he should be on non-selective beta oniel; start later in the stay if BP can tolerate #low-grade fever - present on admission - resolved/has not recurred - -Tm 37.6 upon ER presentation but no fevers since then -checked COVID/flu/RSV --> negative -nothing infectious on CT a/p -rocephin 2gm IV daily in the setting of upper GI bleeding and h/o varices; dose #4 of 5 today #pancytopenia with severe thrombocytopenia - -likely due to hypersplenism/splenomegaly -can't rule out other factors (superimposed viral process, tick-borne disease, nutritional deficiency, etc) -platelets have dropped considerably from previous baseline levels -patient consistently states he is no longer drinking etoh (none in 2 years?) -platelets low but stable in the 30s -H/H stable -EGD deferred due to the drop in platelets -GI asked heme/onc to see in consult for the worsening platelets; heme/onc feels thrombocytopenia is due to hypersplenism/splenomegaly from his cirrhosis; no further w/u needed -repeat CBC in am for stability #abnormal LFTs - -acute/chronic elevations including bilirubin -acute component improved & stable; bilirubin has trended down nicely -denies etoh, although his AST:ALT ratio upon admit was 2:1... -[id number] his transaminases are improving w/ supportive Rx #hypomagnesemia - -s/p copious replacement -Mag level 1.7 today -give 1 additional gram of mag sulfate IV then no further IV mag #anxiety/depression - -cont fluoxetine #abnormal esophagus on CT scan - -esophageal inflammation seen on CT suggestive of esophagitis -PPI - change drip to protonix 40mg BID -GI consult for consideration of EGD - but deferred due to platelets -perhaps EGD as outpatient in near-future #hypercalcemia - -likely was lab error; total calcium was 11.5 upon admit, quickly normalized without intervention #hypokalemia - -replaced/resolved #DVT proph - -chemical means contraindicated due to UGI bleeding and low platelets -he is ambulating well appreciate GI assistance likely can d/c home AM of 05/02 Admission and Anticipated Discharge Date Admission Date: April 28, 2025 Subjective no events overnight tele wnl - NSR ambulating w/o difficulty he feels well denies nausea, emesis, coffee-ground emesis, abd pain, or diarrhea/melena in fact no stools since admission eating well and tolerating full liquids he is hungry Review of Systems Review of Systems: gen - no fevers pulm - no dyspnea CV - no orthopnea Physical Exam Physical Exam: gen - lying in bed, NAD, looks great HENT - MMM neck - no JVD heart - RRR, s1 s2, 2/6 EPIFANIO LLSB lungs - CTA b/l abd - soft, NT, spleen palpable, BS+, ND, no ascites ext - trace edema b/l ankles, pulses 2+ b/l psych - a/o x 3 Results & Data Results & Data Vital Signs (Past 12 Hours) Vital Signs Temp Pulse Resp BP Pulse Ox O2 Del Method 05/01/25 12:22 36.6 C 88 18 132/74 98 Room Air 05/01/25 07:15 36.6 C 78 18 127/71 98 Room Air 05/01/25 03:52 36.4 C L 68 16 133/77 97 Room Air Laboratory Results Laboratory Results - last 24 hr 05/01/25 06:00 WBC 2.78 L RBC 4.04 L Hgb 12.3 L Hct 35.8 L MCV 88.6 MCH 30.4 MCHC 34.4 RDW Std Deviation 53.6 H RDW Coeff of Cali 16.5 H Plt Count 35 L MPV 10.2 Immature Gran % (Auto) 0.4 Neut % (Auto) 53.6 Lymph % (Auto) 29.5 Wright % (Auto) 10.4 Eos % (Auto) 5.4 Baso % (Auto) 0.7 Neut # (Auto) 1.49 Lymph # (Auto) 0.82 L Wright # (Auto) 0.29 Eos # (Auto) 0.15 Baso # (Auto) 0.02 Immature Gran # (Auto) 0.01 Sodium 135 L Potassium 3.9 Chloride 105 Carbon Dioxide 24 Anion Gap 6 BUN 7 Creatinine 0.67 Est Cr Clr Drug Dosing 155.4 eGFR 124.10 BUN/Creatinine Ratio 10.4 Glucose 99 Calcium 8.3 L Magnesium 1.7 Total Bilirubin 4.7 H AST 109 H ALT 37 Alkaline Phosphatase 92 Total Protein 6.1 Albumin 3.7 Globulin 2.4 L Albumin/Globulin Ratio 1.5 PG Care Time/CCT Total # of Minutes Spent Total Time Spent with Patient: Total time spent is greater than 50% in coordination of care (as documented) at patient's floor/unit and/or counseling patient: Coding Level of Care Code 04167 SUB INP/OBS CARE 2/35MIN Diagnoses Coffee ground emesis K92.0 Low grade fever R50.9 Esophageal varices I85.00 Esophageal varices bleeding: without bleeding Esophageal varices type: unspecified type Alcoholic cirrhosis of liver K70.30 Ascites presence: unspecified Hypomagnesemia E83.[address] scan, esophagus R93.3 Pancytopenia D61.818 Thrombocytopenia D69.6 Depression F32.9 Anxiety F41.9 (3) Esophageal varices Esophageal varices bleeding: without bleeding Esophageal varices type: unspecified type Qualified Code(s): I85.00 - Esophageal varices without bleeding (4) Alcoholic cirrhosis of liver Ascites presence: unspecified Qualified Code(s): K70.30 - Alcoholic cirrhosis of liver without ascites
[2025-05-02 03:46] VITALS: TEMP 97.9
[2025-05-02 07:21] LABS: Hematocrit (blood only) 35.9 % (42.0-52.0); Hemoglobin 12.6 g/dl (14.0-18.0); Mean Corpuscular Hemoglobin 30.7 pg (25.0-34.0); Mean Corpuscular Volume 87.6 fL (80.0-100.0); Platelet Count 43 K/uL (130-400); RDW Standard Deviation 53.1 fL (36.4-46.3); Red Blood Count 4.10 M/uL (4.70-6.10); White Blood Count 2.81 K/ul (4.8-10.8)
[2025-05-02 08:06] VITALS: BP 124/72; PULSE 65; O2SAT 99
[2025-05-02] MEDS: PROPRANOLOL HCL 10 MG TAB PO SCH (08:39)
[2025-05-02] MEDS: MAGNESIUM CHLORIDE W/CALCIUM 64MG DELAYED REL TAB PO SCH (09:47)
--- NOTE | 2025-05-02 10:37 | Discharge Summary ---
Discharge Summary Date of Service date of admission - April 28, 2025 date of discharge - May 02, 2025 Principal Dx & Hospital Course #1 = Principal Diagnosis (1) Coffee ground emesis: (2) Low grade fever: (3) Esophageal varices: (4) Alcoholic cirrhosis of liver: (5) Hypomagnesemia: (6) Abnormal CT scan, esophagus: (7) Pancytopenia: (8) Thrombocytopenia: (9) Depression: (10) Anxiety: Plan 34yo male with known cirrhosis (due to prior alcohol abuse +/- NAFLD vs other?), esophageal varices, and anxiety/depression presented with 1-2 days of feeling unwell, vomiting after eating breakfast on 04/27, 10+ episodes of vomiting evening of 04/27, then the development of coffee-ground emesis x 1 on AM of 04/26. No hematemesis. No melena stool. No BRBPR. #coffee-ground emesis, concern for UGI bleeding - resolved, did not recur - -1 event at home prior to coming to [facility] -differential - gastritis vs esophagitis vs variceal bleeding (possible, but not highly suspected) vs PUD vs other -Hemoglobin remained stable throughout the stay -admission hemoglobin - 14.3 -discharge hemoglobin - 12.6 -was on octreotide drip as previous EGD several years ago showed varices (but current illness not likely to be variceal) as well as PPI drip -[facility] was consulted -plan was for EGD to locate the source of bleeding however Mr Turk's platelet count dropped into the 30s -EGD was cancelled due to severe thrombocytopenia as well as the fact that he had no recurrent hematemesis, coffee-ground emesis, melena stool or BRBPR -in the small chance his bleeding was variceal in etiology he did receive 5 days of IV rocephin -he was ultimately resumed on clear liquid diet and this was advanced without difficulty -octreotide/PPI drips were stopped, and he was converted to oral PPI twice daily -at discharge he was asked to continue protonix 40mg BID and f/u with [facility] office for outpatient EGD #cirrhosis with h/o esophageal varices - -h/o alcoholism; cirrhosis has been suspected to be alcohol-induced; can't rule out NAFLD but much less likely; HepA, HepB, and HepC all negative; ferritin/transferrin sat both normal making hemochromatosis unlikely -was compensated throughout the hospitalization -with evidence of portal HTN he should be on non-selective beta oniel; at discharge started propranolol 10mg BID -f/u with [facility] post-discharge -he will resume his typical diuretics - furosemide 40mg qam + spironolactone 100mg qam -continue lactulose BID as previous #low-grade fever - present on admission - resolved/did not recur - -Tm 37.6 upon ER presentation but no fevers since then -checked COVID/flu/RSV --> negative -nothing infectious on CT a/p -lyme screen negative -anaplasmosis DNA negative -ehrlichia testing negative -rocephin 2gm IV daily was given in the setting of upper GI bleeding and h/o varices; received 5 doses -no antibiotics were given at discharge #pancytopenia with severe thrombocytopenia - -likely due to hypersplenism/splenomegaly -can't rule out other factors (superimposed viral process, tick-borne disease, nutritional deficiency, etc) but unlikely -platelets have dropped considerably from previous baseline levels -patient consistently states he is no longer drinking etoh (none in 2 years?) -platelets were 170s in May 2024 -presenting platelet level was 63; dropped to low 30s during the hos pitalization; then increased modestly at discharge to 43 -peripheral smear did not show TTP features, etc. -seen by hematology - again pancytopenia/thrombocytopenia felt 2nd to splenomeg chasity from cirrhosis -B12/Folate both wnl #abnormal LFTs - -acute/chronic elevations including bilirubin -acute component improved & stable; bilirubin trended down nicely from total bilirubin of 7.5 down to 4.7 at discharge -denies etoh usage, although his AST:ALT ratio upon admit was 2:1 -[id number] his transaminases improved with supportive Rx alone #hypomagnesemia - presenting level 1.3 - -required copious IV replacement while here -Mag level 1.7 at discharge -at discharge advised magnesium oxide 400mg BID upon transition home #abnormal esophagus on CT scan - -esophageal inflammation seen on CT abd/pelvis suggestive of esophagitis -GI consulted for consideration of EGD - but deferred due to platelets -hopefully can perform EGD as outpatient in near-future -continue protonix 40mg BID upon transition home #hypokalemia - -replaced/resolved #hypercalcemia - -likely was lab error; total calcium was 11.5 upon admit, quickly normalized without any specific intervention #anxiety/depression - -cont fluoxetine Notes For Next Care Provider 1. repeat CBC w/ diff in 5 days post-discharge for stability 2. needs f/u with [facility] post-discharge to discuss EGD, etc. Medication Changes From Visit 1. propranolol 10mg BID 2. protonix 40mg BID 3. mag oxide 400mg BID 4. furosemide 40mg daily 5. spironolactone 100mg daily Admission HPI Per Admitting Provider 34yo male with known cirrhosis (due to prior alcohol abuse +/- NAFLD vs other?), known esophageal varices, and anxiety/depression presents with 1-2 days of feeling unwell, vomiting after eating breakfast on 04/27, 10+ episodes of vomiting evening of 04/27, then the development of coffee-ground emesis x 1 this morning. No hematemesis. No melena stool. No BRBPR. He has had stomach discomfort & cramps mainly in the upper abdomen. Since arrival to the ER he has had no further coffee-ground vomiting. In addition to the above he reports he had a frontal headache all day yesterday, chills last pm, low-grade fever this morning, and fatigue. Denies any travel or sick contacts. Discharge Exam gen - lying in bed, NAD, looks great HENT - MMM eyes - minimal icterus neck - no JVD heart - RRR, s1 s2, 2/6 EPIFANIO LLSB lungs - CTA b/l abd - soft, NT, spleen palpable, BS+, ND, no ascites ext - trace edema b/l ankles, pulses 2+ b/l psych - a/o x 3 neuro - no asterixis Discharge Plan Discharge Items Patient Disposition: Home - Self-Care Reason For Visit: UPPER GI BLEEDING, CIRRHOSIS Discharge Diagnosis: 1. severe vomiting with 1 episode of "coffee-ground" vomiting - resolved 2. upper gastrointestinal bleeding - resolved 3. esophagitis as seen on CT scan - symptoms improved 4. cirrhosis of the liver with esophageal varices 5. severely low magnesium - resolved 6. low potassium - resolved 7. 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 Typically when someone sees dark or even black vomit it is usually due to bleeding either from the esophagus or the stomach. Following admission you were placed on IV acid reducers and your diet was restricted. Blood counts were followed to ensure that any GI bleeding was resolving. Your hemoglobin (red cells) remained stable which suggested that the upper GI bleeding had resolved. You were followed by gastroenterology during the hospitalization. They were planning to do upper endoscopy (EGD) to locate the source of bleeding but it was canceled due to your platelets being low. The platelet count dropped to about 30 at its lowest. The count is slowly trending up and your platelets today, 05/02/25, are now 43. Discharge hemoglobin (red cell level) is 12.6. Your liver tests were all elevated upon admission and these have trended down during your stay. Finally, you received IV & oral magnesium/potassium supplementation to correct low levels of these electrolytes. The levels are back to normal. Recommendations - 1. take pantoprazole 40mg twice daily every day (AM and bedtime). This is an acid physical therapy attendant to prevent re-bleeding, treat the suspected esophagitis seen on CT scan of your abdomen (see handout on esophagitis), treat reflux, etc. 2. increase your magnesium supplement to twice daily dosing. 3. start propranolol 10mg twice daily every day (AM and bedtime). This medicine is actually a blood pressure medicine but it is traditionally used for those with cirrhosis who have esophageal varices (see handout on varices). The propranolol reduces the risk of bleeding from esophageal varices. 4. diuretics - to prevent fluid build-up from your cirrhosis - * take furosemide 40mg each morning * take spironolactone 100mg each morning 5. diet - * for the next week or so follow a "bland diet" - see handout * indefinitely, please follow a 2-gram salt restricted diet (no more than 2000mg in 24 hours) - see handout 6. follow-up with [facility] within 1-2 weeks for your liver 7. follow-up with your family doctor within 1 week; you will need repeat blood work including CBC, electrolytes (potassium, magnesium), and kidney function level 8. TYLENOL is ok for aches/pains. You may take up to 2000mg in a 24-hour period. Do not exceed 2000mg. 9. AVOID the following at all times - * aspirin * motrin/ibuprofen * naprosyn/aleve * goodie powders * BC powders Return to [facility] if - * you have fever over 100 degrees * you have severe vomiting * you have coffee-ground material in your vomit or bright red blood in your vomit * you have dark stools consistently, black stools consistently, or bright red blood in your stools * you have abdominal pains * you have significant dizziness or lightheadedness * any other concerns It was our pleasure to care for you! -Riu Owen, hospital medicine Pending Studies at Discharge: Yes Studies:: multiple labs for your liver Stand-Alone Forms: [facility], Smoking Cessation Medications and DC Order Prescriptions: New propranolol 10 mg Tablet 10 mg PO BID Qty: 60 1RF Rx Instructions: for your liver pantoprazole 40 mg Tablet,Delayed Release (Dr/Ec) 40 mg PO BID Qty: 60 1RF Continued fluoxetine 20 mg capsule 20 mg PO HS multivitamin [Daily-Danny] Tablet 1 tab PO HS lactulose 10 gram/15 mL solution 15 ml PO BID Rx Instructions: IF MORE THAN 4 BM'S, HOLD 1 DOSE. potassium chloride [Klor-Con M20] 20 mEq Tablet,Er Particles/Crystals 20 meq PO AMHS cholecalciferol (vitamin D3) [Vitamin D3] 25 mcg (1,000 unit) Tablet 50 mcg PO 3XWK Rx Instructions: saturday,saturday and saturday bedtime Changed furosemide 40 mg tablet 40 mg PO QAM Qty: 0 0RF spironolactone 100 mg tablet 100 mg PO QAM Qty: 0 0RF magnesium oxide 400 mg magnesium Tablet 400 mg PO BID Qty: 0 0RF Discharge Orders: Discharge Order (Routine); Ordered 05/02/25 Ordered By: Rui Thakkar/Other Patient Handouts: Propranolol Oral Tablet, Pantoprazole Delayed Release Oral Tablet, Esophagitis, Esophageal Varices, Soft [place] Diet Dc, Low Salt Diet Dc Admission Data Admit Date/Time: 04/28/25 14:14 Attending Provider: Rui Owen Admit Provider: Rui Owen Primary Care Provider: Kathleen Key Other Providers: Kavin Bacon; Jill Enriquez; Clay,No Attending; Muna Grayson Jr Other Interventions: Discharge Summary Assessment (RN) Last Done: 05/02/25 10:53 Hospital Stay Data Consultations Gastroenterology Routine Hematology Routine Diagnostic Imagining Performed Chest X-Ray 04/28/25 09:43 XR chest 1V portable CLINICAL HISTORY: vomiting COMPARISON STUDY: 06/10/2024 FINDINGS: Heart size and pulmonary vasculature are normal. No consolidation or pleural effusion. No pneumothorax. IMPRESSION: No acute findings. ACT 112: Negative or not required by law. Electronically signed by: Jalil Aden M.D. 04/28/2025 10:17 AM Abdomen/Pelvis CT 04/28/25 10:[address] WITH IV CONTRAST CT DOSE: 879.84 mGy.cm HISTORY: Acute generalized abdominal pain with cirrhosis and vomiting abd pain, coffee ground emesis, cirrhosis TECHNIQUE: Multiaxial CT images of the abdomen and pelvis were performed following the IV administration of 94 cc of Optiray, A dose lowering technique was utilized adhering to the principles of ALARA. COMPARISON STUDY: CT 06/09/2024 FINDINGS: Study is degraded by respiratory motion. Clear lung bases. No pneuma tosis or pneumoperitoneum. Spleen is again enlarged measuring up to 17 cm, previously 19 cm. Unremarkable pancreas, gallbladder and adrenal glands. Cirrhotic liver with advanced graphic hepatic steatosis. The portal vein appears patent. Recanalization of the umbilical vein. Numerous abdominal pelvic varicosities redemonstrated which includes periesophageal varicosities with moderate distal esophageal wall thickening. Small hiatal hernia. Unremarkable kidneys without hydronephrosis. Small ill-defined area of slightly decreased enhancement of the superior pole right kidney, image 11 series 3 m easuring approximately 1.8 cm. Decompressed bladder with mild wall thickening. Borderline enlarged prostate. No abdominal aortic aneurysm or lymphadenopathy. Colonic diverticulosis without acute diverticulitis. Normal appendix. No acute fracture or destructive bone lesion. There is decreased inflammation within the mesentery compared to the prior study. No ascites. IMPRESSION: 1. Cirrhosis with hepatic steatosis. Stigmata of portal venous hypertension include splenomegaly with abdominal pelvic varicosities. 2. Small hiatal hernia with esophageal wall thickening and esophageal varicosi ties. 3. No bowel obstruction or bowel wall thickening. 4. Small area of ill-defined decreased enhancement within the superior pole right kidney. Correlate with urinalysis to exclude pyelonephritis. ACT 112: Negative or not required by law. The above report was generated using voice recognition software. It may contain grammatical, syntax or spelling errors. Electronically signed by: Shaan Koroma M.D. 04/28/2025 11:05 AM Pending Results Patient Have Any Pending Studies at Discharge: Yes Discharge Instructions Given to Patient (Per Discharging Provider) Mr Turk, Chao were hospitalized due to severe vomiting, headache, dehydration, low-grade fever, and 1 episode of "coffee-ground" vomiting. Typically when someone sees dark or even black vomit it is usually due to bleeding either from the esophagus or the stomach. Following admission you were placed on IV acid reducers and your diet was restricted. Blood counts were followed to ensure that any GI bleeding was resolving. Your hemoglobin (red cells) remained stable which suggested that the upper GI bleeding had resolved. You were followed by gastroenterology during the hospitalization. They were planning to do upper endoscopy (EGD) to locate the source of bleeding but it was canceled due to your platelets being low. The platelet count dropped to about 30 at its lowest. The count is slowly trending up and your platelets today, 05/02/25, are now 43. Discharge hemoglobin (red cell level) is 12.6. Your liver tests were all elevated upon admission and these have trended down during your stay. Finally, you received IV & oral magnesium/potassium supplementation to correct low levels of these electrolytes. The levels are back to normal. Recommendations - 1. take pantoprazole 40mg twice daily every day (AM and bedtime). This is an acid physical therapy attendant to prevent re-bleeding, treat the suspected esophagitis seen on CT scan of your abdomen (see handout on esophagitis), treat reflux, etc. 2. increase your magnesium supplement to twice daily dosing. 3. start propranolol 10mg twice daily every day (AM and bedtime). This medicine is actually a blood pressure medicine but it is traditionally used for those with cirrhosis who have esophageal varices (see handout on varices). The propranolol reduces the risk of bleeding from esophageal varices. 4. diuretics - to prevent fluid build-up from your cirrhosis - * take furosemide 40mg each morning * take spironolactone 100mg each morning 5. diet - * for the next week or so follow a "bland diet" - see handout * indefinitely, please follow a 2-gram salt restricted diet (no more than 2000mg in 24 hours) - see handout 6. follow-up with [facility] within 1-2 weeks for your liver 7. follow-up with your family doctor within 1 week; you will need repeat blood work including CBC, electrolytes (potassium, magnesium), and kidney function level 8. TYLENOL is ok for aches/pains. You may take up to 2000mg in a 24-hour period. Do not exceed 2000mg. 9. AVOID the following at all times - * aspirin * motrin/ibuprofen * naprosyn/aleve * goodie powders * BC powders Return to [facility] if - * you have fever over 100 degrees * you have severe vomiting * you have coffee-ground material in your vomit or bright red blood in your vomit * you have dark stools consistently, black stools consistently, or bright red blood in your stools * you have abdominal pains * you have significant dizziness or lightheadedness * any other concerns It was our pleasure to care for you! -Rui Owen, [facility] medicine Total Time Total Time Spent Total Time Spent (In Minutes): 45 Coding Level of Care Code 42292 INP/OBS DISCH >30 MIN Diagnoses Coffee ground emesis K92.0 Low grade fever R50.9 Esophageal varices I85.00 Esophageal varices bleeding: without bleeding Esophageal varices type: unspecified type Alcoholic cirrhosis of liver K70.30 Ascites presence: unspecified Hypomagnesemia E83.[address] scan, esophagus R93.3 Pancytopenia D61.818 Thrombocytopenia D69.6 Depression F32.9 Anxiety F41.9
[2025-05-04 21:22] LABS: Hepatitis A Antibody IgM NON-REACTIVE (NON-REACTIVE); Hepatitis B Core Antibody IgM NON-REACTIVE (NON-REACTIVE)
== END 2025-05-02 10:54 | disposition home or self-care (01) | DRG 378 ==
LOC: ED 09:35 → EDINP 14:14 → INTOOBSV 14:14 → 2E 17:29